=== PATIENT | female | born 1995 | race Caucasian/White ===

== ENCOUNTER 2021-01-21 14:54 | Emergency (ER) | payer OTHER, MEDICAID, SELFPAY ==
[2021-01-21] VITALS (11 sets, daily range): BP systolic 103–126; BP diastolic 55–78; PULSE 60–87; RESP 14; TEMP 36.9; O2SAT 92–99; BMI 19.2
--- NOTE | 2021-01-21 15:04 | ED_ITS ---
HPI - Abdominal Pain <Kameron Mark DO - Last Filed: 01/21/21 15:30> General Chief Complaint: Abdominal Pain Stated Complaint: stomach issues, not able to keep anything down Time Seen by Provider: 01/21/21 15:04 Related Data Allergies Allergy/AdvReac Type Severity Reaction Status Date / Time No Known Drug Allergies Allergy Verified 01/21/21 15:18 Patient History <DO Aaron Patel Last Filed: 01/21/21 15:30> Social History Smoking Status: Unknown if ever smoked Exam <Kameron Mark DO - Last Filed: 01/21/21 15:30> Initial Vital Signs Initial Vital Signs: Vital Signs Temperature 98.4 F 01/21/21 15:05 Pulse Rate 78 01/21/21 15:05 Respiratory Rate 14 01/21/21 15:05 Blood Pressure 126/77 01/21/21 15:05 Pulse Oximetry 99 01/21/21 15:05 <Palmira Escobar MD - Last Filed: 01/21/21 17:32> Initial Vital Signs Initial Vital Signs: Vital Signs Temperature 98.4 F 01/21/21 15:05 Pulse Rate 78 01/21/21 15:05 Respiratory Rate 14 01/21/21 15:05 Blood Pressure 126/77 01/21/21 15:05 Pulse Oximetry 99 01/21/21 15:05 Course <Kameron Mark DO - Last Filed: 01/21/21 15:30> Orders Ordered: ED Orders 01/21/21 15:25 Complete Blood Count AUTO DIFF Stat Comprehensive Metabolic Panel Stat Lipase Stat Magnesium Stat Phosphorous Stat 01/21/21 15:41 CT abdomen pelvis w con Stat Hydromorphone HCl (Hydromorphone 0.5 Mg Inj) 0.5 mg IV Q15MIN PRN PRN Reason: Pain, Discontinued Medications Sodium Chloride (Normal Saline 0.9%) 1,000 mls @ 1,000 mls/hr IV BOLUS ONE Stop: 01/21/21 16:15 Last Admin: 01/21/21 15:31 Dose: 1,000 mls/hr Documented by: RSTONE Metoclopramide HCl (Metoclopramide 10 Mg/2 Ml Inj) 10 mg IV NOW ONE Stop: 01/21/21 15:17 Last Admin: 01/21/21 15:31 Dose: 10 mg Documented by: POLLY Vital Signs Vital signs: Vital Signs - 8 hr 01/21/21 15:05 Temperature 98.4 F Pulse Rate 78 Respiratory Rate 14 Blood Pressure 126/77 Pulse Oximetry 99 <Palmira Escobar MD - Last Filed: 01/21/21 17:32> Orders Ordered: ED Orders 01/21/21 15:25 Complete Blood Count AUTO DIFF Stat Comprehensive Metabolic Panel Stat Lipase Stat Magnesium Stat Phosphorous Stat 01/21/21 15:41 CT abdomen pelvis w con Stat Hydromorphone HCl (Hydromorphone 0.5 Mg Inj) 0.5 mg IV Q15MIN PRN PRN Reason: Pain, Discontinued Medications Sodium Chloride (Normal Saline 0.9%) 1,000 mls @ 1,000 mls/hr IV BOLUS ONE Stop: 01/21/21 16:15 Last Admin: 01/21/21 15:31 Dose: 1,000 mls/hr Documented by: POLLY Metoclopramide HCl (Metoclopramide 10 Mg/2 Ml Inj) 10 mg IV NOW ONE Stop: 01/21/21 15:17 Last Admin: 01/21/21 15:31 Dose: 10 mg Documented by: POLLY Vital Signs Vital signs: Vital Signs - 8 hr 01/21/21 15:05 Temperature 98.4 F Pulse Rate 78 Respiratory Rate 14 Blood Pressure 126/77 Pulse Oximetry 99 MDM - Abdominal Pain <Kameron Mark DO - Last Filed: 01/21/21 15:30> Lab Data Result diagrams: 01/21/21 15:25 01/21/21 15:25 Labs: Lab Results 01/21/21 01/21/21 01/21/21 Range/Units 15:25 15:25 15:25 WBC 5.7 (4.5-11.0) X10^3/uL RBC 4.68 (4.0-5.2) X10^6/uL Hgb 14.3 (12.0-16.0) g/dL Hct 42.1 (36-46) % MCV 89.8 (80-100) fL MCH 30.4 (26-34) PG MCHC 33.9 (30-36) % RDW 13.5 (11.6-14.8) % Plt Count 159 (150-400) X10^3/uL Neut % (Auto) 53.2 (50-75) % Lymph % (Auto) 38.0 (25-40) % [place] % (Auto) 6.1 (3-14) % Eos % (Auto) 2.0 (2-4) % Baso % (Auto) 0.7 (0-2) % Neut # (Auto) 3000 (6287-8288) /uL Lymph # (Auto) 2200 (2525-4190) /uL [place] # (Auto) 300 (0-900) /uL Eos # (Auto) 100 (0-450) /uL Baso # (Auto) 0 (0-100) /uL Sodium 142 (137-145) mmol/L Potassium 3.4 (3.4-5.1) mmol/L Chloride 105 (98-107) mmol/L Carbon Dioxide 27 (22-32) mmol/L BUN 9 (7-17) mg/dL Creatinine 0.74 (0.52-1.04) mg/dL Estimated GFR > 60.0 (>60) mL/min BUN/Creatinine Ratio 12.2 (6-22) Glucose 89 (70-100) mg/dL Calcium 9.5 (8.4-10.2) mg/dL Phosphorus (2.5-4.5) mg/dL Magnesium (1.6-2.3) mg/dL Total Bilirubin 0.6 (0.2-1.3) mg/dL AST 31 (14-36) IU/L ALT 20 (<35) IU/L Alkaline Phosphatase 67 (38-126) U/L Total Protein 7.4 (6.3-8.2) g/dL Albumin 4.5 (3.5-5.0) g/dL Globulin 2.9 (1.7-4.1) g/dL Albumin/Globulin Ratio 1.6 (1.0-2.8) Lipase 62 (23-300) U/L 01/21/21 Range/Units 15:25 WBC (4.5-11.0) X10^3/uL RBC (4.0-5.2) X10^6/uL Hgb (12.0-16.0) g/dL Hct (36-46) % MCV (80-100) fL MCH (26-34) PG MCHC (30-36) % RDW (11.6-14.8) % Plt Count (150-400) X10^3/uL Neut % (Auto) (50-75) % Lymph % (Auto) (25-40) % [place] % (Auto) (3-14) % Eos % (Auto) (2-4) % Baso % (Auto) (0-2) % Neut # (Auto) (8601-3711) /uL Lymph # (Auto) (9341-7676) /uL [place] # (Auto) (0-900) /uL Eos # (Auto) (0-450) /uL Baso # (Auto) (0-100) /uL Sodium (137-145) mmol/L Potassium (3.4-5.1) mmol/L Chloride (98-107) mmol/L Carbon Dioxide (22-32) mmol/L BUN (7-17) mg/dL Creatinine (0.52-1.04) mg/dL Estimated GFR (>60) mL/min BUN/Creatinine Ratio (6-22) Glucose (70-100) mg/dL Calcium (8.4-10.2) mg/dL Phosphorus 3.1 (2.5-4.5) mg/dL Magnesium 2.2 (1.6-2.3) mg/dL Total Bilirubin (0.2-1.3) mg/dL AST (14-36) IU/L ALT (<35) IU/L Alkaline Phosphatase (38-126) U/L Total Protein (6.3-8.2) g/dL Albumin (3.5-5.0) g/dL Globulin (1.7-4.1) g/dL Albumin/Globulin Ratio (1.0-2.8) Lipase (23-300) U/L Point of care testing: Point of Care Testing Test Results Negative Urine Dip Bedside Urine Glucose Negative Bedside Urine Bilirubin - Negative Bedside Urine Ketone - Negative Urine Specific [place] 1.025 Bedside Urine Occult Blood +/- Bedside Urine pH 6.0 Bedside Urine Protein - Negative Bedside Urine Urobilinogen - Negative Bedside Urine Nitrite - Negative Bedside Urine Leukocytes - Negative Esterase <Palmira Escobar MD - Last Filed: 01/21/21 17:32> Lab Data Labs: Lab Results 01/21/21 01/21/21 01/21/21 Range/Units 15:25 15:25 15:25 WBC 5.7 (4.5-11.0) X10^3/uL RBC 4.68 (4.0-5.2) X10^6/uL Hgb 14.3 (12.0-16.0) g/dL Hct 42.1 (36-46) % MCV 89.8 (80-100) fL MCH 30.4 (26-34) PG MCHC 33.9 (30-36) % RDW 13.5 (11.6-14.8) % Plt Count 159 (150-400) X10^3/uL Neut % (Auto) 53.2 (50-75) % Lymph % (Auto) 38.0 (25-40) % [place] % (Auto) 6.1 (3-14) % Eos % (Auto) 2.0 (2-4) % Baso % (Auto) 0.7 (0-2) % Neut # (Auto) 3000 (0275-9296) /uL Lymph # (Auto) 2200 (5506-9707) /uL [place] # (Auto) 300 (0-900) /uL Eos # (Auto) 100 (0-450) /uL Baso # (Auto) 0 (0-100) /uL Sodium 142 (137-145) mmol/L Potassium 3.4 (3.4-5.1) mmol/L Chloride 105 (98-107) mmol/L Carbon Dioxide 27 (22-32) mmol/L BUN 9 (7-17) mg/dL Creatinine 0.74 (0.52-1.04) mg/dL Estimated GFR > 60.0 (>60) mL/min BUN/Creatinine Ratio 12.2 (6-22) Glucose 89 (70-100) mg/dL Calcium 9.5 (8.4-10.2) mg/dL Phosphorus (2.5-4.5) mg/dL Magnesium (1.6-2.3) mg/dL Total Bilirubin 0.6 (0.2-1.3) mg/dL AST 31 (14-36) IU/L ALT 20 (<35) IU/L Alkaline Phosphatase 67 (38-126) U/L Total Protein 7.4 (6.3-8.2) g/dL Albumin 4.5 (3.5-5.0) g/dL Globulin 2.9 (1.7-4.1) g/dL Albumin/Globulin Ratio 1.6 (1.0-2.8) Lipase 62 (23-300) U/L 01/21/21 Range/Units 15:25 WBC (4.5-11.0) X10^3/uL RBC (4.0-5.2) X10^6/uL Hgb (12.0-16.0) g/dL Hct (36-46) % MCV (80-100) fL MCH (26-34) PG MCHC (30-36) % RDW (11.6-14.8) % Plt Count (150-400) X10^3/uL Neut % (Auto) (50-75) % Lymph % (Auto) (25-40) % [place] % (Auto) (3-14) % Eos % (Auto) (2-4) % Baso % (Auto) (0-2) % Neut # (Auto) (1710-9460) /uL Lymph # (Auto) (9285-0628) /uL [place] # (Auto) (0-900) /uL Eos # (Auto) (0-450) /uL Baso # (Auto) (0-100) /uL Sodium (137-145) mmol/L Potassium (3.4-5.1) mmol/L Chloride (98-107) mmol/L Carbon Dioxide (22-32) mmol/L BUN (7-17) mg/dL Creatinine (0.52-1.04) mg/dL Estimated GFR (>60) mL/min BUN/Creatinine Ratio (6-22) Glucose (70-100) mg/dL Calcium (8.4-10.2) mg/dL Phosphorus 3.1 (2.5-4.5) mg/dL Magnesium 2.2 (1.6-2.3) mg/dL Total Bilirubin (0.2-1.3) mg/dL AST (14-36) IU/L ALT (<35) IU/L Alkaline Phosphatase (38-126) U/L Total Protein (6.3-8.2) g/dL Albumin (3.5-5.0) g/dL Globulin (1.7-4.1) g/dL Albumin/Globulin Ratio (1.0-2.8) Lipase (23-300) U/L Point of care testing: Point of Care Testing Test Results Negative Urine Dip Bedside Urine Glucose Negative Bedside Urine Bilirubin - Negative Bedside Urine Ketone - Negative Urine Specific [place] 1.025 Bedside Urine Occult Blood +/- Bedside Urine pH 6.0 Bedside Urine Protein - Negative Bedside Urine Urobilinogen - Negative Bedside Urine Nitrite - Negative Bedside Urine Leukocytes - Negative Esterase
[2021-01-21 15:28] LABS: Add Manual Diff / Slide Review NO; Basophils Absolute Auto 0 /uL (0-100); Basophils Percent Auto 0.7 % (0-2); Eosinophils Absolute Auto 100 /uL (0-450); Hematocrit 42.1 % (36-46); Hemoglobin 14.3 g/dL (12.0-16.0); Lymphocytes Absolute Auto 2200 /uL (1100-4500); Mean Corpuscular HGB Conc 33.9 % (30-36); Mean Corpuscular Hemoglobin 30.4 PG (26-34); Mean Corpuscular Volume 89.8 fL (80-100); Monocytes Absolute Auto 300 /uL (0-900); Monocytes Percent Auto 6.1 % (3-14); Neutrophils Absolute Auto 3000 /uL (1500-7000); Neutrophils Percent Auto 53.2 % (50-75); Platelet Count 159 X10^3/uL (150-400); Red Blood Cell Count 4.68 X10^6/uL (4.0-5.2); Red Cell Distribution Width 13.5 % (11.6-14.8); White Blood Cell Count 5.7 X10^3/uL (4.5-11.0)
[2021-01-21] MEDS: SODIUM CHLORIDE 0.9% 1,000 ML 1000 ML IV (15:31)
[2021-01-21] MEDS: METOCLOPRAMIDE 10 MG/2 ML INJ IV (15:31)
--- NOTE | 2021-01-21 15:36 | ED.GENADULT ---
HPI - General Adult General Chief complaint: Abdominal Pain Stated complaint: stomach issues, not able to keep anything down Time Seen by Provider: 01/21/21 15:04 Source: patient Mode of arrival: Ambulatory Limitations: no limitations History of Present Illness HPI narrative: 25-year-old woman with progressive abdominal complaints. Her problems began in August of 2020 she was seen at [facility] emergency department 4 times in 1 and half weeks and each time was sent home with pain medications. She did have a CT scan sometime in August as part of that workup that was reportedly negative. She has since followed up with GI and has had HIDA studies, pH studies and upper endoscopy. The endoscopy suggests minor reflux changes in the lower esophagus and possibly some minor esophageal dysmotility issues but no other significant findings. Certainly not enough to explain the persistent severe epigastric pain. With previous ER visit she has had GI cocktails which have not been helpful in an in fact have made symptoms worse. She currently is on omeprazole Zofran trazodone and citalopram as well as Depo injections. She had been on Carafate however that was making things worse. Over the last 48 hours her pain is worsened and her nausea has progressed to the point that she is not able to keep any of her medications or even fluids down. She does note that she has lost significant weight. She is unsure of the actual weight loss but notes that none of her pants fit anymore. Her symptoms have progressed to the point that she is having generalized abdominal pain including the lower abdomen. She is amenorrheic from her Depo and test is negative today. She notes that her stools are significantly softer and greenish most of the time which is a significant change for her. She denies any other medications and does not use marijuana in any form. She has a follow-up appointment with Gastroenterology at [facility] in a couple of days to review studies as outlined above. In the meantime she comes to the ER for increasing pain, vomiting and now complete abdominal pain not just epigastric. Related Data Previous Rx's Medication Instructions Recorded metoclopramide HCl 10 mg PO Q6H #30 tab 01/21/21 Allergies Allergy/AdvReac Type Severity Reaction Status Date / Time No Known Drug Allergies Allergy Verified 01/21/21 15:18 Review of Systems Review of Systems Narrative: Remainder of complete review of systems is otherwise unremarkable except for that included in the HPI. Patient History Social History Smoking Status: Unknown if ever smoked Smoking Status: Unknown if ever smoked alcohol intake frequency: holidays/special occasions only Substance Use Type: does not use Exam Narrative Exam Narrative: General: Quite thin, in no acute distress. Able to give a complete and coherent history. Well-nourished well-developed HEENT: Moist mucous membranes, normal sclera with reactive pupils, Neck: supple Respiratory: Lungs are clear to auscultation, no wheezing no rales no rhonchi. Full and symmetrical air movement Cardiac: Regular rate and rhythm no murmurs no bruits Abdomen: Soft, diffuse abdominal tenderness in all quadrants without rebound or guarding, good bowel tones, no flank pain Skin: Warm and dry, no rashes Neurologic: Grossly neurologically intact with no obvious asymmetries or abnormalities Extremities: No trauma, well perfused Psych: Cooperative, appropriate insight and affect Initial Vital Signs Initial Vital Signs: Vital Signs Temperature 98.4 F 01/21/21 15:05 Pulse Rate 78 01/21/21 15:05 Respiratory Rate 14 01/21/21 15:05 Blood Pressure 126/77 01/21/21 15:05 Pulse Oximetry 99 01/21/21 15:05 Course Orders Ordered: ED Orders 01/21/21 15:25 Complete Blood Count AUTO DIFF Stat Comprehensive Metabolic Panel Stat Lipase Stat Magnesium Stat Phosphorous Stat 01/21/21 15:41 CT abdomen pelvis w con Stat 01/21/21 17:36 US abdomen limited Stat Hydromorphone HCl (Hydromorphone 0.5 Mg Inj) 0.5 mg IV Q15MIN PRN PRN Reason: Pain, Last Admin: 01/21/21 18:02 Dose: 0.5 mg Documented by: Discontinued Medications Sodium Chloride (Normal Saline 0.9%) 1,000 mls @ 1,000 mls/hr IV BOLUS ONE Stop: 01/21/21 16:15 Last Admin: 01/21/21 15:31 Dose: 1,000 mls/hr Documented by: RSTONE Metoclopramide HCl (Metoclopramide 10 Mg/2 Ml Inj) 10 mg IV NOW ONE Stop: 01/21/21 15:17 Last Admin: 01/21/21 15:31 Dose: 10 mg Documented by: POLLY Vital Signs Vital signs: Vital Signs - 8 hr 01/21/21 15:05 01/21/21 15:16 01/21/21 15:30 Temperature 98.4 F Pulse Rate 78 82 65 Respiratory Rate 14 Blood Pressure 126/77 109/67 Pulse Oximetry 99 98 98 01/21/21 16:00 01/21/21 17:04 01/21/21 17:05 Temperature Pulse Rate 60 85 64 Respiratory Rate Blood Pressure 103/59 L 103/62 Pulse Oximetry 99 92 99 01/21/21 17:30 Temperature Pulse Rate 73 Respiratory Rate Blood Pressure 109/61 Pulse Oximetry 99 Medical Decision Making Medical Records Medical records reviewed: Yes I reviewed the patient's medical records. Lab Data Lab results reviewed: Yes I reviewed the patient's lab results. Result diagrams: 01/21/21 15:25 01/21/21 15:25 Labs: Lab Results 01/21/21 01/21/21 01/21/21 Range/Units 15:25 15:25 15:25 WBC 5.7 (4.5-11.0) X10^3/uL RBC 4.68 (4.0-5.2) X10^6/uL Hgb 14.3 (12.0-16.0) g/dL Hct 42.1 (36-46) % MCV 89.8 (80-100) fL MCH 30.4 (26-34) PG MCHC 33.9 (30-36) % RDW 13.5 (11.6-14.8) % Plt Count 159 (150-400) X10^3/uL Neut % (Auto) 53.2 (50-75) % Lymph % (Auto) 38.0 (25-40) % [place] % (Auto) 6.1 (3-14) % Eos % (Auto) 2.0 (2-4) % Baso % (Auto) 0.7 (0-2) % Neut # (Auto) 3000 (1341-5244) /uL Lymph # (Auto) 2200 (1502-8303) /uL [place] # (Auto) 300 (0-900) /uL Eos # (Auto) 100 (0-450) /uL Baso # (Auto) 0 (0-100) /uL Sodium 142 (137-145) mmol/L Potassium 3.4 (3.4-5.1) mmol/L Chloride 105 (98-107) mmol/L Carbon Dioxide 27 (22-32) mmol/L BUN 9 (7-17) mg/dL Creatinine 0.74 (0.52-1.04) mg/dL Estimated GFR > 60.0 (>60) mL/min BUN/Creatinine Ratio 12.2 (6-22) Glucose 89 (70-100) mg/dL Calcium 9.5 (8.4-10.2) mg/dL Phosphorus (2.5-4.5) mg/dL Magnesium (1.6-2.3) mg/dL Total Bilirubin 0.6 (0.2-1.3) mg/dL AST 31 (14-36) IU/L ALT 20 (<35) IU/L Alkaline Phosphatase 67 (38-126) U/L Total Protein 7.4 (6.3-8.2) g/dL Albumin 4.5 (3.5-5.0) g/dL Globulin 2.9 (1.7-4.1) g/dL Albumin/Globulin Ratio 1.6 (1.0-2.8) Lipase 62 (23-300) U/L 01/21/21 Range/Units 15:25 WBC (4.5-11.0) X10^3/uL RBC (4.0-5.2) X10^6/uL Hgb (12.0-16.0) g/dL Hct (36-46) % MCV (80-100) fL MCH (26-34) PG MCHC (30-36) % RDW (11.6-14.8) % Plt Count (150-400) X10^3/uL Neut % (Auto) (50-75) % Lymph % (Auto) (25-40) % [place] % (Auto) (3-14) % Eos % (Auto) (2-4) % Baso % (Auto) (0-2) % Neut # (Auto) (5844-0586) /uL Lymph # (Auto) (0677-8340) /uL [place] # (Auto) (0-900) /uL Eos # (Auto) (0-450) /uL Baso # (Auto) (0-100) /uL Sodium (137-145) mmol/L Potassium (3.4-5.1) mmol/L Chloride (98-107) mmol/L Carbon Dioxide (22-32) mmol/L BUN (7-17) mg/dL Creatinine (0.52-1.04) mg/dL Estimated GFR (>60) mL/min BUN/Creatinine Ratio (6-22) Glucose (70-100) mg/dL Calcium (8.4-10.2) mg/dL Phosphorus 3.1 (2.5-4.5) mg/dL Magnesium 2.2 (1.6-2.3) mg/dL Total Bilirubin (0.2-1.3) mg/dL AST (14-36) IU/L ALT (<35) IU/L Alkaline Phosphatase (38-126) U/L Total Protein (6.3-8.2) g/dL Albumin (3.5-5.0) g/dL Globulin (1.7-4.1) g/dL Albumin/Globulin Ratio (1.0-2.8) Lipase (23-300) U/L Point of Care Testing Test Results Negative Urine Dip Bedside Urine Glucose Negative Bedside Urine Bilirubin - Negative Bedside Urine Ketone - Negative Urine Specific [place] 1.025 Bedside Urine Occult Blood +/- Bedside Urine pH 6.0 Bedside Urine Protein - Negative Bedside Urine Urobilinogen - Negative Bedside Urine Nitrite - Negative Bedside Urine Leukocytes - Negative Esterase Point of care testing: Point of Care Testing Test Results Negative Urine Dip Bedside Urine Glucose Negative Bedside Urine Bilirubin - Negative Bedside Urine Ketone - Negative Urine Specific [place] 1.025 Bedside Urine Occult Blood +/- Bedside Urine pH 6.0 Bedside Urine Protein - Negative Bedside Urine Urobilinogen - Negative Bedside Urine Nitrite - Negative Bedside Urine Leukocytes - Negative Esterase Imaging Data CT scan - abdomen/pelvis: Radiologist's Impression: FINDINGS: Image quality: Excellent. ABDOMEN: Lung bases: Lung bases are clear. Heart size is normal. Solid organs: Liver is normal in size and enhancement. Gallbladder is mildly distended with mild prominence of the gallbladder wall. Biliary system is non dilated. Pancreas enhances normally. Spleen is normal in size and enhancement. No adrenal nodules. Kidneys demonstrate normal size and enhancement, without hydronephrosis. Peritoneum and bowel: Bowel loops demonstrate normal wall thickness and caliber. No free fluid or air. Nodes and vessels: No retroperitoneal or mesenteric adenopathy by size criteria. Aorta and inferior vena cava are normal in size. Miscellaneous: No ventral hernias. PELVIS: Genitourinary: Bladder wall thickness is normal. Miscellaneous: No inguinal hernias or adenopathy. Bones: No suspicious bony lesions. No vertebral body compression fractures. IMPRESSION: Mildly distended gallbladder with mildly prominent gallbladder wall. Otherwise negative study. Consider right upper quadrant ultrasound. Dictated by: Brendan Connolly M.D. on 01/21/2021 at 16:43 Ultrasound right upper quadrant: Radiologist's Impression: FINDINGS: Liver: Homogeneous echotexture. No evidence of focal mass lesion. No intra hepatic biliary ductal dilatation Gallbladder: Sonolucent without cholelithiasis. No gallbladder wall thickening. No pericholecystic fluid or Gaines's sign. Common Bile Duct: 5 mm. Pancreas: Unremarkable as visualized IMPRESSION: Unremarkable ultrasound of the right upper quadrant Dictated by: Jer Be M.D. on 01/21/2021 at 17:14 MDM Narrative Medical decision making narrative: 25-year-old woman with 6 months of abdominal pain mostly epigastric and upper quadrants. She has had extensive workups with multiple ER visits. GI workup is relatively unremarkable with some mild reflux possible some mild esophageal dysmotility. HIDA scan was negative and presumably prior CT scans and abdominal ultrasounds are also negative. She states she has had the studies done and was told they were ?fine?. I do not have access to those at this point. She is currently on proton pump inhibitors. Carafate made her symptoms worse and every time she has had a GI cocktail it has not alleviated any of her abdominal pain. She comes in today with dramatically worsening pain over the last 3-4 days and severe nausea and vomiting unable to keep anything down and beginning to have orthostatic symptoms. On exam today she has right upper quadrant and lower abdominal pain. CT scan suggests slightly dilated gallbladder with possibly enlarged gallbladder wall. No mention of gallstones. Labs are completely reassuring. Her symptoms are better with a L of fluid and IV Reglan. Abdominal ultrasound is ordered to look at the gallbladder given the abnormal CT findings today. Because of the continued an increasing severity of her undiagnosed abdominal pain care is briefly reviewed with general surgery, Dr. Ruiz. If remainder of workup continues to be unremarkable he does agree that sometimes diagnostic laparoscopy is the next step. If ultrasound shows signs of cholecystitis will again review with Dr. Ruiz and consider hospitalization this evening. If the ultrasound is unremarkable with patient feeling significantly better will discharge her home with Reglan as it seems to be more effective for her than Zofran, with instructions to schedule an outpatient consultation with Dr. Ruiz for 6 months of undiagnosed abdominal pain. Discharge Plan Departure Patient Disposition: Home Clinical Impression: Abdominal pain Qualifiers: Abdominal location: generalized Qualified Code(s): R10.84 - Generalized abdominal pain Instructions: DI for Abdominal Pain-Adult Activity Restrictions/Additional Instructions: Thank you for coming in today I am so sorry your dealing with this frustration in figuring out what is causing this abdominal pain that is been there for 6 months. Today, your lab work was very reassuring. Your abdominal ultrasound did not suggest acute cholecystitis nor did it show any gallstones. The CT scan of your abdomen was unremarkable but did suggest a bit of gallbladder distension. You improved with IV fluid and IV Reglan, nausea medication. I will give you a prescription for oral Reglan to use at home to help with the nausea Please keep your appointment with the black leather buffer. If you still are not getting to answers, the next step in the workup of abdominal pain that continues to be undiagnosed is often talking with a general surgeon and considering an elective surgery to see if there is anything else that can be found. If you do want to pursue that, please consider following up with Dr. Ruiz at [facility]. I have given you his name and address below. I wish you the best Prescriptions: New metoclopramide HCl 10 mg tablet,disintegrating 10 mg PO Q6H Qty: 30 RF: 1 Referrals: Rina Montejo [Primary Care Provider] - Giorgio Ruiz MD [Physician] -
--- NOTE | 2021-01-21 15:41 | DI.CT.S_ITS ---
PROCEDURE: CT ABDOMEN PELVIS W CON INDICATIONS: progressive abdominal pain, persistent nausea, weight loss TECHNIQUE: After the administration of intravenous contrast, 5 mm thick sections acquired from the diaphragm to the symphysis. 5 mm coronal and sagittal reformats were acquired. For radiation dose reduction, the following was used: automated exposure control, adjustment of mA and/or kV according to patient size. COMPARISON: None. FINDINGS: Image quality: Excellent. ABDOMEN: Lung bases: Lung bases are clear. Heart size is normal. Solid organs: Liver is normal in size and enhancement. Gallbladder is mildly distended with mild prominence of the gallbladder wall. Biliary system is non dilated. Pancreas enhances normally. Spleen is normal in size and enhancement. No adrenal nodules. Kidneys demonstrate normal size and enhancement, without hydronephrosis. Peritoneum and bowel: Bowel loops demonstrate normal wall thickness and caliber. No free fluid or air. Nodes and vessels: No retroperitoneal or mesenteric adenopathy by size criteria. Aorta and inferior vena cava are normal in size. Miscellaneous: No ventral hernias. PELVIS: Genitourinary: Bladder wall thickness is normal. Miscellaneous: No inguinal hernias or adenopathy. Bones: No suspicious bony lesions. No vertebral body compression fractures. IMPRESSION: Mildly distended gallbladder with mildly prominent gallbladder wall. Otherwise negative study. Consider right upper quadrant ultrasound. Dictated by: Brendan Connolly M.D. on 01/21/2021 at 16:43 Approved by: Brendan Connolly M.D. on 01/21/2021 at 16:46
[2021-01-21 15:54] LABS: Alanine Aminotransferase 20 IU/L (<35); Albumin 4.5 g/dL (3.5-5.0); Albumin Globulin Ratio 1.6 (1.0-2.8); Alkaline Phosphatase 67 U/L (38-126); Aspartate Aminotransferase 31 IU/L (14-36); Bilirubin Total 0.6 mg/dL (0.2-1.3); Blood Urea Nitrogen 9 mg/dL (7-17); Calcium 9.5 mg/dL (8.4-10.2); Carbon Dioxide 27 mmol/L (22-32); Chloride 105 mmol/L (98-107); Globulin 2.9 g/dL (1.7-4.1); HEMOLYSIS < 15 (0-50); Lipase 62 U/L (23-300); Potassium 3.4 mmol/L (3.4-5.1); Sodium 142 mmol/L (137-145); Total Protein 7.4 g/dL (6.3-8.2)
[2021-01-21 16:10] LABS: BUN Creatinine Ratio 12.2 (6-22); Estimated Glomerular Filt Rate > 60.0 mL/min (>60); Glucose 89 mg/dL (70-100)
[2021-01-21 16:39] LABS: Magnesium 2.2 mg/dL (1.6-2.3); Phosphorous 3.1 mg/dL (2.5-4.5)
--- NOTE | 2021-01-21 17:36 | DI.US.S_ITS ---
PROCEDURE: US ABDOMEN LIMITED INDICATIONS: RUQ pain TECHNIQUE: Real-time focused scanning was performed of the abdomen, with image documentation. COMPARISON: None. FINDINGS: Liver: Homogeneous echotexture. No evidence of focal mass lesion. No intra hepatic biliary ductal dilatation Gallbladder: Sonolucent without cholelithiasis. No gallbladder wall thickening. No pericholecystic fluid or Gaines's sign. Common Bile Duct: 5 mm. Pancreas: Unremarkable as visualized IMPRESSION: Unremarkable ultrasound of the right upper quadrant Dictated by: Jer Be M.D. on 01/21/2021 at 17:14 Approved by: Jer Be M.D. on 01/21/2021 at 17:21
[2021-01-21] MEDS: HYDROMORPHONE 0.5 MG INJ IV (18:02)
== END 2021-01-21 19:06 | disposition home or self-care (01) ==
PROVIDERS: Emergency Provider Emergency Medicine; PCP Physician Assistant
DX: R10.84 Generalized abdominal pain (principal); R11.2 Nausea with vomiting, unspecified; N91.2 Amenorrhea, unspecified
CPT/HCPCS: 36415; 74177; 76705; 80053; 81003; 81025; 83690; 83735; 84100; 85025; 96361; 96374; 96375; 99284; J1170; J2765; Q9967

== ENCOUNTER → 2021-03-01 10:47 | Outpatient (CLI) | payer OTHER, MEDICAID, SELFPAY ==
[2021-03-01 11:35] LABS: COVID19 -Nasal RAPID Negative (Negative)
== END ==
PROVIDERS: PCP Physician Assistant; Visit Provider Surgery
DX: Z20.822 Contact with and (suspected) exposure to COVID-19 (principal)
CPT/HCPCS: 87635; C9803

== ENCOUNTER 2021-03-02 07:30 | Day surgery (SDC) | payer OTHER, MEDICAID, SELFPAY ==
[2021-02-23 15:12] VITALS: BMI 19.5
[2021-03-02] VITALS (7 sets, daily range): BP systolic 111–117; BP diastolic 59–76; PULSE 70–100; RESP 16–22; TEMP 36.3–36.7; O2SAT 97–99; BMI 19.5
[2021-03-02] MEDS: LACTATED RINGERS 1,000 ML 100 ML IV (08:00)
--- NOTE | 2021-03-02 08:39 | PM.PREOP ---
Pre-operative Note Interval Note History & Physical reviewed/Exam performed by Physician: Yes Changes to H&P: No
[2021-03-02] MEDS: CEFAZOLIN 1 GM VIAL 2 GM IV (09:10)
--- NOTE | 2021-03-02 09:18 | SUR.OPER ---
Supine on padded OR bed, head on pillow, safety belt at thigh, left arm padded and tucked at side. Right arm secured on padded arm board <90 degrees abduction. Legs uncrossed. Padded footboard in place. Tape over blanket to secure lower legs.
[2021-03-02] MEDS: BUPIVACAINE 0.5% (PF) VIAL 30 ML INJ (09:23)
[2021-03-02] MEDS: OXYCODONE/ACETAMINOPHEN 5/325 TABLET 1 TAB PO (10:43)
--- NOTE | 2021-03-02 10:45 | P.OP_ITS ---
Operative Date/Time/Diagnoses Date of procedure: 03/02/21 Time of procedure: 10:45 Pre-op diagnosis: Abdominal pain Post-op diagnosis: other (Adnexal cyst) Procedure & Clinicians Procedure: Diagnostic laparoscopy Same procedure as scheduled: Yes Indications: 25-year-old female with chronic upper abdominal pain has undergone a CT abdomen pelvis, abdominal ultrasound, HIDA scan, upper and lower endoscopy with inconclusive results here for a diagnostic laparoscopy. Surgeon: Giorgio Ruiz Anesthesia Type: General Operative Notes Findings: Left adnexal cyst, dense adhesions involving the left tube and ovary. Unremarkable gallbladder, stomach, small and large intestine, no endometriosis, no upper abodminal adhesions. Estimated Blood Loss (mL): 20 Procedure in detail: Patient was brought to the operating room placed supine on the table. Bilateral lower extremity compression devices were applied. She received 2 g of Ancef prior to skin incision. She was prepped and draped in sterile fashion. Time-out was performed. An infraumbilical incision was made. The umbilical fascia was grasped elevated the fascia divided abdomen entered atraumatically. A 12 mm balloon trocar was then placed into the abdomen. Pneumoperitoneum was established the laparoscope was inserted there was no evidence of injury upon entry. Two 5 mm working ports were placed in the right upper quadrant. A thorough inspection of the abdomen was made. Beginning with the right upper quadrant the liver and gallbladder were unremarkable there were no adhesions no evidence of prior cholecystitis. The left upper quadrant demonstrated a normal stomach the transverse colon was unremarkable. The right lower quadrant demonstrated a normal ascending colon and grossly normal right adnexa. The left lower quadrant was remarkable for a left adnexal cyst of approximately 4 cm. There were dense adhesions involving the left adnexa, no abscess or purulence was observed. The sigmoid colon was grossly normal no evidence of active diverticular disease. Dr. Roper of gynecology came to the operating room to observe the laparoscopy, we discussed her case and agreed that because she had not provided adequate consent for any gynecological procedure nor was I sure that this was the origin of her pain, I did not explore further. Hemostasis was observed. Abdomen was desufflated trocars removed under direct vision the umbilical fascia was closed fever a fashion with Vicryl suture skin closed with 4-0 Monocryl followed by the application of Dermabond. Transf erred to recovery room in stable condition. Complications: none Post-operative Condition: stable Disposition: same day surgery
--- NOTE | 2021-03-02 10:55 | SUR.PHASEI ---
Stable PACU STAY. DR WESTFALL SPOKE WITH PT AND SPOKE WITH FAMILY
== END 2021-03-02 10:51 | disposition home or self-care (01) ==
PROVIDERS: PCP Physician Assistant; Referring Provider Surgery; Visit Provider Surgery
PROC: 0FT44ZZ Resection of Gallbladder, Percutaneous Endoscopic Approach (ICD-10-PCS; CPT 47562; principal; 2021-03-02 08:45)
DX: R10.11 Right upper quadrant pain (principal); N83.8 Other noninflammatory disorders of ovary, fallopian tube and broad ligament; N73.6 Female pelvic peritoneal adhesions (postinfective)
CPT/HCPCS: 49320; 81025; 82962; J0690; J1100; J1885; J2250; J2405; J2704; J3010

== ENCOUNTER 2021-04-28 09:15 | Emergency (ER) | payer OTHER, MEDICAID, SELFPAY ==
[2021-04-28 09:28] VITALS: BP 114/73; PULSE 90; RESP 16; TEMP 36.8; O2SAT 99; BMI 19.5
--- NOTE | 2021-04-28 09:28 | ED.GENADULT ---
HPI - General Adult General Chief complaint: Abdominal Pain Stated complaint: STOMACH/CHEST PAIN Time Seen by Provider: 04/28/21 09:19 Source: patient Mode of arrival: Ambulatory History of Present Illness HPI narrative: Patient is a 25-year-old female here for evaluation of upper abdominal pain that radiates down her right side and then her lower abdomen and also radiates into her chest. She has had abdominal discomfort since August this year. Has had multiple visits to multiple providers and has had CT scans and ultrasounds and even surgery to further evaluate her symptoms. She has been seen by a GI doctor. There has been no definitive diagnosis provided. Her last encounter for this discomfort was couple months ago where she had surgery to further evaluate. States that after the surgery for symptoms did improve for a couple weeks/months but now has returned. She has not followed up with her GI provider. She states that the symptoms that brought her in today are the exact symptoms that she has been having over past several months. Last evening was having hard time sleeping but waited until today to come to the emergency department. Related Data Home Medications Medication Instructions Recorded Confirmed bumvrvb-lcjelrwggf-IKO-caffeine 30 1 cap PO Q6H PRN 02/17/21 03/02/21 mg-50 mg-325 mg-40 mg capsule pantoprazole 40 mg tablet,delayed 40 mg PO DAILY 02/17/21 03/02/21 release trazodone 50 mg tablet 50 mg PO BEDTIME PRN 02/17/21 03/02/21 escitalopram oxalate 10 mg tablet 10 mg PO DAILY 03/02/21 03/02/21 metoclopramide HCl 10 mg 10 mg PO Q6H PRN 03/02/21 03/02/21 disintegrating tablet Previous Rx's Medication Instructions Recorded acetaminophen 325 mg capsule 650 mg PO QID PRN #60 cap 03/02/21 (Tylenol) Allergies Allergy/AdvReac Type Severity Reaction Status Date / Time No Known Drug Allergies Allergy Verified 03/17/21 11:24 Review of Systems Constitutional Constitutional: Reports system reviewed and no additional complaints, except as documented Cardiovascular Cardiovascular: Reports as per HPI Respiratory Respiratory: Reports system reviewed and no additional complaints, except as documented Gastrointestinal Gastrointestinal: Reports as per HPI Genitourinary Genitourinary: Reports system reviewed and no additional complaints, except as documented Musculoskeletal Musculoskeletal: Reports system reviewed and no additional complaints, except as documented Integumentary/Breasts Skin/Breast: Reports system reviewed and no additional complaints, except as documented Neurologic Neurologic: Reports system reviewed and no additional complaints, except as documented Hematologic/Lymphatic On Anticoagulants: No Allergic/Immunologic Allergic/Immunologic: Reports system reviewed and no additional complaints, except as documented Patient History Medical History Acid reflux Anxiety Surgical History (Updated 03/02/21 @ 08:35 by Eleanor Rubin RN) History of esophagogastroduodenoscopy (EGD) [place] teeth extracted Social History household members: significant other Smoking Status: Never smoker alcohol intake: current Smoking Status: Never smoker alcohol intake frequency: holidays/special occasions only Substance Use Type: does not use Exam Initial Vital Signs Initial Vital Signs: Vital Signs Temperature 98.3 F 04/28/21 09:28 Pulse Rate 90 04/28/21 09:28 Respiratory Rate 16 04/28/21 09:28 Blood Pressure 114/73 04/28/21 09:28 Pulse Oximetry 99 04/28/21 09:28 Const General: cooperative and comfortable HENMT Head: normal to inspection and normocephalic Resp Effort & Inspection: normal respiratory effort Auscultation: clear to auscultation bilaterally Cardio Rate: regular rate Rhythm: regular rhythm GI Inspection: normal to inspection Palpation: soft and No guarding Skin General: no rashes or lesions noted Neuro General: patient alert, patient awake and moves all extremities Extrem General: normal to inspection and capillary refill normal Psych Appearance: grossly normal and well kempt Course Orders Ordered: ED Orders 04/28/21 09:21 Complete Blood Count AUTO DIFF Stat Comprehensive Metabolic Panel Stat Lipase Stat 04/28/21 09:30 Urine Culture Stat Urine Microscopic Stat EKG-12 Lead Stat Vital Signs Vital signs: Vital Signs - 8 hr 04/28/21 09:28 Temperature 98.3 F Pulse Rate 90 Respiratory Rate 16 Blood Pressure 114/73 Pulse Oximetry 99 Medical Decision Making Medical Records Medical records reviewed: Yes I reviewed the patient's medical records. Lab Data Lab results reviewed: Yes I reviewed the patient's lab results. Result diagrams: 04/28/21 09:21 04/28/21 09:21 Labs: Lab Results 04/28/21 04/28/21 04/28/21 Range/Units 09:21 09:21 09:30 WBC 7.0 (4.5-11.0) X10^3/uL RBC 5.11 (4.0-5.2) X10^6/uL Hgb 15.2 (12.0-16.0) g/dL Hct 45.9 (36-46) % MCV 89.8 (80-100) fL MCH 29.8 (26-34) PG MCHC 33.2 (30-36) % RDW 13.5 (11.6-14.8) % Plt Count 226 (150-400) X10^3/uL Neut % (Auto) 56.9 (50-75) % Lymph % (Auto) 33.4 (25-40) % [place] % (Auto) 6.2 (3-14) % Eos % (Auto) 2.4 (2-4) % Baso % (Auto) 1.1 (0-2) % Neut # (Auto) 4000 (1708-5110) /uL Lymph # (Auto) 2300 (0767-9508) /uL [place] # (Auto) 400 (0-900) /uL Eos # (Auto) 200 (0-450) /uL Baso # (Auto) 100 (0-100) /uL Sodium 142 (137-145) mmol/L Potassium 3.9 (3.4-5.1) mmol/L Chloride 105 (98-107) mmol/L Carbon Dioxide 31 (22-32) mmol/L BUN 10 (7-17) mg/dL Creatinine 0.64 (0.52-1.04) mg/dL Estimated GFR > 60.0 (>60) mL/min BUN/Creatinine Ratio 15.6 (6-22) Glucose 96 (70-100) mg/dL Calcium 9.6 (8.4-10.2) mg/dL Total Bilirubin 0.5 (0.2-1.3) mg/dL AST 33 (14-36) IU/L ALT 31 (<35) IU/L Alkaline Phosphatase 64 (38-126) U/L Total Protein 7.5 (6.3-8.2) g/dL Albumin 4.7 (3.5-5.0) g/dL Globulin 2.8 (1.7-4.1) g/dL Albumin/Globulin Ratio 1.7 (1.0-2.8) Lipase 45 (23-300) U/L Urine RBC 1-5/hpf (0-5/HPF) Urine WBC 5-10/hpf H (0-5/HPF) Ur Squamous Epith Cells 0-1 /hpf (0-5/HPF) Urine Bacteria None seen (None) Ur Culture Indicated? Specimen cultured Point of Care Testing Test Results Negative Urine Dip Bedside Urine Glucose Negative Bedside Urine Bilirubin - Negative Bedside Urine Ketone - Negative Urine Specific [place] 1.015 Bedside Urine Occult Blood +/- Bedside Urine pH 7.0 Bedside Urine Protein - Negative Bedside Urine Urobilinogen - Negative Bedside Urine Nitrite - Negative Bedside Urine Leukocytes - Negative Esterase Point of care testing: Point of Care Testing Test Results Negative Urine Dip Bedside Urine Glucose Negative Bedside Urine Bilirubin - Negative Bedside Urine Ketone - Negative Urine Specific [place] 1.015 Bedside Urine Occult Blood +/- Bedside Urine pH 7.0 Bedside Urine Protein - Negative Bedside Urine Urobilinogen - Negative Bedside Urine Nitrite - Negative Bedside Urine Leukocytes - Negative Esterase ECG Data Attestation: I personally reviewed and interpreted this ECG as follows: Interpretation: Sinus rhythm Ventricular rate of 76 Normal axis Normal QRS Normal QTC No ST T wave changes MDM Narrative Medical decision making narrative: Patient's labs today are unremarkable. Her exam is unremarkable. She has had an extensive workup over the past year of her abdominal pain she states the pain today is the same that she has had. No further workup needed in the emergency department. Informed the patient she should contact her primary doctor. 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 Potential she will need to see Urology/nurse healthcare manager. Informed her that she needed to have pain medication prescribed her by her primary doctor. Discharge Plan Departure Patient Disposition: Home Clinical Impression: Abdominal pain Instructions: DI for Abdominal Pain-Adult Activity Restrictions/Additional Instructions: Your labs today are very reassuring. I recommend that you contact your primary doctor for any continued pain medication. You are also going to need to follow-up with your university registrar. You may also need to get in to see a urologist or illuminating engineer. Continue the rest of your medications as directed. Prescriptions: No Action tfafacj-jqmdldzewq-VQK-caff [id number] mg capsule 1 cap PO Q6H PRN (Reason: Migraine Headache) RF: 0 trazodone 50 mg tablet 50 mg PO BEDTIME PRN (Reason: Insomnia) RF: 0 pantoprazole 40 mg tablet,delayed release (DR/EC) 40 mg PO DAILY RF: 0 metoclopramide HCl 10 mg tablet,disintegrating 10 mg PO Q6H PRN (Reason: Nausea) RF: 0 escitalopram oxalate 10 mg tablet 10 mg PO DAILY RF: 0 acetaminophen [Tylenol] 325 mg capsule 650 mg PO QID PRN (Reason: pain) Qty: 60 RF: 0 Referrals: Rina Montejo [Primary Care Provider] -
[2021-04-28 09:48] LABS: Alanine Aminotransferase 31 IU/L (<35); Albumin 4.7 g/dL (3.5-5.0); Albumin Globulin Ratio 1.7 (1.0-2.8); Alkaline Phosphatase 64 U/L (38-126); Aspartate Aminotransferase 33 IU/L (14-36); BUN Creatinine Ratio 15.6 (6-22); Bilirubin Total 0.5 mg/dL (0.2-1.3); Blood Urea Nitrogen 10 mg/dL (7-17); Calcium 9.6 mg/dL (8.4-10.2); Carbon Dioxide 31 mmol/L (22-32); Chloride 105 mmol/L (98-107); Estimated Glomerular Filt Rate > 60.0 mL/min (>60); Globulin 2.8 g/dL (1.7-4.1); Glucose 96 mg/dL (70-100); HEMOLYSIS < 15 (0-50); Lipase 45 U/L (23-300); Potassium 3.9 mmol/L (3.4-5.1); Sodium 142 mmol/L (137-145); Total Protein 7.5 g/dL (6.3-8.2)
[2021-04-28 10:03] LABS: Add Manual Diff / Slide Review NO; Basophils Absolute Auto 100 /uL (0-100); Basophils Percent Auto 1.1 % (0-2); Eosinophils Absolute Auto 200 /uL (0-450); Eosinophils Percent Auto 2.4 % (2-4); Hematocrit 45.9 % (36-46); Hemoglobin 15.2 g/dL (12.0-16.0); Lymphocytes Absolute Auto 2300 /uL (1100-4500); Lymphocytes Percent Auto 33.4 % (25-40); Mean Corpuscular HGB Conc 33.2 % (30-36); Mean Corpuscular Hemoglobin 29.8 PG (26-34); Mean Corpuscular Volume 89.8 fL (80-100); Monocytes Absolute Auto 400 /uL (0-900); Monocytes Percent Auto 6.2 % (3-14); Neutrophils Absolute Auto 4000 /uL (1500-7000); Neutrophils Percent Auto 56.9 % (50-75); Platelet Count 226 X10^3/uL (150-400); Red Blood Cell Count 5.11 X10^6/uL (4.0-5.2); Red Cell Distribution Width 13.5 % (11.6-14.8)
[2021-04-28 10:08] LABS: Bacteria Urine None Seen; Culture Indicated Urine Specimen Cultured; RBC Urine 1-5/HPF (0-5/HPF); Squamous Epithelial Cell Urine 0-1 /HPF (0-5/HPF); WBC Urine 5-10/HPF (0-5/HPF)
[2021-04-28] MEDS: HYDROCODONE/ACET 5/325 TABLET 1 TAB PO (10:52)
[2021-04-28 11:09] VITALS: BP 100/61; PULSE 72; RESP 14; O2SAT 96
== END 2021-04-28 11:18 | disposition home or self-care (01) ==
PROVIDERS: Emergency Provider Emergency Medicine; PCP Physician Assistant
DX: R10.9 Unspecified abdominal pain (principal)
CPT/HCPCS: 36415; 80053; 81003; 81015; 81025; 83690; 85025; 87077; 87086; 87186; 93005; 93010; 99283; 99284

== ENCOUNTER 2021-05-19 10:24 | Emergency (ER) | payer OTHER, MEDICAID, SELFPAY ==
[2021-05-19] VITALS (8 sets, daily range): BP systolic 103–116; BP diastolic 59–73; PULSE 71–100; RESP 18–22; TEMP 36.9; O2SAT 97–99; BMI 20.1
--- NOTE | 2021-05-19 11:02 | ED.ABDPAIN ---
HPI - Abdominal Pain General Chief Complaint: Abdominal Pain Stated Complaint: stomach and chest pain Time Seen by Provider: 05/19/21 10:41 Source: patient Mode of arrival: Ambulatory History of Present Illness HPI narrative: Patient is a 25-year-old female who has chronic abdominal pain ongoing since the of the year. She had an exploratory laparoscopy to life which was unrevealing. She typically has lower abdominal pain. Today she has right upper quadrant pain to his and chest discomfort. She says she was not feeling well yesterday she laid flat all day which helped her pain. Sitting up makes her chest discomfort worse. Leaning forward also makes it worse. It is constant in nature nonradiating. She has no shortness of breath or palpitations. She is also having some right upper quadrant pain which she says is abnormal. She has not had any fever or chills. No nausea or vomiting. She is not on control. Related Data Home Medications Medication Instructions Recorded Confirmed sgftxks-dbuasckhnk-JTE-caffeine 30 1 cap PO Q6H PRN 02/17/21 03/02/21 mg-50 mg-325 mg-40 mg capsule pantoprazole 40 mg tablet,delayed 40 mg PO DAILY 02/17/21 03/02/21 release trazodone 50 mg tablet 50 mg PO BEDTIME PRN 02/17/21 03/02/21 escitalopram oxalate 10 mg tablet 10 mg PO DAILY 03/02/21 03/02/21 metoclopramide HCl 10 mg 10 mg PO Q6H PRN 03/02/21 03/02/21 disintegrating tablet Previous Rx's Medication Instructions Recorded acetaminophen 325 mg capsule 650 mg PO QID PRN #60 cap 03/02/21 (Tylenol) prednisone 10 mg tablet 10 mg PO DAILY #30 tab 05/19/21 Allergies Allergy/AdvReac Type Severity Reaction Status Date / Time No Known Drug Allergies Allergy Verified 03/17/21 11:24 Review of Systems Review of Systems Narrative: GENERAL: Denies chills, fatigue, malaise, fever, sweats, travel HEENT: Denies sinus pain, ear pain, sore throat, difficulty swallowing, neck pain RESPIRATORY: Denies dyspnea, cough, wheezing, hemoptysis, sputum. CARDIOVASCULAR: See HPI GASTROINTESTINAL see HPI : Denies dysuria, frequency, incontinence, hematuria, urinary retention, flank pain. MUSCULOSKELETAL: Denies weakness, joint pain, or bony pain SKIN: No rash, no erythema, no pruritus NEUROLOGIC: Denies weakness, dizziness, headache, numbness, change in speech, confusion PSYCHIATRIC: No concerning psychosocial issues. 12 point review of systems is negative except for those stated above and HPI Patient History Medical History Acid reflux Anxiety Surgical History (Updated 03/02/21 @ 08:35 by Eleanor Rubin RN) History of esophagogastroduodenoscopy (EGD) [place] teeth extracted Social History household members: significant other Smoking Status: Never smoker alcohol intake: current Smoking Status: Never smoker alcohol intake frequency: holidays/special occasions only Substance Use Type: does not use Exam Initial Vital Signs Initial Vital Signs: Vital Signs Temperature 98.5 F 05/19/21 10:25 Pulse Rate 90 05/19/21 10:25 Respiratory Rate 18 05/19/21 10:25 Blood Pressure 116/72 05/19/21 10:25 Pulse Oximetry 98 05/19/21 10:25 GENERAL: Alert well-appearing thin [id number] in no acute distress. HEENT: Head atraumatic,EOMI, pupils reactive, face symmetric, moist mucous membranes CARDIOVASCULAR: Regular rate and rhythm without murmurs, rubs or gallops. RESPIRATORY: Breath sounds equal bilaterally, no wheezes rales or rhonchi. ABDOMEN: Soft, tender right upper quadrant positive Gaines sign no guarding or rebound : No CVA tenderness EXTREMITIES: Normal range of motion, no clubbing or edema. Neurovascularly intact NEUROLOGICAL: Alert and oriented x4.Normal gait and speec SKIN: Warm, dry, no laceration, no petechiae, no rashes or lesions. Scores PERC Score Age greater than or equal to 50 years: No Heart rate greater than or equal to 100 bpm: No Room Air O2 Sat less than 95%: No Unilateral leg swelling: No Recent trauma or surgery: No Hemoptysis: No Prior PE or DVT: No Hormone Use: No Total PERC Score: 0 Course Orders Ordered: ED Orders 05/19/21 11:10 US abdomen limited Stat XR chest 1V Stat 05/19/21 11:40 Complete Blood Count AUTO DIFF Stat Comprehensive Metabolic Panel Stat Lipase Stat Troponin & CK Cardiac Panel Stat Discontinued Medications Ketorolac Tromethamine (Ketorolac 30 Mg/Ml Vial) 15 mg IV NOW ONE Stop: 05/19/21 11:11 Last Admin: 05/19/21 11:48 Dose: 15 mg Documented by: JUWAN Vital Signs Vital signs: Vital Signs - 8 hr 05/19/21 11:34 05/19/21 12:00 05/19/21 12:30 Pulse Rate 77 73 72 Respiratory Rate 19 20 22 Blood Pressure 112/73 103/62 103/59 L Pulse Oximetry 99 97 97 05/19/21 13:00 Pulse Rate 71 Respiratory Rate 20 Blood Pressure 103/59 L Pulse Oximetry 99 MDM - Abdominal Pain Lab Data Result diagrams: 05/19/21 11:40 05/19/21 11:40 Labs: Lab Results 05/19/21 05/19/21 Range/Units 11:40 11:40 WBC 6.8 (4.5-11.0) X10^3/uL RBC 4.72 (4.0-5.2) X10^6/uL Hgb 14.2 (12.0-16.0) g/dL Hct 42.3 (36-46) % MCV 89.7 (80-100) fL MCH 30.0 (26-34) PG MCHC 33.5 (30-36) % RDW 13.6 (11.6-14.8) % Plt Count 201 (150-400) X10^3/uL Neut % (Auto) 61.2 (50-75) % Lymph % (Auto) 30.5 (25-40) % [place] % (Auto) 6.4 (3-14) % Eos % (Auto) 1.5 L (2-4) % Baso % (Auto) 0.4 (0-2) % Neut # (Auto) 4200 (2860-4010) /uL Lymph # (Auto) 2100 (3884-1056) /uL [place] # (Auto) 400 (0-900) /uL Eos # (Auto) 100 (0-450) /uL Baso # (Auto) 0 (0-100) /uL Sodium 142 (137-145) mmol/L Potassium 3.7 (3.4-5.1) mmol/L Chloride 104 (98-107) mmol/L Carbon Dioxide 31 (22-32) mmol/L BUN 10 (7-17) mg/dL Creatinine 0.54 (0.52-1.04) mg/dL Estimated GFR > 60.0 (>60) mL/min BUN/Creatinine Ratio 18.5 (6-22) Glucose 84 (70-100) mg/dL Calcium 9.2 (8.4-10.2) mg/dL Total Bilirubin 0.6 (0.2-1.3) mg/dL AST 55 H (14-36) IU/L ALT 89 H (<35) IU/L Alkaline Phosphatase 69 (38-126) U/L Total Creatine Kinase 139 H (30-135) U/L CK-MB (CK-2) 1.02 (<2.37) ng/mL CK-MB (CK-2) Rel Index 0.7 L (1.5-5.0) % Troponin I < 0.012 (0.01-0.034) ng/mL Total Protein 6.8 (6.3-8.2) g/dL Albumin 4.3 (3.5-5.0) g/dL Globulin 2.5 (1.7-4.1) g/dL Albumin/Globulin Ratio 1.7 (1.0-2.8) Lipase 50 (23-300) U/L Point of care testing: Point of Care Testing Test Results Negative Urine Dip Bedside Urine Glucose Negative Bedside Urine Bilirubin - Negative Bedside Urine Ketone - Negative Urine Specific [place] 1.020 Bedside Urine Occult Blood - Negative Bedside Urine pH 6.0 Bedside Urine Protein - Negative Bedside Urine Urobilinogen - Negative Bedside Urine Nitrite - Negative Bedside Urine Leukocytes - Negative Esterase Imaging Data Chest x-ray: Radiologist's Impression: PROCEDURE:? XR CHEST 1V ? INDICATIONS:? chest pain ? TECHNIQUE:? One view of the chest was acquired.? ? COMPARISON:? None. ? FINDINGS:? ? Surgical changes and devices:? None.? ? Lungs and pleura:? Lungs are clear.? No pleural effusions or pneumothorax.? ? Mediastinum:? Mediastinal contours appear normal.? Heart size is normal.? ? Bones and chest wall:? No suspicious bony lesions.? Overlying soft tissues appear unremarkable.? ? IMPRESSION:? No acute disease. ? ? Dictated by: Omar Massey M.D. on 05/19/2021 at 11:50 ? ? Approved by: Omar Massey M.D. on 05/19/2021 at 11:51 ? US - abdomen: Radiologist's Impression: PROCEDURE:? US ABDOMEN LIMITED ? INDICATIONS:? RIGHT UPPER QUADRANT PAIN ? TECHNIQUE:? Real-time scanning was performed of the abdominal and retroperitoneal organs, with image documentation.? ? COMPARISON:? [facility], , US ABDOMEN LIMITED, 01/21/2021, 16:55. ? FINDINGS:? ? Liver:? Liver is normal in size and homogeneous in echotexture.? ? Gallbladder:? No gallbladder wall thickening, pericholecystic fluid, or shadowing gallstones. ? Biliary ducts:? Intrahepatic bile ducts are non-dilated.? Extrahepatic bile duct caliber measures 3.2 mm.? ? Pancreas:? Visualized portions of the pancreas are sonographically normal.? ? Miscellaneous:? No free abdominal fluid.? ? ? IMPRESSION:? No significant abnormality. ? Dictated by: Tres Baker M.D. on 05/19/2021 at 11:59 ? ? ECG Data Interpretation: Normal sinus rhythm rate 76 WV interval 146 QRS [address] elevation no [place] depression no T-wave inversions MDM Narrative Medical decision making narrative: Patient has had ongoing abdominal pain which is chronic in nature today is slightly worse with right upper quadrant pain and chest discomfort. Ultrasound blood work is overall reassuring for abdominal issues. Chest pain is actually concerning for pericarditis. It is definitely worse with position and leaning forward and better when she lies flat. She is unable to take NSAIDs as however her pain is significantly better after Toradol. Will start her on a tapering dose of prednisone and is will need outpatient follow-up. Bedside ultrasound by myself did not show any pericardial effusion. Differential diagnosis chest pain, acute coronary syndrome, pulmonary embolism, pneumothorax, pneumonia, pericardial effusion Discharge Plan Departure Patient Disposition: Home Clinical Impression: Pericarditis Qualifiers: Pericarditis type: idiopathic Chronicity: acute Qualified Code(s): I30.0 - Acute nonspecific idiopathic pericarditis Instructions: DI for Pericarditis Activity Restrictions/Additional Instructions: *You have been diagnosed with pericarditis, chronic abdominal pain *What to do: At this time I believe that you have some inflammation in her heart causing your discomfort. You will need follow-up with a primary care provider possibly a light armored vehicle officer. *Continue to take medications as directed Prednisone taper, 40 mg x 3 days 30 mg x 3 days, 20 mg x 3 days, 10 mg x 3 days--> SENT TO [facility] IN [address] [place] [address] *Follow up with your primary care provider in 2-3 days *Return to ER if you should have increasing chest pain, shortness of breath, worsening abdominal or any new, worsening or concerning symptoms Prescriptions: New prednisone 10 mg tablet 10 mg PO DAILY Qty: 30 RF: 0 No Action bvgvqal-ybxeouuwuw-UZV-caff [id number] mg capsule 1 cap PO Q6H PRN (Reason: Migraine Headache) RF: 0 trazodone 50 mg tablet 50 mg PO BEDTIME PRN (Reason: Insomnia) RF: 0 pantoprazole 40 mg tablet,delayed release (DR/EC) 40 mg PO DAILY RF: 0 metoclopramide HCl 10 mg tablet,disintegrating 10 mg PO Q6H PRN (Reason: Nausea) RF: 0 escitalopram oxalate 10 mg tablet 10 mg PO DAILY RF: 0 acetaminophen [Tylenol] 325 mg capsule 650 mg PO QID PRN (Reason: pain) Qty: 60 RF: 0 Referrals: [facility] [Outside] Rina Montejo [Primary Care Provider] - Stand Alone Forms: Work Release Note
--- NOTE | 2021-05-19 11:10 | DI.US.S_ITS ---
PROCEDURE: US ABDOMEN LIMITED INDICATIONS: RIGHT UPPER QUADRANT PAIN TECHNIQUE: Real-time scanning was performed of the abdominal and retroperitoneal organs, with image documentation. COMPARISON: [facility], , US ABDOMEN LIMITED, 01/21/2021, 16:55. FINDINGS: Liver: Liver is normal in size and homogeneous in echotexture. Gallbladder: No gallbladder wall thickening, pericholecystic fluid, or shadowing gallstones. Biliary ducts: Intrahepatic bile ducts are non-dilated. Extrahepatic bile duct caliber measures 3.2 mm. Pancreas: Visualized portions of the pancreas are sonographically normal. Miscellaneous: No free abdominal fluid. IMPRESSION: No significant abnormality. Dictated by: Tres Baker M.D. on 05/19/2021 at 11:59 Approved by: Tres Baker M.D. on 05/19/2021 at 12:02
--- NOTE | 2021-05-19 11:10 | DI.RAD.S_ITS ---
PROCEDURE: XR CHEST 1V INDICATIONS: chest pain TECHNIQUE: One view of the chest was acquired. COMPARISON: None. FINDINGS: Surgical changes and devices: None. Lungs and pleura: Lungs are clear. No pleural effusions or pneumothorax. Mediastinum: Mediastinal contours appear normal. Heart size is normal. Bones and chest wall: No suspicious bony lesions. Overlying soft tissues appear unremarkable. IMPRESSION: No acute disease. Dictated by: Omar Massey M.D. on 05/19/2021 at 11:50 Approved by: Omar Massey M.D. on 05/19/2021 at 11:51
[2021-05-19] MEDS: KETOROLAC 30 MG/ML VIAL 15 MG IV (11:48)
[2021-05-19 11:55] LABS: Add Manual Diff / Slide Review NO; Basophils Absolute Auto 0 /uL (0-100); Basophils Percent Auto 0.4 % (0-2); Eosinophils Absolute Auto 100 /uL (0-450); Eosinophils Percent Auto 1.5 % (2-4); Hematocrit 42.3 % (36-46); Hemoglobin 14.2 g/dL (12.0-16.0); Lymphocytes Absolute Auto 2100 /uL (1100-4500); Lymphocytes Percent Auto 30.5 % (25-40); Mean Corpuscular HGB Conc 33.5 % (30-36); Mean Corpuscular Volume 89.7 fL (80-100); Monocytes Absolute Auto 400 /uL (0-900); Monocytes Percent Auto 6.4 % (3-14); Neutrophils Absolute Auto 4200 /uL (1500-7000); Neutrophils Percent Auto 61.2 % (50-75); Platelet Count 201 X10^3/uL (150-400); Red Blood Cell Count 4.72 X10^6/uL (4.0-5.2); Red Cell Distribution Width 13.6 % (11.6-14.8); White Blood Cell Count 6.8 X10^3/uL (4.5-11.0)
[2021-05-19 12:11] LABS: Alanine Aminotransferase 89 IU/L (<35); Albumin 4.3 g/dL (3.5-5.0); Albumin Globulin Ratio 1.7 (1.0-2.8); Alkaline Phosphatase 69 U/L (38-126); Aspartate Aminotransferase 55 IU/L (14-36); BUN Creatinine Ratio 18.5 (6-22); Bilirubin Total 0.6 mg/dL (0.2-1.3); Blood Urea Nitrogen 10 mg/dL (7-17); Calcium 9.2 mg/dL (8.4-10.2); Carbon Dioxide 31 mmol/L (22-32); Chloride 104 mmol/L (98-107); Creatine Kinase 139 U/L (30-135); Estimated Glomerular Filt Rate > 60.0 mL/min (>60); Globulin 2.5 g/dL (1.7-4.1); Glucose 84 mg/dL (70-100); HEMOLYSIS < 15 (0-50); Lipase 50 U/L (23-300); Potassium 3.7 mmol/L (3.4-5.1); Sodium 142 mmol/L (137-145); Total Protein 6.8 g/dL (6.3-8.2)
[2021-05-19 12:22] LABS: Troponin I < 0.012 ng/mL (0.01-0.034)
[2021-05-19 12:26] LABS: CKMB % Relative Index 0.7 % (1.5-5.0); Creatine Kinase MB 1.02 ng/mL (<2.37)
--- NOTE | 2021-05-19 13:25 | CM.SWNOTE ---
RAIL CAR LOADER Note RAIL CAR LOADER receives consult and enters room to meet with patient. Patient is 25 y/o female with at least 10 ED visits within 12 months primarily due to abdominal pain. Patient presents to the ED today due to concern for chest and stomach pain. Patient endorses that her previous PCP at [facility] Rina Montejo PA-C but reports she can no longer see him there and they do not accept her [facility] insurance. Patient endorses she is seeking a new PCP for ongoing rx and for f/u due to her chest and abdominal pain. RAIL CAR LOADER calls [facility] and schedules ED f/u PCP establish care appt with Dr. Boo Booth (Ph. # [phone]) for 05/26/21 at 1pm. RAIL CAR LOADER calls patient and informs patient of upcoming appt who indicates agreement and understanding. Plan: Patient to d/c when medically clear, and to f/u with Dr. Booth for PCP appt. BENJI Bowden
== END 2021-05-19 13:09 | disposition home or self-care (01) ==
PROVIDERS: Emergency Provider Emergency Medicine; PCP Physician Assistant
DX: I30.0 Acute nonspecific idiopathic pericarditis (principal); R07.9 Chest pain, unspecified
CPT/HCPCS: 36415; 71045; 76705; 80053; 81003; 81025; 82550; 82553; 83690; 84484; 85025; 93005; 96374; 99284; J1885

== ENCOUNTER 2021-05-21 22:56 | Emergency (ER) | payer OTHER, MEDICAID, SELFPAY ==
[2021-05-21 23:01] VITALS: PULSE 104; RESP 17; O2SAT 97
[2021-05-21 23:04] VITALS: BP 117/74; PULSE 108; RESP 20; TEMP 37.3; O2SAT 98; BMI 20.1
--- NOTE | 2021-05-21 23:13 | DI.RAD.S_ITS ---
PROCEDURE: XR CHEST 1V INDICATIONS: chest pain TECHNIQUE: One view of the chest was acquired. COMPARISON: [facility], CR, XR CHEST 1V, 05/19/2021, 11:14. FINDINGS: Surgical changes and devices: None. Lungs and pleura: Lungs are clear. No pleural effusions or pneumothorax. Mediastinum: Mediastinal contours appear normal. Heart size is normal. Bones and chest wall: No suspicious bony lesions. Overlying soft tissues appear unremarkable. IMPRESSION: No acute cardiopulmonary findings Approved by: Jer Be M.D. on 05/21/2021 at 23:40
[2021-05-21 23:30] VITALS: PULSE 94; RESP 20; O2SAT 95
[2021-05-21 23:44] LABS: Add Manual Diff / Slide Review NO; Basophils Absolute Auto 0 /uL (0-100); Basophils Percent Auto 0.2 % (0-2); Eosinophils Absolute Auto 0 /uL (0-450); Hematocrit 41.3 % (36-46); Hemoglobin 13.5 g/dL (12.0-16.0); Lymphocytes Absolute Auto 1600 /uL (1100-4500); Lymphocytes Percent Auto 13.6 % (25-40); Mean Corpuscular HGB Conc 32.6 % (30-36); Mean Corpuscular Hemoglobin 29.4 PG (26-34); Mean Corpuscular Volume 90.2 fL (80-100); Monocytes Absolute Auto 700 /uL (0-900); Monocytes Percent Auto 5.8 % (3-14); Neutrophils Absolute Auto 9500 /uL (1500-7000); Neutrophils Percent Auto 80.4 % (50-75); Platelet Count 224 X10^3/uL (150-400); Red Blood Cell Count 4.58 X10^6/uL (4.0-5.2); Red Cell Distribution Width 13.7 % (11.6-14.8); White Blood Cell Count 11.8 X10^3/uL (4.5-11.0)
[2021-05-21 23:50] LABS: Alanine Aminotransferase 70 IU/L (<35); Albumin 4.1 g/dL (3.5-5.0); Albumin Globulin Ratio 1.6 (1.0-2.8); Alkaline Phosphatase 71 U/L (38-126); Aspartate Aminotransferase 53 IU/L (14-36); BUN Creatinine Ratio 21.6 (6-22); Bilirubin Total 0.2 mg/dL (0.2-1.3); Blood Urea Nitrogen 11 mg/dL (7-17); Calcium 9.1 mg/dL (8.4-10.2); Carbon Dioxide 28 mmol/L (22-32); Chloride 110 mmol/L (98-107); Creatine Kinase 96 U/L (30-135); Estimated Glomerular Filt Rate > 60.0 mL/min (>60); Globulin 2.5 g/dL (1.7-4.1); Glucose 102 mg/dL (70-100); HEMOLYSIS < 15 (0-50); Lipase 36 U/L (23-300); Potassium 3.9 mmol/L (3.4-5.1); Sodium 143 mmol/L (137-145); Total Protein 6.6 g/dL (6.3-8.2)
[2021-05-22] VITALS: PULSE 99; O2SAT 97
[2021-05-22 00:01] LABS: Troponin I < 0.012 ng/mL (0.01-0.034)
[2021-05-22 00:10] LABS: High Sensitivity CRP - Cardiac < 0.3 mg/L (1.0-3.0)
--- NOTE | 2021-05-22 00:14 | ED_ITS ---
HPI - Chest Pain General Chief Complaint: Chest Pain Stated Complaint: CP Time Seen by Provider: 05/21/21 23:53 Source: patient and EMS Mode of arrival: EMS History of Present Illness HPI narrative: Patient brought here by ambulance. Soon to be a guxrwi-or-hgd is at bedside. Patient seen here 2 days ago and was diagnosed with pericarditis and sent home with steroids. Continues to have substernal sharp pain. At this time she states hurts all the time and does not matter if position all. Please see notes from visit here in January as well as ultrasound done here 2 days ago. EKG here sinus rhythm no ST elevations. Denies any sick contacts. Patient denies any fever. Related Data Home Medications Medication Instructions Recorded Confirmed ggaxwuw-oqqacteivw-LQW-caffeine 30 1 cap PO Q6H PRN 02/17/21 05/26/21 mg-50 mg-325 mg-40 mg capsule pantoprazole 40 mg tablet,delayed 40 mg PO DAILY 02/17/21 05/26/21 release trazodone 50 mg tablet 50 mg PO BEDTIME PRN 02/17/21 05/26/21 escitalopram oxalate 10 mg tablet 10 mg PO DAILY 03/02/21 05/26/21 metoclopramide HCl 10 mg 10 mg PO Q6H PRN 03/02/21 05/26/21 disintegrating tablet Previous Rx's Medication Instructions Recorded acetaminophen 325 mg capsule 650 mg PO QID PRN #60 cap 03/02/21 (Tylenol) prednisone 10 mg tablet 10 mg PO DAILY #30 tab 05/19/21 ondansetron 4 mg disintegrating 4 mg PO Q8H PRN #10 tab 05/22/21 tablet Allergies Allergy/AdvReac Type Severity Reaction Status Date / Time No Known Drug Allergies Allergy Verified 03/17/21 11:24 Review of Systems Review of Systems Narrative: GENERAL: Denies chills, fatigue, malaise, fever, sweats. HEENT: Denies sinus pain, ear pain, sore throat RESPIRATORY: Denies dyspnea, cough CARDIOVASCULAR: Positivechest pain, denies palpitations GASTROINTESTINAL: Denies nausea, vomiting, abdominal pain : Denies dysuria, frequency, hematuria MUSCULOSKELETAL: denies muscle or bony pain SKIN: Denies rash, skin lesions NEUROLOGIC: Denies weakness, numbness ROS Unobtainable: All systems reviewed & are unremarkable except as noted in HPI and below Patient History Medical History Acid reflux Anxiety Surgical History History of esophagogastroduodenoscopy (EGD) [place] teeth extracted Social History household members: significant other Smoking Status: Never smoker alcohol intake: current Smoking Status: Never smoker alcohol intake frequency: holidays/special occasions only Substance Use Type: does not use Exam Narrative Exam Narrative: GENERAL: in no distress, not toxic not dyspneic HEAD: Normocephalic. EYES: Pupils equal round No scleral icterus. No injection no discharge ENT: Mucous membranes moist. NECK: Trachea midline. CARDIOVASCULAR: Regular rate and rhythm without murmurs, reproducible sternal tenderness on palpation. RESPIRATORY: Clear to auscultation. Breath sounds equal bilaterally. No wheezes, rales, or rhonchi. GASTROINTESTINAL: Abdomen soft, non-tender EXTREMITIES: No gross deformities. BACK: No flank tenderness. NEURO: AOx4. SKIN: Warm and dry PSYCH: Not anxious, is cooperative Initial Vital Signs Initial Vital Signs: Vital Signs Pulse Rate 104 H 05/21/21 23:01 Respiratory Rate 17 05/21/21 23:01 Pulse Oximetry 97 05/21/21 23:01 Course Course Course Narrative: No new issues during course of stay Orders Ordered: Discontinued Medications Sodium Chloride (Normal Saline 0.9%) 1,000 mls @ 1,000 mls/hr IV BOLUS ONE Stop: 05/22/21 01:13 Last Infusion: 05/22/21 01:28 Dose: 0 mls/hr Documented by: Admin: 05/22/21 00:23 Dose: 1,000 mls/hr Documented by: AARON Morphine Sulfate (Morphine 4 Mg/Ml Inj) 4 mg IV NOW ONE Stop: 05/22/21 00:15 Last Admin: 05/22/21 00:24 Dose: 4 mg Documented by: AARON Ondansetron HCl (Ondansetron 4 Mg/2 Ml Inj) 4 mg IV NOW ONE Stop: 05/22/21 00:15 Last Admin: 05/22/21 00:24 Dose: 4 mg Documented by: AARON Reevaluation(s) Reevaluation #1: Patient pain-free at this time. Reviewed results with patient and family at bedside. Patient does agree likely her esophagus causing her pain. Has appointment with her GI doctor on the of this month. She does recall endoscopy of her stomach and esophagus showing irritation. She is on Protonix. Does not do well with Carafate she says. Agrees with short course of pain medication until follow-up. Time: 02:31 Vital Signs Vital signs: Vital Signs - 8 hr 05/21/21 23:01 05/21/21 23:04 05/21/21 23:30 Temperature 99.1 F Pulse Rate 104 H 108 H 94 H Respiratory Rate 17 20 20 Blood Pressure 117/74 Pulse Oximetry 97 98 95 05/22/21 00:00 Temperature Pulse Rate 99 H Respiratory Rate 38 H Blood Pressure Pulse Oximetry 97 MDM - Chest Pain Differential Diagnosis Differential diagnosis: Likely pneumothorax, stable angina, unstable angina pectoris, atypical chest pain, st elevation myocardial infarction, costochondritis and other (Pericarditis/esophagitis) Medical Records Data Medical records narrative: Chief complaint: Abdominal Pain Stated complaint: stomach issues, not able to keep anything down Time Seen by Provider: 01/21/21 15:04 Source: patient Mode of arrival: Ambulatory Limitations: no limitations History of Present Illness HPI narrative: 25-year-old woman with progressive abdominal complaints.? Her problems began in August of 2020 she was seen at [facility] emergency department 4 times in 1 and half weeks and each time was sent home with pain medications.? She did have a CT scan sometime in August as part of that workup that was reportedly negative.? She has since followed up with GI and has had HIDA studies, pH studies and upper endoscopy.? The endoscopy suggests minor reflux changes in the lower esophagus and possibly some minor esophageal dy smotility issues but no other significant findings.? Certainly not enough to explain the persistent severe epigastric pain.? With previous ER visit she has had GI cocktails which have not been helpful in an in fact have made symptoms worse.? She currently is on omeprazole Zofran trazodone and citalopram as well as Depo injections.? She had been on Carafate however that was making things worse.? Over the last 48 hours her pain is worsened and her nausea has progressed to the point that she is not able to keep any of her medications or even fluids down.? She does note that she has lost significant weight.? She is unsure of the actual weight loss but notes that none of her pants fit anymore.? Her symptoms have progressed to the point that she is having generalized abdominal pain including the lower abdomen.? She is amenorrheic from her Depo and test is negative today.? She notes that her stools are significantly softer and greenish most of the time which is a significant change for her.? She denies any other medications and does not use marijuana in any form.? She has a follow-up appointment with Gastroenterology at [facility] in a couple of days to review studies as outlined above.? In the meantime she comes to the ER for increasing pain, vomiting and now complete abdominal pain not just epigastric. [address] [address] Ultrasound Report Signed Patient: Sandra Bull MR#: [id number] : 1995 Acct:[id number] Age/Sex: 25 / F Date of Service: 05/19/21 Loc: ED Accession Number: [id number] ?? Procedure: US abdomen limited Ordering Provider: Jessica Avila D.O. PROCEDURE:? US ABDOMEN LIMITED ? INDICATIONS:? RIGHT UPPER QUADRANT PAIN ? TECHNIQUE:? Real-time scanning was performed of the abdominal and retroperitoneal organs, with image documentation.? ? COMPARISON:? [facility], US ABDOMEN LIMITED, 01/21/2021, 16:55. ? FINDINGS:? ? Liver:? Liver is normal in size and homogeneous in echotexture.? ? Gallbladder:? No gallbladder wall thickening, pericholecystic fluid, or shadowing gallstones. ? Biliary ducts:? Intrahepatic bile ducts are non-dilated.? Extrahepatic bile duct caliber measures 3.2 mm.? ? Pancreas:? Visualized portions of the pancreas are sonographically normal.? ? Miscellaneous:? No free abdominal fluid.? ? ? IMPRESSION:? No significant abnormality. ? Dictated by: Tres Baker M.D. on 05/19/2021 at 11:59 ? ? Approved by: Tres Baker M.D. on 05/19/2021 at 12:02 ? Lab Data Result diagrams: 05/21/21 23:11 05/21/21 23:11 Labs: Lab Results 05/21/21 05/21/21 05/21/21 Range/Units 23:11 23:11 23:11 WBC 11.8 H (4.5-11.0) X10^3/uL RBC 4.58 (4.0-5.2) X10^6/uL Hgb 13.5 (12.0-16.0) g/dL Hct 41.3 (36-46) % MCV 90.2 (80-100) fL MCH 29.4 (26-34) PG MCHC 32.6 (30-36) % RDW 13.7 (11.6-14.8) % Plt Count 224 (150-400) X10^3/uL Neut % (Auto) 80.4 H (50-75) % Lymph % (Auto) 13.6 L (25-40) % [place] % (Auto) 5.8 (3-14) % Eos % (Auto) 0.0 L (2-4) % Baso % (Auto) 0.2 (0-2) % Neut # (Auto) 9500 H (7152-8251) /uL Lymph # (Auto) 1600 (5045-7920) /uL [place] # (Auto) 700 (0-900) /uL Eos # (Auto) 0 (0-450) /uL Baso # (Auto) 0 (0-100) /uL ESR 4 (0-20) MM/HR Sodium 143 (137-145) mmol/L Potassium 3.9 (3.4-5.1) mmol/L Chloride 110 H (98-107) mmol/L Carbon Dioxide 28 (22-32) mmol/L BUN 11 (7-17) mg/dL Creatinine 0.51 L (0.52-1.04) mg/dL Estimated GFR > 60.0 (>60) mL/min BUN/Creatinine Ratio 21.6 (6-22) Glucose 102 H (70-100) mg/dL Calcium 9.1 (8.4-10.2) mg/dL Total Bilirubin 0.2 (0.2-1.3) mg/dL AST 53 H (14-36) IU/L ALT 70 H (<35) IU/L Alkaline Phosphatase 71 (38-126) U/L Total Creatine Kinase 96 (30-135) U/L CK-MB (CK-2) TNP CK-MB (CK-2) Rel Index TNP Troponin I < 0.012 (0.01-0.034) ng/mL C-React Prot High Sens (1.0-3.0) mg/L Total Protein 6.6 (6.3-8.2) g/dL Albumin 4.1 (3.5-5.0) g/dL Globulin 2.5 (1.7-4.1) g/dL Albumin/Globulin Ratio 1.6 (1.0-2.8) Lipase 36 (23-300) U/L Serum , Qual (Negative) Chlamy pneumoniae PCR (Not Detect) Adenovirus (PCR) (Not Detect) B. pertussis DNA (PCR) (Not Detecte) B.parapertussis DNA PCR (Not Detecte) Coronavirus OC43 (PCR) (Not Detect) Coronavirus HKU1 (PCR) (Not Detect) Coronavirus 229E (PCR) (Not Detect) SARS-CoV-2 (PCR) (Not Detecte) Coronavirus NL63 (PCR) (Not Detect) Human Metapneumovir PCR (Not Detect) Influenza Type A (PCR) (Not Detect) Influenza Type B (PCR) (Not Detect) M. pneumoniae (PCR) (Not Detect) Parainfluenza 1 (PCR) (Not Detect) Parainfluenza 2 (PCR) (Not Detect) Parainfluenza 3 (PCR) (Not Detect) Parainfluenza 4 (PCR) (Not Detect) RSV (PCR) (Not Detect) Entero/Rhino (PCR) (Not Detect) 05/21/21 05/21/21 05/22/21 Range/Units 23:11 23:11 00:36 WBC (4.5-11.0) X10^3/uL RBC (4.0-5.2) X10^6/uL Hgb (12.0-16.0) g/dL Hct (36-46) % MCV (80-100) fL MCH (26-34) PG MCHC (30-36) % RDW (11.6-14.8) % Plt Count (150-400) X10^3/uL Neut % (Auto) (50-75) % Lymph % (Auto) (25-40) % [place] % (Auto) (3-14) % Eos % (Auto) (2-4) % Baso % (Auto) (0-2) % Neut # (Auto) (1100-6445) /uL Lymph # (Auto) (3484-5571) /uL [place] # (Auto) (0-900) /uL Eos # (Auto) (0-450) /uL Baso # (Auto) (0-100) /uL ESR (0-20) MM/HR Sodium (137-145) mmol/L Potassium (3.4-5.1) mmol/L Chloride (98-107) mmol/L Carbon Dioxide (22-32) mmol/L BUN (7-17) mg/dL Creatinine (0.52-1.04) mg/dL Estimated GFR (>60) mL/min BUN/Creatinine Ratio (6-22) Glucose (70-100) mg/dL Calcium (8.4-10.2) mg/dL Total Bilirubin (0.2-1.3) mg/dL AST (14-36) IU/L ALT (<35) IU/L Alkaline Phosphatase (38-126) U/L Total Creatine Kinase (30-135) U/L CK-MB (CK-2) CK-MB (CK-2) Rel Index Troponin I (0.01-0.034) ng/mL C-React Prot High Sens < 0.3 L (1.0-3.0) mg/L Total Protein (6.3-8.2) g/dL Albumin (3.5-5.0) g/dL Globulin (1.7-4.1) g/dL Albumin/Globulin Ratio (1.0-2.8) Lipase (23-300) U/L Serum , Qual Negative (Negative) Chlamy pneumoniae PCR Not detected (Not Detect) Adenovirus (PCR) Not detected (Not Detect) B. pertussis DNA (PCR) Not detected (Not Detecte) B.parapertussis DNA PCR Not detected (Not Detecte) Coronavirus OC43 (PCR) Not detected (Not Detect) Coronavirus HKU1 (PCR) Not detected (Not Detect) Coronavirus 229E (PCR) Not detected (Not Detect) SARS-CoV-2 (PCR) Not detected (Not Detecte) Coronavirus NL63 (PCR) Not detected (Not Detect) Human Metapneumovir PCR Not detected (Not Detect) Influenza Type A (PCR) Not detected (Not Detect) Influenza Type B (PCR) Not detected (Not Detect) M. pneumoniae (PCR) Not detected (Not Detect) Parainfluenza 1 (PCR) Not detected (Not Detect) Parainfluenza 2 (PCR) Not detected (Not Detect) Parainfluenza 3 (PCR) Not detected (Not Detect) Parainfluenza 4 (PCR) Not detected (Not Detect) RSV (PCR) Not detected (Not Detect) Entero/Rhino (PCR) Not detected (Not Detect) Urine Dip Bedside Urine Glucose Negative Bedside Urine Bilirubin - Negative Bedside Urine Ketone - Negative Urine Specific [place] 1.015 Bedside Urine Occult Blood - Negative Bedside Urine pH 7.5 Bedside Urine Protein - Negative Bedside Urine Urobilinogen - Negative Bedside Urine Nitrite - Negative Bedside Urine Leukocytes - Negative Esterase Imaging Data Chest x-ray: Radiologist's Impression: [address] [address] XRay Report Signed Patient: Sandra Bull MR#: [id number] : 1995 Acct:[id number] Age/Sex: 25 / F Date of Service: 05/21/21 Loc: ED Accession Number: [id number] ?? Procedure: XR chest 1V Ordering Provider: Telly Cordero MD PROCEDURE:? XR CHEST 1V ? INDICATIONS:? chest pain ? TECHNIQUE:? One view of the chest was acquired.? ? COMPARISON:? [facility], , XR CHEST 1V, 05/19/2021, 11:14. ? FINDINGS:? ? Surgical changes and devices:? None.? ? Lungs and pleura:? Lungs are clear.? No pleural effusions or pneumothorax.? ? Mediastinum:? Mediastinal contours appear normal.? Heart size is normal.? ? Bones and chest wall:? No suspicious bony lesions.? Overlying soft tissues appear unremarkable.? ? IMPRESSION:? No acute cardiopulmonary findings ? ? ? Approved by: Jer Be M.D. on 05/21/2021 at 23:40? ECG Data Interpretation: Normal sinus rhythm rate [address] elevation. MDM Narrative Medical decision making narrative: Appropriate for discharge home. No repeat troponin. Ongoing for 3 days. At this time does not appear to be pericarditis. Could be esophagitis. Patient has long history of abdominal discomfort and problems. Patient needs re-evaluation by Gastroenterology for endoscopy of the stomach and esophagus. Discharge Plan Departure Patient Disposition: Home Clinical Impression: Chest pain Qualifiers: Chest pain type: unspecified Qualified Code(s): R07.9 - Chest pain, unspecified Instructions: DI for Chest Pain Activity Restrictions/Additional Instructions: No driving or operating machinery this morning. See your gastroenterology doctor this month as scheduled. Return if worse if any questions or concerns. May continue home medications. May stop taking steroid pack. Prescriptions: New ondansetron 4 mg tablet,disintegrating 4 mg PO Q8H PRN (Reason: nausea and vomiting) Qty: 10 RF: 0 No Action rypmarg-xyqvszfspn-MTF-caff 21-97-746-40 mg capsule 1 cap PO Q6H PRN (Reason: Migraine Headache) RF: 0 trazodone 50 mg tablet 50 mg PO BEDTIME PRN (Reason: Insomnia) RF: 0 pantoprazole 40 mg tablet,delayed release (DR/EC) 40 mg PO DAILY RF: 0 metoclopramide HCl 10 mg tablet,disintegrating 10 mg PO Q6H PRN (Reason: Nausea) RF: 0 escitalopram oxalate 10 mg tablet 10 mg PO DAILY RF: 0 acetaminophen [Tylenol] 325 mg capsule 650 mg PO QID PRN (Reason: pain) Qty: 60 RF: 0 prednisone 10 mg tablet 10 mg PO DAILY Qty: 30 RF: 0 Referrals: Rina Montejo [Primary Care Provider] -
[2021-05-22] MEDS: SODIUM CHLORIDE 0.9% 1,000 ML 1000 ML IV (00:23)
[2021-05-22] MEDS: ONDANSETRON 4 MG/2 ML INJ IV (00:24)
[2021-05-22] MEDS: MORPHINE 4 MG/ML INJ IV (00:24)
[2021-05-22 00:30] VITALS: BP 116/75; PULSE 116; RESP 16; O2SAT 96
[2021-05-22 00:30] LABS: Erythrocyte Sedimentation Rate 4 MM/HR (0-20)
[2021-05-22 00:34] LABS: Pregnancy Test Serum,Qual Negative (Negative)
[2021-05-22 01:00] VITALS: BP 108/69; PULSE 91; O2SAT 97
[2021-05-22 01:37] LABS: Adenovirus Not Detected (Not Detect); B. parapertussis Not Detected (Not Detecte); Bordetella pertussis Not Detected (Not Detecte); Chlamydophila pneumoniae Not Detected (Not Detect); Coronavirus 229E Not Detected (Not Detect); Coronavirus HKU1 Not Detected (Not Detect); Coronavirus NL 63 Not Detected (Not Detect); Coronavirus OC43 Not Detected (Not Detect); Human Metapneumovirus Not Detected (Not Detect); Human Rhinovirus/Enterovirus Not Detected (Not Detect); Influenza A Not Detected (Not Detect); Influenza B Not Detected (Not Detect); Mycoplasma pneumoniae Not Detected (Not Detect); Parainfluenza Virus 1 Not Detected (Not Detect); Parainfluenza Virus 2 Not Detected (Not Detect); Parainfluenza Virus 3 Not Detected (Not Detect); Parainfluenza Virus 4 Not Detected (Not Detect); Respiratory Syncytial Virus Not Detected (Not Detect); SARS- CoV-2 Not Detected (Not Detecte)
[2021-05-22 02:43] VITALS: BP 103/61
== END 2021-05-22 02:44 | disposition home or self-care (01) ==
PROVIDERS: Emergency Provider Emergency Medicine; PCP Physician Assistant
DX: R07.9 Chest pain, unspecified (principal); Z20.822 Contact with and (suspected) exposure to COVID-19
CPT/HCPCS: 36415; 71045; 80053; 81003; 82550; 83690; 84484; 84703; 85025; 85651; 86140; 87633; 93005; 96361; 96374; 96375; 99284; J2270; J2405

== ENCOUNTER 2021-06-07 10:20 | Emergency (ER) | payer OTHER, MEDICAID, SELFPAY ==
[2021-06-07 10:26] VITALS: BP 112/68; PULSE 110; RESP 16; TEMP 37.1; O2SAT 97; BMI 20.1
[2021-06-07 11:47] LABS: COVID19 -Nasal RAPID POSITIVE (Negative)
[2021-06-07 11:59] VITALS: PULSE 95; RESP 16; O2SAT 97
--- NOTE | 2021-06-07 12:13 | ED_ITS ---
HPI - URI/Sore Throat General Chief Complaint: Upper Respiratory Symptoms Stated Complaint: possible covid exposure, covid like symptoms Time Seen by Provider: 06/07/21 11:49 History of Present Illness HPI Narrative: 25-year-old female nonsmoker with noncontributory medical history presents with her son and a chief complaint of a COVID exposure last week followed by some shortness of breath, chest pain and a fever of 101 home. She denies any runny nose but has had some sneezing a scratchy throat. She denies nausea, vomiting or diarrhea. She denies any significant trouble breathing but feels somewhat short of breath when she exerts herself. She has some burning sensation in her lungs with deep breath. She is a nonsmoker, denies any recent travel denies history of blood clot. Related Data Home Medications Medication Instructions Recorded Confirmed oeyajef-witjkzmjwo-WDI-caffeine 30 1 cap PO Q6H PRN 02/17/21 05/26/21 mg-50 mg-325 mg-40 mg capsule pantoprazole 40 mg tablet,delayed 40 mg PO DAILY 02/17/21 05/26/21 release trazodone 50 mg tablet 50 mg PO BEDTIME PRN 02/17/21 05/26/21 escitalopram oxalate 10 mg tablet 10 mg PO DAILY 03/02/21 05/26/21 metoclopramide HCl 10 mg 10 mg PO Q6H PRN 03/02/21 05/26/21 disintegrating tablet Previous Rx's Medication Instructions Recorded acetaminophen 325 mg capsule 650 mg PO QID PRN #60 cap 03/02/21 (Tylenol) prednisone 10 mg tablet 10 mg PO DAILY #30 tab 05/19/21 ondansetron 4 mg disintegrating 4 mg PO Q8H PRN #10 tab 05/22/21 tablet Allergies Allergy/AdvReac Type Severity Reaction Status Date / Time No Known Drug Allergies Allergy Verified 03/17/21 11:24 Review of Systems Review of Systems Narrative: GENERAL: See HP HEENT: Denies sinus pain, ear pain, sore throat, difficulty swallowing, dizziness. RESPIRATORY: See HPI CARDIOVASCULAR: See HPI GASTROINTESTINAL: Denies nausea, vomiting, abdominal pain, diarrhea, constipation, melena. : Denies dysuria, frequency, incontinence, hematuria, urinary retention. MUSCULOSKELETAL: denies weakness, joint pain, or bony pain SKIN: Denies rash, skin lesions, or other NEUROLOGIC: Denies weakness, headache, numbness, change in speech, confusion, seizures, incoordination. PSYCHIATRIC: No concerning psychosocial issues. 12 point review of systems is negative except for those stated above Patient History Medical History Acid reflux Anxiety Surgical History History of esophagogastroduodenoscopy (EGD) [place] teeth extracted Social History household members: significant other Smoking Status: Never smoker alcohol intake: current Smoking Status: Never smoker alcohol intake frequency: holidays/special occasions only Substance Use Type: does not use Exam Narrative Exam Narrative: GENERAL: [25 year old patient appears stated age. Well-developed patient, in mild distress. HEAD: Atraumatic. Normocephalic. EYES: Pupils equal round and reactive. Extraocular motions intact. No scleral icterus. No injection or drainage. ENT: Nose without bleeding, purulent drainage. Throat without erythema, tonsillar hypertrophy or exudate. Airway patent. NECK: Trachea midline. Non tender CARDIOVASCULAR: Regular rate and rhythm without murmurs, gallops, or rubs. RESPIRATORY: Clear to auscultation. Breath sounds equal bilaterally. No wheezes, rales, or rhonchi. GASTROINTESTINAL: Abdomen soft, non-tender, nondistended. EXTREMITIES: No edema or joint tenderness. BACK: Nontender without deformity or crepitance. No flank tenderness. NEURO: AOx3. SKIN: No rash or erythema of visible areas Initial Vital Signs Initial Vital Signs: Vital Signs Temperature 98.7 F 06/07/21 10:26 Pulse Rate 110 H 06/07/21 10:26 Respiratory Rate 16 06/07/21 10:26 Blood Pressure 112/68 06/07/21 10:26 Pulse Oximetry 97 06/07/21 10:26 Course Orders Ordered: ED Orders 06/07/21 10:35 COVID19 -Nasal swab/Pre-Proc Stat Vital Signs Vital signs: Vital Signs - 8 hr 06/07/21 10:26 06/07/21 11:59 Temperature 98.7 F Pulse Rate 110 H 95 H Respiratory Rate 16 16 Blood Pressure 112/68 Pulse Oximetry 97 97 MDM - URI/Sore Throat Lab Data Labs: Lab Results 06/07/21 Range/Units 10:35 SARS-CoV-2 (PCR) Positive H (Negative) MDM Narrative Medical decision making narrative: Well-appearing with a very reassuring history and physical exam. Vitals are stable, no significant work of breathing or need for supplemental oxygen. Return precautions given and questions answered to her apparent satisfaction Discharge Plan Departure Patient Disposition: Home Clinical Impression: COVID-19 Instructions: Coronavirus Disease 2019 Activity Restrictions/Additional Instructions: *You have been diagnosed with [ COVID-19] *What to do: * per recommendations from the CDC and the [facility] Department of Health * stay home except to get medical care. Restrict activities outside your home, except for getting medical care. Do not go to work, school, or public areas. Avoid using public transportation, ride sharing, or taxis. * separate yourself from other people in your home. * call ahead before visiting your doctor * Wear a facemask * Cover your coughs and sneezes * Clean your hands often * Avoid sharing household items * Clean all high-touch services every day * Monitor your symptoms and seek prompt medical attention if your illness is worsening, particularly with difficulty in breathing. You may discontinue your isolation when: 1. You have been fever-free for at least 24 hours without the use of fever reducing medication, AND 2. Your symptoms are getting better 3. At least 10 days have passed since symptoms first appeared Individuals with laboratory confirmed COVID-19 who have not had any symptoms may discontinue home isolation when at least 10 days have passed since the date of their first COVID-19 diagnostic test and have had no subsequent illness Prescriptions: No Action vdyrzvj-saudncisrj-XYI-caff 42-40-875-40 mg capsule 1 cap PO Q6H PRN (Reason: Migraine Headache) RF: 0 trazodone 50 mg tablet 50 mg PO BEDTIME PRN (Reason: Insomnia) RF: 0 pantoprazole 40 mg tablet,delayed release (DR/EC) 40 mg PO DAILY RF: 0 metoclopramide HCl 10 mg tablet,disintegrating 10 mg PO Q6H PRN (Reason: Nausea) RF: 0 escitalopram oxalate 10 mg tablet 10 mg PO DAILY RF: 0 acetaminophen [Tylenol] 325 mg capsule 650 mg PO QID PRN (Reason: pain) Qty: 60 RF: 0 prednisone 10 mg tablet 10 mg PO DAILY Qty: 30 RF: 0 ondansetron 4 mg tablet,disintegrating 4 mg PO Q8H PRN (Reason: nausea and vomiting) Qty: 10 RF: 0 Referrals: Rina Montejo [Primary Care Provider] -
== END 2021-06-07 13:25 | disposition home or self-care (01) ==
PROVIDERS: Emergency Provider Emergency Medicine; PCP Physician Assistant
DX: U07.1 COVID-19 (principal); R07.9 Chest pain, unspecified; R50.9 Fever, unspecified
CPT/HCPCS: 87635; 99282; C9803

== ENCOUNTER 2021-06-10 15:56 | Emergency (ER) | payer OTHER, MEDICAID, SELFPAY ==
[2021-06-10] VITALS (16 sets, daily range): BP systolic 102–114; BP diastolic 57–73; PULSE 80–116; RESP 15–17; TEMP 37.7–38.6; O2SAT 94–99; BMI 20.1
--- NOTE | 2021-06-10 16:45 | PC.NURSE ---
Patient c/o N/V/D and LORENZ, lack of appetite, dizziness. States she is achy all over.
--- NOTE | 2021-06-10 16:46 | DI.RAD.S_ITS ---
PROCEDURE: XR CHEST 1V INDICATIONS: covid infection, n/v/d TECHNIQUE: One view of the chest was acquired. COMPARISON: [facility], CR, XR CHEST 1V, 05/21/2021, 23:31. [facility], CR, XR CHEST 1V, 05/19/2021, 11:14. FINDINGS: Surgical changes and devices: None. Lungs and pleura: Mild patchy bilateral perihilar opacity. No pleural effusions or pneumothorax. Mediastinum: Mediastinal contours appear normal. Heart size is normal. Bones and chest wall: No suspicious bony lesions. Overlying soft tissues appear unremarkable. IMPRESSION: Mild atypical pneumonia. Dictated by: Margarita Morgan M.D. on 06/10/2021 at 17:00 Approved by: Margarita Morgan M.D. on 06/10/2021 at 17:01
[2021-06-10 17:22] LABS: Hematocrit 41.5 % (36-46); Hemoglobin 14.2 g/dL (12.0-16.0); Mean Corpuscular HGB Conc 34.1 % (30-36); Mean Corpuscular Hemoglobin 29.4 PG (26-34); Mean Corpuscular Volume 86.2 fL (80-100); Platelet Count 100 X10^3/uL (150-400); Red Blood Cell Count 4.81 X10^6/uL (4.0-5.2); Red Cell Distribution Width 13.4 % (11.6-14.8); White Blood Cell Count 2.8 X10^3/uL (4.5-11.0)
[2021-06-10 17:27] LABS: Add Manual Diff / Slide Review YES
[2021-06-10 17:28] LABS: Alanine Aminotransferase 37 IU/L (<35); Albumin 3.6 g/dL (3.5-5.0); Albumin Globulin Ratio 1.4 (1.0-2.8); Alkaline Phosphatase 69 U/L (38-126); Aspartate Aminotransferase 42 IU/L (14-36); BUN Creatinine Ratio 17.5 (6-22); Bilirubin Total 0.3 mg/dL (0.2-1.3); Blood Urea Nitrogen 10 mg/dL (7-17); Calcium 8.1 mg/dL (8.4-10.2); Carbon Dioxide 27 mmol/L (22-32); Chloride 102 mmol/L (98-107); Estimated Glomerular Filt Rate > 60.0 mL/min (>60); Globulin 2.6 g/dL (1.7-4.1); Glucose 71 mg/dL (70-100); HEMOLYSIS < 15 (0-50); Lipase 48 U/L (23-300); Potassium 3.2 mmol/L (3.4-5.1); Sodium 137 mmol/L (137-145); Total Protein 6.2 g/dL (6.3-8.2)
[2021-06-10] MEDS: ONDANSETRON 4 MG ODT SL (17:29)
--- NOTE | 2021-06-10 17:53 | PC.NURSE ---
EMS IV line in right forearm infiltrated, IV removed and arm placed in warm blanket.
[2021-06-10 17:58] LABS: Neutrophils Absolute Manual 1764 /uL (3000-5900); Total Cells Counted 100
[2021-06-10] MEDS: ACETAMINOPHEN 325 MG TABLET 650 MG PO (18:00)
[2021-06-10 18:01] LABS: RBC Morphology Normal Morphology
--- NOTE | 2021-06-10 18:01 | ED_ITS ---
HPI - URI/Sore Throat <Anselmo Zambrano PA-C - Last Filed: 06/10/21 19:22> General Chief Complaint: Upper Respiratory Symptoms Stated Complaint: COVID+,n/v/d Time Seen by Provider: 06/10/21 16:46 Source: patient Mode of arrival: EMS Limitations: no limitations History of Present Illness HPI Narrative: Patient is a 25-year-old female presenting to the emergency department today for worsening COVID symptoms. Patient states that she began experiencing symptoms of fatigue, generalized myalgias, shortness of breath, and chest pain on 06/05/2021. She states that her symptoms worsened on 06/06/2021 and have continued to worsen up to today, with worsening chest pain and myalgias. Of note, the patient states that she has had a decreased appetite and her last reported meal was a small amount of Jell-O earlier this afternoon. She also notes that she has been unable to tolerate fluids by mouth due to nausea and vomiting. Patient also reports experiencing a headache and intermittent epi sodes of diarrhea. No sore throat, nasal congestion, back pain, dysuria reported. No other concerns voiced at this time. Related Data Home Medications Medication Instructions Recorded Confirmed pwjsxxj-pxbtyhglvl-RCA-caffeine 30 1 cap PO Q6H PRN 02/17/21 05/26/21 mg-50 mg-325 mg-40 mg capsule pantoprazole 40 mg tablet,delayed 40 mg PO DAILY 02/17/21 05/26/21 release trazodone 50 mg tablet 50 mg PO BEDTIME PRN 02/17/21 05/26/21 escitalopram oxalate 10 mg tablet 10 mg PO DAILY 03/02/21 05/26/21 metoclopramide HCl 10 mg 10 mg PO Q6H PRN 03/02/21 05/26/21 disintegrating tablet Previous Rx's Medication Instructions Recorded acetaminophen 325 mg capsule 650 mg PO QID PRN #60 cap 03/02/21 (Tylenol) prednisone 10 mg tablet 10 mg PO DAILY #30 tab 05/19/21 ondansetron 4 mg disintegrating 4 mg PO Q8H PRN #10 tab 05/22/21 tablet ondansetron HCl 4 mg tablet 4 mg PO Q8H PRN #30 tab 06/10/21 (Zofran) Allergies Allergy/AdvReac Type Severity Reaction Status Date / Time No Known Drug Allergies Allergy Verified 06/10/21 16:06 Review of Systems <Anselmo Zambrano PA-C - Last Filed: 06/10/21 19:22> Constitutional Constitutional: Denies chills, Reports fatigue, Reports fever(s), Denies lethargy and Denies weakness ENT Ears, Nose, Mouth, and Throat: Denies change in voice, Denies neck pain, Denies sore throat and Denies throat swelling Cardiovascular Cardiovascular: Reports chest pain, Denies irregular heart rhythm, Denies lightheadedness, Denies palpitations, Reports dyspnea and Reports dyspnea on exertion Respiratory Respiratory: Reports cough, Reports dyspnea, Reports dyspnea on exertion and Denies wheezing Gastrointestinal Gastrointestinal: Denies abdominal pain, Denies change in bowel habits, Reports diarrhea, Reports nausea and Reports vomiting Musculoskeletal Musculoskeletal: Denies neck pain Neurologic Neurologic: Denies weakness Endocrine Endocrine: Reports fatigue and Denies palpitations Allergic/Immunologic Allergic/Immunologic: Denies urticaria, Denies throat swelling and Denies wheezing Patient History <Anselmo Zambrano PA-C - Last Filed: 06/10/21 19:22> Medical History Acid reflux Anxiety Surgical History History of esophagogastroduodenoscopy (EGD) [place] teeth extracted Social History household members: significant other Smoking Status: Never smoker alcohol intake: current Smoking Status: Never smoker alcohol intake frequency: holidays/special occasions only Substance Use Type: does not use Exam <Anselmo Zambrano PA-C - Last Filed: 06/10/21 19:22> Narrative Exam Narrative: GENERAL: 25 year old patient appears stated age. Well-developed patient, in mild distress. Appears fatigued HEAD: Atraumatic. Normocephalic. EYES: Pupils equal round and reactive. Extraocular motions intact. No scleral icterus. No injection or drainage. ENT: Nose without bleeding, purulent drainage. Throat without erythema, tonsillar hypertrophy or exudate. Airway patent. NECK: Trachea midline. Non tender CARDIOVASCULAR: Regular rate and rhythm without murmurs, gallops, or rubs. Tachycardic. RESPIRATORY: Scattered crackles throughout appreciated on auscultation Breath sounds equal bilaterally. GASTROINTESTINAL: Abdomen soft, non-tender, nondistended. EXTREMITIES: No edema or joint tenderness. BACK: Nontender without deformity or crepitance. No flank tenderness. NEURO: AOx3. SKIN: No rash or erythema of visible areas Initial Vital Signs Initial Vital Signs: Vital Signs Temperature 99.8 F H 06/10/21 16:02 Pulse Rate 102 H 06/10/21 16:02 Respiratory Rate 15 06/10/21 16:02 Blood Pressure 114/68 06/10/21 16:02 Pulse Oximetry 96 06/10/21 16:02 <Nakita Mathews DO - Last Filed: 06/13/21 17:52> Initial Vital Signs Initial Vital Signs: Vital Signs Temperature 99.8 F H 06/10/21 16:02 Pulse Rate 102 H 06/10/21 16:02 Respiratory Rate 15 06/10/21 16:02 Blood Pressure 114/68 06/10/21 16:02 Pulse Oximetry 96 06/10/21 16:02 Course <Anselmo Zambrano PA-C - Last Filed: 06/10/21 19:22> Course Course Narrative: Patient is a 25-year-old female presenting to the emergency department today for worsening COVID symptoms. P.o. potassium chloride 40 mEq administered. Tylenol as been provided to the patient. We will p.o. challenge with glass of water. Orders Ordered: Discontinued Medications Acetaminophen (Acetaminophen 325 Mg Tablet) 650 mg PO NOW ONE Stop: 06/10/21 17:20 Last Admin: 06/10/21 18:00 Dose: 650 mg Documented by: MILIND Ibuprofen (Ibuprofen 400 Mg Tablet) 400 mg PO NOW ONE Stop: 06/10/21 19:05 Last Admin: 06/10/21 19:09 Dose: 400 mg Documented by: CATHERINE Ondansetron HCl (Ondansetron 4 Mg/2 Ml Inj) 4 mg IV NOW ONE Stop: 06/10/21 16:47 Last Admin: 06/10/21 17:20 Dose: Not Given Documented by: MILIND Ondansetron HCl (Ondansetron 4 Mg Odt) 4 mg SL NOW ONE Stop: 06/10/21 17:20 Last Admin: 06/10/21 17:29 Dose: 4 mg Documented by: MILIND Potassium Chloride (Potassium Chloride 20 Meq Tab) 40 meq PO NOW ONE Stop: 06/10/21 18:13 Last Admin: 06/10/21 19:22 Dose: Not Given Documented by: CATHERINE Potassium Chloride (Potassium Chloride 20 Meq/15 Ml Udc) 40 meq PO NOW ONE Stop: 06/10/21 19:14 Last Admin: 06/10/21 19:46 Dose: 40 meq Documented by: NATHANIEL Vital Signs Vital signs: Vital Signs - 8 hr 06/10/21 16:02 06/10/21 16:30 06/10/21 16:50 Temperature 99.8 F H 101.1 F H Pulse Rate 105 H 96 H 98 H Respiratory Rate 15 17 Blood Pressure 114/68 111/64 111/64 Pulse Oximetry 96 98 99 06/10/21 17:00 06/10/21 17:14 06/10/21 17:15 Temperature Pulse Rate 90 89 90 Respiratory Rate Blood Pressure 108/60 104/60 102/57 L Pulse Oximetry 98 98 97 06/10/21 17:30 06/10/21 17:51 06/10/21 18:00 Temperature 101.5 F H Pulse Rate 98 H 116 H 101 H Respiratory Rate Blood Pressure 108/64 109/73 112/70 Pulse Oximetry 97 96 98 06/10/21 18:20 06/10/21 18:30 06/10/21 19:03 Temperature 101 F H Pulse Rate 111 H 96 H Respiratory Rate Blood Pressure 109/62 Pulse Oximetry 95 96 <Nakita Mathews DO - Last Filed: 06/13/21 17:52> Orders Ordered: Discontinued Medications Acetaminophen (Acetaminophen 325 Mg Tablet) 650 mg PO NOW ONE Stop: 06/10/21 17:20 Last Admin: 06/10/21 18:00 Dose: 650 mg Documented by: MILIND Ibuprofen (Ibuprofen 400 Mg Tablet) 400 mg PO NOW ONE Stop: 06/10/21 19:05 Last Admin: 06/10/21 19:09 Dose: 400 mg Documented by: CATHERINE Ondansetron HCl (Ondansetron 4 Mg/2 Ml Inj) 4 mg IV NOW ONE Stop: 06/10/21 16:47 Last Admin: 06/10/21 17:20 Dose: Not Given Documented by: KBROTEM Ondansetron HCl (Ondansetron 4 Mg Odt) 4 mg SL NOW ONE Stop: 06/10/21 17:20 Last Admin: 06/10/21 17:29 Dose: 4 mg Documented by: KBROTEM Potassium Chloride (Potassium Chloride 20 Meq Tab) 40 meq PO NOW ONE Stop: 06/10/21 18:13 Last Admin: 06/10/21 19:22 Dose: Not Given Documented by: KBROWNE Potassium Chloride (Potassium Chloride 20 Meq/15 Ml Udc) 40 meq PO NOW ONE Stop: 06/10/21 19:14 Last Admin: 06/10/21 19:46 Dose: 40 meq Documented by: NATHANIEL Vital Signs Vital signs: Vital Signs - 8 hr 06/10/21 16:02 06/10/21 16:30 06/10/21 16:50 Temperature 99.8 F H 101.1 F H Pulse Rate 105 H 96 H 98 H Respiratory Rate 15 17 Blood Pressure 114/68 111/64 111/64 Pulse Oximetry 96 98 99 06/10/21 17:00 06/10/21 17:14 06/10/21 17:15 Temperature Pulse Rate 90 89 90 Respiratory Rate Blood Pressure 108/60 104/60 102/57 L Pulse Oximetry 98 98 97 06/10/21 17:30 06/10/21 17:51 06/10/21 18:00 Temperature 101.5 F H Pulse Rate 98 H 116 H 101 H Respiratory Rate Blood Pressure 108/64 109/73 112/70 Pulse Oximetry 97 96 98 06/10/21 18:20 06/10/21 18:30 06/10/21 19:03 Temperature 101 F H Pulse Rate 111 H 96 H Respiratory Rate Blood Pressure 109/62 Pulse Oximetry 95 96 MDM - URI/Sore Throat <Anselmo Zambrano PA-C - Last Filed: 06/10/21 19:22> Lab Data Result diagrams: 06/10/21 17:04 06/10/21 17:04 Labs: Lab Results 06/10/21 06/10/21 Range/Units 17:04 17:04 WBC 2.8 L (4.5-11.0) X10^3/uL RBC 4.81 (4.0-5.2) X10^6/uL Hgb 14.2 (12.0-16.0) g/dL Hct 41.5 (36-46) % MCV 86.2 (80-100) fL MCH 29.4 (26-34) PG MCHC 34.1 (30-36) % RDW 13.4 (11.6-14.8) % Plt Count 100 L (150-400) X10^3/uL Neut % (Auto) Not Reportable Lymph % (Auto) Not Reportable [place] % (Auto) Not Reportable Eos % (Auto) Not Reportable Baso % (Auto) Not Reportable Lymph # (Auto) Not Reportable [place] # (Auto) Not Reportable Baso # (Auto) Not Reportable Total Counted 100 Seg Neutrophils % 49.0 (38-70) % Band Neutrophils % 14.0 H (3-7) % Lymphocytes % (Manual) 29.0 (25-45) % Atypical Lymphs % 2.0 H ( - 0) % Monocytes % (Manual) 5.0 (2-11) % Basophils % (Manual) 1.0 (0-1) % Neutrophils # (Manual) 1764 L (8304-7162) /uL RBC Morphology Normal morphology Sodium 137 (137-145) mmol/L Potassium 3.2 L (3.4-5.1) mmol/L Chloride 102 (98-107) mmol/L Carbon Dioxide 27 (22-32) mmol/L BUN 10 (7-17) mg/dL Creatinine 0.57 (0.52-1.04) mg/dL Estimated GFR > 60.0 (>60) mL/min BUN/Creatinine Ratio 17.5 (6-22) Glucose 71 (70-100) mg/dL Calcium 8.1 L (8.4-10.2) mg/dL Total Bilirubin 0.3 (0.2-1.3) mg/dL AST 42 H (14-36) IU/L ALT 37 H (<35) IU/L Alkaline Phosphatase 69 (38-126) U/L Total Protein 6.2 L (6.3-8.2) g/dL Albumin 3.6 (3.5-5.0) g/dL Globulin 2.6 (1.7-4.1) g/dL Albumin/Globulin Ratio 1.4 (1.0-2.8) Lipase 48 (23-300) U/L Imaging Data Chest x-ray: Radiologist's Impression: PROCEDURE:? XR CHEST 1V ? INDICATIONS:? covid infection, n/v/d ? TECHNIQUE:? One view of the chest was acquired.? ? COMPARISON:? [facility], CR, XR CHEST 1V, 05/21/2021, 23:31.? [facility], CR, XR CHEST 1V, 05/19/2021, 11:14. ? FINDINGS:? ? Surgical changes and devices:? None.? ? Lungs and pleura:? Mild patchy bilateral perihilar opacity.? No pleural effusions or pneumothorax.? ? Mediastinum:? Mediastinal contours appear normal.? Heart size is normal.? ? Bones and chest wall:? No suspicious bony lesions.? Overlying soft tissues appear unremarkable.? ? IMPRESSION:? Mild atypical pneumonia.? ? ? Dictated by: Margarita Morgan M.D. on 06/10/2021 at 17:00 ? ? Approved by: Margarita Morgan M.D. on 06/10/2021 at 17:01 ? [facility] Narrative Medical decision making narrative: Patient is a 25-year-old female presenting to the emergency department today for worsening COVID symptoms. To consider COVID- 19 versus COVID pneumonia versus community-acquired pneumonia. Patient ambulated to the restroom and after returning to her room oxygen saturation via pulse oximeter was 96. Patient is tolerated p.o. challenge and has been able to take p.o. Tylenol and ibuprofen. She was administered 40 mEq potassium tablet, but she threw up shortly after administration. A replacement of 40 mEq potassium liquid was provided. Chest x-ray shows an atypical pneumonia, and considering her recent COVID positive diagnosis the likelihood of COVID pneumonia increased. Strict return precautions discussed with the patient prior to discharge. Patient will be discharged home with prescription for Zofran. <Nakita Mathews, DO - Last Filed: 06/13/21 17:52> Lab Data Labs: Lab Results 06/10/21 06/10/21 Range/Units 17:04 17:04 WBC 2.8 L (4.5-11.0) X10^3/uL RBC 4.81 (4.0-5.2) X10^6/uL Hgb 14.2 (12.0-16.0) g/dL Hct 41.5 (36-46) % MCV 86.2 (80-100) fL MCH 29.4 (26-34) PG MCHC 34.1 (30-36) % RDW 13.4 (11.6-14.8) % Plt Count 100 L (150-400) X10^3/uL Neut % (Auto) Not Reportable Lymph % (Auto) Not Reportable [place] % (Auto) Not Reportable Eos % (Auto) Not Reportable Baso % (Auto) Not Reportable Lymph # (Auto) Not Reportable [place] # (Auto) Not Reportable Baso # (Auto) Not Reportable Total Counted 100 Seg Neutrophils % 49.0 (38-70) % Band Neutrophils % 14.0 H (3-7) % Lymphocytes % (Manual) 29.0 (25-45) % Atypical Lymphs % 2.0 H ( - 0) % Monocytes % (Manual) 5.0 (2-11) % Basophils % (Manual) 1.0 (0-1) % Neutrophils # (Manual) 1764 L (6089-8608) /uL RBC Morphology Normal morphology Sodium 137 (137-145) mmol/L Potassium 3.2 L (3.4-5.1) mmol/L Chloride 102 (98-107) mmol/L Carbon Dioxide 27 (22-32) mmol/L BUN 10 (7-17) mg/dL Creatinine 0.57 (0.52-1.04) mg/dL Estimated GFR > 60.0 (>60) mL/min BUN/Creatinine Ratio 17.5 (6-22) Glucose 71 (70-100) mg/dL Calcium 8.1 L (8.4-10.2) mg/dL Total Bilirubin 0.3 (0.2-1.3) mg/dL AST 42 H (14-36) IU/L ALT 37 H (<35) IU/L Alkaline Phosphatase 69 (38-126) U/L Total Protein 6.2 L (6.3-8.2) g/dL Albumin 3.6 (3.5-5.0) g/dL Globulin 2.6 (1.7-4.1) g/dL Albumin/Globulin Ratio 1.4 (1.0-2.8) Lipase 48 (23-300) U/L Discharge Plan Departure Patient Disposition: Home Clinical Impression: COVID-19 Instructions: Can COVID-19 be prevented? Activity Restrictions/Additional Instructions: *You have been diagnosed with COVID-19 *What to do: *Please continue to take your regular medications as directed. [X] New medication prescriptions sent to your pharmacy: [facility] [address] - Zofran [ ] New medication written as a paper prescription [ ] No new medications given *Please follow up with your primary care provider in 2-3 days, call for an appointment. Let them know you were seen in the Emergency Department and that we ask that you be seen in follow up. We will electronically transmit a record of today's note if your PCP is in our system. *If you do not have a primary care provider please contact the [facility] Resource line at [phone]. They will ask some questions about your medical history and help get you set up with a doctor in the community. *Return to Emergency Department if you should have any new, worsening or concerning symptoms, such as fever greater than 101 F, shaking chills, worsening cough, worsening shortness of breath, persistent vomiting or other bothersome symptoms. Prescriptions: New ondansetron HCl [Zofran] 4 mg tablet 4 mg PO Q8H PRN (Reason: nausea and vomiting) Qty: 30 RF: 0 No Action [id number]-zpweybqigc-MRK-caff 32-28-099-40 mg capsule 1 cap PO Q6H PRN (Reason: Migraine Headache) RF: 0 trazodone 50 mg tablet 50 mg PO BEDTIME PRN (Reason: Insomnia) RF: 0 pantoprazole 40 mg tablet,delayed release (DR/EC) 40 mg PO DAILY RF: 0 metoclopramide HCl 10 mg tablet,disintegrating 10 mg PO Q6H PRN (Reason: Nausea) RF: 0 escitalopram oxalate 10 mg tablet 10 mg PO DAILY RF: 0 acetaminophen [Tylenol] 325 mg capsule 650 mg PO QID PRN (Reason: pain) Qty: 60 RF: 0 prednisone 10 mg tablet 10 mg PO DAILY Qty: 30 RF: 0 ondansetron 4 mg tablet,disintegrating 4 mg PO Q8H PRN (Reason: nausea and vomiting) Qty: 10 RF: 0 Referrals: Rina Montejo [Primary Care Provider] - <Nakita Mathews DO - Last Filed: 10/31/21 17:52> Cosign ED Attending Cosignature Attestation: I was immediately available in the department for consultation. Documentation has been reviewed. Patient case was discussion with her with current plan. Patient did have emesis after oral potassium tablet but was able to tolerate liquid without issue.
[2021-06-10] MEDS: IBUPROFEN 400 MG TABLET PO (19:09)
[2021-06-10] MEDS: POTASSIUM CHLORIDE 20 MEQ/15 ML UDC 40 MEQ PO (19:46)
== END 2021-06-10 20:26 | disposition home or self-care (01) ==
PROVIDERS: Emergency Medicine; Emergency Provider Physician Assistant; PCP Physician Assistant
DX: U07.1 COVID-19 (principal); R05.9 Cough, unspecified; R50.9 Fever, unspecified; R11.2 Nausea with vomiting, unspecified
CPT/HCPCS: 36415; 71045; 80053; 83690; 85007; 85025; 99283; 99284

== ENCOUNTER 2021-06-12 20:47 | Emergency (ER) | payer OTHER, MEDICAID, SELFPAY ==
[2021-06-12 20:56] VITALS: BP 114/67
[2021-06-12 20:57] VITALS: BP 114/67; PULSE 91; RESP 20; TEMP 37.1; O2SAT 93; O2SAT 96; BMI 20.1
[2021-06-12 21:00] VITALS: BP 110/67; O2SAT 93
[2021-06-12 21:30] VITALS: BP 105/61; PULSE 89; O2SAT 95
[2021-06-12 22:00] VITALS: BP 104/59; PULSE 83; O2SAT 95
--- NOTE | 2021-06-12 22:02 | ED_ITS ---
HPI - URI/Sore Throat General Chief Complaint: Upper Respiratory Symptoms Stated Complaint: dehydrated, cov + last mon, revisit Time Seen by Provider: 06/12/21 22:02 History of Present Illness HPI Narrative: Patient is a 21-year-old female presents with known COVID and body aches. She states that she is dehydrated although she has urinated while in the emergency department and drinking fluids. She has generalized body aches and just does not feel well. She was diagnosed on June 07 after a positive exposure. She is not vaccinated. She denies any worsening cough or shortness of breath. She has been monitoring her oxygen at home is anywhere from 93-95% which remains true here in the emergency department. She has no abdominal pain no nausea vomiting no chest pain or palpitations. Related Data Home Medications Medication Instructions Recorded Confirmed preyekg-swelkifseg-ZPZ-caffeine 30 1 cap PO Q6H PRN 02/17/21 05/26/21 mg-50 mg-325 mg-40 mg capsule pantoprazole 40 mg tablet,delayed 40 mg PO DAILY 02/17/21 05/26/21 release trazodone 50 mg tablet 50 mg PO BEDTIME PRN 02/17/21 05/26/21 escitalopram oxalate 10 mg tablet 10 mg PO DAILY 03/02/21 05/26/21 metoclopramide HCl 10 mg 10 mg PO Q6H PRN 03/02/21 05/26/21 disintegrating tablet Previous Rx's Medication Instructions Recorded acetaminophen 325 mg capsule 650 mg PO QID PRN #60 cap 03/02/21 (Tylenol) prednisone 10 mg tablet 10 mg PO DAILY #30 tab 05/19/21 ondansetron 4 mg disintegrating 4 mg PO Q8H PRN #10 tab 05/22/21 tablet ondansetron HCl 4 mg tablet 4 mg PO Q8H PRN #30 tab 06/10/21 (Zofran) Allergies Allergy/AdvReac Type Severity Reaction Status Date / Time No Known Drug Allergies Allergy Verified 06/10/21 16:06 Review of Systems Review of Systems Narrative: GENERAL:+ body aches Denies chills, fatigue, malaise, fever, sweats, travel HEENT: Denies sinus pain, ear pain, sore throat, difficulty swallowing, neck pain RESPIRATORY: Denies dyspnea, cough, wheezing, hemoptysis, sputum. CARDIOVASCULAR: Denies chest pain, palpitations, orthopnea, edema GASTROINTESTINAL: Denies nausea, vomiting, abdominal pain, diarrhea, constipation, melena. : Denies dysuria, frequency, incontinence, hematuria, urinary retention, flank pain. MUSCULOSKELETAL: Denies weakness, joint pain, or bony pain SKIN: No rash, no erythema, no pruritus NEUROLOGIC: Denies weakness, dizziness, headache, numbness, change in speech, confusion PSYCHIATRIC: No concerning psychosocial issues. 12 point review of systems is negative except for those stated above and HPI Patient History Medical History Acid reflux Anxiety Surgical History History of esophagogastroduodenoscopy (EGD) [place] teeth extracted Social History household members: significant other Smoking Status: Never smoker alcohol intake: current Smoking Status: Never smoker alcohol intake frequency: holidays/special occasions only Substance Use Type: does not use Exam Initial Vital Signs Initial Vital Signs: Vital Signs Blood Pressure 114/67 06/12/21 20:56 GENERAL: Alert well-appearing 25-year-old female in no acute distress. HEENT: Head atraumatic,EOMI, pupils reactive, face symmetric, moist mucous membranes CARDIOVASCULAR: Regular rate and rhythm without murmurs, rubs or gallops. RESPIRATORY: Breath sounds equal bilaterally, no wheezes rales or rhonchi. ABDOMEN: Soft, nontender. Normoactive bowel sounds all 4 quadrants. No guarding or rebound. RECTUM: Small superficial tear. Bleeding is now controlled. There is no fluctuation it does not involve the sphincter. No erythema. EXTREMITIES: Normal range of motion, no clubbing or edema. Neurovascularly intact NEUROLOGICAL: Alert and oriented x4.Normal gait and speech. SKIN: Warm, dry, no laceration, no petechiae, no rashes or lesions. Course Orders Ordered: Discontinued Medications Acetaminophen (Acetaminophen 325 Mg Tablet) 975 mg PO NOW ONE Stop: 06/12/21 22:09 Last Admin: 06/12/21 22:11 Dose: 975 mg Documented by: JUWAN Vital Signs Vital signs: Vital Signs - 8 hr 06/12/21 20:56 06/12/21 20:57 06/12/21 21:00 Temperature 98.7 F Pulse Rate 91 H Respiratory Rate 20 Blood Pressure 114/67 114/67 110/67 Pulse Oximetry 93 93 06/12/21 21:30 06/12/21 22:00 Temperature Pulse Rate 89 83 Respiratory Rate Blood Pressure 105/61 104/59 L Pulse Oximetry 95 95 MDM - URI/Sore Throat MDM Narrative Medical decision making narrative: At this time patient is drinking fluids and she has urinated in the emergency department. She is not clinically dehydrated. She is oxygenating without any supplemental oxygen. At this time there is no indication for any treatment or admission for her COVID. She actually states that after returning from the restroom she has some rectal bleeding and around her rectum hurts. I did examine her rectum she has a very small almost skin tear. Small amount of bleeding but bleeding has almost stopped this point. There is no fluctuation wrist sign of infection. Discharge Plan Departure Patient Disposition: Home Clinical Impression: COVID-19 Instructions: DI for COVID-19 (Suspected or Confirmed ) Activity Restrictions/Additional Instructions: * if you have not yet been vaccinated is still recommended and encouraged that you do so once your infection has passed you also have small wound on her bottom. Keep it and dry with soap and water. At home: -Monitor oxygen with pulse oximeter. -Wash hands frequently. -Stay isolated at home please follow the isolation instructions below. -Increase fluid intake. -you may take Tylenol as directed if needed for pain or fever Emergency warning signs for COVID-19: - Difficulty breathing or shortness of breath, oxygen less than 90% - Persistent pain or pressure in the chest - New confusion or inability to arouse - Bluish lips or face CDC Guidelines for home isolation: - Stay away from others - Limit contact with pets and animals: If you must care for a pet, wash your hands before and after interacting with them - Wear a mask while in public all places - Cover your mouth and nose with a tissue when you cough or sneeze. Dispose of tissues in a lined trash can and wash your hands immediately with soap and water for at least 20 seconds. If soap and water are not available, clean hands with alcohol-based hand landscape engineer that contains at least 60% alcohol. - Clean your hands often with soap and water for at least 20 seconds - Avoid touching your eyes, nose and mouth with unwashed hands - Do not share dishes, drinking glasses, cups, eating utensils, towels, or bedding with other people in your home. After using these items, wash them thoroughly with soap and water or put in the drum tester. - Clean high-touch surfaces in your isolation area (?sick room? and bathroom) every day; let a caregiver clean and disinfect high-touch surfaces in other areas of the home. Clean the area or item with soap and water or another detergent if it is dirty. Then, use a household disinfectant. Prescriptions: No Action vgsuzlq-jqtyxbvplx-DSD-caff 29-16-743-40 mg capsule 1 cap PO Q6H PRN (Reason: Migraine Headache) RF: 0 trazodone 50 mg tablet 50 mg PO BEDTIME PRN (Reason: Insomnia) RF: 0 pantoprazole 40 mg tablet,delayed release (DR/EC) 40 mg PO DAILY RF: 0 metoclopramide HCl 10 mg tablet,disintegrating 10 mg PO Q6H PRN (Reason: Nausea) RF: 0 escitalopram oxalate 10 mg tablet 10 mg PO DAILY RF: 0 acetaminophen [Tylenol] 325 mg capsule 650 mg PO QID PRN (Reason: pain) Qty: 60 RF: 0 prednisone 10 mg tablet 10 mg PO DAILY Qty: 30 RF: 0 ondansetron 4 mg tablet,disintegrating 4 mg PO Q8H PRN (Reason: nausea and vomiting) Qty: 10 RF: 0 ondansetron HCl [Zofran] 4 mg tablet 4 mg PO Q8H PRN (Reason: nausea and vomiting) Qty: 30 RF: 0 Referrals: Rina Montejo [Primary Care Provider] -
[2021-06-12] MEDS: ACETAMINOPHEN 325 MG TABLET 975 MG PO (22:11)
== END 2021-06-12 22:36 | disposition home or self-care (01) ==
PROVIDERS: Emergency Provider Emergency Medicine; PCP Physician Assistant
DX: U07.1 COVID-19 (principal)
CPT/HCPCS: 99282; 99283

== ENCOUNTER 2021-11-03 23:37 | Emergency (ER) | payer OTHER, MEDICAID, SELFPAY ==
[2021-11-03 23:42] VITALS: BP 142/72; PULSE 71; RESP 18; TEMP 36.4; O2SAT 98
--- NOTE | 2021-11-03 23:43 | DI.RAD.S_ITS ---
PROCEDURE: XR CHEST 2V INDICATIONS: chest pain TECHNIQUE: 2 views of the chest were acquired. COMPARISON: [facility], CR, XR CHEST 1V, 06/10/2021, 16:51. FINDINGS: Surgical changes and devices: None. Lungs and pleura: Lungs are clear. No pleural effusions or pneumothorax. Mediastinum: Mediastinal contours are normal. Heart size is normal. Bones and chest wall: No suspicious bony abnormalities. Soft tissues appear unremarkable. IMPRESSION: 1. No acute cardiopulmonary disease. Dictated by: Eitan Narvaez M.D. on 11/04/2021 at 0:17 Approved by: Eitan Narvaez M.D. on 11/04/2021 at 0:18
--- NOTE | 2021-11-03 23:48 | PC.NURSE ---
Pt reports increased pain with palpation and deep breathing. denies any injury. states pain just started hurting.
[2021-11-03] MEDS: predniSONE 20 MG TABLET 40 MG PO (23:58)
[2021-11-03] MEDS: KETOROLAC 30 MG/ML VIAL IM (23:58)
[2021-11-03] MEDS: GABAPENTIN 300 MG CAPSULE PO (23:58)
--- NOTE | 2021-11-04 00:11 | ED.CHESTPAIN ---
HPI - Chest Pain General Chief Complaint: Chest Pain Stated Complaint: CHEST PAIN AND RT ARM NUMB Time Seen by Provider: 11/03/21 23:43 Source: patient Mode of arrival: Ambulatory History of Present Illness HPI narrative: 26-year-old female nonsmoker with history of anxiety, ovarian anomaly presents with family in the chief complaint of right-sided neck pain and numbness in her right arm over the course the. She denies any injury nor extremity weakness but states she has been having some spasming in the right side of her neck and perhaps a pinched nerve for a few days. Additionally, she complains of retrosternal chest pain that is sharp and stabbing in nature. It is centrally located and without radiation. It is worse with deep breath and palpitations. She denies any runny nose or sore throat. She denies any cough or shortness of breath. She has no nausea, vomiting or diarrhea. Travel, injury or history of clot. She takes no control. Related Data Home Medications Medication Instructions Recorded Confirmed gfolnbu-gtdhyipaij-OCQ-caffeine 30 1 cap PO Q6H PRN 02/17/21 06/29/21 mg-50 mg-325 mg-40 mg capsule pantoprazole 40 mg tablet,delayed 40 mg PO DAILY 02/17/21 06/29/21 release trazodone 50 mg tablet 50 mg PO BEDTIME PRN 02/17/21 06/29/21 escitalopram oxalate 10 mg tablet 10 mg PO DAILY 03/02/21 06/29/21 metoclopramide HCl 10 mg 10 mg PO Q6H PRN 03/02/21 06/29/21 disintegrating tablet Previous Rx's Medication Instructions Recorded acetaminophen 325 mg capsule 650 mg PO QID PRN #60 cap 03/02/21 (Tylenol) ondansetron 4 mg disintegrating 4 mg PO Q8H PRN #10 tab 05/22/21 tablet ondansetron HCl 4 mg tablet 4 mg PO Q8H PRN #30 tab 06/10/21 (Zofran) escitalopram oxalate 20 mg tablet See Rx Instructions .ROUTE 09/24/21 .COMPLEX #90 tab gabapentin 300 mg capsule 300 mg PO BEDTIME #14 cap 11/04/21 ketorolac 10 mg tablet 10 mg PO Q6H PRN #14 tab 11/04/21 Allergies Allergy/AdvReac Type Severity Reaction Status Date / Time No Known Drug Allergies Allergy Verified 06/10/21 16:06 Review of Systems Review of Systems Narrative: GENERAL: Denies chills, fatigue, malaise, fever, sweats. HEENT: Denies sinus pain, ear pain, sore throat, difficulty swallowing, dizziness. RESPIRATORY: Denies dyspnea, cough, wheezing, hemoptysis, sputum. CARDIOVASCULAR: See HPI GASTROINTESTINAL: Denies nausea, vomiting, abdominal pain, diarrhea, constipation, melena. : Denies dysuria, frequency, incontinence, hematuria, urinary retention. MUSCULOSKELETAL: See HPI SKIN: Denies rash, skin lesions, or other NEUROLOGIC: See HPI PSYCHIATRIC: No concerning psychosocial issues. 12 point review of systems is negative except for those stated above Patient History Medical History Acid reflux Anxiety Surgical History History of esophagogastroduodenoscopy (EGD) [place] teeth extracted Social History household members: significant other Smoking Status: Never smoker alcohol intake: current Smoking Status: Never smoker alcohol intake frequency: holidays/special occasions only Substance Use Type: does not use Exam Narrative Exam Narrative: GENERAL: [26 year old patient appears stated age. Well-developed patient, in mild distress. HEAD: Atraumatic. Normocephalic. EYES: Pupils equal round and reactive. Extraocular motions intact. No scleral icterus. No injection or drainage. ENT: Nose without bleeding, purulent drainage. Throat without erythema, tonsillar hypertrophy or exudate. Airway patent. NECK: Trachea midline. Tenderness and palpation of the paraspinal musculature on the right side of neck, axial loading worsens the numbness in her arm. She has no pain and no measurable weakness. CARDIOVASCULAR: Regular rate and rhythm without murmurs, gallops, or rubs. Reproducible sharp and stabbing pain with palpation overlying her sternum RESPIRATORY: Clear to auscultation. Breath sounds equal bilaterally. No wheezes, rales, or rhonchi. GASTROINTESTINAL: Abdomen soft, non-tender, nondistended. EXTREMITIES: No edema or joint tenderness. BACK: Nontender without deformity or crepitance. No flank tenderness. NEURO: AOx3. SKIN: No rash or erythema of visible areas Initial Vital Signs Initial Vital Signs: Vital Signs Temperature 97.5 F L 11/03/21 23:42 Pulse Rate 71 11/03/21 23:42 Respiratory Rate 18 11/03/21 23:42 Blood Pressure 142/72 H 11/03/21 23:42 Pulse Oximetry 98 11/03/21 23:42 Course Orders Ordered: ED Orders 11/03/21 23:43 Chest [XR chest 2V] Stat EKG-12 Lead Stat Discontinued Medications Gabapentin (Gabapentin 300 Mg Capsule) 300 mg PO NOW ONE Stop: 11/03/21 23:44 Last Admin: 11/03/21 23:58 Dose: 300 mg Documented by: YAS Ketorolac Tromethamine (Ketorolac 30 Mg/Ml Vial) 30 mg IM NOW ONE Stop: 11/03/21 23:44 Last Admin: 11/03/21 23:58 Dose: 30 mg Documented by: YAS Ondansetron HCl (Ondansetron 4 Mg Odt Prepack) 1 bottle MISC SEEINSTR ONE Stop: 11/04/21 00:12 Last Admin: 11/04/21 00:16 Dose: 1 bottle Documented by: Prednisone (Prednisone 20 Mg Tablet) 40 mg PO NOW ONE Stop: 11/03/21 23:44 Last Admin: 11/03/21 23:58 Dose: 40 mg Documented by: YAS Vital Signs Vital signs: Vital Signs - 8 hr 11/03/21 23:42 Temperature 97.5 F L Pulse Rate 71 Respiratory Rate 18 Blood Pressure 142/72 H Pulse Oximetry 98 MDM - Chest Pain Imaging Data Chest x-ray: Radiologist's Impression: [address] [address] XRay Report Signed Patient: Sandra Bull MR#: [id number] : 1995 Acct:[id number] Age/Sex: 26 / F Date of Service: 11/03/21 Loc: ED Accession Number: [id number] ?? Procedure: XR chest 2V Ordering Provider: Kameron Mark D.O. PROCEDURE:? XR CHEST 2V ? INDICATIONS:? chest pain ? TECHNIQUE:? 2 views of the chest were acquired.? ? COMPARISON:? [facility], CR, XR CHEST 1V, 06/10/2021, 16:51. ? FINDINGS:? ? Surgical changes and devices:? None.? ? Lungs and pleura:? Lungs are clear.? No pleural effusions or pneumothorax.? ? Mediastinum:? Mediastinal contours are normal.? Heart size is normal.? ? Bones and chest wall:? No suspicious bony abnormalities.? Soft tissues appear unremarkable.? ? IMPRESSION:? ? 1.? No acute cardiopulmonary disease. ? ? ? Dictated by: Eitan Narvaez M.D. on 11/04/2021 at 0:17 ? ? Approved by: Eitan Narvaez M.D. on 11/04/2021 at 0:18 ? Discharge Plan Departure Patient Disposition: Home Clinical Impression: Atypical chest pain, Cervical radiculopathy Instructions: DI for Atypical Chest Pain Activity Restrictions/Additional Instructions: *You have been diagnosed with [atypical chest pain and cervical radiculopathy. *What to do: *Please continue to take your regular medications as directed. [ x] New medication prescriptions sent to your pharmacy: [ [facility]] [ ] New medication written as a paper prescription [ ] No new medications given *Please follow up with your primary care provider in 2-3 days, call for an appointment. Let them know you were seen in the Emergency Department and that we ask that you be seen in follow up. We will electronically transmit a record of today's note if your PCP is in our system *If you do not have a primary care provider please contact the [facility] Resource line at [phone]. They will ask some questions about your medical history and help get you set up with a doctor in the community. *Return to Emergency Department if you should have any new, worsening or concerning symptoms, such as [fever greater than 101 F, shaking chills, worsening pain, persistent vomiting or other bothersome symptoms] Prescriptions: New ketorolac 10 mg tablet 10 mg PO Q6H PRN (Reason: pain) Qty: 14 0RF gabapentin 300 mg capsule 300 mg PO BEDTIME Qty: 14 0RF No Action escitalopram oxalate 20 mg tablet See Rx Instructions .ROUTE .COMPLEX Qty: 90 3RF Dose Instruction: TAKE ONE TABLET BY MOUTH ONE TIME DAILY take with 10mg tablet for total of 30mg daily Rx Instructions: TAKE ONE TABLET BY MOUTH ONE TIME DAILY take with 10mg tablet for total of 30mg daily yczscqy-ylhfsqnmdd-KKM-caff [id number] mg capsule 1 cap PO Q6H PRN (Reason: Migraine Headache) 0RF trazodone 50 mg tablet 50 mg PO BEDTIME PRN (Reason: Insomnia) 0RF pantoprazole 40 mg tablet,delayed release (DR/EC) 40 mg PO DAILY 0RF metoclopramide HCl 10 mg tablet,disintegrating 10 mg PO Q6H PRN (Reason: Nausea) 0RF escitalopram oxalate 10 mg tablet 10 mg PO DAILY 0RF acetaminophen [Tylenol] 325 mg capsule 650 mg PO QID PRN (Reason: pain) Qty: 60 0RF ondansetron 4 mg tablet,disintegrating 4 mg PO Q8H PRN (Reason: nausea and vomiting) Qty: 10 0RF ondansetron HCl [Zofran] 4 mg tablet 4 mg PO Q8H PRN (Reason: nausea and vomiting) Qty: 30 0RF Referrals: Boo Booth MD [Primary Care Provider] -
[2021-11-04] MEDS: ONDANSETRON 4 MG ODT PREPACK 1 BOTTLE MISC (00:16)
--- NOTE | 2021-11-04 00:23 | PC.NURSE ---
Pt reported having a small amount of emesis after taking medications. Medicated with zofran at this time
[2021-11-04 01:39] VITALS: BP 104/64; PULSE 78; RESP 16; O2SAT 97
== END 2021-11-04 01:40 | disposition home or self-care (01) ==
PROVIDERS: Emergency Provider Emergency Medicine; PCP Family Medicine
DX: R07.89 Other chest pain (principal); M54.12 Radiculopathy, cervical region
CPT/HCPCS: 71046; 93005; 96372; 99283; 99284; J1885

== ENCOUNTER → 2021-12-22 09:07 | Outpatient (CLI) | payer OTHER, MEDICAID, SELFPAY ==
--- NOTE | 2021-12-22 09:09 | DI.ECHO.S_ITS ---
[facility]---------+ [facility] +---------+ : : [address] : : : : [id number] : : : : Phone: [phone] Echocardiogram Report + + :Name: JOSH EUCEDA Study Date: 12/22/2021 Height: 106 in: :[facility] ReadingLocation: Weight: 62 lb : : Gender: Female BSA: 1.7 m2 : :: 1995 Age: 26 yrs BP: 93/62 mmHg: :Reason For Study: Chest discomfort post Covid 19 : : Performed By: Riddhi Rincon : :Referring: FREDDIE LOVETT : + + Interpretation Summary 1) Normal left ventricular thickness, size, wall motion, and systolic function (EF 55-60%). 2) Normal right ventricular size and function. 3) No significant valvular abnormalities. 4) No prior Echo available for comparison. Procedure: A two-dimensional transthoracic echocardiogram with color flow and Doppler was performed. The study quality was technically adequate. There is no prior echocardiogram noted for this patient. The patient was in normal sinus rhythm during the exam. Left Ventricle: The left ventricle appears normal in size, wall thickness, and systolic function without any focal wall motion abnormalities. There is no ventricular septal defect visualized. The ejection fraction is estimated to be 55-60%. Diastolic parameters suggest probable normal left ventricular diastolic function and normal filling pressures. Right Ventricle: The right ventricle is normal in size and function. Atria: Both atria are normal in size. There is no Doppler evidence for an interatrial shunt. Mitral Valve: The mitral valve is normal in structure and function. There is trace mitral regurgitation. Aortic Valve: The aortic valve is normal in structure and function. There is no aortic valve stenosis. No aortic regurgitation is present. Tricuspid Valve: The tricuspid valve leaflets are thin and pliable. There is mild tricuspid regurgitation. The right ventricular systolic pressure is estimated to be at least 21 mmHg based on an estimated right atrial pressure of 3 mm Hg. Pulmonic Valve: The pulmonic valve is not well seen, but is grossly normal. There is trace pulmonic regurgitation. Great Vessels: The aortic root is normal size. The ascending aorta is normal in size. The aortic arch is normal in size. The IVC is of normal diameter and collapses greater than 50% with a sniff. This suggests a low right atrial pressure of 3 mm Hg. Pericardium/ Pleura There is no pericardial effusion. MMode/2D Measurements & Calculations LVIDd: 4.3 cm LVOT diam: 1.8 cm LVIDs: 3.0 cm Ao root diam: 2.4 cm FS: 31.5 % asc Aorta Diam: 2.2 cm EPSS: 0.37 cm Ao Arch Diam (Prox Trans): 1.6 cm IVSd: 0.45 cm LVPWd: 0.60 cm LV huston. diameter/BSA (cm/m^2): 2.5 LV sys. diameter/BSA (cm/m^2): 1.7 LA A2 area: 15.0 cm2 RA long axis: 4.1 cm LA A4 area: 13.3 cm2 RA area: 12.2 cm2 LA length (vol): 4.5 cm RA vol: 31.0 ml LA vol: 37.6 ml RA : 18.1 ml/m2 LA vol index: 21.9 ml/m2 IVC diam: 1.4 cm RVD1 (basal): 3.4 cm TAPSE: 2.1 cm Doppler Measurements & Calculations Ao V2 max: 107.7 cm/sec LVOT Max Ronni: 81.8 cm/sec Ao V2 mean: 68.8 cm/sec LV V1 max P.7 mmHg Ao max P.6 mmHg LV V1 VTI: 16.2 cm Ao mean P.4 mmHg NEREYDA(I,D): 1.7 cm2 Ao V2 VTI: 23.2 cm NEREYDA(V,D): 1.8 cm2 sev ratio: 0.70 NEREYDA indexed to BSA (cm^2/m^2): 0.99 MV E max ronni: 90.6 cm/sec TR max ronni: 210.3 cm/sec MV A max ronni: 44.4 cm/sec TR max P.7 mmHg MV E/A: 2.0 PA V2 max: 100.6 cm/sec Med Peak E' Ronni: 12.7 cm/sec PA V2 mean: 70.2 cm/sec E/E' med: 7.2 PA mean P.2 mmHg Lat Peak E' Ronni: 20.0 cm/sec PA pr(Accel): 14.8 mmHg E/E' lat: 4.5 E/e' average: 5.8 MV dec time: 0.23 sec SV(LVOT): 39.4 ml Reading Physician:04:02 PM
== END ==
PROVIDERS: PCP Family Medicine; Referring Provider Family Medicine; Visit Provider Family Medicine
DX: I07.1 Rheumatic tricuspid insufficiency (principal); R07.89 Other chest pain; U09.9 Post COVID-19 condition, unspecified
CPT/HCPCS: 93306

== ENCOUNTER → 2021-12-24 14:42 | Outpatient (CLI) | payer OTHER, MEDICAID, SELFPAY ==
--- NOTE | 2021-12-24 14:43 | DI.US.S_ITS ---
PROCEDURE: US OB <= 14 WEEKS FETUS INDICATIONS: VIABILITY AND DATES OUTSIDE/PRIOR DATING DATA: Last menstrual period (LMP): 10/22/2021 LMP-based estimated date of delivery (EMRE): 07/29/2022. First dating scan (date and location): 12/24/2021 Estimated date of delivery (EMRE) from first dating scan: 07/26/2022. TECHNIQUE: Real-time scanning was performed of the fetus and maternal pelvic organs, with image documentation. COMPARISON: None. FINDINGS: Embryo: Single intrauterine gestation is seen with fetus and yolk sac seen. heart rate is 165 beats per minute. [place]-rump length measures 2.7 cm. Estimated gestational age is 9 weeks, 3 days. Maternal organs: Bilateral ovaries are visualized and are within normal limits. IMPRESSION: 1. Single live intrauterine gestation with fetus and yolk sac seen. heart rate is 165 beats per minute. Estimated gestational age based on current study is 9 weeks, 3 days. We strive to produce accurate, complete, and clear reports of imaging services. To assist us in improving patient care, this report was composed using standard report templates and voice recognition software. Therefore, it may contain abnormal punctuation, insertions and/or omissions. Occasional wrong-word or sound-alike substitutions may occur. Though we review the report and make efforts to correct it, we do recommend that the report be read carefully in proper context to recognize any text inaccuracies. Dictated by: Nagi Aguirre M.D. on 12/24/2021 at 16:42 Approved by: Nagi Aguirre M.D. on 12/24/2021 at 16:43
== END ==
PROVIDERS: PCP Family Medicine; Referring Provider Obstetrics & Gynecology; Visit Provider Obstetrics & Gynecology
DX: Z36.87 Encounter for antenatal screening for uncertain dates (principal); Z3A.09 9 weeks gestation of pregnancy
CPT/HCPCS: 76801

== ENCOUNTER → 2021-12-25 12:31 | Outpatient (CLI) | payer OTHER, MEDICAID, SELFPAY ==
[2021-12-25 13:03] LABS: Appearance Urine UA CLEAR; Bilirubin Urine UA NEGATIVE (NEGATIVE); Color Urine UA YELLOW; Glucose Urine UA TRACE g/dL (Negative); Ketones Urine UA NEGATIVE (NEGATIVE); Leukocyte Esterase Urine UA NEGATIVE (NEGATIVE); Nitrite Urine UA NEGATIVE (Negative); Occult Blood Urine UA NEGATIVE (Negative); Protein Urine UA NEGATIVE (Negative); Urobilinogen Urine UA 0.2 E.U./dL (0.2)
[2021-12-25 13:11] LABS: Add Manual Diff / Slide Review NO; Basophils Absolute Auto 0 /uL (0-100); Basophils Percent Auto 0.3 % (0-2); Eosinophils Absolute Auto 100 /uL (0-450); Eosinophils Percent Auto 1.1 % (2-4); Hematocrit 39.9 % (36-46); Hemoglobin 13.7 g/dL (12.0-16.0); Lymphocytes Absolute Auto 1700 /uL (1100-4500); Lymphocytes Percent Auto 21.3 % (25-40); Mean Corpuscular HGB Conc 34.4 % (30-36); Mean Corpuscular Hemoglobin 30.6 PG (26-34); Mean Corpuscular Volume 88.7 fL (80-100); Monocytes Absolute Auto 400 /uL (0-900); Monocytes Percent Auto 4.4 % (3-14); Neutrophils Absolute Auto 5900 /uL (1500-7000); Neutrophils Percent Auto 72.9 % (50-75); Platelet Count 192 X10^3/uL (150-400); Red Blood Cell Count 4.49 X10^6/uL (4.0-5.2); White Blood Cell Count 8.1 X10^3/uL (4.5-11.0)
[2021-12-25 13:23] LABS: Alanine Aminotransferase 19 IU/L (<35); Albumin Globulin Ratio 1.4 (1.0-2.8); Alkaline Phosphatase 53 U/L (38-126); Aspartate Aminotransferase 25 IU/L (14-36); Bilirubin Total 0.5 mg/dL (0.2-1.3); Blood Urea Nitrogen 7 mg/dL (7-17); Calcium 9.3 mg/dL (8.4-10.2); Carbon Dioxide 27 mmol/L (22-32); Chloride 103 mmol/L (98-107); Estimated Glomerular Filt Rate > 60 mL/min (>60); Globulin 2.8 g/dL (1.7-4.1); Glucose 100 mg/dL (70-100); HEMOLYSIS < 15 (0-50); Potassium 3.7 mmol/L (3.4-5.1); Sodium 138 mmol/L (137-145); Total Protein 6.8 g/dL (6.3-8.2)
[2021-12-26 08:11] LABS: RPR Screen Non Reactive (Non Reactive)
[2021-12-27 05:36] LABS: Varicella IgG Antibody <135 index (Immune >165)
[2021-12-27 15:49] LABS: Hepatitis B Surface Antigen NEGATIVE s/c (NEGATIVE); Rubella Antibody IgG 6.2 IU/mL (>15)
[2021-12-27 16:05] LABS: HIV 1 & 2 Ab/Ag 4th Gen Combo NEGATIVE (NEGATIVE); Hep C Virus Ab w/Reflex Quant NEGATIVE s/c (NEGATIVE)
== END ==
PROVIDERS: PCP Family Medicine; Referring Provider Obstetrics & Gynecology; Visit Provider Obstetrics & Gynecology
DX: Z34.02 Encounter for supervision of normal first pregnancy, second trimester (principal); R07.89 Other chest pain; U09.9 Post COVID-19 condition, unspecified
CPT/HCPCS: 36415; 80053; 80055; 81003; 86787; 86803; 86850; 86900; 86901; 87086; 87389

== ENCOUNTER → 2022-03-11 11:51 | Outpatient (CLI) | payer OTHER, MEDICAID, SELFPAY ==
--- NOTE | 2022-03-11 11:52 | DI.US.S_ITS ---
PROCEDURE: US OB >= 14 WEEKS FETUS INDICATIONS: ANATOMY OUTSIDE/PRIOR DATING DATA: Last menstrual period (LMP): 10/22/2021 LMP-based estimated date of delivery (EMRE): 07/29/2022. First dating scan (date and location): 12/24/2021. Estimated date of delivery (EMRE) from first dating scan: 07/26/2022. TECHNIQUE: Real-time scanning was performed of the fetus, with image documentation and biometric measurements. COMPARISON: [facility], OB <= 14 WEEKS FETUS, 12/24/2021, 15:53. FINDINGS: General: A single living intrauterine gestation is present. Presentation: Vertex. Placenta: Placental position is anterior , without previa. Amniotic fluid index: 12.2 cm, normal range is 5-24 cm. Single deepest vertical pocket is 4.3 cm. heart rate: 144 beats per minute. Maternal cervical canal: 3.4 cm long. Normal lower limit is 2.5 cm. biometrics: Biparietal diameter: 21 weeks Head circumference: 20 weeks 5 days Abdominal circumference: 20 weeks 6 days Femur length: 20 weeks 2 days Clinically estimated gestational age: 20 weeks 3 days Composite gestational age from present scan: 20 weeks 5 days Estimated weight and percentile: 367 g; 57th percentile Anatomic survey: Neuro: Ventricles are non-dilated at less than 10 mm. Cisterna magna is normal at 3-11 mm. Cerebellum is normal in size and morphology. Nuchal skin fold: Normal at less than 6 mm between 14-21 weeks gestational age. Face: Nose and lips, facial profile are normal. Spine: No evidence for spina bifida. Heart: 4-chambered heart is present, with normal ventricular outflow tracts. Diaphragm: Diaphragm is intact. Stomach: Not well seen. A bowel appears mildly echogenic. Kidneys: No hydronephrosis. Normal is less than 5 mm in 2nd trimester, less than 7 mm in 3rd trimester. Cord: 3-vessel cord has orthotopic insertion. Bladder: Normal in size. Extremities: All 4 extremities identified. IMPRESSION: 1. Normal interval growth. 2. The stomach is not well visualized and there is mild echogenic appearance of the bowel; otherwise normal anatomic survey. Short-term follow-up recommended. We strive to produce accurate, complete, and clear reports of imaging services. To assist us in improving patient care, this report was composed using standard report templates and voice recognition software. Therefore, it may contain abnormal punctuation, insertions and/or omissions. Occasional wrong-word or sound-alike substitutions may occur. Though we review the report and make efforts to correct it, we do recommend that the report be read carefully in proper context to recognize any text inaccuracies. Dictated by: Lei VARNER Interpreted: Merle Welch MD on 03/11/2022 at 14:01 Transcribed by: GURPREET on 03/11/2022 at 14:04 Approved by: Merle Welch M.D. on 03/11/2022 at 15:14
== END ==
PROVIDERS: PCP Family Medicine; Referring Provider Obstetrics & Gynecology; Visit Provider Obstetrics & Gynecology
DX: Z34.02 Encounter for supervision of normal first pregnancy, second trimester (principal); Z3A.20 20 weeks gestation of pregnancy
CPT/HCPCS: 76811

== ENCOUNTER → 2022-04-19 15:15 | Outpatient (CLI) | payer OTHER, MEDICAID, SELFPAY ==
[2022-04-19 19:22] LABS: Urine N gonorrhoeae NOT DETECTED
[2022-04-19 19:39] LABS: Urine Chlamydia NOT DETECTED
== END ==
PROVIDERS: PCP Family Medicine; Visit Provider Obstetrics & Gynecology
DX: Z34.02 Encounter for supervision of normal first pregnancy, second trimester (principal); Z3A.25 25 weeks gestation of pregnancy
CPT/HCPCS: 87491; 87591

== ENCOUNTER → 2022-04-25 10:32 | Outpatient (CLI) | payer OTHER, MEDICAID, SELFPAY ==
[2022-04-25 13:08] LABS: Hematocrit 32.3 % (36-46); Hemoglobin 10.8 g/dL (12.0-16.0)
[2022-04-25 14:24] LABS: GTT (PREG) 1 Hour PP 50gm Dose 161 mg/dL (76-139)
== END ==
PROVIDERS: PCP Family Medicine; Referring Provider Obstetrics & Gynecology; Visit Provider Obstetrics & Gynecology
DX: Z34.02 Encounter for supervision of normal first pregnancy, second trimester (principal); Z3A.26 26 weeks gestation of pregnancy
CPT/HCPCS: 36415; 82950; 85014; 85018

== ENCOUNTER → 2022-04-27 12:55 | Outpatient (CLI) | payer OTHER, MEDICAID, SELFPAY ==
--- NOTE | 2022-04-27 12:55 | DI.US.S_ITS ---
PROCEDURE: US OB FOLLOW UP INDICATIONS: Incomplete anatomic survey on 20 wk. anatomy scan OUTSIDE/PRIOR DATING DATA: Last menstrual period (LMP): 10/22/2021 LMP-based estimated date of delivery (EMRE): 07/29/2022. First dating scan (date and location): 12/24/2021. Estimated date of delivery (EMRE) from first dating scan: 07/26/2022. The calculations are made using the ultrasound EMRE of 07/26/2022. TECHNIQUE: Real-time scanning was performed of the fetus, with image documentation. COMPARISON: [facility], US, US OB >= 14 WEEKS FETUS, 03/11/2022, 12:30. FINDINGS: A single living intrauterine gestation is present. Presentation: Vertex Placenta: Placental position is anterior, without previa. Amniotic fluid index: 11 cm, normal range is 5-24 cm. Single deepest vertical pocket is 4.8 cm. heart rate: 132 beats per minute. Maternal cervical canal: 4.2 cm cm long. Normal lower limit is 2.5 cm. Clinically estimated gestational age: 26 weeks 5 days Normal appearance of the stomach and bowel echogenicity is normal. IMPRESSION: 1. Single living IUP redemonstrated and the stomach as well as the bowel echogenicity appears normal on today's exam. Dictated by: Lei Bryant [facility] Interpreted: Nagi Aguirre MD on 04/27/2022 at 13:38 Transcribed by: APOORVA on 04/27/2022 at 13:41 Approved by: Nagi Aguirre M.D. on 04/27/2022 at 14:51
== END ==
PROVIDERS: PCP Family Medicine; Referring Provider Obstetrics & Gynecology; Visit Provider Obstetrics & Gynecology
DX: Z34.02 Encounter for supervision of normal first pregnancy, second trimester (principal); Z3A.25 25 weeks gestation of pregnancy
CPT/HCPCS: 76816

== ENCOUNTER 2022-05-31 11:29 | Observation (INO) | payer OTHER, MEDICAID, SELFPAY ==
--- NOTE | 2022-05-31 11:56 | P.TNLD_ITS ---
Visit Information Visit Information Date of evaluation: 05/31/22 Primary OB Provider: Mohsen Roper On-call OB Provider: Elisa Dumont Comments/Additional reasons for admission: 26yo at 31w4d who presented with acute lower abdominal pain. The pt reports that 3 days ago she rolled over in bed and developed severe lower abdominal pain, over her pubic bone. The pain persisted since then. It is worse with movement, particularly rising from seated and rolling over in bed. Last night she was unable to sleep due to the pain, which is what prompted her to come in for evaluation today. She denies any vaginal bleeding or LOF. She is feeling her baby move consistently. She was not feeling contractions prior to coming to L&D, however once in L&D did begin feeling some crampy contractions as well. [facility] Medical History (Updated 05/31/22 @ 14:48 by Elisa Dumont MD) Acid reflux Anxiety and depression (~2020) Headache (~2018) Migraine (~2019) Surgical History (Updated 01/05/22 @ 08:08 by Mohsen Roper MD) History of esophagogastroduodenoscopy (EGD) Hx of laparoscopy [place] teeth extracted Social History marital status: unmarried,living together (engaged) number of children: 0 household members: significant other lives independently: Yes housing: apartment pets and animals: No (aware of Toxoplasmosisi) education level: high school occupational status: employed current occupational exposures/hazards: No special leatha needs: No seatbelt use: always water heater temp set < 120 deg: Yes (will check and turn down if needed) working smoke detector in home: Yes fire extinguisher in home: Yes carbon monox detector in home: Yes firearms in home: Yes (unloaded and hidden) firearms unloaded and locked: No do you feel safe at home: Yes Smoking Status: Never smoker second hand exposure: Yes (getting less, sig other has moved to smoking outside) alcohol intake: former substance use type: does not use during the past year weight has: increased > 10 lbs (with Covid infection) well-balanced diet: about half the time daily servings fruits/ve-1 caffeine: Yes (200mg caffeine) Type(s) of exercise: irregular exercise (will get back to the gym) Exam Narrative Exam Narrative: Gen: NAD, sitting comfortably in bed, moving in bed without severe discomfort Abd: soft, exquisitely tender to palpation over pubic symphysis otherwise nontender, nondistended Ext: no edema Evaluation Evaluation Baseline heart rate: 150 Variability: Moderate (11-25) monitor accelerations: Present Monitor Decelerations: Absent Comments: Contractions up to every 5 minutes, none at the time of discharge Diagnosis, Plan/Disposition Final Diagnosis (1) contractions: Status: Acute (2) 31 weeks gestation of : Status: Acute (3) Pain in symphysis pubis during : Status: Acute Plan/Disposition Plan: 26yo at 31w4d who presented with acute lower abdominal pain, most consistent with pubic symphysis pain/separation. Discussed ice/heat, Tylenol PRN, abdominal binder to help. Once pain improves somewhat, discussed core exercises to help vs referral to PT if needed. Pt also with contractions up to every 5 minutes. They responded to PO Nifedipine, cervical length 3cm. Discussed hydration at home. No evidence UTI on U/A. Stable for d/c home. OB Disposition: home
[2022-05-31 12:10] LABS: Appearance Urine UA CLEAR; Bilirubin Urine UA NEGATIVE (NEGATIVE); Color Urine UA YELLOW; Glucose Urine UA TRACE g/dL (Negative); Ketones Urine UA NEGATIVE (NEGATIVE); Leukocyte Esterase Urine UA NEGATIVE (NEGATIVE); Nitrite Urine UA NEGATIVE (Negative); Occult Blood Urine UA TRACE-INTACT (Negative); Protein Urine UA NEGATIVE (Negative); Specific Gravity Urine UA <=1.005 (1.000-1.035); Urobilinogen Urine UA 0.2 E.U./dL (0.2); pH Urine UA 6.5 (4.5-8.0)
[2022-05-31 12:22] LABS: Bacteria Urine None Seen; Culture Indicated Urine Cult Not Indicated; RBC Urine 0-1/HPF (0-5/HPF); Squamous Epithelial Cell Urine 5-10 /HPF (0-5/HPF); WBC Urine None Seen (0-5/HPF)
--- NOTE | 2022-05-31 12:39 | DI.US.S_ITS ---
PROCEDURE: US OB LIMITED INDICATIONS: LABOR - CERVICAL LENGTH OUTSIDE/PRIOR DATING DATA: Last menstrual period (LMP): October 22, 2021 LMP-based estimated date of delivery (EMRE): July 19, 2022 First dating scan (date and location): December 24, 2021 Estimated date of delivery (EMRE) from first dating scan: July 26, 2022 The calculations are made using the ultrasound EMRE of July 26, 2022 TECHNIQUE: Real-time scanning was performed of the fetus, with image documentation. Endovaginal scanning: Performed COMPARISON: None. FINDINGS: A single living intrauterine gestation is present. Presentation: Vertex Placenta: Placental position is anterior without previa. Amniotic fluid index: 15.7 cm, normal range is 5-24 cm. Single deepest vertical pocket is 4.6 cm. heart rate: 137 beats per minute. Maternal cervical canal: Closed and 3.0 cm long. Normal lower limit is 2.5 cm. Estimated gestational age from initial scan: 32 weeks 0 days. IMPRESSION: Single living intrauterine . Normal amniotic fluid index of 15.7. Maternal cervix closed and 3.0 centimeters in length. Dictated by: Dory German MD, PhD on 05/31/2022 at 14:04 Approved by: Dory German MD, PhD on 05/31/2022 at 14:06
[2022-05-31] MEDS: NIFEdipine 10 MG CAPSULE PO ×4 (12:44→14:23)
== END 2022-05-31 14:36 | disposition home or self-care (01) ==
PROVIDERS: Family Medicine; Admitting Provider Obstetrics & Gynecology; PCP Family Medicine; Referring Provider Obstetrics & Gynecology; Visit Provider Obstetrics & Gynecology
DX: O47.03 False labor before 37 completed weeks of gestation, third trimester (principal); O26.893 Other specified pregnancy related conditions, third trimester; R10.2 Pelvic and perineal pain; Z3A.31 31 weeks gestation of pregnancy
CPT/HCPCS: 59025; 59050; 76815; 76817; 81001; G0378; G0379

== ENCOUNTER 2022-06-07 09:34 | Outpatient (CLI) | payer OTHER, MEDICAID, SELFPAY ==
--- NOTE | 2022-06-07 10:28 | DI.US.S_ITS ---
PROCEDURE: US OB LIMITED INDICATIONS: CERVICAL LENGTH OUTSIDE/PRIOR DATING DATA: Last menstrual period (LMP): October 22, 2021. LMP-based estimated date of delivery (EMRE): July 29, 2022. First dating scan (date and location): December 24, 2021, [facility]. Estimated date of delivery (EMRE) from first dating scan: July 26, 2022. TECHNIQUE: Real-time scanning was performed of the fetus, with image documentation. COMPARISON: [facility], , OB LIMITED, 05/31/2022, 13:37. FINDINGS: A single living intrauterine gestation is present. Presentation: Vertex Placenta: Placental position is anterior, without previa. Amniotic fluid index: 14.3 cm, normal range is 5-24 cm. Single deepest vertical pocket is 4.7 cm. heart rate: 163 beats per minute. Maternal cervical canal: 3.1 cm long. Normal lower limit is 2.5 cm. Estimated gestational age from initial scan: 33 weeks, 0 days. IMPRESSION: 1. Single live intrauterine gestation. Normal cervical length and amniotic fluid index. Dictated by: Betsy Silver M.D. on 06/07/2022 at 11:18 Approved by: Betsy Silver M.D. on 06/07/2022 at 11:22
[2022-06-07 10:44] LABS: Appearance Urine UA CLEAR; Bilirubin Urine UA NEGATIVE (NEGATIVE); Color Urine UA YELLOW; Glucose Urine UA 1+ g/dL (Negative); Ketones Urine UA NEGATIVE (NEGATIVE); Leukocyte Esterase Urine UA NEGATIVE (NEGATIVE); Nitrite Urine UA NEGATIVE (Negative); Occult Blood Urine UA TRACE-INTACT (Negative); Protein Urine UA NEGATIVE (Negative); Specific Gravity Urine UA <=1.005 (1.000-1.035); Urobilinogen Urine UA 0.2 E.U./dL (0.2); pH Urine UA 6.5 (4.5-8.0)
[2022-06-07 10:46] LABS: Culture Indicated Urine Cult Not Indicated; RBC Urine None Seen (0-5/HPF); Urine Comments Microscopic Normal; WBC Urine None Seen (0-5/HPF)
[2022-06-07 10:50] LABS: Bacteria Urine None Seen
--- NOTE | 2022-06-07 18:07 | P.TNLD_ITS ---
Visit Information Visit Information Date of evaluation: 06/07/22 Primary OB Provider: Mohsen Roper On-call OB Provider: Bre Gibson Reason for Evaluation: Yes other Comments/Additional reasons for admission: 26YO @ [id number] presents for evaluation of mild cramping with significant pelvic pressure. Was seen in triage for the same last week w/ cervical length of 3.0cm. No VB or LOF. Vital Signs Vital Signs: BP 124/73, HR 112, RR 16, T 98.4 [facility] Medical History Acid reflux Anxiety and depression (~2020) Headache (~2018) Migraine (~2019) Surgical History History of esophagogastroduodenoscopy (EGD) Hx of laparoscopy [place] teeth extracted Social History marital status: unmarried,living together (engaged) number of children: 0 household members: significant other lives independently: Yes housing: apartment pets and animals: No (aware of Toxoplasmosisi) education level: high school occupational status: employed current occupational exposures/hazards: No special leatha needs: No seatbelt use: always water heater temp set < 120 deg: Yes (will check and turn down if needed) working smoke detector in home: Yes fire extinguisher in home: Yes carbon monox detector in home: Yes firearms in home: Yes (unloaded and hidden) firearms unloaded and locked: No do you feel safe at home: Yes Smoking Status: Never smoker second hand exposure: Yes (getting less, sig other has moved to smoking outside) alcohol intake: former substance use type: does not use during the past year weight has: increased > 10 lbs (with Covid infection) well-balanced diet: about half the time daily servings fruits/ve-1 caffeine: Yes (200mg caffeine) Type(s) of exercise: irregular exercise (will get back to the gym) Exam Vital Signs (past 8 hours): see above Other: CE deferred Objective Imaging OB US >14wks Limited: Radiologist's impression: PROCEDURE:? US OB LIMITED ? INDICATIONS:? CERVICAL LENGTH ? OUTSIDE/PRIOR DATING DATA:? Last menstrual period (LMP):? October 22, 2021.? LMP-based estimated date of delivery (EMRE):? July 29, 2022.? First dating scan (date and location):[facility] Estimated date of delivery (EMRE) from first dating scan:? July 26, 2022. ? ? TECHNIQUE: Real-time scanning was performed of the fetus, with image documentation.? ? ? COMPARISON:? Located within [facility], OB LIMITED, 05/31/2022, 13:37. ? FINDINGS:? A single living intrauterine gestation is present.? Presentation:? Vertex Placenta:? Placental position is anterior, without previa. ? Amniotic fluid index:? 14.3 cm, normal range is 5-24 cm. Single deepest vertical pocket is 4.7 cm.? ? heart rate:? 163 beats per minute.? Maternal cervical canal:? 3.1 cm long.? Normal lower limit is 2.5 cm.? Estimated gestational age from initial scan:? 33 weeks, 0 days.? ? ? IMPRESSION:? ? 1. Single live intrauterine gestation.? Normal cervical length and amniotic fluid index. ? ? Dictated by: Betsy Silver M.D. on 06/07/2022 at 11:18 ? ? Approved by: Betsy Silver M.D. on 06/07/2022 at 11:22 ? Labs Labs: Laboratory Results - last 24 hr 06/07/22 09:50 Urine Color Yellow Urine Appearance Clear Urine pH 6.5 Ur Specific [place] <=1.005 Urine Protein Negative Urine Glucose (UA) 1+ H Urine Ketones Negative Urine Occult Blood Trace-intact Urine Nitrate Negative Urine Bilirubin Negative Urine Urobilinogen 0.2 Ur Leukocyte Esterase Negative Urine RBC None seen Urine WBC None seen Urine Bacteria None seen Ur Culture Indicated? Cult not indicated Micro UA Comment Microscopic normal Evaluation Evaluation Baseline heart rate: 135 Variability: Moderate (11-25) monitor accelerations: Present Monitor Decelerations: Absent Contraction Frequency (minutes): 6 Uterine Contraction Intensity: Mild Diagnosis, Plan/Disposition Final Diagnosis (1) Pain in symphysis pubis during : Status: Acute (2) False labor before 37 completed weeks of gestation during in third trimester, antepartum: Status: Acute Plan/Disposition Plan: Recommend abdominal support belt and decreased activity. Reassurance given of no change in cervix at this time. Encouraged her to follow-up with her primary OB routinely and if sx worsen, though this level of discomfort is safe and not likely to lead to labor. OB Disposition: home
== END 2022-06-07 11:21 | disposition home or self-care (01) ==
LOC: LABOR 10:40 → OB 06-10 08:02
PROVIDERS: PCP Family Medicine; Referring Provider Nurse Practitioner Obstetrics & Gynecology; Visit Provider Nurse Practitioner Obstetrics & Gynecology
DX: O47.03 False labor before 37 completed weeks of gestation, third trimester (principal); O26.893 Other specified pregnancy related conditions, third trimester; R10.2 Pelvic and perineal pain; Z3A.32 32 weeks gestation of pregnancy
CPT/HCPCS: 59025; 76815; 76817; 81001; G0378; G0379

== ENCOUNTER 2022-06-12 17:49 | Observation (INO) | payer OTHER, MEDICAID, SELFPAY ==
--- NOTE | 2022-06-12 17:54 | DI.US.S_ITS ---
PROCEDURE: US OB LIMITED INDICATIONS: growth scan OUTSIDE/PRIOR DATING DATA: Last menstrual period (LMP): 10/22/2021. LMP-based estimated date of delivery (EMRE): 07/19/2022. First dating scan (date and location): 12/14/2021. Estimated date of delivery (EMRE) from first dating scan: 07/26/2022. TECHNIQUE: Real-time scanning was performed of the fetus, with image documentation and biometric measurements. Endovaginal scanning: Performed COMPARISON: [facility], OB LIMITED, 06/07/2022, 10:58. FINDINGS: General: A single living intrauterine gestation is present. Presentation: Vertex. Placenta: Placental position is anterior , without previa. Amniotic fluid index: 14.0 cm, normal range is 5-24 cm. Single deepest vertical pocket is 5.2 cm. heart rate: 143 beats per minute. Maternal cervical canal: 3.5 cm long. Normal lower limit is 2.5 cm. biometrics: Biparietal diameter: 9.3 centimeters, 37 weeks 6 days Head circumference: 31.7 centimeters, 35 weeks 5 days Abdominal circumference: 31.9 centimeters, 35 weeks 6 days Femur length: 6.4 centimeters, 33 weeks 2 days estimated gestational age: 33 weeks 2 days Composite gestational age from present scan: 35 weeks 5 days Estimated weight and percentile: 2656 grams, 94th percentile Other: Not applicable. IMPRESSION: 1. Single living intrauterine . 2. size is greater than expected for gestational age. The fetus is at risk for macrosomia. We strive to produce accurate, complete, and clear reports of imaging services. To assist us in improving patient care, this report was composed using standard report templates and voice recognition software. Therefore, it may contain abnormal punctuation, insertions and/or omissions. Occasional wrong-word or sound-alike substitutions may occur. Though we review the report and make efforts to correct it, we do recommend that the report be read carefully in proper context to recognize any text inaccuracies. Dictated by: Luis Miguel Mauricio M.D. on 06/12/2022 at 20:25 Approved by: Luis Miguel Mauricio M.D. on 06/12/2022 at 20:30
[2022-06-12 18:21] LABS: Appearance Urine UA CLEAR; Bilirubin Urine UA NEGATIVE (NEGATIVE); Color Urine UA YELLOW; Glucose Urine UA 1+ g/dL (Negative); Ketones Urine UA NEGATIVE (NEGATIVE); Leukocyte Esterase Urine UA NEGATIVE (NEGATIVE); Nitrite Urine UA NEGATIVE (Negative); Occult Blood Urine UA TRACE-INTACT (Negative); Protein Urine UA NEGATIVE (Negative); Urobilinogen Urine UA 0.2 E.U./dL (0.2)
[2022-06-12 18:33] LABS: Bacteria Urine None Seen; Culture Indicated Urine Cult Not Indicated; RBC Urine 0-1/HPF (0-5/HPF); Squamous Epithelial Cell Urine 0-1 /HPF (0-5/HPF); WBC Urine 0-1/HPF (0-5/HPF)
[2022-06-12] MEDS: NIFEdipine 10 MG CAPSULE PO ×4 (19:54→21:42)
--- NOTE | 2022-06-12 20:41 | PM.OBTRLD ---
Visit Information Visit Information Date of evaluation: 06/12/22 Primary OB Provider: Mohsen Roper On-call OB Provider: Mohsen Roper Comments/Additional reasons for admission: Sejal presents with uterine contractions occurring every 10 minutes for the last 24 hours. She denies ROM or VB. 1 hr. GDM screen elevated but patient unable to tolerate 3 hr. GTT therefore she's been checking her blood sugars at home which according to the patient show the FBS to be in the 90's and most 2 hr. PPBS below 125 mg%. Vital Signs Vital Signs: 112/62 P 107-122 36.7C PFSH Medical History Acid reflux Anxiety and depression (~2020) Headache (~2018) Migraine (~2019) Surgical History History of esophagogastroduodenoscopy (EGD) Hx of laparoscopy [place] teeth extracted Social History marital status: unmarried,living together (engaged) number of children: 0 household members: significant other lives independently: Yes housing: apartment pets and animals: No (aware of Toxoplasmosisi) education level: high school occupational status: employed current occupational exposures/hazards: No special leatha needs: No seatbelt use: always water heater temp set < 120 deg: Yes (will check and turn down if needed) working smoke detector in home: Yes fire extinguisher in home: Yes carbon monox detector in home: Yes firearms in home: Yes (unloaded and hidden) firearms unloaded and locked: No do you feel safe at home: Yes Smoking Status: Never smoker second hand exposure: Yes (getting less, sig other has moved to smoking outside) alcohol intake: former substance use type: does not use during the past year weight has: increased > 10 lbs (with Covid infection) well-balanced diet: about half the time daily servings fruits/ve-1 caffeine: Yes (200mg caffeine) Type(s) of exercise: irregular exercise (will get back to the gym) Exam HENMT Head: normal to inspection, normocephalic and atraumatic Eyes General: appearance normal, both eyes and all related structures Resp Effort & Inspection: normal respiratory effort and able to speak in complete sentences GI Inspection: normal to inspection Palpation: soft and no hepatosplenomegaly Uterus Location (Fundal Height): 34 Presentation: vertex Estimated Weight (lbs): 5 Extrem Right lower extremity: normal to inspection Objective Imaging Growth US, Cervical length: Radiologist's impression: PROCEDURE:? US OB LIMITED ? INDICATIONS:? growth scan ? OUTSIDE/PRIOR DATING DATA:? Last menstrual period (LMP):? 10/22/2021.? LMP-based estimated date of delivery (EMRE):? 07/19/2022.? First dating scan (date and location):? 12/14/2021.? Estimated date of delivery (EMRE) from first dating scan:? 07/26/2022. ? TECHNIQUE: Real-time scanning was performed of the fetus, with image documentation and biometric measurements.? Endovaginal scanning:? Performed ? COMPARISON:[facility], , OB LIMITED, 06/07/2022, 10:58. ? FINDINGS:? ? General:? A single living intrauterine gestation is present.? Presentation:? Vertex.? Placenta:? Placental position is anterior , without previa.? ? Amniotic fluid index:? 14.0 cm, normal range is 5-24 cm.? Single deepest vertical pocket is 5.2 cm. heart rate:? 143 beats per minute.? Maternal cervical canal:? 3.5 cm long.? Normal lower limit is 2.5 cm.? ? biometrics:? Biparietal diameter:? 9.3 centimeters, 37 weeks 6 days Head circumference:? 31.7 centimeters, 35 weeks 5 days Abdominal circumference:? 31.9 centimeters, 35 weeks 6 days Femur length:? 6.4 centimeters, 33 weeks 2 days estimated gestational age:? 33 weeks 2 days Composite gestational age from present scan:? 35 weeks 5 days Estimated weight and percentile:? 2656 grams, 94th percentile ? Other:? Not applicable.? ? ? IMPRESSION:? 1. Single living intrauterine . 2. size is greater than expected for gestational age.? The fetus is at risk for macrosomia.? Labs Labs: Laboratory Results - last 24 hr 06/12/22 17:54 Urine Color Yellow Urine Appearance Clear Urine pH 7.0 Ur Specific [place] 1.010 Urine Protein Negative Urine Glucose (UA) 1+ H Urine Ketones Negative Urine Occult Blood Trace-intact Urine Nitrate Negative Urine Bilirubin Negative Urine Urobilinogen 0.2 Ur Leukocyte Esterase Negative Urine RBC 0-1/hpf Urine WBC 0-1/hpf Ur Squamous Epith Cells 0-1 /hpf Urine Bacteria None seen Ur Culture Indicated? Cult not indicated Evaluation Evaluation Baseline heart rate: 145 Variability: Moderate (11-25) monitor accelerations: Present Monitor Decelerations: Absent Contraction Frequency (minutes): 5 Uterine Contraction Intensity: Mild Category of Tracing: Reactive Status: Category l Diagnosis, Plan/Disposition Final Diagnosis (1) contractions: Status: Acute (2) Abnormal O'Yusuf glucose challenge test, antepartum: Status: Acute (3) Macrosomia affecting management of mother in third trimester, single gestation: Status: Acute Plan/Disposition Plan: UA: Normal US: NL JULIO CÉSAR, EFW 94th%'tile, CL = 3.5 cm PO hydration and Nifedipine 10 mg PO q 20 minutes x 4 doses: Marked reduction in contraction intensity, mild, irregular ramping now PO Nifedipine 30 mg ER prior to discharge Home to w/ Nifedipine 30 mg ER daily and Nifedipine 10 mg PO q 20 minutes x 4 doses PRN RUC; patient to call or return to if contractions don't respond to PO Nifedipine 10 mg x 4 doses Initiate Metformin 500 mg PO BID Diabetic education referral F/U appointment as scheduled 06/16/2022 and will review BS log at that time. PTL precautions reviewed. OB Disposition: home
[2022-06-12] MEDS: NIFEdipine 30 MG TAB ER PO (20:57)
== END 2022-06-12 22:10 | disposition home or self-care (01) ==
PROVIDERS: Admitting Provider Obstetrics & Gynecology; PCP Family Medicine; Referring Provider Obstetrics & Gynecology; Visit Provider Obstetrics & Gynecology
DX: O47.03 False labor before 37 completed weeks of gestation, third trimester (principal); O99.810 Abnormal glucose complicating pregnancy; O36.63X0 Maternal care for excessive fetal growth, third trimester, not applicable or unspecified; Z3A.33 33 weeks gestation of pregnancy
CPT/HCPCS: 59025; 59050; 76815; 76830; 81001; 84112; G0378; G0379

== ENCOUNTER → 2022-06-15 15:10 | Outpatient (CLI) | payer OTHER, MEDICAID, SELFPAY ==
--- NOTE | 2022-06-15 17:07 | DIAB.GDA ---
Addendum entered by Sudha Bey 06/24/22 16:52: Phone check-in: Avoiding juice and switched to diet soda. Switched to 2 % milk. Reports FBG in the mid 90s to 130s. After meals numbers mostly under 140 per report. OB increased Metformin. Considerations for insulin seems reasonable and noted in OB recent note. Will f/u with Sejal next week. Original Note: Initial Gestational Diabetes Assessment Name: Sandra Bull Date: 06/15/22 Time: 315-440p Dx: Gestational Diabetes Provider: Judson EMRE: 07/29/22 Weeks: 34 Sejal presents today for initial visit with Mckinley. Endorses FH of DM with paternal grandmother. States she was unable to tolerate the OGTT twice. Currently takin Metformin 500mg BID, experiencing some nausea d/t starting Metformin today. Baby is measuring large for gestational age. As a result she is having some pain and discomfort. Reports pelvic and abdominal pain. states she cannot stand for more than 20 minutes. Diet recall indicates high carb intake with beverage choices. States she cannot stand long enough to make lunch, so often opts for high sodium canned pasta. Mckinley works variable schedules, days and nights, for 10-14 days at a time and tries to prepare dinners. Current bread choice is 20g CHO per slice. This with milk and soup often results in >60g CHO. Diet Recall: breakfast: nothing or eggs 16oz milk or regular soda 1p: canned raviolis or spaghetti snack: pretzels or fruit 5-8p: grilled cheese on potato bread with 0.5c tomato soup or 4-6oz protein with 0.5c potato and 1/3c corn and green beans with 16oz milk HS: nothing or cucumbers with ranch or 16oz whole milk Anthropometrics: Wt: 139.8# today Prepregnancy wt: 100-105# reported Wt changes: +35-40# Recommendations: Sustain weight for duration of Physical Activity: None. Pain and size of baby reported barrier. Self-Monitoring Blood Glucose: Currently checking FBG and 2 hour pc. States she stopped checking between 05/29 and 06/13 since OB was out of town. All recent FBG above goal. 2/7 elevated pc breakfast and 3/6 elevated pc lunch and 1/5 elevated pc dinner. Elevations after meals likely r/t high carb intake with milk/soda choices. Date Pre Post Pre Post Pre Post HS 05/16 93 102 87 86 05/17 97 98 104 102 05/18 98 113 105 119 05/19 110 119 130 06/13 138 122 207 182 06/14 101 129 133 104 06/15 98 107 Diabetes Medications: 500mg Metformin BID Pertinent Labs: screen 161 H Nutrition Rx: Carbohydrates: Daily: 180g Meal: 45-g lunch and dinner; 30g breakfast Snack: 15-30g Nutrition Diagnosis: Altered nutrition related lab value r/t GDM dx aeb recent screen Excessive CHO intake r/t nutrition knowledge deficit aeb diet recall and pt report Predicted excessive sodium intake r/t convenience foods due to not able to prepare meals aeb pt report Intervention: This participant was very receptive. Provided appropriate educational handouts. Discussed the following topics: GDM pathophysiology and impact of hyperglycemia on mom and baby Risk for T2DM for mom and baby in the future Ways to reduce risk T2DM Plate Method, meal timing, carb counting, pairing macronutrients and spreading out CHO for better BG management Blood glucose goals (FBG: <95 and 2 hour <120 mg/dL); Impact of macronutrients on blood glucose Recommended servings for carbohydrates at meals and snacks MNT for mitigating further weight gain Brainstormed appropriate meal plan based on her food preferences Benefits, resources, and nutrition for recommendations for nutrition and physical activity recommendations for T2DM risk reduction - OGTT at 6-12 weeks - Checking blood sugars twice per week (goal: fasting <100 mg/dL; 2 hour pc <140 mg/dL) until 6 week check up - HgA1c q 1-3 years. Goals: Switch to whole wheat 15g CHO bread- new Avoid soda and juice- new Switch to 2% milk to mitigate kcals- new Measure carb portions as discussed- new Follow-up: MAGGIE KAMARA follow-up in one week via phone call or virtually. Since Sejal is unclear when she may deliver, we have decided to follow-up over the phone or via VSEE in one week. She will send BG next week. Sudha Bey RDN, ASAD Certified Diabetes Care and Milling Machinist T: [phone] F: [phone] [email or web address] Thank you for this referral
== END ==
PROVIDERS: PCP Family Medicine; Referring Provider Obstetrics & Gynecology; Visit Provider Obstetrics & Gynecology
DX: O24.415 Gestational diabetes mellitus in pregnancy, controlled by oral hypoglycemic drugs (principal); Z3A.34 34 weeks gestation of pregnancy; Z71.3 Dietary counseling and surveillance
CPT/HCPCS: G0108

== ENCOUNTER 2022-06-24 14:14 | Outpatient (CLI) | payer OTHER, MEDICAID, SELFPAY ==
--- NOTE | 2022-06-25 09:19 | PM.OBTRLD ---
Visit Information Visit Information Date of evaluation: 06/24/22 Primary OB Provider: Mohsen oRper Reason for Evaluation: Yes non-stress test Comments/Additional reasons for admission: GDM Type A2, 35+0 weeks EGA PFSH Medical History Acid reflux Anxiety and depression (~2020) Headache (~2018) Migraine (~2019) Surgical History History of esophagogastroduodenoscopy (EGD) Hx of laparoscopy [place] teeth extracted Social History marital status: unmarried,living together (engaged) number of children: 0 household members: significant other lives independently: Yes housing: apartment pets and animals: No (aware of Toxoplasmosisi) education level: high school occupational status: employed current occupational exposures/hazards: No special leatha needs: No seatbelt use: always water heater temp set < 120 deg: Yes (will check and turn down if needed) working smoke detector in home: Yes fire extinguisher in home: Yes carbon monox detector in home: Yes firearms in home: Yes (unloaded and hidden) firearms unloaded and locked: No do you feel safe at home: Yes Smoking Status: Never smoker second hand exposure: Yes (getting less, sig other has moved to smoking outside) alcohol intake: former substance use type: does not use during the past year weight has: increased > 10 lbs (with Covid infection) well-balanced diet: about half the time daily servings fruits/ve-1 caffeine: Yes (200mg caffeine) Type(s) of exercise: irregular exercise (will get back to the gym) Evaluation Evaluation Baseline heart rate: 125 Variability: Moderate (11-25) monitor accelerations: Present Monitor Decelerations: Absent Category of Tracing: Reactive Diagnosis, Plan/Disposition Plan/Disposition Plan: Continue care plan with weekly visits and NST's, induction between 37-38 weeks. OB Disposition: home
== END 2022-06-24 14:50 | disposition home or self-care (01) ==
LOC: LABOR 14:24 → OB 07-04 07:52
PROVIDERS: PCP Family Medicine; Referring Provider Obstetrics & Gynecology; Visit Provider Obstetrics & Gynecology
DX: O24.414 Gestational diabetes mellitus in pregnancy, insulin controlled (principal); Z3A.35 35 weeks gestation of pregnancy
CPT/HCPCS: 59025; G0378; G0379

== ENCOUNTER → 2022-06-30 10:10 | Outpatient (CLI) | payer OTHER, MEDICAID, SELFPAY ==
--- NOTE | 2022-07-01 16:02 | DIAB.GDFU ---
Follow-up Gestational Diabetes Assessment Name: Sandra Bull Date: 07/01/22 Time: [id number] Dx: Gestational Diabetes Provider: Judson EMRE: 07/29/22 Weeks: 36 Sejal presents today for initial visit with [facility]. Reports taking higher dose of Metformin. Plans to peanut picker insulin today. Has cut out juice, choosing lower fat milk, changed bread to lower carb choice, and reduced soda from 4-5 per day to 1 x 12oz. sometimes choosing diet soda. Reports increased home cooked meals. Portions indicate about 30-60g per meal. HS snack higher in carb and low in pro. Anthropometrics: Wt: 139.8# today (same as last OB visit) Prepregnancy wt: 100-105# reported Wt changes: +35-40# Recommendations: Sustain weight for duration of Physical Activity: None. Pain and size of baby reported barrier. Self-Monitoring Blood Glucose: Currently checking FBG and 2 hour pc. Stopped checking BG about 10 days ago due to running out of strips and unable to afford purchasing OTC strips until rx refilled. FBG were consistently above 100mg/dL and over half of pc readings >120mg/dl. Certainly would benefit from Hs insulin. Rx is in and she plans to peanut picker today/tomorrow. Provided her with a meter and strips today. Diabetes Medications: 1000mg Metformin BID Glargine 30u HS Pertinent Labs: screen 161 H Intervention: This participant was very receptive. Provided appropriate educational handouts. Discussed the following topics: Recent blood sugar results and impact of food and hormones Barriers to SMBG, provided her a meter with strips to get by until rx refills Discussed technique on how to inject insulin Review of macronutrient recommendations during Benefits, resources, and nutrition for recommendations for nutrition and physical activity recommendations for T2DM risk reduction OGTT at 6-12 weeks Checking blood sugars twice per week (goal: fasting <100 mg/dL and 2 hour pc <140 mg/dL) until 6 week check-up HgA1c q 1-3 years. Goals: Switch to whole wheat 15g CHO bread- met Avoid soda and juice- improved Switch to 2% milk to mitigate kcals- met Measure carb portions as discussed- improved peanut picker insulin- new Start checking BG and review with OB- new SMBG 6-12 weeks before check-up for review with provider- new Add turkey to fruit in evening- new [facility] Encouraged Sejal to call or message with any questions or additional follow-up needs. Sudha Bey RDN, [facility] Certified Diabetes Care and Ball Sorter T: [phone] F: [phone] [email or web address] Thank you for this referral
== END ==
PROVIDERS: PCP Family Medicine; Referring Provider Obstetrics & Gynecology; Visit Provider Obstetrics & Gynecology
DX: O24.414 Gestational diabetes mellitus in pregnancy, insulin controlled (principal); Z3A.36 36 weeks gestation of pregnancy; Z71.3 Dietary counseling and surveillance
CPT/HCPCS: G0108

== ENCOUNTER → 2022-06-30 11:57 | Outpatient (CLI) | payer OTHER, MEDICAID, SELFPAY ==
[2022-06-30 19:19] LABS: Creatinine Urine Random 41.5 mg/dL; Protein (Total) Urine Random 60 mg/dL (0-12); Protein Creatinine Ratio Urine 1.44 GRAM/24H
[2022-07-01 07:40] LABS: Strep Grp B PCR NEG for Grp B Strep
== END ==
PROVIDERS: PCP Family Medicine; Visit Provider Obstetrics & Gynecology
DX: O16.3 Unspecified maternal hypertension, third trimester (principal); R80.9 Proteinuria, unspecified; Z3A.35 35 weeks gestation of pregnancy
CPT/HCPCS: 82570; 84156; 87653

== ENCOUNTER 2022-06-30 12:05 | Observation (INO) | payer OTHER, MEDICAID, SELFPAY ==
--- NOTE | 2022-06-30 12:40 | P.TNLD_ITS ---
Visit Information Visit Information Date of evaluation: 06/30/22 Primary OB Provider: Mohsen Roper Reason for Evaluation: Yes non-stress test Comments/Additional reasons for admission: GDM, 35+6 weeks EGA [facility] Medical History Acid reflux Anxiety and depression (~2020) Headache (~2018) Migraine (~2019) Surgical History History of esophagogastroduodenoscopy (EGD) Hx of laparoscopy [place] teeth extracted Social History marital status: unmarried,living together (engaged) number of children: 0 household members: significant other lives independently: Yes housing: apartment pets and animals: No (aware of Toxoplasmosisi) education level: high school occupational status: employed current occupational exposures/hazards: No special leatha needs: No seatbelt use: always water heater temp set < 120 deg: Yes (will check and turn down if needed) working smoke detector in home: Yes fire extinguisher in home: Yes carbon monox detector in home: Yes firearms in home: Yes (unloaded and hidden) firearms unloaded and locked: No do you feel safe at home: Yes Smoking Status: Never smoker second hand exposure: Yes (getting less, sig other has moved to smoking outside) alcohol intake: former substance use type: does not use during the past year weight has: increased > 10 lbs (with Covid infection) well-balanced diet: about half the time daily servings fruits/ve-1 caffeine: Yes (200mg caffeine) Type(s) of exercise: irregular exercise (will get back to the gym) Evaluation Evaluation Baseline heart rate: 135 Variability: Moderate (11-25) monitor accelerations: Present Monitor Decelerations: Absent Contraction Frequency (minutes): 6 Uterine Contraction Intensity: Mild Status: Category l Diagnosis, Plan/Disposition Final Diagnosis (1) Gestational diabetes: Status: Acute (2) Macrosomia affecting management of mother in third trimester, single gestat ion: Status: Acute (3) Pain in symphysis pubis during : Status: Acute (4) : Status: Acute Plan/Disposition Plan: Continue weekly nonstress test with close observation of growth and QID blood sugar levels. OB Disposition: home
== END 2022-06-30 12:45 | disposition home or self-care (01) ==
PROVIDERS: Admitting Provider Obstetrics & Gynecology; PCP Family Medicine; Referring Provider Obstetrics & Gynecology; Visit Provider Obstetrics & Gynecology
DX: O24.414 Gestational diabetes mellitus in pregnancy, insulin controlled (principal); O36.63X0 Maternal care for excessive fetal growth, third trimester, not applicable or unspecified; O26.893 Other specified pregnancy related conditions, third trimester; R10.2 Pelvic and perineal pain; Z3A.35 35 weeks gestation of pregnancy; O16.3 Unspecified maternal hypertension, third trimester; R80.3 Bence Jones proteinuria; Z3A.36 36 weeks gestation of pregnancy; Z71.3 Dietary counseling and surveillance
CPT/HCPCS: 59025; 82570; 84156; 87653; G0378; G0108; G0379

== ENCOUNTER → 2022-07-01 10:18 | Outpatient (CLI) | payer OTHER, MEDICAID, SELFPAY ==
[2022-07-01 12:42] LABS: Hematocrit 30.7 % (36-46); Hemoglobin 9.5 g/dL (12.0-16.0); Mean Corpuscular HGB Conc 31.1 % (30-36); Mean Corpuscular Hemoglobin 22.9 PG (26-34); Mean Corpuscular Volume 73.6 fL (80-100); Platelet Count 391 X10^3/uL (150-400); Red Blood Cell Count 4.17 X10^6/uL (4.0-5.2); Red Cell Distribution Width 21.8 % (11.6-14.8); White Blood Cell Count 11.7 X10^3/uL (4.5-11.0)
[2022-07-01 12:43] LABS: Add Manual Diff / Slide Review YES
[2022-07-01 12:57] LABS: Alanine Aminotransferase 39 IU/L (<35); Albumin 3.6 g/dL (3.5-5.0); Alkaline Phosphatase 235 U/L (38-126); Aspartate Aminotransferase 45 IU/L (14-36); Bilirubin Total 0.3 mg/dL (0.2-1.3); Bilirubin Unconjugated 0.4 mg/dL (0.0-1.1); Globulin 3.6 g/dL (1.7-4.1); HEMOLYSIS < 15 (0-50); Total Protein 7.2 g/dL (6.3-8.2)
[2022-07-01 12:58] LABS: Uric Acid 2.6 mg/dL (2.5-6.2)
[2022-07-01 13:16] LABS: Neutrophils Absolute Manual 7839 /uL (3000-5900); Nucleated Red Blood Cells 3 #/Diff; Total Cells Counted 100
[2022-07-01 13:19] LABS: Anisocytosis 2+; Hypochromasia 1+; Microcytosis 1+; Polychromasia 1+
== END ==
PROVIDERS: PCP Family Medicine; Referring Provider Obstetrics & Gynecology; Visit Provider Obstetrics & Gynecology
DX: O12.13 Gestational proteinuria, third trimester (principal)
CPT/HCPCS: 36415; 80076; 84550; 85007; 85025

== ENCOUNTER 2022-07-01 10:20 | Outpatient (CLI) | payer OTHER, MEDICAID, SELFPAY ==
[2022-07-01 13:35] LABS: Appearance Urine UA CLEAR; Bilirubin Urine UA NEGATIVE (NEGATIVE); Color Urine UA YELLOW; Glucose Urine UA TRACE g/dL (Negative); Ketones Urine UA NEGATIVE (NEGATIVE); Leukocyte Esterase Urine UA NEGATIVE (NEGATIVE); Nitrite Urine UA NEGATIVE (Negative); Occult Blood Urine UA 1+ (Negative); Protein Urine UA 1+ (Negative); Specific Gravity Urine UA 1.015 (1.000-1.035); Urobilinogen Urine UA 0.2 E.U./dL (0.2)
[2022-07-01 13:37] LABS: pH Urine UA 6.5 (4.5-8.0)
[2022-07-01 13:49] LABS: Bacteria Urine Few (2-10); Culture Indicated Urine Cult Not Indicated; RBC Urine 0-1/HPF (0-5/HPF); Squamous Epithelial Cell Urine 5-10 /HPF (0-5/HPF); WBC Urine 1-5/HPF (0-5/HPF)
== END 2022-07-01 12:50 | disposition home or self-care (01) ==
LOC: LABOR 10:29 → OB 07-04 08:00
PROVIDERS: PCP Family Medicine; Referring Provider Obstetrics & Gynecology; Visit Provider Obstetrics & Gynecology
DX: O16.3 Unspecified maternal hypertension, third trimester (principal); O24.414 Gestational diabetes mellitus in pregnancy, insulin controlled; O47.03 False labor before 37 completed weeks of gestation, third trimester; Z3A.36 36 weeks gestation of pregnancy; O12.13 Gestational proteinuria, third trimester
CPT/HCPCS: 36415; 59025; 80076; 81001; 84550; 85007; 85025; G0378; G0379

== ENCOUNTER 2022-07-05 11:26 | Outpatient (CLI) | payer OTHER, MEDICAID, SELFPAY ==
--- NOTE | 2022-07-05 13:30 | P.TNLD_ITS ---
Visit Information Visit Information Date of evaluation: 07/05/22 Primary OB Provider: Mohsen Roper Reason for Evaluation: Yes non-stress test Comments/Additional reasons for admission: Gestational diabetes, mildly elevated LFT's, elevated prot:creat ratio Vital Signs Vital Signs: 112/70 P=107 FOR[facility] Medical History Acid reflux Anxiety and depression (~2020) Headache (~2018) Migraine (~2019) Surgical History History of esophagogastroduodenoscopy (EGD) Hx of laparoscopy [place] teeth extracted Social History marital status: unmarried,living together (engaged) number of children: 0 household members: significant other lives independently: Yes housing: apartment pets and animals: No (aware of Toxoplasmosisi) education level: high school occupational status: employed current occupational exposures/hazards: No special leatha needs: No seatbelt use: always water heater temp set < 120 deg: Yes (will check and turn down if needed) working smoke detector in home: Yes fire extinguisher in home: Yes carbon monox detector in home: Yes firearms in home: Yes (unloaded and hidden) firearms unloaded and locked: No do you feel safe at home: Yes Smoking Status: Never smoker second hand exposure: Yes (getting less, sig other has moved to smoking outside) alcohol intake: former substance use type: does not use during the past year weight has: increased > 10 lbs (with Covid infection) well-balanced diet: about half the time daily servings fruits/ve-1 caffeine: Yes (200mg caffeine) Type(s) of exercise: irregular exercise (will get back to the gym) Review of Systems Review of Systems Narrative: Problem-specific ROS positives included in HPI. Exam HENCT Head: normal to inspection, normocephalic and atraumatic Eyes General: appearance normal, both eyes and all related structures Resp Effort & Inspection: normal respiratory effort and able to speak in complete sentences Auscultation: clear to auscultation bilaterally Cardio Rate: regular rate Rhythm: regular rhythm Heart Sounds: S1 normal, S2 normal and no murmurs GI Inspection: normal to inspection Palpation: soft and no hepatosplenomegaly Extrem Right lower extremity: normal to inspection
== END 2022-07-05 13:16 | disposition home or self-care (01) ==
LOC: LABOR 13:03 → OB 07-10 11:19
PROVIDERS: PCP Family Medicine; Referring Provider Obstetrics & Gynecology; Visit Provider Obstetrics & Gynecology
DX: O24.415 Gestational diabetes mellitus in pregnancy, controlled by oral hypoglycemic drugs (principal); O26.893 Other specified pregnancy related conditions, third trimester; R79.89 Other specified abnormal findings of blood chemistry; Z3A.36 36 weeks gestation of pregnancy
CPT/HCPCS: 36415; 59025; 82565; 84450; 84460; 84520; 84550; 85025; G0378; G0379

== ENCOUNTER → 2022-07-06 12:00 | Outpatient (CLI) | payer OTHER, MEDICAID, SELFPAY ==
--- NOTE | 2022-07-06 12:00 | DI.US.S_ITS ---
PROCEDURE: US OB LIMITED INDICATIONS: EFW; GDM OUTSIDE/PRIOR DATING DATA: Last menstrual period (LMP): 10/22/2021. LMP-based estimated date of delivery (EMRE): 07/29/2022. First dating scan (date and location): 04/26/2022. Estimated date of delivery (EMRE) from first dating scan: 07/26/2022. TECHNIQUE: Real-time scanning was performed of the fetus, with image documentation. COMPARISON: Merged with [facility], OB LIMITED, 06/12/2022, 18:44. FINDINGS: A single living intrauterine gestation is present. Presentation: Vertex. Placenta: Placental position is anterior, without previa. Amniotic fluid index: 7.4 cm, normal range is 5-24 cm. Single deepest vertical pocket is 2.9 cm. heart rate: 155 beats per minute. Maternal cervical canal: Not visualized BPD: 9.5 cm, 38 week 5 day HC: 33.8 cm, 38 week 6 day AC: 35.3 cm, 38 week 1 day FL: 7.1 cm, 36 week 2 day EGA: 37 week 1 day Clinically estimated gestational age: 37 week 1 day gestation EGA by current ultrasound: 38 week 0 day EFW: 3331 g, 76th percentile IMPRESSION: Single live intrauterine consistent with 38 week 0 day gestation by current ultrasound Approved by: Jer Be M.D. on 07/06/2022 at 12:11
== END ==
PROVIDERS: PCP Family Medicine; Referring Provider Obstetrics & Gynecology; Visit Provider Obstetrics & Gynecology
DX: O12.13 Gestational proteinuria, third trimester (principal); O24.414 Gestational diabetes mellitus in pregnancy, insulin controlled; Z3A.38 38 weeks gestation of pregnancy
CPT/HCPCS: 76815

== ENCOUNTER 2022-07-08 14:33 | Outpatient (CLI) | payer OTHER, MEDICAID, SELFPAY ==
[2022-07-08 15:48] LABS: Basophils Absolute Auto 100 /uL (0-100); Basophils Percent Auto 0.7 % (0-2); Eosinophils Absolute Auto 200 /uL (0-450); Eosinophils Percent Auto 1.5 % (2-4); Hematocrit 28.9 % (36-46); Lymphocytes Absolute Auto 2900 /uL (1100-4500); Lymphocytes Percent Auto 24.7 % (25-40); Mean Corpuscular Hemoglobin 22.1 PG (26-34); Mean Corpuscular Volume 71.4 fL (80-100); Monocytes Absolute Auto 700 /uL (0-900); Monocytes Percent Auto 6.1 % (3-14); Neutrophils Absolute Auto 7800 /uL (1500-7000); Platelet Count 314 X10^3/uL (150-400); Red Blood Cell Count 4.05 X10^6/uL (4.0-5.2); Red Cell Distribution Width 22.2 % (11.6-14.8); White Blood Cell Count 11.7 X10^3/uL (4.5-11.0)
[2022-07-08 15:50] LABS: Alanine Aminotransferase 38 IU/L (<35); Albumin 3.5 g/dL (3.5-5.0); Alkaline Phosphatase 237 U/L (38-126); Aspartate Aminotransferase 56 IU/L (14-36); BUN Creatinine Ratio 32.4 (6-22); Bilirubin Total 0.3 mg/dL (0.2-1.3); Blood Urea Nitrogen 12 mg/dL (7-17); Calcium 9.7 mg/dL (8.4-10.2); Carbon Dioxide 24 mmol/L (22-32); Chloride 103 mmol/L (98-107); Estimated Glomerular Filt Rate > 60 mL/min (>60); Globulin 3.5 g/dL (1.7-4.1); Glucose 100 mg/dL (70-100); HEMOLYSIS < 15 (0-50); Potassium 4.1 mmol/L (3.4-5.1); Sodium 133 mmol/L (137-145); Uric Acid 2.7 mg/dL (2.5-6.2)
--- NOTE | 2022-07-08 16:01 | P.TNLD_ITS ---
Visit Information Visit Information Date of evaluation: 07/08/22 Primary OB Provider: Mohsen Roper Reason for Evaluation: Yes non-stress test Comments/Additional reasons for admission: GDM A2 for NST and labs due to mildly elevated LFT's and elevated P:C ratio PFSH Medical History Acid reflux Anxiety and depression (~2020) Headache (~2018) Migraine (~2019) Surgical History History of esophagogastroduodenoscopy (EGD) Hx of laparoscopy [place] teeth extracted Social History marital status: unmarried,living together (engaged) number of children: 0 household members: significant other lives independently: Yes housing: apartment pets and animals: No (aware of Toxoplasmosisi) education level: high school occupational status: employed current occupational exposures/hazards: No special leatha needs: No seatbelt use: always water heater temp set < 120 deg: Yes (will check and turn down if needed) working smoke detector in home: Yes fire extinguisher in home: Yes carbon monox detector in home: Yes firearms in home: Yes (unloaded and hidden) firearms unloaded and locked: No do you feel safe at home: Yes Smoking Status: Never smoker second hand exposure: Yes (getting less, sig other has moved to smoking outside) alcohol intake: former substance use type: does not use during the past year weight has: increased > 10 lbs (with Covid infection) well-balanced diet: about half the time daily servings fruits/ve-1 caffeine: Yes (200mg caffeine) Type(s) of exercise: irregular exercise (will get back to the gym) Objective Labs Result Diagrams: 07/08/22 14:43 07/08/22 15:00 Labs: Laboratory Results - last 24 hr 07/08/22 15:00 Sodium 133 L Potassium 4.1 Chloride 103 Carbon Dioxide 24 BUN 12 Creatinine 0.37 L Estimated GFR > 60 BUN/Creatinine Ratio 32.4 H Glucose 100 Uric Acid 2.7 Calcium 9.7 Total Bilirubin 0.3 AST 56 H ALT 38 H Alkaline Phosphatase 237 H Total Protein 7.0 Albumin 3.5 Globulin 3.5 Albumin/Globulin Ratio 1.0 Evaluation Evaluation Baseline heart rate: 145 Variability: Moderate (11-25) monitor accelerations: Present Monitor Decelerations: Absent Status: Category l Diagnosis, Plan/Disposition Final Diagnosis (1) Proteinuria affecting in third trimester: Status: Acute (2) Gestational diabetes: Status: Acute (3) : Status: Acute
[2022-07-08 16:10] LABS: Add Manual Diff / Slide Review SLIDE REVIEW
[2022-07-08 16:12] LABS: Nucleated Red Blood Cells 3 #/Diff
[2022-07-08 16:13] LABS: Anisocytosis 3+; Hypochromasia 2+; Microcytosis 1+
[2022-07-08 19:01] LABS: Protein (Total) Urine Random 85 mg/dL (0-12); Protein Creatinine Ratio Urine 2.57 GRAM/24H
== END 2022-07-08 15:50 | disposition home or self-care (01) ==
LOC: LABOR 15:04 → OB 07-10 11:23
PROVIDERS: PCP Family Medicine; Referring Provider Obstetrics & Gynecology; Visit Provider Obstetrics & Gynecology
DX: O12.13 Gestational proteinuria, third trimester (principal); O24.415 Gestational diabetes mellitus in pregnancy, controlled by oral hypoglycemic drugs; Z3A.38 38 weeks gestation of pregnancy
CPT/HCPCS: 59025; 80053; 82570; 84156; 84550; 85025; G0378; G0379

== ENCOUNTER 2022-07-12 07:32 | Inpatient (IN) | payer OTHER, MEDICAID, SELFPAY ==
--- NOTE | 2022-07-12 07:58 | P.HPOB_ITS ---
OB HPI Date/Time Date of admission: 07/12/22 Date Patient Seen: 07/12/22 Time Patient Seen: 07:59 History of Present Condition Chief complaint: IUP, 37+4, GDMA2, proteinuria, elevated LFT's : 1 Para: 0 Estimated Date of Delivery: 07/29/22 Estimated Gestational Age (weeks): 37+4 Narrative: Sandra Bull is a 26 year old , admitted now at 37+4 weeks EGA w/ poorly controlled GDMA2 on metformin and HS Lantus which she hasn't been willing to take and her compliance with BS monitoring has also been spotty. Her 1 hr. GDM screen was elevated (161 mg%) but she was unable to tolerate the 3 hr. GTT. BS's at home, including FBS have been elevated despite diet and metformin but her compliance has been questionable. In addition she has been found to have elevated protein:creatinine ratios and mildly elevated but stable AST/ALT but no BP elevation. Antepartum testing has been reassuring with her most recent growth US on 07/06/2022 showing a beasley in vertex presentation, an JULIO CÉSAR of 7.4 cm, anterior placenta, and an EFW of 3331 gms. GBS is negative. Indications Indication for induction OB: gestational diabetes and other (Proteinuria, elevated liver function studies) History of Present care: good care Dating criteria: LMP confirmed by 1st trimester US Ultrasounds: normal 1st trimester US and normal mid trimester US Obstetrical complications: gestational diabetes and other (Proteinuria, elevated liver function studies) Preadmission Labs Blood type: O (+) positive -: Antibody screen: negative, GBS status: negative, HBsAG: negative, HIV: negative and RPR/VDLR: negative -: Chlamydia screen: not detected and Gonorrhea screen: not detected -: Rubella: not immune and Varicella: not immune HCT: 28.9 HCAB: negative PAP: Normal Quad screen: Normal 1 hr GTT: 161 (Unable to tolerate 3 hr. GTT) Prior (ies) History: N/A Evaluation Evaluation Baseline heart rate: 125 Variability: Moderate (11-25) monitor accelerations: Present Monitor Decelerations: Absent Category of Tracing: Reactive Status: Category l Dilation (cm): 0 Effacement (%): 25 Dilation: Closed Effacement: 0-30% station: -3 Position of cervix: posterior Consistency: firm Cote score: 0 PFSH Medical History Acid reflux Anxiety and depression (~2020) Headache (~2018) Migraine (~2019) Surgical History History of esophagogastroduodenoscopy (EGD) Hx of laparoscopy [place] teeth extracted Social History marital status: unmarried,living together (engaged) number of children: 0 household members: significant other lives independently: Yes housing: apartment pets and animals: No (aware of Toxoplasmosisi) education level: high school occupational status: employed current occupational exposures/hazards: No special leatha needs: No seatbelt use: always water heater temp set < 120 deg: Yes (will check and turn down if needed) working smoke detector in home: Yes fire extinguisher in home: Yes carbon monox detector in home: Yes firearms in home: Yes (unloaded and hidden) firearms unloaded and locked: No do you feel safe at home: Yes Smoking Status: Never smoker second hand exposure: Yes (getting less, sig other has moved to smoking outside) alcohol intake: former substance use type: does not use during the past year weight has: increased > 10 lbs (with Covid infection) well-balanced diet: about half the time daily servings fruits/ve-1 caffeine: Yes (200mg caffeine) Type(s) of exercise: irregular exercise (will get back to the gym) Meds Home Medications and Allergies Home Medications Medication Instructions Recorded Confirmed Type pantoprazole 40 mg tablet,delayed 60 mg PO DAILY 02/17/21 07/06/22 History release escitalopram oxalate 10 mg tablet 10 mg PO DAILY 03/02/21 07/06/22 History escitalopram oxalate 20 mg tablet See Rx Instructions .Route 09/24/21 07/06/22 Rx .COMPLEX #90 tabs ubrogepant 100 mg tablet (Ubrelvy) 100 mg PO ONCE PRN Migraine 11/11/21 07/06/22 History Headache prenat.vits,radha,fyd-[id number] 1 tab PO DAILY 12/27/21 07/06/22 History blood-glucose meter #1 ea 05/12/22 07/06/22 Rx lancets 30 gauge and blood glucose #100 ea 05/12/22 07/06/22 Rx strips combo pack nifedipine 10 mg capsule 10 mg PO .COMPLEX #30 caps 06/13/22 07/06/22 Rx nifedipine 30 mg tablet,extended 30 mg PO DAILY #30 tabs 06/13/22 07/06/22 Rx release metformin 1,000 mg tablet 1,000 mg PO BIDWMEAL #60 tabs 06/24/22 07/06/22 Rx insulin glargine 100 unit/mL (3 30 unit (0.3 mL) SUBCUT QPM #15 mL 06/25/22 07/06/22 Rx mL) subcutaneous pen (Lantus Solostar U-100 Insulin) pen needle, diabetic 31 gauge x #100 ea 06/29/22 07/06/22 Rx /16 (1st Tier Unifine Pentips) Allergies Allergy/AdvReac Type Severity Reaction Status Date / Time No Known Drug Allergies Allergy Verified 07/06/22 14:56 Review of Systems Review of Systems Narrative: Problem-specific ROS positives included in HPI OB Exam [facility] Head: normal to inspection, normocephalic and atraumatic Eyes General: appearance normal, both eyes and all related structures Resp Effort & Inspection: normal respiratory effort and able to speak in complete sentences Auscultation: clear to auscultation bilaterally Cardio Rate: regular rate Rhythm: regular rhythm Heart Sounds: S1 normal, S2 normal and no murmurs Extremities Lower extremity: Yes normal to inspection GI Inspection: normal to inspection Palpation: Yes soft and Yes no hepatosplenomegaly Uterus Location (Fundal Height): 38 Presentation: vertex Estimated Weight (lbs): 8 Objective Labs Result Diagrams: 07/12/22 08:40 Assessment and Plan Assessment and Plan Assessment and Plan narrative: ASSESSMENT 1. Intrauterine , beasley, vertex, 37+4 weeks EGA 2. Gestational diabetes, Type A2 w/ poor control/compliance 3. Elevated liver function studies 4. Proteinuria 5. Anemia, chronic 6. GBS negative status PLAN 1. Admit for ripening/induction 2. See admission orders Time Spent with Patient Total time spent with greater than 50% in coordination of care (as documented) at patient's floor/unit and/or counseling patient:: 15-24 minutes
[2022-07-12 08:00] VITALS: BP 128/77
[2022-07-12 09:13] LABS: Hematocrit 28.7 % (36-46); Hemoglobin 8.8 g/dL (12.0-16.0); Mean Corpuscular HGB Conc 30.8 % (30-36); Mean Corpuscular Hemoglobin 21.6 PG (26-34); Mean Corpuscular Volume 70.2 fL (80-100); Platelet Count 300 X10^3/uL (150-400); Red Blood Cell Count 4.08 X10^6/uL (4.0-5.2); White Blood Cell Count 11.2 X10^3/uL (4.5-11.0)
[2022-07-12 09:14] LABS: Add Manual Diff / Slide Review YES
[2022-07-12 09:26] LABS: COVID19 -Nasal RAPID Negative (Negative)
[2022-07-12 09:33] LABS: Alanine Aminotransferase 45 IU/L (<35); Albumin 3.6 g/dL (3.5-5.0); Albumin Globulin Ratio 1.2 (1.0-2.8); Alkaline Phosphatase 249 U/L (38-126); Aspartate Aminotransferase 64 IU/L (14-36); Bilirubin Total 0.3 mg/dL (0.2-1.3); Bilirubin Unconjugated 0.3 mg/dL (0.0-1.1); Globulin 3.1 g/dL (1.7-4.1); HEMOLYSIS < 15 (0-50); Total Protein 6.7 g/dL (6.3-8.2)
[2022-07-12 09:41] LABS: Neutrophils Absolute Manual 7616 /uL (3000-5900); Nucleated Red Blood Cells 1 #/Diff; Total Cells Counted 100
[2022-07-12 09:42] LABS: Hypochromasia 1+; Microcytosis 1+
[2022-07-12] MEDS: miSOPROStoL 100 MCG TABLET 50 MCG PO ×2 (10:02→17:42)
[2022-07-12 10:09] LABS: Creatinine Urine Random 43.5 mg/dL; Protein (Total) Urine Random 129 mg/dL (0-12); Protein Creatinine Ratio Urine 2.96 GRAM/24H
--- NOTE | 2022-07-12 17:54 | PM.OBPNLAB ---
Date/Time Date Patient Seen: 07/12/22 Time Patient Seen: 17:54 Pain Control Pain control: tolerating well Pelvic Exam Dilation (cm): 0 Effacement (%): 25 station: -3 Amniotic membrane status: Intact Contractions Contractions on admission: irregular Monitor mode: External Contraction pattern: Irregular Contraction phase: Resting Contraction intensity: Moderate Status status: Category l Heart Rate Baseline: 125 Monitor Accelerations: Present Monitor Decelerations: Absent Monitor Variability: Moderate Assessment and Plan Assessment: other (Ripening ongoing) Plan: continuous present management Comments: Elevated prot:creat ratio and LFT's essentially unchanged; BP's are all normal range today Plan will be to continue cervical ripening overnight and re-assess for possible pitocin induction/augmentation in the AM if the cervix is more favorable.
[2022-07-13] MEDS: miSOPROStoL 100 MCG TABLET 50 MCG PO (02:06)
--- NOTE | 2022-07-13 07:53 | PM.OBPNLAB ---
Date/Time Date Patient Seen: 07/13/22 Time Patient Seen: 07:53 Pain Control Pain control: tolerating well Pelvic Exam Dilation (cm): 1 Effacement (%): 80 station: -1 Amniotic membrane status: Ruptured Comments: SROM earlier this AM, clear fluid Contractions Monitor mode: External Contraction frequency (min): 4 Contraction duration (min): 1 Contraction pattern: Irregular Contraction phase: Resting Contraction intensity: Moderate Status status: Category l Heart Rate Baseline: 145 Monitor Accelerations: Present Monitor Decelerations: Absent Monitor Variability: Moderate Assessment and Plan Assessment: induction ongoing Plan: begin patient augmentation Comments: Anticipate .
[2022-07-13] MEDS: LACTATED RINGERS 1,000 ML 100 ML IV ×3 (09:28→22:38)
[2022-07-13] MEDS: FENT 2MCG/ML BUPIV 0.125% EPI 200 MCG/100 ML PLAST..BAG 8 MCG EPIDURAL (10:40)
[2022-07-13] MEDS: OXYTOCIN PREMIX 30 UNIT/500 ML PLAST..BAG IV (11:11)
[2022-07-13] MEDS: ONDANSETRON 4 MG/2 ML INJ 8 MG IV (12:40)
[2022-07-13] MEDS: LACTATED RINGERS 1,000 ML 1000 ML IV (16:19)
[2022-07-13] MEDS: FENT 2MCG/ML BUPIV 0.125% EPI 200 MCG/100 ML PLAST..BAG 10 MCG EPIDURAL ×2 (17:12→22:31)
--- NOTE | 2022-07-13 20:08 | PM.OBPNLAB ---
Date/Time Date Patient Seen: 07/13/22 Time Patient Seen: 20:08 Pain Control Pain control: tolerating well and epidural Pelvic Exam Dilation (cm): 8 Effacement (%): 100 station: +1 Amniotic membrane status: Ruptured Comments: ROP position, no caput/moulding Contractions Monitor mode: External Pitocin rate (mU/min): 10 Contraction frequency (min): 5 Contraction pattern: Irregular Contraction phase: Resting Contraction intensity: Moderate Status status: Category l Heart Rate Baseline: 145 Monitor Accelerations: Present Monitor Decelerations: Absent Monitor Variability: Moderate Assessment and Plan Assessment: induction ongoing Comments: Increase pitocin augmentation, position changes, peanut ball to encourage spontaneous rotation from ROP. Consider IUPC insertion if contractions can't be adequately assessed with external monitoring.
--- NOTE | 2022-07-13 23:41 | PM.OBPNLAB ---
Date/Time Date Patient Seen: 07/13/22 Time Patient Seen: 23:30 Pain Control Pain control: epidural Comments: Doing better again, comfortable after an epidural bolus. Pelvic Exam Dilation (cm): 8 Effacement (%): 100 station: +1 Amniotic membrane status: Ruptured Comments: BP 120s/70 Contractions Monitor mode: External Pitocin rate (mU/min): 16 Contraction frequency (min): 4 Contraction pattern: Irregular Contraction phase: Resting Contraction intensity: Moderate Status status: Category l Heart Rate Baseline: 150 Monitor Accelerations: Present Monitor Decelerations: Variable (occasional) Monitor Variability: Moderate Assessment and Plan Assessment: induction ongoing Plan: continuous present management Comments: Pt reviewed with me by Dr Roper earlier this pm. Assuming her care. Cervix unchanged. Contraction pattern better and contractions palpate moderate to firm. Will re-check cervix in a few hours for change.
--- NOTE | 2022-07-14 02:21 | PM.OBPNLAB ---
Date/Time Date Patient Seen: 07/14/22 Time Patient Seen: 02:21 Pain Control Pain control: epidural Comments: Feelign much vaginal pressure and some discomfort with contractions again Pelvic Exam Dilation (cm): 9 Effacement (%): 100 station: +1 Amniotic membrane status: Ruptured Contractions Monitor mode: External Pitocin rate (mU/min): 20 Contraction frequency (min): 3 Contraction pattern: Irregular Contraction phase: Resting Contraction intensity: Moderate Status status: Category l Heart Rate Baseline: 145 Monitor Accelerations: Present Monitor Decelerations: Absent Monitor Variability: Moderate Assessment and Plan Assessment: induction ongoing Plan: continuous present management Comments: Patient will receive an epidural bolus. Will recheck her cervix in approx 1 hour
[2022-07-14] MEDS: FENT 2MCG/ML BUPIV 0.125% EPI 200 MCG/100 ML PLAST..BAG 10 MCG EPIDURAL (02:51)
--- NOTE | 2022-07-14 04:57 | PM.OBPNLAB ---
Date/Time Date Patient Seen: 07/14/22 Time Patient Seen: 04:50 Pain Control Pain control: epidural Pelvic Exam Dilation (cm): 9 Effacement (%): 100 station: +1 Amniotic membrane status: Ruptured Contractions Monitor mode: External Contraction frequency (min): 3 Contraction pattern: Irregular Contraction phase: Resting Contraction intensity: Moderate Status status: Category l Heart Rate Baseline: 120 Monitor Accelerations: Present Monitor Decelerations: Variable (rare mild) Monitor Variability: Moderate Assessment and Plan Assessment: other Plan: Comments: No progress past 9 cm. initially only anterior lip felt with patient having pressure and pushing involuntarily. Attempt made to reduce the anterior lip over a few contractions without success. With repeat exam feel additional cervix wrapping around left side, persistent at 9 cm. Vertex 1+ station, not descending well into pelvis. Possible OP position. Discussed arrest of dilatation, apparent cephalopelvic disproportion. Recommended proceeding with section for delivery. She agrees. - Anesthesia and OR team called. section procedure reviewed. I discussed surgical risks including risk of bleeding, infection, injury to adjacent organs including bowel, bladder and ureters. I discussed small risk of injury to the baby with delivery.. Verbal and written consent obtained. -
[2022-07-14] MEDS: CITRIC ACID/SODIUM CITRATE 15 ML SOLUTION 30 ML PO (05:43)
--- NOTE | 2022-07-14 06:02 | PM.PREOP ---
Pre-operative Note COVID-19 COVID-19 status: Negative Result date/Date tested (Pos, Neg/Pending): 07/12/22 Criteria for continued procedure: Non-surgical alternatives not available or appropriate per current SOC Interval Note History & Physical reviewed/Exam performed by Physician: Yes Changes to H&P: No
--- NOTE | 2022-07-14 06:03 | PM.OBCS.1 ---
Operative Date/Time/Diagnoses Date of procedure: 07/14/22 Time of procedure: 06:10 Pre-op diagnosis: Intrauterine gestation, beasley, 37+5 weeks EGA Gestational diabetes, Type A2 Elevated liver function studies Elevated protein:creatinine ratio Secondary arrest of labor in the first stage Post-op diagnosis: same Procedure & Clinicians Procedure: Primary section, low transverse cervical Same procedure as scheduled: Yes Indications: Sandra Bull is a 26 yo admitted at 37+4 weeks EGA for induction due to GDM Type A2, elevated LFT's and elevated protein:creatitine ratio. She progressed well with cytotec ripening followed by pitocin augmentation but experienced a secondary arrest of descent and dilatation at 9 cm with the vertex at +1 station in GIFTY position. After counseling re: all options, she is undergoing primary at this time. Surgeon: Mohsen Roper Fishing Rod Trimmer: Natacha Lo Reason for Fishing Rod Trimmer: Fishing Rod Trimmer required for the safe, effective, and timely completion of this surgery. Anesthesia Type: Spinal Operative Notes Findings: Viable [] infant BW [], Apgars []/[], delivered from the [] presentation. Normal gravid anatomy. Closure Type: primary Specimen(s): cord blood Intraoperative meds administered: Hemabate, Ketorolac and Pitocin Applied: Catheter Estimated Blood Loss (mL): 800 Blood products transfused: none Procedure in detail: With her informed written consent, the patient was taken to the operating room and placed in the supine position for a primary section procedure, for the indication(s) above. The abdomen was prepped and draped in the usual manner for section and a pre-surgical timeout was taken per [facility] OR protocol. Once effective anesthesia was confirmed, a 15 cm transverse Pfannenstiel incision was made in the skin and taken down through the subcutaneous tissues to the deep fascia. The deep fascia was incised transversely, the rectus abdominal eyes bluntly and sharply, and the peritoneal cavity entered without difficulty. The lower uterine segment was visualized and the position/presentation palpated. A transverse incision at or above the vesicouterine reflection was made with Metzenbaum scissors and transverse hysterotomy performed near the midline. Amniotomy revealed clear fluid. The incision was extended bilaterally with digital traction and the was delivered easily from the vertex presentation. The infant was vigorous and cord clamping delayed for 60 seconds. The placenta was delivered intact using gentle cord traction and fundal massage.The uterine cavity was then cleared of any clot/debris first with a sloppy wet lap tape followed by a dry lap tape. Ring forceps were then applied to the angles and the midline of the incised ISMAEL. A primary closure of the uterus was then accomplished with #1 CCGS in a running interlocking stitch followed by a 2nd layer of #1 CCGS in a running interlocking imbricating stitch. No additional sutures was/were required to achieve complete hemostasis. IV pitocin administered with delivery of the placenta and IM hemabate 250 mcg administered IM due to uterine hypotonia, Once pelvic hemostasis was assured, the bladder flap and anterior peritoneum were closed with a running 2-0 Vicryl suture and the fascia closed with #1 Vicryl in a running stitch initiated at both angles and tying separately near the midline. The subcutaneous tissues were reapproximated with 2-0 plain catgut suture using inverted interrupted stitches. The skin edges were then brought together with 4-0 Monocryl in a subcuticular closure and the incision was reinforced with 1 Steri-Strips. An appropriate compression dressing was applied and the patient transferred to PACU for recovery and subsequent transfer to the Center for recuperation. Complications: none Baby 1: Gender: Male Presentation: vertex Position: Left Occiput Anterior Placental Delivery Description: Spontaneous and Expressed Cord Vessel Description: 3 Vessels score (1 min): 9 score (5 min): 9 weight: 8 lb 8.334 oz Post-operative Condition: stable Disposition: PACU Aftercare: routine postop
[2022-07-14] MEDS: CEFAZOLIN 2 GM/100 ML PREMIX 100 ML IV (06:21)
--- NOTE | 2022-07-14 06:32 | SUR.OPER ---
Supine on Padded OR bed, head on pillow, safety belt at thigh, arms secured on padded arm boards at <90 degrees abduction. Bump under right buttock. Legs uncrossed, gel pad to heels, tape over blanket to lower legs. Safety belt across thighs, Gel pad placed between patients posterior thigh and urinary catheter tubing.
--- NOTE | 2022-07-14 06:50 | SUR.OPER ---
Viable baby boy delivered at 0633.Placenta delivered. Cord blood tubes X2 and placenta given to L&D RN.
[2022-07-14 07:41] VITALS: PULSE 108; RESP 100; TEMP 36.2; O2SAT 94
[2022-07-14 07:46] VITALS: BP 107/66; PULSE 105; RESP 14; O2SAT 18
[2022-07-14 07:51] VITALS: BP 115/73; PULSE 104; RESP 18; O2SAT 94
[2022-07-14 07:56] VITALS: BP 109/73; PULSE 104; RESP 18; O2SAT 94
[2022-07-14] MEDS: OXYCODONE IR 5 MG TABLET PO (07:59)
[2022-07-14 08:01] VITALS: BP 108/73; PULSE 105; TEMP 36.2; O2SAT 18
[2022-07-14] MEDS: ONDANSETRON 8 MG in SODIUM CHLORIDE 0.9% 100 ML 208 MG IV ×2 (13:00→18:53)
[2022-07-14] MEDS: KETOROLAC 30 MG/ML VIAL IV (18:52)
[2022-07-15] VITALS (25 sets, daily range): BP systolic 93–107; BP diastolic 44–69; PULSE 96–120; RESP 14–22; TEMP 36.7–39; O2SAT 93–96
--- NOTE | 2022-07-15 | DI.RAD.S_ITS ---
PROCEDURE: XR ABDOMEN 1V INDICATIONS: bilateral ureteral stent cystoscopy TECHNIQUE: 3 intra-operative images acquired by the Urology service. COMPARISON: None. FINDINGS: Intraoperative fluoroscopic images shows right-sided ureteral stent in place. IMPRESSION: Fluoro guidance was provided for bilateral ureteral stent cystoscopy. Dictated by: Nagi Aguirre M.D. on 07/15/2022 at 14:39 Approved by: Nagi Aguirre M.D. on 07/15/2022 at 14:44
[2022-07-15] MEDS: KETOROLAC 30 MG/ML VIAL IV (00:48)
[2022-07-15] MEDS: LACTATED RINGERS 1,000 ML 100 ML IV (00:49)
[2022-07-15 06:17] LABS: Alanine Aminotransferase 30 IU/L (<35); Albumin 2.2 g/dL (3.5-5.0); Alkaline Phosphatase 137 U/L (38-126); Aspartate Aminotransferase 43 IU/L (14-36); Bilirubin Total 0.1 mg/dL (0.2-1.3); Bilirubin Unconjugated 0.3 mg/dL (0.0-1.1); Globulin 2.3 g/dL (1.7-4.1); HEMOLYSIS < 15 (0-50); Total Protein 4.5 g/dL (6.3-8.2)
[2022-07-15 06:35] LABS: Basophils Absolute Auto 100 /uL (0-100); Basophils Percent Auto 0.5 % (0-2); Eosinophils Absolute Auto 200 /uL (0-450); Eosinophils Percent Auto 1.2 % (2-4); Lymphocytes Absolute Auto 3200 /uL (1100-4500); Lymphocytes Percent Auto 18.8 % (25-40); Mean Corpuscular HGB Conc 31.3 % (30-36); Mean Corpuscular Hemoglobin 21.4 PG (26-34); Mean Corpuscular Volume 68.4 fL (80-100); Monocytes Absolute Auto 900 /uL (0-900); Monocytes Percent Auto 5.1 % (3-14); Neutrophils Absolute Auto 12700 /uL (1500-7000); Neutrophils Percent Auto 74.4 % (50-75); Platelet Count 255 X10^3/uL (150-400); Red Blood Cell Count 2.39 X10^6/uL (4.0-5.2); Red Cell Distribution Width 22.5 % (11.6-14.8)
[2022-07-15 06:43] LABS: Hemoglobin 5.1 g/dL (12.0-16.0)
--- NOTE | 2022-07-15 06:43 | DI.CT.S_ITS ---
PROCEDURE: CT ABDOMEN PELVIS WO CON INDICATIONS: Post-op anemia; r/o pelvic hematoma TECHNIQUE: Axial sections were acquired from the lung bases to the pubic symphysis. Coronal and sagittal reformats were performed. For radiation dose reduction, the following was used: automated exposure control, adjustment of mA and/or kV according to patient size. COMPARISON: None. FINDINGS: Image quality: Excellent. Lung bases: Dependent changes/trace effusions are noted within the bases bilaterally. Heart: No significant findings. URINARY: Right Kidney: Significant hydronephrosis. No stones. Right Ureter: Significant hydroureter. It is noted that the ureteral course is compressed between a right hemidiaphragmatic lateral fluid collection as well as a markedly enlarged uterus. Left Kidney: Moderate hydronephrosis. Punctate nonobstructing inferior pole calculus. Left Ureter: Mild hydroureter. Bladder: Normal wall thickness. No stones. ABDOMEN: Liver: Unremarkable. Gallbladder: Depending calcifications are present without wall thickening. Biliary ducts: Unremarkable. Pancreas: Unremarkable. Spleen: Unremarkable. Adrenal Glands: Unremarkable. Stomach and Bowel: Stomach, small bowel loops, and colon are unremarkable. There are several punctate scattered areas of non dependent air within the abdomen and pelvis. Peritoneum: At there are low-attenuation collections within the pericolic gutters bilaterally measuring 10.3 x 5.1 cm on the left and 9.6 x 6.1 cm on the right. Hounsfield units are less than 20 within both collections. It is noted that there is a focus of relative increased density anteriorly within the right collection on series 2 image 47 measuring 1.3 cm Hounsfield units 47. There is additional mild dependent pelvic fluid. Ventral Wall: Fat and air containing ventral hernia is present. Abdominal Nodes: No enlarged retroperitoneal or mesenteric lymph nodes. Vessels: Aorta and inferior vena cava are normal in size. PELVIS: Pelvic Organs: The uterus is markedly enlarged with mild surrounding fluid. The endometrial canal is enlarged with numerous foci of air as well as fluid. In addition, there are multiple small foci of air are identified within the inferior portion of the uterus extending to the cervix. Several of these foci appear to be within the wall and not within the canal. However, exam is limited secondary to lack of IV contrast. The bladder is collapsed with a Lima catheter. Pelvic Nodes: Unremarkable. Miscellaneous: No inguinal hernias are seen. Air is noted within the subcutaneous fat of the lower pelvis suggestive of recent section. Bones: Unremarkable. IMPRESSION: Markedly enlarged uterus with significant air in fluid in the endometrial canal as well as punctate areas of air within the lower uterine segment/cervix appearing to be outside of the canal possibly within the uterine/cervical wall. Mild periuterine fluid is also present. Overall appearance is highly suspicious for infection. Prominent abdominal fluid collections as well as dependent pelvic fluid as above. While the collections appear to be predominantly simple fluid, a focus of increased density is noted within the right collection, with Hounsfield units in line with blood products. This could represent a focal area of forming hematoma. Significant bilateral renal and ureteral obstruction, right greater than left felt to be primarily mechanical secondary to compression of the ureter between the uterus and fluid collection as described above. Small scattered areas of free air noted within the abdomen consistent with recent surgery. The above findings were discussed with Dr. Mohsen Roper on 07/15/2022 at 9:49 a.m.. Dictated by: Merle Welch M.D. on 07/15/2022 at 9:36 Approved by: Merle Welch M.D. on 07/15/2022 at 9:52
[2022-07-15 06:44] LABS: Hematocrit 16.3 % (36-46)
[2022-07-15 06:45] LABS: Add Manual Diff / Slide Review SLIDE REVIEW
--- NOTE | 2022-07-15 07:15 | P.PNOB_ITS ---
Subjective - OB Subjective Date Patient Seen: 07/15/22 Time Patient Seen: 06:20 Interval history: Overnight minimal lochia, fundus firm, minimal ambulation, cardona remains in place with good output. No flatus as yet. Review of VS show patient has been hypotensive/tachchycardic since late last night. She received a fluid bolus which temporarily elevated her BP but her BP is again in the 80/40 range and she is tachycardic. Stat CBC shows H&H 5.1/16.3 w/ 255k PLT. Exam Vital Signs (past 8 hours): Oxygen Delivery Method Room Air Const General: cooperative and lethargic Nutritional Appearance: thin Orientation: alert and oriented x3 HENMT Head: normal to inspection, atraumatic and abrasion Ears: hearing grossly normal bilaterally Face and sinus: face symmetric Eyes General: appearance normal, both eyes and all related structures Conjunctivae: conjunctivae normal Sclera: sclerae normal EOM: EOM intact bilaterally Neck Neck: normal visual inspection Resp Effort & Inspection: normal respiratory effort and able to speak in complete sentences Auscultation: clear to auscultation bilaterally Cardio Rate: regular rate and tachycardic Rhythm: regular rhythm Heart Sounds: S1 normal, S2 normal and no murmurs GI Inspection: normal to inspection and incision (Surgical dressings clean and dry) Palpation: soft, no hepatosplenomegaly, mass (Firm fundus, U-2) and tender (Moderate, diffuse postsurgical tenderness) Auscultation: hypoactive bowel sounds External Female Exam: other (No significant bleeding noted) Extrem General: no calf tenderness Psych Appearance: grossly normal Mental Status: mental status grossly normal Speech and Movement: speech and movement normal Mood: congruent mood Affect: normal affect Attitude: cooperative Thought Process: normal Thought Content: normal Judgment: judgment good Objective Labs Result Diagrams: 07/15/22 05:58 Labs: Laboratory Results - last 24 hr 07/12/22 07/15/22 07/15/22 08:40 05:58 05:58 WBC 17.0 H RBC 2.39 L Hgb 5.1 L* Hct 16.3 L* MCV 68.4 L MCH 21.4 L MCHC 31.3 RDW 22.5 H Plt Count 255 Neut % (Auto) 74.4 Lymph % (Auto) 18.8 L Stokes % (Auto) 5.1 Eos % (Auto) 1.2 L Baso % (Auto) 0.5 Neut # (Auto) 92659 H Lymph # (Auto) 3200 Stokes # (Auto) 900 Eos # (Auto) 200 Baso # (Auto) 100 Total Bilirubin 0.1 L Conjugated Bilirubin 0.0 Unconjugated Bilirubin 0.3 AST 43 H ALT 30 Alkaline Phosphatase 137 H Total Protein 4.5 L Albumin 2.2 L Globulin 2.3 Albumin/Globulin Ratio 1.0 Blood Type O Positive Antibody Screen Negative Crossmatch See Detail Assessment & Plan Assessment and Plan (1) Anemia due to blood loss, acute: Status: Acute (2) delivery delivered: Status: Acute Plan day: 1 Comments: Initiate massive transfusion protocol; 4U PRBC/FFP/PLT 1:1:1 riya 2nd IV placed IV TXA 1000 mg Stat ABD/Pelvic CT Probable surgical re-exploration Time Spent With Patient Time: Total time spent is greater than 50% in coordination of care (as documented) at patient's floor/unit and/or counseling patient: Time with patient: Greater than 35 minutes
[2022-07-15 07:43] LABS: Hypochromasia 2+; Nucleated Red Blood Cells 2 #/Diff
[2022-07-15 07:44] LABS: Anisocytosis 3+
[2022-07-15 07:49] LABS: Platelet Count 246 X10^3/uL (150-400)
[2022-07-15 07:51] LABS: Hematocrit 16.1 % (36-46); Hemoglobin 4.9 g/dL (12.0-16.0)
[2022-07-15 07:56] LABS: Prothrombin Time 11.3 SECONDS (10.1-12.7)
[2022-07-15 07:58] LABS: PTT Partial Thromboplastin Tim 24 SECONDS (26-36)
[2022-07-15 08:02] LABS: D Dimer 1343 ng/ml (<500); Fibrinogen 565 mg/dL (211-428)
[2022-07-15] MEDS: TRANEXAMIC ACID 1,000 MG in SODIUM CHLORIDE 0.9% 100 ML 200 MG IV (08:23)
--- NOTE | 2022-07-15 09:10 | DI.RAD.S_ITS ---
PROCEDURE: XR CHEST 1V INDICATIONS: r/o sepsis TECHNIQUE: One view of the chest was acquired. COMPARISON: [facility], CT, CT ABDOMEN PELVIS WO CON, 07/15/2022, 9:06. [facility], CR, XR CHEST 2V, 11/03/2021, 23:34. FINDINGS: Surgical changes and devices: None. Lungs and pleura: Lungs are clear. No pleural effusions or pneumothorax. Mediastinum: Mediastinal contours appear normal. Heart size is enlarged. Bones and chest wall: No suspicious bony lesions. Overlying soft tissues appear unremarkable. IMPRESSION: No acute pulmonary process. Dictated by: Merle Welch M.D. on 07/15/2022 at 9:52 Approved by: Merle Welch M.D. on 07/15/2022 at 9:57
--- NOTE | 2022-07-15 09:16 | P.PNOB_ITS ---
Subjective - OB Subjective Date Patient Seen: 07/15/22 Time Patient Seen: 09:17 Interval history: 1st and 2nd U PRBC infusing. CT results pending. T 102.2 x 1 prior to starting transfusion, 99.5 now but will w/u for possible sepsis w/ lactic acid, procalcitonin, CXR and blood cultures. Exam Vital Signs (past 8 hours): - 07/15/22 07:33 07/15/22 07:48 07/15/22 07:59 Temperature 102.2 F H 101.8 F H 100.7 F H Pulse Rate 120 H 117 H 113 H Respiratory Rate 16 18 18 Blood Pressure 101/44 L 106/51 L 97/48 L 07/15/22 08:27 07/15/22 08:32 07/15/22 07:48 Temperature 100.6 F H 100.6 F H 100.7 F H Pulse Rate 112 H 108 H 117 H Respiratory Rate 18 18 20 Blood Pressure 102/52 L 95/47 L 100/53 L 07/15/22 08:44 Temperature 100.3 F H Pulse Rate 116 H Respiratory Rate 22 Blood Pressure 100/47 L Oxygen Delivery Method Room Air Narrative Exam Narrative: Unchanged from prior exam Objective Imaging CT scan - abdomen: Radiologist's impression: PROCEDURE:? CT ABDOMEN PELVIS WO CON ? INDICATIONS:? Post-op anemia; r/o pelvic hematoma ? TECHNIQUE:? Axial sections were acquired from the lung bases to the pubic symphysis.? Coronal and sagittal reformats were performed.? For radiation dose reduction, the following was used: ?automated exposure control, adjustment of mA and/or kV according to patient size.? ? COMPARISON:? None. ? FINDINGS:? Image quality:? Excellent.? ? Lung bases:? Dependent changes/trace effusions are noted within the bases bilaterally. Heart:? No significant findings. ? URINARY: Right Kidney:? Significant hydronephrosis.? No stones.? Right Ureter:? Significant hydroureter.? It is noted that the ureteral course is compressed between a right hemidiaphragmatic lateral fluid collection as well as a markedly enlarged uterus.? ? Left Kidney:? Moderate hydronephrosis.? Punctate nonobstructing inferior pole calculus.? Left Ureter:? Mild hydroureter.? ? Bladder:? Normal wall thickness. No stones. ? ? ? ABDOMEN: Liver:? Unremarkable.? ? Gallbladder:? Depending calcifications are present without wall thickening.? ? Biliary ducts:? Unremarkable.? ? Pancreas:? Unremarkable.? ? Spleen:? Unremarkable.? ? Adrenal Glands:? Unremarkable.? ? ? Stomach and Bowel:? Stomach, small bowel loops, and colon are unremarkable.? There are several punctate scattered areas of non dependent air within the abdomen and pelvis. Peritoneum:? At there are low-attenuation collections within the pericolic gutters bilaterally measuring 10.3 x 5.1 cm on the left and 9.6 x 6.1 cm on the right.? Hounsfield units are less than 20 within both collections.? It is noted that there is a focus of relative increased density anteriorly within the right collection on series 2 image 47 measuring 1.3 cm Hounsfield units 47. There is additional mild dependent pelvic fluid. ? Ventral Wall: ? Fat and air containing ventral hernia is present. Abdominal Nodes:? No enlarged retroperitoneal or mesenteric lymph nodes.? Vessels:? Aorta and inferior vena cava are normal in size.? ? PELVIS: Pelvic Organs:? The uterus is markedly enlarged with mild surrounding fluid.? The endometrial canal is enlarged with numerous foci of air as well as fluid.? In addition, there are multiple small foci of air are identified within the inferior portion of the uterus extending to the cervix.? Several of these foci appear to be within the wall and not within the canal.? However, exam is limited secondary to lack of IV contrast.? The bladder is collapsed with a Lima catheter. Pelvic Nodes: Unremarkable. Miscellaneous: No inguinal hernias are seen. ? ? Air is noted within the subcutaneous fat of the lower pelvis suggestive of recent section. Bones:? Unremarkable. ? IMPRESSION:? ? Markedly enlarged uterus with significant air in fluid in the endometrial canal as well as punctate areas of air within the lower uterine segment/cervix appearing to be outside of the canal possibly within the uterine/cervical wall.? Mild periuterine fluid is also present.? Overall appearance is highly suspicious for infection. ? Prominent abdominal fluid collections as well as dependent pelvic fluid as above.? While the collections appear to be predominantly simple fluid, a focus of increased density is noted within the right collection, with Hounsfield units in line with blood products.? This could represent a focal area of forming hematoma. ? Significant bilateral renal and ureteral obstruction, right greater than left felt to be primarily mechanical secondary to compression of the ureter between the uterus and fluid collection as described above. ? Small scattered areas of free air noted within the abdomen consistent with recent surgery. ? Chest x-ray: Radiologist's impression: PROCEDURE:? XR CHEST 1V ? INDICATIONS:? r/o sepsis ? TECHNIQUE:? One view of the chest was acquired.? ? COMPARISON:? [facility], CT, CT ABDOMEN PELVIS WO CON, 07/15/2022, 9:06.? [facility], CR, XR CHEST 2V, 11/03/2021, 23:34. ? FINDINGS:? ? Surgical changes and devices:? None.? ? Lungs and pleura:? Lungs are clear.? No pleural effusions or pneumothorax.? ? Mediastinum:? Mediastinal contours appear normal.? Heart size is enlarged. ? Bones and chest wall:? No suspicious bony lesions.? Overlying soft tissues appear unremarkable.? ? IMPRESSION:? No acute pulmonary process. Labs Result Diagrams: 07/15/22 07:35 07/15/22 10:12 Labs: Laboratory Results - last 24 hr 07/12/22 07/15/22 07/15/22 08:40 05:58 05:58 WBC 17.0 H RBC 2.39 L Hgb 5.1 L* Hct 16.3 L* MCV 68.4 L MCH 21.4 L MCHC 31.3 RDW 22.5 H Plt Count 255 Neut % (Auto) 74.4 Lymph % (Auto) 18.8 L Giles % (Auto) 5.1 Eos % (Auto) 1.2 L Baso % (Auto) 0.5 Neut # (Auto) 15308 H Lymph # (Auto) 3200 Giles # (Auto) 900 Eos # (Auto) 200 Baso # (Auto) 100 Nucleated RBCs 2 H RBC Morphology Not Reportable Hypochromasia 2+ H Anisocytosis 3+ H PT INR APTT Fibrinogen D-Dimer Total Bilirubin 0.1 L Conjugated Bilirubin 0.0 Unconjugated Bilirubin 0.3 AST 43 H ALT 30 Alkaline Phosphatase 137 H Total Protein 4.5 L Albumin 2.2 L Globulin 2.3 Albumin/Globulin Ratio 1.0 Blood Type O Positive Antibody Screen Negative Crossmatch See Detail 07/15/22 07/15/22 07/15/22 07:35 07:35 07:35 WBC RBC Hgb 4.9 L* Hct 16.1 L* MCV MCH MCHC RDW Plt Count 246 Neut % (Auto) Lymph % (Auto) Giles % (Auto) Eos % (Auto) Baso % (Auto) Neut # (Auto) Lymph # (Auto) Giles # (Auto) Eos # (Auto) Baso # (Auto) Nucleated RBCs RBC Morphology Hypochromasia Anisocytosis PT 11.3 INR 1.0 APTT 24 L Fibrinogen 565 H D-Dimer 1343 H Total Bilirubin Conjugated Bilirubin Unconjugated Bilirubin AST ALT Alkaline Phosphatase Total Protein Albumin Globulin Albumin/Globulin Ratio Blood Type Antibody Screen Crossmatch Procalcitonin: 4.14 Total CK: 697 CK-MB: 15.9 PTT: 24.0 Fibrinogen: 565 D-dimer: 1343 Troponin: 0.147 Assessment & Plan Assessment and Plan (1) Anemia due to blood loss, acute: Status: Acute (2) delivery delivered: Status: Acute (3) Sepsis after obstetrical procedure: Status: Acute (4) Hydronephrosis: Status: Acute Plan day: 1 Comments: Sepsis w/u w/ blood cultures x 2; Cultures pending, IV Zosyn 4.5 mg/kg followed by 3.5 mg/kg q 8 hrs. Transfuse 4 U PRBC, 4U FFP and reassess w/ target Hgb > 8 Surgical re-exploration: Patient and counseled regarding need for emergent laparotomy and cystoscopy/ureteral stent placement for ureteral be compression. Also discussed was the possible need for hysterectomy sure bleeding be unable to be controlled by more conservative measures or findings at the time of exploratory surgery dictate removal of the uterus. With full understanding of the above, a written consent was executed, signed, and witnessed this date. 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
[2022-07-15 09:31] LABS: Lactate Dehydrogenase 305 U/L (120-246)
[2022-07-15 09:49] LABS: Procalcitonin 4.14 ng/mL (<0.5)
[2022-07-15] MEDS: HYDROMORPHONE 0.5 MG INJ IV (10:08)
[2022-07-15] MEDS: PIPERACILLIN/TAZO 4.5 GM in SODIUM CHLORIDE 0.9% 100 ML IV (10:21)
[2022-07-15 10:34] LABS: Creatine Kinase 697 U/L (30-135)
[2022-07-15 10:38] LABS: Alanine Aminotransferase 28 IU/L (<35); Albumin 2.2 g/dL (3.5-5.0); Albumin Globulin Ratio 0.9 (1.0-2.8); Alkaline Phosphatase 141 U/L (38-126); Aspartate Aminotransferase 44 IU/L (14-36); BUN Creatinine Ratio 12.1 (6-22); Bilirubin Total 0.2 mg/dL (0.2-1.3); Blood Urea Nitrogen 7 mg/dL (7-17); Calcium 7.4 mg/dL (8.4-10.2); Carbon Dioxide 27 mmol/L (22-32); Chloride 107 mmol/L (98-107); Estimated Glomerular Filt Rate > 60 mL/min (>60); Globulin 2.4 g/dL (1.7-4.1); Glucose 76 mg/dL (70-100); HEMOLYSIS < 15 (0-50); Potassium 3.8 mmol/L (3.4-5.1); Sodium 136 mmol/L (137-145); Total Protein 4.6 g/dL (6.3-8.2)
[2022-07-15 10:49] LABS: CKMB % Relative Index 2.3 % (1.5-5.0); Troponin I 0.147 ng/mL (0.01-0.034)
[2022-07-15 10:55] LABS: COVID19 -Nasal RAPID Negative (Negative)
[2022-07-15 11:11] LABS: Appearance Urine UA CLEAR; Bilirubin Urine UA NEGATIVE (NEGATIVE); Color Urine UA YELLOW; Glucose Urine UA NEGATIVE (Negative); Ketones Urine UA NEGATIVE (NEGATIVE); Leukocyte Esterase Urine UA TRACE (NEGATIVE); Nitrite Urine UA NEGATIVE (Negative); Occult Blood Urine UA TRACE-INTACT (Negative); Protein Urine UA NEGATIVE (Negative); Urobilinogen Urine UA 0.2 E.U./dL (0.2)
[2022-07-15 11:15] LABS: RBC Urine 5-10/HPF (0-5/HPF); Squamous Epithelial Cell Urine None Seen (0-5/HPF); WBC Urine 1-5/HPF (0-5/HPF)
[2022-07-15 11:16] LABS: Bacteria Urine None Seen; Culture Indicated Urine Specimen Cultured
--- NOTE | 2022-07-15 11:58 | P.CONS_ITS ---
History of Present Illness Consult details Date Patient Seen: 07/15/22 Time Patient Seen: 11:58 Chief complaint: MATERNITY Reason for consult: sepsis Requesting provider: Pop Roper Narrative: This is a 26 year old female, now , PMH of depression, GERD, migraines, gestational DM who was admitted on 07/12 for induction of labor at 37w4d due to DM, proteinuria, and elevated LFTs. She was being induced, had secondary arrest at underwent on 07/14 in the floral specialist. Overnight 07/14, patient was hypotensive and tachycardic, repeat labs showed a significant decline in her Hg from 8.8 to 5.1 post operatively. She also had a fever to 102. She was hypoxic to the mid 80s on room air but improved with 1L via NC. She was started on antibiotics, she received zosyn and is currently being transfused. She also received transexamic acid. CT scan showed possible endometritis and a possible hematoma, plan is for her to return to the OR for abdominal exploration. Obstetric providers asked for assistance in management prior to returning to the OR. Plan is to transfer to the ICU afterwards. Most recent labs show WBC 17, Hg 4.9 with MCV of 68. Fibrinogen was 565, D-dimer 1343. Chemistry panel was unremarkable except for mild transaminitis and a troponin of 0.147. EKG shows normal sinus rhythm without acute ischemia and CXR is unremarkable. Patient denies any chest pain, shortness of breath. She continues to have bilateral lower quadrant abdominal pain, she denies back pain at this time. She does endo rse a headache but denies palpitations, vomiting, rash. She generally feels fatigued at the moment. In review, she had an echo in December which was normal and done for chest discomfort after COVID 19 per order. Patient was seen prior to her operation. No source of bleeding was reportedly found intraoperatively and fluid collection also was not visualized. She was noted to have a ureteral obstruction and urology performed stent placement. Her vital signs stabilized and is able to return to L&D after surgery. Meds Home Medications and Allergies Home Medications Medication Instructions Recorded Confirmed Type pantoprazole 40 mg tablet,delayed 60 mg PO DAILY 02/17/21 07/12/22 History release escitalopram oxalate 10 mg tablet 10 mg PO DAILY 03/02/21 07/12/22 History escitalopram oxalate 20 mg tablet See Rx Instructions .Route 09/24/21 07/12/22 Rx .COMPLEX #90 tabs ubrogepant 100 mg tablet (Ubrelvy) 100 mg PO ONCE PRN Migraine 11/11/21 07/12/22 History Headache prenat.vits,radha,[id number]-mwodl 1 tab PO DAILY 12/27/21 07/12/22 History blood-glucose meter #1 ea 05/12/22 07/12/22 Rx lancets 30 gauge and blood glucose #100 ea 05/12/22 07/12/22 Rx strips combo pack metformin 1,000 mg tablet 1,000 mg PO BIDWMEAL #60 tabs 06/24/22 07/12/22 Rx insulin glargine 100 unit/mL (3 30 unit (0.3 mL) SUBCUT QPM #15 mL 06/25/22 07/12/22 Rx mL) subcutaneous pen (Lantus Solostar U-100 Insulin) pen needle, diabetic 31 gauge x #100 ea 06/29/22 07/12/22 Rx 5/16 (1st Tier Unifine Pentips) Allergies Allergy/AdvReac Type Severity Reaction Status Date / Time No Known Drug Allergies Allergy Verified 07/06/22 14:56 Review of Systems Review of Systems Narrative: All other systems reviewed with the patient and are negative unless otherwise stated. Exam Vital Signs (past 8 hours): - 07/15/22 07:33 07/15/22 07:48 07/15/22 07:59 Temperature 102.2 F H 101.8 F H 100.7 F H Pulse Rate 120 H 117 H 113 H Respiratory Rate 16 18 18 Blood Pressure 101/44 L 106/51 L 97/48 L 07/15/22 08:27 07/15/22 08:32 07/15/22 07:48 Temperature 100.6 F H 100.6 F H 100.7 F H Pulse Rate 112 H 108 H 117 H Respiratory Rate 18 18 20 Blood Pressure 102/52 L 95/47 L 100/53 L 07/15/22 08:44 07/15/22 10:51 07/15/22 08:45 Temperature 100.3 F H 98.4 F 99.3 F Pulse Rate 116 H 110 H 110 H Respiratory Rate Blood Pressure 100/47 L 93/52 L 100/53 L 07/15/22 10:45 07/15/22 11:08 07/15/22 11:14 Temperature 98.3 F 98.3 F 98.7 F Pulse Rate 109 H 105 H 104 H Respiratory Rate 20 18 22 Blood Pressure 96/57 L 96/57 L 101/55 L 07/15/22 11:22 Temperature 98.4 F Pulse Rate 105 H Respiratory Rate 20 Blood Pressure 102/59 L Oxygen Delivery Method Room Air Narrative Exam Narrative: General:? Patient is well developed and well nourished, in no distress at this time though appears acutely ill. HEENT:? Normocephalic, atraumatic, extraocular muscles intact, oral pharynx is clear and mucous membranes are moist. Neck: supple and symmetric, trachea is midline, no cervical adenopathy. Negative for JVD Chest:? Normal AP diameter and contour without kyphoscoliosis, no tachypnea, equal chest rise bilaterally. Lungs:? CTA b/l no wheezing rhonchi or rales. Cardio:?tachycardic but regular. no m/r/g. Abdomen: soft, b/l lower quadrant tenderness, no distension. Musculoskeletal:? Muscle strength and tone are equal within normal limits, no deformity. Extremities: No edema or joint effusions. No cyanosis or clubbing. Skin:? Pale,? Warm to touch,dry and intact without rashes, ulcerations or petechiae.? Neuro:? Alert and orientated x3,? sensation to touch intact in all extremities, no gross deficits noted of cranial nerves. Psych:? Patient has a well-kept appearance, appropriate affect, mental status attitude thought context and judgment are appropriate for age. Objective ECG Impression: Normal sinus rhythm as interpreted by me. Labs Result Diagrams: 07/15/22 14:42 07/15/22 10:12 Labs: Laboratory Results - last 24 hr 07/12/22 07/15/22 07/15/22 08:40 05:58 05:58 WBC 17.0 H RBC 2.39 L Hgb 5.1 L* Hct 16.3 L* MCV 68.4 L MCH 21.4 L MCHC 31.3 RDW 22.5 H Plt Count 255 Neut % (Auto) 74.4 Lymph % (Auto) 18.8 L [place] % (Auto) 5.1 Eos % (Auto) 1.2 L Baso % (Auto) 0.5 Neut # (Auto) 09151 H Lymph # (Auto) 3200 [place] # (Auto) 900 Eos # (Auto) 200 Baso # (Auto) 100 Nucleated RBCs 2 H RBC Morphology Not Reportable Hypochromasia 2+ H Anisocytosis 3+ H PT INR APTT Fibrinogen D-Dimer Sodium Potassium Chloride Carbon Dioxide BUN Creatinine Estimated GFR BUN/Creatinine Ratio Glucose Lactate Calcium Total Bilirubin 0.1 L Conjugated Bilirubin 0.0 Unconjugated Bilirubin 0.3 AST 43 H ALT 30 Alkaline Phosphatase 137 H Lactate Dehydrogenase Total Creatine Kinase CK-MB (CK-2) CK-MB (CK-2) Rel Index Troponin I Total Protein 4.5 L Albumin 2.2 L Globulin 2.3 Albumin/Globulin Ratio 1.0 Procalcitonin Urine Color Urine Appearance Urine pH Ur Specific [place] Urine Protein Urine Glucose (UA) Urine Ketones Urine Occult Blood Urine Nitrate Urine Bilirubin Urine Urobilinogen Ur Leukocyte Esterase Urine RBC Urine WBC Ur Squamous Epith Cells Urine Bacteria Ur Culture Indicated? SARS-CoV-2 (PCR) Blood Type O Positive Antibody Screen Negative Crossmatch See Detail 07/15/22 07/15/22 07/15/22 05:58 05:58 07:35 WBC RBC Hgb Hct MCV MCH MCHC RDW Plt Count Neut % (Auto) Lymph % (Auto) [place] % (Auto) Eos % (Auto) Baso % (Auto) Neut # (Auto) Lymph # (Auto) [place] # (Auto) Eos # (Auto) Baso # (Auto) Nucleated RBCs RBC Morphology Hypochromasia Anisocytosis PT 11.3 INR 1.0 APTT 24 L Fibrinogen 565 H D-Dimer Sodium Potassium Chloride Carbon Dioxide BUN Creatinine Estimated GFR BUN/Creatinine Ratio Glucose Lactate Calcium Total Bilirubin Conjugated Bilirubin Unconjugated Bilirubin AST ALT Alkaline Phosphatase Lactate Dehydrogenase 305 H Total Creatine Kinase CK-MB (CK-2) CK-MB (CK-2) Rel Index Troponin I Total Protein Albumin Globulin Albumin/Globulin Ratio Procalcitonin 4.14 H Urine Color Urine Appearance Urine pH Ur Specific [place] Urine Protein Urine Glucose (UA) Urine Ketones Urine Occult Blood Urine Nitrate Urine Bilirubin Urine Urobilinogen Ur Leukocyte Esterase Urine RBC Urine WBC Ur Squamous Epith Cells Urine Bacteria Ur Culture Indicated? SARS-CoV-2 (PCR) Blood Type Antibody Screen Crossmatch 07/15/22 07/15/22 07/15/22 07:35 07:35 10:03 WBC RBC Hgb 4.9 L* Hct 16.1 L* MCV MCH MCHC RDW Plt Count 246 Neut % (Auto) Lymph % (Auto) [place] % (Auto) Eos % (Auto) Baso % (Auto) Neut # (Auto) Lymph # (Auto) [place] # (Auto) Eos # (Auto) Baso # (Auto) Nucleated RBCs RBC Morphology Hypochromasia Anisocytosis PT INR APTT Fibrinogen D-Dimer 1343 H Sodium Potassium Chloride Carbon Dioxide BUN Creatinine Estimated GFR BUN/Creatinine Ratio Glucose Lactate Calcium Total Bilirubin Conjugated Bilirubin Unconjugated Bilirubin AST ALT Alkaline Phosphatase Lactate Dehydrogenase Total Creatine Kinase CK-MB (CK-2) CK-MB (CK-2) Rel Index Troponin I Total Protein Albumin Globulin Albumin/Globulin Ratio Procalcitonin Urine Color Urine Appearance Urine pH Ur Specific [place] Urine Protein Urine Glucose (UA) Urine Ketones Urine Occult Blood Urine Nitrate Urine Bilirubin Urine Urobilinogen Ur Leukocyte Esterase Urine RBC Urine WBC Ur Squamous Epith Cells Urine Bacteria Ur Culture Indicated? SARS-CoV-2 (PCR) Negative Blood Type Antibody Screen Crossmatch 07/15/22 07/15/22 07/15/22 10:12 10:12 10:12 WBC RBC Hgb Hct MCV MCH MCHC RDW Plt Count Neut % (Auto) Lymph % (Auto) [place] % (Auto) Eos % (Auto) Baso % (Auto) Neut # (Auto) Lymph # (Auto) [place] # (Auto) Eos # (Auto) Baso # (Auto) Nucleated RBCs RBC Morphology Hypochromasia Anisocytosis PT INR APTT Fibrinogen D-Dimer Sodium 136 L Potassium 3.8 Chloride 107 Carbon Dioxide 27 BUN 7 Creatinine 0.58 Estimated GFR > 60 BUN/Creatinine Ratio 12.1 Glucose 76 Lactate 1.0 Calcium 7.4 L Total Bilirubin 0.2 Conjugated Bilirubin Unconjugated Bilirubin AST 44 H ALT 28 Alkaline Phosphatase 141 H Lactate Dehydrogenase Total Creatine Kinase 697 H CK-MB (CK-2) 15.90 H CK-MB (CK-2) Rel Index 2.3 Troponin I 0.147 H* Total Protein 4.6 L Albumin 2.2 L Globulin 2.4 Albumin/Globulin Ratio 0.9 L Procalcitonin Urine Color Urine Appearance Urine pH Ur Specific [place] Urine Protein Urine Glucose (UA) Urine Ketones Urine Occult Blood Urine Nitrate Urine Bilirubin Urine Urobilinogen Ur Leukocyte Esterase Urine RBC Urine WBC Ur Squamous Epith Cells Urine Bacteria Ur Culture Indicated? SARS-CoV-2 (PCR) Blood Type Antibody Screen Crossmatch 07/15/22 10:16 WBC RBC Hgb Hct MCV MCH MCHC RDW Plt Count Neut % (Auto) Lymph % (Auto) [place] % (Auto) Eos % (Auto) Baso % (Auto) Neut # (Auto) Lymph # (Auto) [place] # (Auto) Eos # (Auto) Baso # (Auto) Nucleated RBCs RBC Morphology Hypochromasia Anisocytosis PT INR APTT Fibrinogen D-Dimer Sodium Potassium Chloride Carbon Dioxide BUN Creatinine Estimated GFR BUN/Creatinine Ratio Glucose Lactate Calcium Total Bilirubin Conjugated Bilirubin Unconjugated Bilirubin AST ALT Alkaline Phosphatase Lactate Dehydrogenase Total Creatine Kinase CK-MB (CK-2) CK-MB (CK-2) Rel Index Troponin I Total Protein Albumin Globulin Albumin/Globulin Ratio Procalcitonin Urine Color Yellow Urine Appearance Clear Urine pH 7.0 Ur Specific [place] 1.010 Urine Protein Negative Urine Glucose (UA) Negative Urine Ketones Negative Urine Occult Blood Trace-intact Urine Nitrate Negative Urine Bilirubin Negative Urine Urobilinogen 0.2 Ur Leukocyte Esterase Trace H Urine RBC 5-10/hpf H Urine WBC 1-5/hpf Ur Squamous Epith Cells None seen Urine Bacteria None seen Ur Culture Indicated? Specimen cultured SARS-CoV-2 (PCR) Blood Type Antibody Screen Crossmatch [facility] Medical History Acid reflux Anxiety and depression (~2020) Headache (~2019) Migraine (~2019) Surgical History History of esophagogastroduodenoscopy (EGD) Hx of laparoscopy [place] teeth extracted Family History (Updated 07/15/22 @ 11:58 by Sean Berkowitz DO) Mother No pertinent past medical history Father No pertinent past medical history Social History marital status: unmarried,living together (engaged) number of children: 0 household members: significant other lives independently: Yes housing: apartment pets and animals: No (aware of Toxoplasmosisi) education level: high school occupational status: employed current occupational exposures/hazards: No special leatha needs: No Safety seatbelt use: always water heater temp set < 120 deg: Yes (will check and turn down if needed) working smoke detector in home: Yes fire extinguisher in home: Yes carbon monox detector in home: Yes firearms in home: Yes (unloaded and hidden) firearms unloaded and locked: No do you feel safe at home: Yes Tobacco & Substance Use Smoking Status: Never smoker second hand exposure: Yes (getting less, sig other has moved to smoking outside) alcohol intake: former substance use type: does not use Diet and Exercise during the past year weight has: increased > 10 lbs (with Covid infection) well-balanced diet: about half the time daily servings fruits/ve-1 caffeine: Yes (200mg caffeine) Type(s) of exercise: irregular exercise (will get back to the gym) Assessment & Plan Assessment & Plan narrative: 1. Sepsis secondary to Endometritis with acute respiratory failure with hypoxia and hypotension - continue zosyn, fluid, blood products as needed. Agree with current management thus far by primary team. - no current shock and BP is okay - patient ultimately stabilized and can return to L&D given stable vital signs and operative findings, no need for ICU level of care. - rule out PE with CTA given hypoxia, though brief, and elevated troponin. - follow up cultures. 2. acute blood loss anemia secondary to post operative hemorrhage - continue current support with transfusions, goal Hg should be >8 for now gi desi troponin elevation. 3. Myocardial injury - will need echo given troponin elevation, continue to trend troponins until downtrending. - r/o PE as noted above - no chest pain currently and EKG is normal without ischemia. 4. Ureteral obstruction - stent placement with urology prior to obstetrical interventions today. - defer management to urology at this time. Code: Full, surrogate is patient's spouse DVT: per primary team I have utilized all available immediate resources to obtain, update, or review the patient's current medications. Medicine service will continue to follow at this time. Please do not hesitate to reach out with additional questions. COVID-19 COVID-19 status: Negative Time Spent With Patient Critical Care time: I spent a total of [] minutes of critical care time on this patient's care today; this time is exclusive of procedural time.
[2022-07-15] MEDS: CLINDAMYCIN 900 MG/50 ML PIGGYBACK 50 MG IV ×2 (12:30→21:51)
--- NOTE | 2022-07-15 12:39 | DI.CT.S_ITS ---
PROCEDURE: CT ANGIO CHEST PE PROTOCOL INDICATIONS: Short of breath TECHNIQUE: After the administration of intravenous contrast, 2 mm thick sections acquired from the pulmonary apices to the posterior costophrenic angles. 3-dimensional maximum intensity projection (MIP) coronal and sagittal reformats were then acquired through the thorax. For radiation dose reduction, the following was used: automated exposure control, adjustment of mA and/or kV according to patient size. COMPARISON: [facility], CT, CT ABDOMEN PELVIS WO CON, 07/15/2022, 9:06. [facility], CR, XR CHEST 1V, 07/15/2022, 9:17. FINDINGS: Image quality: Excellent. Pulmonary arteries: Pulmonary arteries are normal in size, and demonstrate no intraluminal filling defects to suggest central pulmonary embolism. Lungs and pleura: Patchy areas of mild ground-glass opacity can be seen within the perihilar regions. Moderate dependent enhancing atelectasis can be seen. No pleural effusions or pneumothorax. Central and peripheral airways are patent. Mediastinum: Heart size is mildly to moderately enlarged, without pericardial effusion. No mediastinal or hilar adenopathy. Thoracic aorta is normal in caliber and enhancement. Esophagus is normal in caliber, without hiatal hernia. Bones and chest wall: No suspicious bony lesions. Ribs and thoracic spine appear intact throughout. Mild dextroconvex scoliotic curvature is seen. Thyroid gland demonstrates no significant abnormality. No axillary or supraclavicular adenopathy. Abdomen: A small amount of free intraperitoneal gas is again seen. The liver is enlarged. The visualized portions of the upper abdominal structures are otherwise unremarkable for imaging technique. IMPRESSION: Negative for pulmonary embolism. Qagg-er-suvrplcc cardiomegaly can be seen. There are mild patchy areas of ground-glass opacity seen. Please consider pulmonary edema versus atypical infiltrate. There is a small amount of free intraperitoneal gas again seen. Incidental note is made of: Dextroconvex thoracic scoliotic curvature Dependent atelectasis Hepatomegaly Dictated by: Rylan Camarena M.D. on 07/15/2022 at 17:21 Approved by: Rylan Camarena M.D. on 07/15/2022 at 17:25
--- NOTE | 2022-07-15 12:48 | PM.PREOP ---
Pre-operative Note COVID-19 Criteria for continued procedure: Expected advancement of disease process, Possibility delay results in more complex future surgery or treatment, Increased loss of function, Continuing or worsening of significant or severe pain, Deterioration of the patient's condition or overall health, Delay expected to result in less-positive ultimate med/surg outcome and Non-surgical alternatives not available or appropriate per current SOC Interval Note History & Physical reviewed/Exam performed by Physician: Yes Changes to H&P: Yes H&P completed within 30 days and has changed as indicated here:: An urgent request was made by Dr. Mohsen Roper for immediate assistance regarding findings of right greater than left hydroureteronephrosis in this 26-year-old woman status post and currently very ill. Plan will be per discussion with Dr. Roper, to perform cystoscopy and bilateral ureteral stent placement prior to exploratory laparotomy and other operative plans per Dr. Roper.
--- NOTE | 2022-07-15 13:24 | PM.OP.1 ---
Operative Date/Time/Diagnoses Date of procedure: 07/15/22 Time of procedure: 13:05 Pre-op diagnosis: 1. Bilateral hydronephrosis. Post-op diagnosis: same Procedure & Clinicians Procedure: 1. Cystoscopy/placement bilateral ureteral stents (8 [place] by 22-32 cm multi-length). Same procedure as scheduled: Yes Indications: 1. Bilateral hydronephrosis (right greater than left). Surgeon: Juanito Powell Click Yes if Unassisted: Yes Anesthesia Type: General Operative Notes Findings: 1. Urethra-normal caliber and position without lesion, blood, or discharge. 2. Bladder-normal bilateral ureteral orifices. Posterior trigone and posterior wall effaced by known enlarged uterus. 3. Following placement of the right ureteral stent there was a small amount of postobstructive efflux seen emanating from the right ureteral orifice. Closure Type: not applicable Specimen(s): none sent Applied: other (Bilateral 8 [place] by 22-2 cm multi-length ureteral stents) Estimated Blood Loss (mL): 0 Procedure in detail: The patient was positioned in supine was administered anesthesia. She was then repositioned in semi lithotomy and lower abdomen, genitalia, and groin were then prepped and draped in sterile fashion. The 22 [place] panendoscope was then placed lower urinary tract with the findings as described above. A 0.35 hybrid guidewire was then passed through the panendoscope and advanced to the right ureteral orifice and proximally under direct and fluoroscopic guidance. Over this an 8 [place] by 22-32 cm multi-length stent was passed again under direct and fluoroscopic guidance. The same steps and maneuvers were performed on the left side resulting in positioning of bilateral J ureteral stents. Panendoscope was then removed. A [place] catheter was inserted in the bladder and the balloon inflated 10 cc. The catheter was then placed to gravity drainage. The patient was then repositioned and re-prepped and draped to undergo planned operative interventions by Dr. Roper. Complications: none Post-operative Condition: stable Disposition: PACU Plan for aftercare: Admit to OBGYN and hospitalist service
[2022-07-15] MEDS: ACETAMINOPHEN IV 1,000 MG/100 ML VIAL 400 MG IV (13:38)
--- NOTE | 2022-07-15 13:46 | SUR.OPER ---
Lithotomy on padded OR bed, head on pillow, arms secured on padded arm boards at <90 degrees abduction. Legs secured in padded yellow fins stirrups for first procedure. After drapes removed, pt placed in supine position, with legs straight and secured by strap over thighs. Tape securing lower legs.
--- NOTE | 2022-07-15 14:46 | P.OP_ITS ---
Operative Date/Time/Diagnoses Date of procedure: 07/15/22 Time of procedure: 13:00 Pre-op diagnosis: Intra-abdominal bleeding post section Puerperal sepsis Bilateral hydronephrosis Post-op diagnosis: same Procedure & Clinicians Procedure: Procedures Operation Date: 07/14/22 06:00 Actual Procedure Side Surgeon p Section Not Applicable Mohsen Roper MD Operation Date: 07/15/22 11:30 Actual Procedure Side Surgeon p Exploratory Laparotomy ENGINE[employer]ING [employer] MECH[employer]IC Mohsen Roper MD s Cystoscopy w/ Placement of Bilateral Ureteral Stents Juanito Powell MD Indications: Sejal is a 26 yo s/p primary section on the morning of 07/14/2022 who post-operatively has experienced a significant drop in her H&H disproportionate to observed operative losses associated with hypotentsion and tachycardia since @ 2345 on the evening of 07/14/2022. Immediately prior to initiating massive transfusion protocol, patient spike a temperature to 102.2F and sepsis workup initiated. Lab evaluation showed elevated procalcitonin, d-dimer, CK/CK-MB, and troponin. CXR was normal but ABD/Pelvic CT showed: PROCEDURE:? CT ABDOMEN PELVIS WO CON ? INDICATIONS:? Post-op anemia; r/o pelvic hematoma ? TECHNIQUE:? Axial sections were acquired from the lung bases to the pubic symphysis.? Coronal and sagittal reformats were performed.? For radiation dose reduction, the following was used: ?automated exposure control, adjustment of mA and/or kV according to patient size.? ? COMPARISON:? None. ? FINDINGS:? Image quality:? Excellent.? ? Lung bases:? Dependent changes/trace effusions are noted within the bases bilaterally. Heart:? No significant findings. ? URINARY: Right Kidney:? Significant hydronephrosis.? No stones.? Right Ureter:? Significant hydroureter.? It is noted that the ureteral course is compressed between a right hemidiaphragmatic lateral fluid collection as well as a markedly enlarged uterus.? ? Left Kidney:? Moderate hydronephrosis.? Punctate nonobstructing inferior pole calculus.? Left Ureter:? Mild hydroureter.? ? Bladder:? Normal wall thickness. No stones. ? ? ? ABDOMEN: Liver:? Unremarkable.? ? Gallbladder:? Depending calcifications are present without wall thickening.? ? Biliary ducts:? Unremarkable.? ? Pancreas:? Unremarkable.? ? Spleen:? Unremarkable.? ? Adrenal Glands:? Unremarkable.? ? ? Stomach and Bowel:? Stomach, small bowel loops, and colon are unremarkable.? There are several punctate scattered areas of non dependent air within the abdomen and pelvis. Peritoneum:? At there are low-attenuation collections within the pericolic gutters bilaterally measuring 10.3 x 5.1 cm on the left and 9.6 x 6.1 cm on the right.? Hounsfield units are less than 20 within both collections.? It is noted that there is a focus of relative increased density anteriorly within the right collection on series 2 image 47 measuring 1.3 cm Hounsfield units 47. There is additional mild dependent pelvic fluid. ? Ventral Wall: ? Fat and air containing ventral hernia is present. Abdominal Nodes:? No enlarged retroperitoneal or mesenteric lymph nodes.? Vessels:? Aorta and inferior vena cava are normal in size.? ? PELVIS: Pelvic Organs:? The uterus is markedly enlarged with mild surrounding fluid.? The endometrial canal is enlarged with numerous foci of air as well as fluid.? In addition, there are multiple small foci of air are identified within the inferior portion of the uterus extending to the cervix.? Several of these foci appear to be within the wall and not within the canal.? However, exam is limited secondary to lack of IV contrast.? The bladder is collapsed with a Lima catheter. Pelvic Nodes: Unremarkable. Miscellaneous: No inguinal hernias are seen. ? ? Air is noted within the subcutaneous fat of the lower pelvis suggestive of recent section. Bones:? Unremarkable. ? IMPRESSION:? ? Markedly enlarged uterus with significant air in fluid in the endometrial canal as well as punctate areas of air within the lower uterine segment/cervix appearing to be outside of the canal possibly within the uterine/cervical wall.? Mild periuterine fluid is also present.? Overall appearance is highly suspicious for infection. ? Prominent abdominal fluid collections as well as dependent pelvic fluid as above.? While the collections appear to be predominantly simple fluid, a focus of increased density is noted within the right collection, with Hounsfield units in line with blood products.? This could represent a focal area of forming hematoma. ? Significant bilateral renal and ureteral obstruction, right greater than left felt to be primarily mechanical secondary to compression of the ureter between the uterus and fluid collection as described above. ? Small scattered areas of free air noted within the abdomen consistent with recent surgery. Due to symptomatic post-op anemia with CT findings suggesting intra-abdominal hematoma and hydronephrosis, surgical exploration to identify potential intra- abdominal bleeding source and stent placement to relieve hydronephrosis indicated, therefore we are proceeding to surgery at this time. Operative Notes Findings: Upon opening the Pfannenstiel incision, a small amount of bloody fluid was encountered and it was cultured for aerobic and anaerobic organisms. Upon entry into the abdominal cavity additional fluid was noted that was lightly blood- tinged and it too was cultured for aerobic and anaerobic organisms. The bladder flap was intact with minimal ecchymosis and no hematoma. The hysterotomy was also intact and there was no bleeding from the hysterotomy site. The uterus was enlarged as would be expected following delivery but no obvious abnormalities were seen. There was marked parametrial edema and both ovaries were markedly enlarged but no evidence of infarction or torsion noted. The abdominal gutters were inspected and were free of clot as was the posterior cul-de-sac. No localized point of bleeding was identified and no hematoma was identified. Closure Type: primary Specimen(s): none and other (Aerobic and anaerobic cultures) Applied: catheter and other (Stents, ureteral, bilateral) Estimated blood loss (mL): 50 Blood products transfused: fresh frozen plasma and packed red blood cells Procedure in detail: With the patient in modified dorsal lithotomy position the vagina, perineum, and lower abdomen were prepped and draped in the usual manner for cystoscopy/ureteral stent placement. A pre-surgical safety time-out was then taken in accordance with [facility] OR protocols. At that point Dr. Juanito Powell performed cystoscopy and ureteral stent placement. Details of his portion procedure well summarized on his operative note of this date. Once the stents were placed, the patient was re-prepped and redraped for laparotomy. The Pfannenstiel incision was taken down with Metzenbaum scissors to remove the subcuticular closure and the subcutaneous stitch was also removed. Fluid was present in the wound and cultures taken. The fascia was then opened by removing the Vicryl sutures used for previous closure and the anterior peritoneum was opened with removal of the Vicryl suture holding it together. A small amount of sanguinous intra-abdominal fluid was encountered and cultured for aerobic and anaerobic organisms. The uterus was exteriorized. The pelvis and abdomen were thoroughly inspected with the findings as noted above. Absent any evidence of abnormalities or bleeding intra-abdominally, the abdomen and pelvis were thoroughly irrigated and abdominal closure was carried out with 2-0 Vicryl in a running stitch on the anterior peritoneum followed by #1 Vicryl in a running stitch initiated at both angles and tying separately near the midline. The subcutaneous tissues brought together with 2-0 Vicryl in a running stitch in the skin edges were brought together with skin timi. A compression dressing was applied and the patient was awakened from anesthesia. She was then transferred to the PACU for a period of observation and recovery with plans to transfer her to the ICU following release from the PACU. Complications: none Post-operative Condition: stable Disposition: ICU Plan for aftercare: Continue observation in the ICU until released to return to the [facility].
[2022-07-15 14:51] LABS: Hematocrit 28.3 % (36-46); Hemoglobin 9.4 g/dL (12.0-16.0); Mean Corpuscular HGB Conc 33.2 % (30-36); Mean Corpuscular Hemoglobin 25.5 PG (26-34); Mean Corpuscular Volume 76.6 fL (80-100); Platelet Count 197 X10^3/uL (150-400); Red Cell Distribution Width 21.9 % (11.6-14.8); White Blood Cell Count 17.3 X10^3/uL (4.5-11.0)
[2022-07-15 14:52] LABS: Add Manual Diff / Slide Review YES
--- NOTE | 2022-07-15 14:53 | DI.US.S_ITS ---
PROCEDURE: US PELVIC LIMITED INDICATIONS: R/O ovarian vein thrombosis, patient is post-op TECHNIQUE: Real-time transabdominal scanning was performed of the pelvic organs, with image documentation. COMPARISON: None. FINDINGS: Ovaries: The right ovary measures 11.0 x 8.7 x 5.9 cm, with a calculated ovarian volume of 293 cc. Numerous right ovarian cysts are present. The right ovarian vein could be located and is patent. The left ovary measures 9.7 x 4.6 x 10.0 cm, with a calculated ovarian volume of 233 cc. Numerous left ovarian cysts are present as was seen on the right, the left ovarian vein could not be located due to overlying bowel gas. Other: No pathologic free abdominal or pelvic fluid. IMPRESSION: Polycystic ovaries bilaterally. Enlargement of the ovaries as a result. Patent normal right ovarian vein identified. Left ovarian vein could not be located due to bowel gas. We strive to produce accurate, complete, and clear reports of imaging services. To assist us in improving patient care, this report was composed using standard report templates and voice recognition software. Therefore, it may contain abnormal punctuation, insertions and/or omissions. Occasional wrong-word or sound-alike substitutions may occur. Though we review the report and make efforts to correct it, we do recommend that the report be read carefully in proper context to recognize any text inaccuracies. Dictated by: Jeet Holcomb M.D. on 07/15/2022 at 16:47 Approved by: Jeet Holcomb M.D. on 07/15/2022 at 16:50
[2022-07-15 15:03] LABS: Anisocytosis 2+; Hypochromasia 2+; Neutrophils Absolute Manual 13840 /uL (3000-5900); Polychromasia 1+; Total Cells Counted 100
--- NOTE | 2022-07-15 16:37 | DI.ECHO.S_ITS ---
[facility]---------+ [facility] +---------+ : : [address] [place] : : : : [id number] : : : : Phone: [phone]+ Echocardiogram Report + + :Name: JOSH EUCEDA Study Date: 07/17/2022 Height: 62 in : :[facility] ReadingLocation: Weight: 144 lb : : Gender: Female BSA: 1.7 m2 : :: 1995 Age: 26 yrs BP: 110/63 mmHg: :Reason For Study: ELEVATED TROPONIN, RESP. FAILURE : : Performed By: Eyad Santos : :Referring: RENETTA ROWLAND : + + Interpretation Summary 1) Normal left ventricular thickness and size with mildly reduced systolic function (EF 45-50%). 2) The right ventricle is mild to moderately dilated. The right ventricular systolic function is normal. 3) There is moderate tricuspid regurgitation. 4) The right ventricular systolic pressure is estimated to be at least 20 mmHg based on an estimated right atrial pressure of 3 mm Hg. 5) Compared to the Echo done 12/22/2021, LVEF has decreased from 55-60% to 45- 50% on this study. Procedure: A two-dimensional transthoracic echocardiogram with color flow and Doppler was performed. The study quality was technically good. Comparison is made with the echocardiogram of 12/22/21. The patient was in normal sinus rhythm during the exam. Left Ventricle: The left ventricle is normal in size. There is normal left ventricular wall thickness. The ejection fraction is estimated to be 45-50%. There is mild global hypokinesis of the left ventricle. Diastolic parameters suggest probable normal left ventricular diastolic function and normal filling pressures. Right Ventricle: The right ventricle is mild to moderately dilated. The right ventricular systolic function is normal. Atria: The left atrial size is normal. The right atrium is mildly dilated. There is no Doppler evidence for an atrial septal defect. Mitral Valve: The mitral valve is normal in structure and function. There is mild mitral regurgitation. Aortic Valve: The aortic valve is trileaflet. The aortic valve opens well. There is trace aortic regurgitation. Tricuspid Valve: The tricuspid valve does not coapt. There is moderate tricuspid regurgitation. The right ventricular systolic pressure is estimated to be at least 20 mmHg based on an estimated right atrial pressure of 3 mm Hg. Pulmonic Valve: The pulmonic valve is normal in structure and function. There is trace pulmonic regurgitation. Great Vessels: The aortic root is normal size. The dimensions of the ascending aorta are normal. The pulmonary artery is normal size. The IVC is of normal diameter and collapses greater than 50% with a sniff. This suggests a low right atrial pressure of 3 mm Hg. Pericardium/ Pleura There is no pericardial effusion. There is no pleural effusion. MMode/2D Measurements & Calculations LVIDd: 4.7 cm LVOT diam: 2.0 cm LVIDs: 3.6 cm Ao root diam: 2.3 cm FS: 22.2 % asc Aorta Diam: 2.5 cm EPSS: 0.51 cm Ao Arch Diam (Prox Trans): 2.0 cm IVSd: 0.87 cm LVPWd: 0.79 cm LV huston. diameter/BSA (cm/m^2): 2.8 LV sys. diameter/BSA (cm/m^2): 2.2 LA A2 area: 14.9 cm2 RA long axis: 5.4 cm LA A4 area: 17.4 cm2 RA area: 20.2 cm2 LA length (vol): 5.6 cm RA vol: 64.1 ml LA vol: 39.1 ml RA : 38.6 ml/m2 LA vol index: 23.5 ml/m2 IVC diam: 1.6 cm RVD1 (basal): 4.5 cm RVD2 (mid): 3.6 cm TAPSE: 2.1 cm Doppler Measurements & Calculations Ao V2 max: 114.3 cm/sec LVOT Max Ronni: 82.0 cm/sec Ao V2 mean: 82.4 cm/sec LV V1 max P.7 mmHg Ao max P.2 mmHg LV V1 VTI: 16.2 cm Ao mean P.0 mmHg NEREYDA(I,D): 2.3 cm2 Ao V2 VTI: 22.1 cm NEREYDA(V,D): 2.3 cm2 sev ratio: 0.73 NEREYDA indexed to BSA (cm^2/m^2): 1.4 MV E max ronni: 86.4 cm/sec TR max ronni: 208.2 cm/sec MV A max ronni: 26.9 cm/sec TR max P.3 mmHg MV E/A: 3.2 PA V2 max: 80.3 cm/sec Med Peak E' Ronni: 9.2 cm/sec PA V2 mean: 61.9 cm/sec E/E' med: 9.4 PA mean P.6 mmHg Lat Peak E' Ronni: 17.3 cm/sec PA pr(Accel): 40.5 mmHg E/E' lat: 5.0 E/e' average: 7.2 MV dec time: 0.13 sec SV(OT): 51.0 ml Reading Physician:02:01 PM
[2022-07-15] MEDS: MORPHINE 4 MG/ML INJ IV (16:56)
[2022-07-15] MEDS: PIPERACILLIN/TAZO 3.375 GM in SODIUM CHLORIDE 0.9% 100 ML IV (17:40)
[2022-07-15 20:40] LABS: Basophils Absolute Auto 100 /uL (0-100); Basophils Percent Auto 0.5 % (0-2); Eosinophils Absolute Auto 0 /uL (0-450); Eosinophils Percent Auto 0.2 % (2-4); Hematocrit 32.8 % (36-46); Hemoglobin 10.7 g/dL (12.0-16.0); Lymphocytes Absolute Auto 1200 /uL (1100-4500); Lymphocytes Percent Auto 6.4 % (25-40); Mean Corpuscular HGB Conc 32.5 % (30-36); Mean Corpuscular Hemoglobin 25.2 PG (26-34); Mean Corpuscular Volume 77.6 fL (80-100); Monocytes Absolute Auto 300 /uL (0-900); Monocytes Percent Auto 1.6 % (3-14); Neutrophils Absolute Auto 16400 /uL (1500-7000); Neutrophils Percent Auto 91.3 % (50-75); Platelet Count 269 X10^3/uL (150-400); Red Blood Cell Count 4.22 X10^6/uL (4.0-5.2); Red Cell Distribution Width 21.8 % (11.6-14.8)
[2022-07-15 20:43] LABS: Add Manual Diff / Slide Review SLIDE REVIEW
[2022-07-15 20:54] LABS: Anisocytosis 2+; Hypochromasia 1+
[2022-07-15 20:56] LABS: Nucleated Red Blood Cells 3 #/Diff; Target Cells 1+
[2022-07-15 21:07] LABS: Procalcitonin 2.87 ng/mL (<0.5)
[2022-07-15 21:09] LABS: Troponin I 0.263 ng/mL (0.01-0.034)
[2022-07-15] MEDS: OXYCODONE IR 5 MG TABLET PO (21:50)
[2022-07-15] MEDS: ACETAMINOPHEN 325 MG TABLET 650 MG PO (21:50)
[2022-07-16] MEDS: PIPERACILLIN/TAZO 3.375 GM in SODIUM CHLORIDE 0.9% 100 ML IV ×3 (02:03→18:54)
[2022-07-16] MEDS: LACTATED RINGERS 1,000 ML 100 ML IV (02:04)
[2022-07-16] MEDS: OXYCODONE IR 5 MG TABLET PO ×5 (02:29→18:10)
[2022-07-16] MEDS: CLINDAMYCIN 900 MG/50 ML PIGGYBACK 50 MG IV ×2 (04:33→22:20)
[2022-07-16 06:07] LABS: Basophils Absolute Auto 100 /uL (0-100); Basophils Percent Auto 0.7 % (0-2); Eosinophils Absolute Auto 0 /uL (0-450); Hematocrit 28.6 % (36-46); Hemoglobin 9.4 g/dL (12.0-16.0); Lymphocytes Absolute Auto 2000 /uL (1100-4500); Lymphocytes Percent Auto 10.9 % (25-40); Mean Corpuscular Hemoglobin 25.2 PG (26-34); Mean Corpuscular Volume 76.4 fL (80-100); Monocytes Absolute Auto 1000 /uL (0-900); Monocytes Percent Auto 5.7 % (3-14); Neutrophils Absolute Auto 14800 /uL (1500-7000); Neutrophils Percent Auto 82.7 % (50-75); Platelet Count 264 X10^3/uL (150-400); Red Blood Cell Count 3.75 X10^6/uL (4.0-5.2); White Blood Cell Count 17.9 X10^3/uL (4.5-11.0)
[2022-07-16 06:09] LABS: Add Manual Diff / Slide Review SLIDE REVIEW
[2022-07-16 06:14] LABS: Prothrombin Time 11.1 SECONDS (10.1-12.7)
[2022-07-16 06:16] LABS: D Dimer 4534 ng/ml (<500)
[2022-07-16 06:17] LABS: PTT Partial Thromboplastin Tim 24 SECONDS (26-36)
[2022-07-16 06:18] LABS: Lactate (Lactic Acid) 0.8 mmol/L (0.7-2.1)
[2022-07-16 06:20] LABS: Alanine Aminotransferase 33 IU/L (<35); Albumin 2.5 g/dL (3.5-5.0); Alkaline Phosphatase 173 U/L (38-126); Aspartate Aminotransferase 45 IU/L (14-36); BUN Creatinine Ratio 16.1 (6-22); Bilirubin Total 0.3 mg/dL (0.2-1.3); Blood Urea Nitrogen 10 mg/dL (7-17); Calcium 7.3 mg/dL (8.4-10.2); Carbon Dioxide 28 mmol/L (22-32); Chloride 108 mmol/L (98-107); Creatine Kinase 728 U/L (30-135); Estimated Glomerular Filt Rate > 60 mL/min (>60); Globulin 2.5 g/dL (1.7-4.1); Glucose 101 mg/dL (70-100); HEMOLYSIS < 15 (0-50); Potassium 3.9 mmol/L (3.4-5.1); Sodium 140 mmol/L (137-145)
[2022-07-16 06:36] LABS: CKMB % Relative Index 2.1 % (1.5-5.0); Procalcitonin 2.72 ng/mL (<0.5)
[2022-07-16 06:37] LABS: Troponin I 0.207 ng/mL (0.01-0.034)
[2022-07-16 06:48] LABS: Anisocytosis 1+; Hypochromasia 1+; Microcytosis 1+
[2022-07-16] MEDS: IRON SUCROSE 200 MG in SODIUM CHLORIDE 0.9% 100 ML 220 MG IV (07:57)
--- NOTE | 2022-07-16 10:17 | PM.OBPN.1 ---
Subjective - OB Subjective Patient comments: incisional pain and tolerating diet baby status: doing well Date Patient Seen: 07/16/22 Time Patient Seen: 10:17 Interval history: Patient feels significantly better but abdominal soreness remains significant. +/- flatus, no N&V. She hasn't yet left her bed following laparotomy. Incentive spirometry initiated as she is requiring 1L O2 by [employer] to maintain O2 sat greater than 97%. Overnight I/O = 1326cc/3900cc. L[place] remains in place, urine clear, yellow. Exam Vital Signs (past 8 hours): Oxygen Delivery Method Nasal Cannula Oxygen Flow Rate 3 Const General: cooperative and comfortable Nutritional Appearance: average body habitus Orientation: alert and oriented x3 HENMT Head: normal to inspection, atraumatic and abrasion Ears: hearing grossly normal bilaterally Face and sinus: face symmetric Eyes General: appearance normal, both eyes and all related structures Conjunctivae: conjunctivae normal Sclera: sclerae normal EOM: EOM intact bilaterally Neck Neck: normal visual inspection Resp Effort & Inspection: normal respiratory effort and able to speak in complete sentences Auscultation: clear to auscultation bilaterally Cardio Rate: regular rate Rhythm: regular rhythm Heart Sounds: S1 normal, S2 normal and no murmurs GI Inspection: normal to inspection and incision (Surgical dressing clean and dry) Palpation: soft, no hepatosplenomegaly, mass (Firm, U-3 cm, moderately tender fundus) and tender (Mild, diffuse postsurgical tenderness) Auscultation: hypoactive bowel sounds External Female Exam: other (No significant bleeding noted) Extrem General: no calf tenderness Psych Appearance: grossly normal Mental Status: mental status grossly normal Speech and Movement: speech and movement normal Mood: congruent mood Affect: normal affect Attitude: cooperative Thought Process: normal Thought Content: normal Judgment: judgment good Objective Labs Result Diagrams: 07/16/22 05:53 07/16/22 05:53 Labs: Laboratory Results - last 24 hr 07/12/22 07/15/22 07/15/22 08:40 10:03 10:12 WBC RBC Hgb Hct MCV MCH MCHC RDW Plt Count Neut % (Auto) Lymph % (Auto) Bryan % (Auto) Eos % (Auto) Baso % (Auto) Neut # (Auto) Lymph # (Auto) Bryan # (Auto) Eos # (Auto) Baso # (Auto) Total Counted Seg Neutrophils % Band Neutrophils % Lymphocytes % (Manual) Atypical Lymphs % Monocytes % (Manual) Eosinophils % (Manual) Neutrophils # (Manual) Nucleated RBCs RBC Morphology Polychromasia Hypochromasia Anisocytosis Microcytosis Target Cells PT INR APTT D-Dimer Sodium Potassium Chloride Carbon Dioxide BUN Creatinine Estimated GFR BUN/Creatinine Ratio Glucose Lactate 1.0 Calcium Total Bilirubin AST ALT Alkaline Phosphatase Total Creatine Kinase CK-MB (CK-2) CK-MB (CK-2) Rel Index Troponin I Total Protein Albumin Globulin Albumin/Globulin Ratio Procalcitonin Urine Color Urine Appearance Urine pH Ur Specific [place] Urine Protein Urine Glucose (UA) Urine Ketones Urine Occult Blood Urine Nitrate Urine Bilirubin Urine Urobilinogen Ur Leukocyte Esterase Urine RBC Urine WBC Ur Squamous Epith Cells Urine Bacteria Ur Culture Indicated? SARS-CoV-2 (PCR) Negative Blood Type O Positive Antibody Screen Negative Crossmatch See Detail 07/15/22 07/15/22 07/15/22 10:12 10:12 10:16 WBC RBC Hgb Hct MCV MCH MCHC RDW Plt Count Neut % (Auto) Lymph % (Auto) Bryan % (Auto) Eos % (Auto) Baso % (Auto) Neut # (Auto) Lymph # (Auto) Bryan # (Auto) Eos # (Auto) Baso # (Auto) Total Counted Seg Neutrophils % Band Neutrophils % Lymphocytes % (Manual) Atypical Lymphs % Monocytes % (Manual) Eosinophils % (Manual) Neutrophils # (Manual) Nucleated RBCs RBC Morphology Polychromasia Hypochromasia Anisocytosis Microcytosis Target Cells PT INR APTT D-Dimer Sodium 136 L Potassium 3.8 Chloride 107 Carbon Dioxide 27 BUN 7 Creatinine 0.58 Estimated GFR > 60 BUN/Creatinine Ratio 12.1 Glucose 76 Lactate Calcium 7.4 L Total Bilirubin 0.2 AST 44 H ALT 28 Alkaline Phosphatase 141 H Total Creatine Kinase 697 H CK-MB (CK-2) 15.90 H CK-MB (CK-2) Rel Index 2.3 Troponin I 0.147 H* Total Protein 4.6 L Albumin 2.2 L Globulin 2.4 Albumin/Globulin Ratio 0.9 L Procalcitonin Urine Color Yellow Urine Appearance Clear Urine pH 7.0 Ur Specific [place] 1.010 Urine Protein Negative Urine Glucose (UA) Negative Urine Ketones Negative Urine Occult Blood Trace-intact Urine Nitrate Negative Urine Bilirubin Negative Urine Urobilinogen 0.2 Ur Leukocyte Esterase Trace H Urine RBC 5-10/hpf H Urine WBC 1-5/hpf Ur Squamous Epith Cells None seen Urine Bacteria None seen Ur Culture Indicated? Specimen cultured SARS-CoV-2 (PCR) Blood Type Antibody Screen Crossmatch 07/15/22 07/15/22 07/15/22 14:42 20:15 20:15 WBC 17.3 H 18.0 H RBC 3.70 L 4.22 Hgb 9.4 L 10.7 L Hct 28.3 L 32.8 L MCV 76.6 L D 77.6 L MCH 25.5 L 25.2 L MCHC 33.2 32.5 RDW 21.9 H 21.8 H Plt Count 197 269 Neut % (Auto) Not Reportable 91.3 H Lymph % (Auto) Not Reportable 6.4 L Bryan % (Auto) Not Reportable 1.6 L Eos % (Auto) Not Reportable 0.2 L Baso % (Auto) Not Reportable 0.5 Neut # (Auto) 02122 H Lymph # (Auto) Not Reportable 1200 Bryan # (Auto) Not Reportable 300 Eos # (Auto) 0 Baso # (Auto) Not Reportable 100 Total Counted 100 Seg Neutrophils % 79.0 H Band Neutrophils % 1.0 L Lymphocytes % (Manual) 15.0 L Atypical Lymphs % 1.0 H Monocytes % (Manual) 3.0 Eosinophils % (Manual) 1.0 L Neutrophils # (Manual) 09872 H Nucleated RBCs 3 H RBC Morphology Not Reportable See below Polychromasia 1+ H Hypochromasia 2+ H 1+ H Anisocytosis 2+ H 2+ H Microcytosis Target Cells 1+ H PT INR APTT D-Dimer Sodium Potassium Chloride Carbon Dioxide BUN Creatinine Estimated GFR BUN/Creatinine Ratio Glucose Lactate Calcium Total Bilirubin AST ALT Alkaline Phosphatase Total Creatine Kinase CK-MB (CK-2) CK-MB (CK-2) Rel Index Troponin I 0.263 H* Total Protein Albumin Globulin Albumin/Globulin Ratio Procalcitonin Urine Color Urine Appearance Urine pH Ur Specific [place] Urine Protein Urine Glucose (UA) Urine Ketones Urine Occult Blood Urine Nitrate Urine Bilirubin Urine Urobilinogen Ur Leukocyte Esterase Urine RBC Urine WBC Ur Squamous Epith Cells Urine Bacteria Ur Culture Indicated? SARS-CoV-2 (PCR) Blood Type Antibody Screen Crossmatch 07/15/22 07/16/22 07/16/22 20:15 05:53 05:53 WBC 17.9 H RBC 3.75 L Hgb 9.4 L Hct 28.6 L MCV 76.4 L MCH 25.2 L MCHC 33.0 RDW 22.0 H Plt Count 264 Neut % (Auto) 82.7 H Lymph % (Auto) 10.9 L Bryan % (Auto) 5.7 Eos % (Auto) 0.0 L Baso % (Auto) 0.7 Neut # (Auto) 44864 H Lymph # (Auto) 2000 Bryan # (Auto) 1000 H Eos # (Auto) 0 Baso # (Auto) 100 Total Counted Seg Neutrophils % Band Neutrophils % Lymphocytes % (Manual) Atypical Lymphs % Monocytes % (Manual) Eosinophils % (Manual) Neutrophils # (Manual) Nucleated RBCs RBC Morphology See below Polychromasia Hypochromasia 1+ H Anisocytosis 1+ H Microcytosis 1+ H Target Cells PT 11.1 INR 1.0 APTT 24 L D-Dimer 4534 H Sodium Potassium Chloride Carbon Dioxide BUN Creatinine Estimated GFR BUN/Creatinine Ratio Glucose Lactate Calcium Total Bilirubin AST ALT Alkaline Phosphatase Total Creatine Kinase CK-MB (CK-2) CK-MB (CK-2) Rel Index Troponin I Total Protein Albumin Globulin Albumin/Globulin Ratio Procalcitonin 2.87 H Urine Color Urine Appearance Urine pH Ur Specific [place] Urine Protein Urine Glucose (UA) Urine Ketones Urine Occult Blood Urine Nitrate Urine Bilirubin Urine Urobilinogen Ur Leukocyte Esterase Urine RBC Urine WBC Ur Squamous Epith Cells Urine Bacteria Ur Culture Indicated? SARS-CoV-2 (PCR) Blood Type Antibody Screen Crossmatch 07/16/22 07/16/22 05:53 05:53 WBC RBC Hgb Hct MCV MCH MCHC RDW Plt Count Neut % (Auto) Lymph % (Auto) Bryan % (Auto) Eos % (Auto) Baso % (Auto) Neut # (Auto) Lymph # (Auto) Bryan # (Auto) Eos # (Auto) Baso # (Auto) Total Counted Seg Neutrophils % Band Neutrophils % Lymphocytes % (Manual) Atypical Lymphs % Monocytes % (Manual) Eosinophils % (Manual) Neutrophils # (Manual) Nucleated RBCs RBC Morphology Polychromasia Hypochromasia Anisocytosis Microcytosis Target Cells PT INR APTT D-Dimer Sodium 140 Potassium 3.9 Chloride 108 H Carbon Dioxide 28 BUN 10 Creatinine 0.62 Estimated GFR > 60 BUN/Creatinine Ratio 16.1 Glucose 101 H Lactate 0.8 Calcium 7.3 L Total Bilirubin 0.3 AST 45 H ALT 33 Alkaline Phosphatase 173 H Total Creatine Kinase 728 H CK-MB (CK-2) 15.40 H CK-MB (CK-2) Rel Index 2.1 Troponin I 0.207 H* Total Protein 5.0 L Albumin 2.5 L Globulin 2.5 Albumin/Globulin Ratio 1.0 Procalcitonin 2.72 H Urine Color Urine Appearance Urine pH Ur Specific [place] Urine Protein Urine Glucose (UA) Urine Ketones Urine Occult Blood Urine Nitrate Urine Bilirubin Urine Urobilinogen Ur Leukocyte Esterase Urine RBC Urine WBC Ur Squamous Epith Cells Urine Bacteria Ur Culture Indicated? SARS-CoV-2 (PCR) Blood Type Antibody Screen Crossmatch Assessment & Plan Assessment and Plan (1) Anemia due to blood loss, acute: Problem details: H&H levels have stabilized w/ transfusion of 4U PRBC and 2U FFP. PTINR/PTT are also normal. I&O well balanced, good output. Status: Acute (2) delivery delivered: Problem details: Post-op day 2, POD 1 exploratory laparotomy Status: Acute (3) Sepsis after obstetrical procedure: Problem details: Lactic acid today is .8 Most likely sources would appear to be urosepsis or endomyometritis. The latter is particularly concerning based on CT findings which suggest gas producing organism may be responsible for endomyometritis, e.g. clostridia. Current AB coverage w/ Zosyn and Clindamycin should provide solid coverage. All preliminary cultures are no growth. Gram stains from ex lap are negative for bacteria. Status: Acute (4) Hydronephrosis: Problem details: Resolved via stent placement; will consult with urology re: timeline/arrangements for removal Status: Acute (5) Elevated troponin level not due myocardial infarction: Problem details: CK (total) slightly higherbut CK-MB slightly lower. Troponin 1 level slightly lower today. Status: Acute (6) Enlarged ovary: Problem details: Bilateral, w/ polycystic changes. Right ovarian vein is patent, left obscured by bowel gas Status: Acute Plan day: 2 plan OB: other Comments: Continue IV AB therapy; await pending cultures IV Tylenol (having trouble w/ PO Tylenol tabs Increasing ambulation today and encourage PO intake. PO MiraLax and/or enemas for constipation Repeat labs in AM or PRN Initiate Lovenox 40 mg SQ BID starting 24 hrs. 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 Time Spent With Patient Time: Total time spent is greater than 50% in coordination of care (as documented) at patient's floor/unit and/or counseling patient: Time with patient: Greater than 35 minutes
--- NOTE | 2022-07-16 14:29 | P.PN_ITS ---
Subjective Subjective Date Patient Seen: 07/16/22 Interval history: Patient is doing much better today, denies chest pain or shortness of breath. CTA negative for PE, but did show cardiomegaly and probable pulmonary edema. Exam Vital Signs (past 8 hours): Oxygen Delivery Method Nasal Cannula Oxygen Flow Rate 3 Narrative Exam Narrative: General:? Patient is well developed and well nourished, in no distress at this time though appears acutely ill. HEENT:? Normocephalic, atraumatic, extraocular muscles intact, oral pharynx is clear and mucous membranes are moist. Neck: supple and symmetric, trachea is midline, no cervical adenopathy. Negative for JVD Chest:? Normal AP diameter and contour without kyphoscoliosis, no tachypnea, equal chest rise bilaterally. Lungs:? CTA b/l no wheezing rhonchi or rales. Cardio:?tachycardic but regular. no m/r/g. Abdomen: soft, b/l lower quadrant tenderness much improved, no distension. Musculoskeletal:? Muscle strength and tone are equal within normal limits, no deformity. Extremities: No edema or joint effusions. No cyanosis or clubbing. Skin:? Pale,? Warm to touch,dry and intact without rashes, ulcerations or petechiae.? Neuro:? Alert and orientated x3,? sensation to touch intact in all extremities, no gross deficits noted of cranial nerves. Psych:? Patient has a well-kept appearance, appropriate affect, mental status attitude thought context and judgment are appropriate for age. Objective Labs Result Diagrams: 07/16/22 05:53 07/16/22 05:53 Labs: Laboratory Results - last 24 hr 07/12/22 07/15/22 07/15/22 08:40 14:42 20:15 WBC 17.3 H 18.0 H RBC 3.70 L 4.22 Hgb 9.4 L 10.7 L Hct 28.3 L 32.8 L MCV 76.6 L D 77.6 L MCH 25.5 L 25.2 L MCHC 33.2 32.5 RDW 21.9 H 21.8 H Plt Count 197 269 Neut % (Auto) Not Reportable 91.3 H Lymph % (Auto) Not Reportable 6.4 L [place] % (Auto) Not Reportable 1.6 L Eos % (Auto) Not Reportable 0.2 L Baso % (Auto) Not Reportable 0.5 Neut # (Auto) 63909 H Lymph # (Auto) Not Reportable 1200 [place] # (Auto) Not Reportable 300 Eos # (Auto) 0 Baso # (Auto) Not Reportable 100 Total Counted 100 Seg Neutrophils % 79.0 H Band Neutrophils % 1.0 L Lymphocytes % (Manual) 15.0 L Atypical Lymphs % 1.0 H Monocytes % (Manual) 3.0 Eosinophils % (Manual) 1.0 L Neutrophils # (Manual) 40501 H Nucleated RBCs 3 H RBC Morphology Not Reportable See below Polychromasia 1+ H Hypochromasia 2+ H 1+ H Anisocytosis 2+ H 2+ H Microcytosis Target Cells 1+ H PT INR APTT D-Dimer Sodium Potassium Chloride Carbon Dioxide BUN Creatinine Estimated GFR BUN/Creatinine Ratio Glucose Lactate Calcium Total Bilirubin AST ALT Alkaline Phosphatase Total Creatine Kinase CK-MB (CK-2) CK-MB (CK-2) Rel Index Troponin I Total Protein Albumin Globulin Albumin/Globulin Ratio Procalcitonin Blood Type O Positive Antibody Screen Negative Crossmatch See Detail 07/15/22 07/15/22 07/16/22 20:15 20:15 05:53 WBC 17.9 H RBC 3.75 L Hgb 9.4 L Hct 28.6 L MCV 76.4 L MCH 25.2 L MCHC 33.0 RDW 22.0 H Plt Count 264 Neut % (Auto) 82.7 H Lymph % (Auto) 10.9 L [place] % (Auto) 5.7 Eos % (Auto) 0.0 L Baso % (Auto) 0.7 Neut # (Auto) 12897 H Lymph # (Auto) 2000 [place] # (Auto) 1000 H Eos # (Auto) 0 Baso # (Auto) 100 Total Counted Seg Neutrophils % Band Neutrophils % Lymphocytes % (Manual) Atypical Lymphs % Monocytes % (Manual) Eosinophils % (Manual) Neutrophils # (Manual) Nucleated RBCs RBC Morphology See below Polychromasia Hypochromasia 1+ H Anisocytosis 1+ H Microcytosis 1+ H Target Cells PT INR APTT D-Dimer Sodium Potassium Chloride Carbon Dioxide BUN Creatinine Estimated GFR BUN/Creatinine Ratio Glucose Lactate Calcium Total Bilirubin AST ALT Alkaline Phosphatase Total Creatine Kinase CK-MB (CK-2) CK-MB (CK-2) Rel Index Troponin I 0.263 H* Total Protein Albumin Globulin Albumin/Globulin Ratio Procalcitonin 2.87 H Blood Type Antibody Screen Crossmatch 07/16/22 07/16/22 07/16/22 05:53 05:53 05:53 WBC RBC Hgb Hct MCV MCH MCHC RDW Plt Count Neut % (Auto) Lymph % (Auto) [place] % (Auto) Eos % (Auto) Baso % (Auto) Neut # (Auto) Lymph # (Auto) [place] # (Auto) Eos # (Auto) Baso # (Auto) Total Counted Seg Neutrophils % Band Neutrophils % Lymphocytes % (Manual) Atypical Lymphs % Monocytes % (Manual) Eosinophils % (Manual) Neutrophils # (Manual) Nucleated RBCs RBC Morphology Polychromasia Hypochromasia Anisocytosis Microcytosis Target Cells PT 11.1 INR 1.0 APTT 24 L D-Dimer 4534 H Sodium 140 Potassium 3.9 Chloride 108 H Carbon Dioxide 28 BUN 10 Creatinine 0.62 Estimated GFR > 60 BUN/Creatinine Ratio 16.1 Glucose 101 H Lactate 0.8 Calcium 7.3 L Total Bilirubin 0.3 AST 45 H ALT 33 Alkaline Phosphatase 173 H Total Creatine Kinase 728 H CK-MB (CK-2) 15.40 H CK-MB (CK-2) Rel Index 2.1 Troponin I 0.207 H* Total Protein 5.0 L Albumin 2.5 L Globulin 2.5 Albumin/Globulin Ratio 1.0 Procalcitonin 2.72 H Blood Type Antibody Screen Crossmatch [facility] Medical History Acid reflux Anxiety and depression (~2020) Headache (~2018) Migraine (~2019) Surgical History History of esophagogastroduodenoscopy (EGD) Hx of laparoscopy [place] teeth extracted Family History (Updated 07/15/22 @ 11:58 by Sean Berkowitz DO) Mother No pertinent past medical history Father No pertinent past medical history Social History marital status: unmarried,living together (engaged) number of children: 0 household members: significant other lives independently: Yes housing: apartment pets and animals: No (aware of Toxoplasmosisi) education level: high school occupational status: employed current occupational exposures/hazards: No special leatha needs: No seatbelt use: always water heater temp set < 120 deg: Yes (will check and turn down if needed) working smoke detector in home: Yes fire extinguisher in home: Yes carbon monox detector in home: Yes firearms in home: Yes (unloaded and hidden) firearms unloaded and locked: No do you feel safe at home: Yes Smoking Status: Never smoker second hand exposure: Yes (getting less, sig other has moved to smoking outside) alcohol intake: former substance use type: does not use during the past year weight has: increased > 10 lbs (with Covid infection) well-balanced diet: about half the time daily servings fruits/ve-1 caffeine: Yes (200mg caffeine) Type(s) of exercise: irregular exercise (will get back to the gym) Assessment & Plan Assessment & Plan narrative: 1. Sepsis secondary to Endometritis with acute respiratory failure with hypoxia and hypotension - continue zosyn, fluid, blood products as needed. Agree with current management thus far by primary team. - no current shock and BP is okay - patient ultimately stabilized andreturned to L&D given stable vital signs and operative findings, no need for ICU level of care. - PE ruled out with CTA, but did show cardiomegaly with mild pulmonary edema as discussed below. - follow up cultures. 2. acute blood loss anemia secondary to post operative hemorrhage - continue current support with transfusions, goal Hg should be >8 for now given troponin elevation. Appears stable today. 3. 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 - will need echo given degree of troponin elevation, continued to trend troponins until downtrending. Peaked at 0.263. - ruled out PE as noted above, but CTA did show cardiomegaly with evidence of pulmonary edema as well. - no chest pain currently and EKG is normal without ischemia. - previous TTE ordered for chest discomfort after COVID in 12/2021 was unremarkable. - ordered proBNP for the AM, recommend cessation of IV fluids if blood pressure is okay and patient tolerating a diet. - management will depend on echocardiogram findings. 4. Ureteral obstruction - stent placement with urology prior to obstetrical interventions today. - defer management to urology at this time. Code: Full, surrogate is patient's spouse DVT: per primary team I have utilized all available immediate resources to obtain, update, or review the patient's current medications. Medicine service will continue to follow at this time. Please do not hesitate to reach out with additional questions. COVID-19 COVID-19 status: Negative Time Spent With Patient Critical Care time: I spent a total of [] minutes of critical care time on this patient's care today; this time is exclusive of procedural time.
[2022-07-16] MEDS: ACETAMINOPHEN IV 1,000 MG/100 ML VIAL 400 MG IV (18:13)
[2022-07-16] MEDS: MORPHINE 4 MG/ML INJ IV (18:38)
[2022-07-16] MEDS: ENOXAPARIN 30 MG/0.3 ML SYRINGE SUBCUT (22:21)
[2022-07-17] MEDS: OXYCODONE IR 5 MG TABLET PO ×5 (00:42→21:07)
[2022-07-17] MEDS: PIPERACILLIN/TAZO 3.375 GM in SODIUM CHLORIDE 0.9% 100 ML IV ×3 (03:19→21:09)
[2022-07-17] MEDS: ACETAMINOPHEN IV 1,000 MG/100 ML VIAL 400 MG IV ×2 (03:21→11:28)
[2022-07-17 06:18] LABS: Alanine Aminotransferase 35 IU/L (<35); Albumin 2.7 g/dL (3.5-5.0); Alkaline Phosphatase 212 U/L (38-126); Aspartate Aminotransferase 39 IU/L (14-36); BUN Creatinine Ratio 12.5 (6-22); Bilirubin Total 0.3 mg/dL (0.2-1.3); Blood Urea Nitrogen 8 mg/dL (7-17); Carbon Dioxide 29 mmol/L (22-32); Chloride 107 mmol/L (98-107); Estimated Glomerular Filt Rate > 60 mL/min (>60); Globulin 2.7 g/dL (1.7-4.1); Glucose 64 mg/dL (70-100); HEMOLYSIS < 15 (0-50); Potassium 3.9 mmol/L (3.4-5.1); Sodium 139 mmol/L (137-145); Total Protein 5.4 g/dL (6.3-8.2)
[2022-07-17 06:27] LABS: NT-proBNP (BNP-Adult 18+) 459 pg/mL (<125)
[2022-07-17 06:43] LABS: Hematocrit 29.5 % (36-46); Hemoglobin 9.8 g/dL (12.0-16.0); Mean Corpuscular HGB Conc 33.2 % (30-36); Mean Corpuscular Hemoglobin 25.4 PG (26-34); Mean Corpuscular Volume 76.6 fL (80-100); Platelet Count 338 X10^3/uL (150-400); Red Blood Cell Count 3.84 X10^6/uL (4.0-5.2); Red Cell Distribution Width 22.8 % (11.6-14.8); White Blood Cell Count 12.6 X10^3/uL (4.5-11.0)
[2022-07-17 06:46] LABS: Add Manual Diff / Slide Review YES
[2022-07-17 07:10] LABS: Neutrophils Absolute Manual 8694 /uL (3000-5900); Nucleated Red Blood Cells 2 #/Diff; Total Cells Counted 100
[2022-07-17 07:12] LABS: Anisocytosis 2+; Hypochromasia 1+; Microcytosis 1+
[2022-07-17] MEDS: CLINDAMYCIN 900 MG/50 ML PIGGYBACK 50 MG IV ×2 (07:53→17:01)
[2022-07-17] MEDS: ENOXAPARIN 30 MG/0.3 ML SYRINGE SUBCUT ×2 (09:07→21:00)
--- NOTE | 2022-07-17 09:22 | P.PNOB_ITS ---
Subjective - OB Subjective Patient comments: incisional pain, tolerating diet and flatus present [place] baby status: doing well [place] feeding status: breast and bottle feeding Date Patient Seen: 07/17/22 Time Patient Seen: 09:22 Interval history: Dr. Berkowitz's note of 07/16/2022 reviewed and appreciated. Sejal is subjectively improved. Mild nausea, limited PO intake, minimal ambulation, remains lethargic but much less so than yesterday and pre-op. + flatus, no BM as yet. I&O: 700 cc/7650 cc; PO intake not recorded. No chest pain, SOB. SQ Lovenox 40mg x 2 doses, lochia minimal. O2 sats 94-96% on 1L [employer]. Exam Vital Signs (past 8 hours): Oxygen Delivery Method Nasal Cannula Oxygen Flow Rate 3 106/72, 73 BPM, 98.8F, 18 R Const General: cooperative and comfortable Nutritional Appearance: thin Orientation: alert and oriented x3 HENMT Head: normal to inspection, atraumatic and abrasion Ears: hearing grossly normal bilaterally Face and sinus: face symmetric Eyes General: appearance normal, both eyes and all related structures Conjunctivae: conjunctivae normal Sclera: sclerae normal EOM: EOM intact bilaterally Neck Neck: normal visual inspection Resp Effort & Inspection: normal respiratory effort, able to speak in complete sentences, no audible wheezes, no respiratory distress and not tachypneic Auscultation: clear to auscultation bilaterally and other (Slightly diminished BS, bilat posterior bases) Cardio Rate: regular rate Rhythm: regular rhythm Heart Sounds: S1 normal, S2 normal and no murmurs GI Inspection: normal to inspection and incision (Clean and dry, compression dres sing removed, AquaCel applied) Palpation: soft, no hepatosplenomegaly, mass (Firm, moderately tender fundus U- 4) and tender (Mild, diffuse postsurgical tenderness) External Female Exam: other (No significant bleeding noted) Extrem General: no calf tenderness Psych Appearance: grossly normal Mental Status: mental status grossly normal Speech and Movement: speech and movement normal Mood: congruent mood Affect: normal affect Attitude: cooperative Thought Process: normal Thought Content: normal Judgment: judgment good Objective Labs Result Diagrams: 07/17/22 05:30 07/17/22 05:30 Labs: Laboratory Results - last 24 hr 07/12/22 07/17/22 07/17/22 08:40 05:30 05:30 WBC 12.6 H RBC 3.84 L Hgb 9.8 L Hct 29.5 L MCV 76.6 L MCH 25.4 L MCHC 33.2 RDW 22.8 H Plt Count 338 Neut % (Auto) Not Reportable Lymph % (Auto) Not Reportable [place] % (Auto) Not Reportable Eos % (Auto) Not Reportable Baso % (Auto) Not Reportable Lymph # (Auto) Not Reportable [place] # (Auto) Not Reportable Baso # (Auto) Not Reportable Total Counted 100 Seg Neutrophils % 69.0 Lymphocytes % (Manual) 21.0 L Monocytes % (Manual) 5.0 Eosinophils % (Manual) 5.0 H Neutrophils # (Manual) 8694 H Nucleated RBCs 2 H RBC Morphology See below Hypochromasia 1+ H Anisocytosis 2+ H Microcytosis 1+ H Sodium 139 Potassium 3.9 Chloride 107 Carbon Dioxide 29 BUN 8 Creatinine 0.64 Estimated GFR > 60 BUN/Creatinine Ratio 12.5 Glucose 64 L Calcium 8.0 L Total Bilirubin 0.3 AST 39 H ALT 35 H Alkaline Phosphatase 212 H NT-Pro-B Natriuret Pep Total Protein 5.4 L Albumin 2.7 L Globulin 2.7 Albumin/Globulin Ratio 1.0 Blood Type O Positive Antibody Screen Negative Crossmatch See Detail 07/17/22 05:30 WBC RBC Hgb Hct MCV MCH MCHC RDW Plt Count Neut % (Auto) Lymph % (Auto) [place] % (Auto) Eos % (Auto) Baso % (Auto) Lymph # (Auto) [place] # (Auto) Baso # (Auto) Total Counted Seg Neutrophils % Lymphocytes % (Manual) Monocytes % (Manual) Eosinophils % (Manual) Neutrophils # (Manual) Nucleated RBCs RBC Morphology Hypochromasia Anisocytosis Microcytosis Sodium Potassium Chloride Carbon Dioxide BUN Creatinine Estimated GFR BUN/Creatinine Ratio Glucose Calcium Total Bilirubin AST ALT Alkaline Phosphatase NT-Pro-B Natriuret Pep 459 H Total Protein Albumin Globulin Albumin/Globulin Ratio Blood Type Antibody Screen Crossmatch Assessment & Plan Assessment and Plan (1) Anemia due to blood loss, acute: Problem details: 07/17/2022: H&H levels remain stable and are slightly higher today. 2nd dose of iron sucrose today. Status: Acute (2) delivery delivered: Problem details: Post-op day 3, POD 2 exploratory laparotomy Status: Acute (3) Sepsis after obstetrical procedure: Problem details: 07/17/2022: WBC continues to fall. Patient remains afebrile. Procalcitonin not repeated today; ordered for tomorrow. Pelvic MR ordered for tomorrow to evaluate uterus involution, resolution of intrauterine/intramural air seen on CT and assess for potential myonecrosis if clostridia is the involved oragism. Most likely sources would appear to be urosepsis or endomyometritis. The latter is particularly concerning based on CT findings which suggest gas producing organism may be responsible for endomyometritis, e.g. clostridia. Current AB coverage w/ Zosyn and Clindamycin should provide solid coverage. All preliminary cultures are no growth. Gram stains from ex lap are negative for bacteria. Status: Acute (4) Hydronephrosis: Problem details: Stable; Resolved via stent placement; will consult with urology re: timeline/arrangements for removal Status: Acute (5) Elevated troponin level not due myocardial infarction: Problem details: 07/16/2022: CK (total) slightly higher but CK-MB slightly lower. Troponin 1 level slightly lower today. 07/17/2022: CK/CK-MB not repeated today. BNP 459. Will repeat enzymes tomorrow. Echo ordered, pending. Status: Acute (6) Enlarged ovary: Problem details: Bilateral, w/ polycystic changes. Right ovarian vein is patent, left obscured by bowel gas Status: Acute (7) Anticoagulant prescribed: Problem details: Lovenox 40 mg SQ BID for DVT prophylaxis and adjunct in treatment of possible anaerobic endomyometritis. No evidence of bleeding/adverse reaction. Status: Acute Plan day: 3 Comments: AM labs 07/18: CBC, CMP, troponin/CK/CK-MB, BNP, procalcitonin Encourage ambulation and increased PO fluids and nutritional intake Continue O2 by [employer] PRN and incentive spirometry Awaiting echo Continue standard post care w/ ongoing IM Hospitalist consultation/support Time Spent With Patient Time: Total time spent is greater than 50% in coordination of care (as documented) at patient's floor/unit and/or counseling patient: Time with patient: Greater than 35 minutes
[2022-07-17] MEDS: ONDANSETRON 4 MG/2 ML INJ IV (10:12)
--- NOTE | 2022-07-17 10:46 | PM.PN.1 ---
Subjective Subjective Date Patient Seen: 07/17/22 Interval history: Patient sleeping on arrival. Mother at bedside and echo results relayed to her. Patient now off O2 and tachycardia has improved. Exam Vital Signs (past 8 hours): Oxygen Delivery Method Nasal Cannula Oxygen Flow Rate 3 Narrative Exam Narrative: General:? Patient is well developed and well nourished, in no distress at this time, diaphoretic HEENT:? Normocephalic, atraumatic, extraocular muscles intact, oral pharynx is clear and mucous membranes are moist. Neck: supple and symmetric, trachea is midline, no cervical adenopathy. Negative for JVD Chest:? Normal AP diameter and contour without kyphoscoliosis, no tachypnea, equal chest rise bilaterally. Lungs:? CTA b/l no wheezing rhonchi or rales. Cardio:?regular rate, regular rhythm. no m/r/g. Abdomen: soft, b/l lower quadrant tenderness much improved, no distension. Musculoskeletal:? Muscle strength and tone are equal within normal limits, no deformity. Extremities: No edema or joint effusions. No cyanosis or clubbing. Skin:? Pale,? Warm to touch,dry and intact without rashes, ulcerations or petechiae.? Neuro:? Alert and orientated x3,? sensation to touch intact in all extremities, no gross deficits noted of cranial nerves. Psych:? Patient has a well-kept appearance, appropriate affect, mental status attitude thought context and judgment are appropriate for age. Objective Labs Result Diagrams: 07/17/22 05:30 07/17/22 05:30 Labs: Laboratory Results - last 24 hr 07/12/22 07/17/22 07/17/22 08:40 05:30 05:30 WBC 12.6 H RBC 3.84 L Hgb 9.8 L Hct 29.5 L MCV 76.6 L MCH 25.4 L MCHC 33.2 RDW 22.8 H Plt Count 338 Neut % (Auto) Not Reportable Lymph % (Auto) Not Reportable [place] % (Auto) Not Reportable Eos % (Auto) Not Reportable Baso % (Auto) Not Reportable Lymph # (Auto) Not Reportable [place] # (Auto) Not Reportable Baso # (Auto) Not Reportable Total Counted 100 Seg Neutrophils % 69.0 Lymphocytes % (Manual) 21.0 L Monocytes % (Manual) 5.0 Eosinophils % (Manual) 5.0 H Neutrophils # (Manual) 8694 H Nucleated RBCs 2 H RBC Morphology See below Hypochromasia 1+ H Anisocytosis 2+ H Microcytosis 1+ H Sodium 139 Potassium 3.9 Chloride 107 Carbon Dioxide 29 BUN 8 Creatinine 0.64 Estimated GFR > 60 BUN/Creatinine Ratio 12.5 Glucose 64 L Calcium 8.0 L Total Bilirubin 0.3 AST 39 H ALT 35 H Alkaline Phosphatase 212 H NT-Pro-B Natriuret Pep Total Protein 5.4 L Albumin 2.7 L Globulin 2.7 Albumin/Globulin Ratio 1.0 Blood Type O Positive Antibody Screen Negative Crossmatch See Detail 07/17/22 05:30 WBC RBC Hgb Hct MCV MCH MCHC RDW Plt Count Neut % (Auto) Lymph % (Auto) [place] % (Auto) Eos % (Auto) Baso % (Auto) Lymph # (Auto) [place] # (Auto) Baso # (Auto) Total Counted Seg Neutrophils % Lymphocytes % (Manual) Monocytes % (Manual) Eosinophils % (Manual) Neutrophils # (Manual) Nucleated RBCs RBC Morphology Hypochromasia Anisocytosis Microcytosis Sodium Potassium Chloride Carbon Dioxide BUN Creatinine Estimated GFR BUN/Creatinine Ratio Glucose Calcium Total Bilirubin AST ALT Alkaline Phosphatase NT-Pro-B Natriuret Pep 459 H Total Protein Albumin Globulin Albumin/Globulin Ratio Blood Type Antibody Screen Crossmatch [facility] Medical History Acid reflux Anxiety and depression (~2020) Headache (~2019) Migraine (~2020) Surgical History History of esophagogastroduodenoscopy (EGD) Hx of laparoscopy [place] teeth extracted Family History (Updated 07/15/22 @ 11:58 by Sean Berkowitz DO) Mother No pertinent past medical history Father No pertinent past medical history Social History marital status: unmarried,living together (engaged) number of children: 0 household members: significant other lives independently: Yes housing: apartment pets and animals: No (aware of Toxoplasmosisi) education level: high school occupational status: employed current occupational exposures/hazards: No special leatha needs: No seatbelt use: always water heater temp set < 120 deg: Yes (will check and turn down if needed) working smoke detector in home: Yes fire extinguisher in home: Yes carbon monox detector in home: Yes firearms in home: Yes (unloaded and hidden) firearms unloaded and locked: No do you feel safe at home: Yes Smoking Status: Never smoker second hand exposure: Yes (getting less, sig other has moved to smoking outside) alcohol intake: former substance use type: does not use during the past year weight has: increased > 10 lbs (with Covid infection) well-balanced diet: about half the time daily servings fruits/ve-1 caffeine: Yes (200mg caffeine) Type(s) of exercise: irregular exercise (will get back to the gym) Assessment & Plan Assessment & Plan narrative: 1. Sepsis secondary to Endometritis with acute respiratory failure with hypoxia and hypotension - continue zosyn, fluid, blood products as needed. Agree with current management thus far by primary team. - no current shock and BP is okay - patient ultimately stabilized and returned to L&D given stable vital signs and operative findings, no need for ICU level of care. - PE ruled out with CTA, but did show cardiomegaly with mild pulmonary edema as discussed below. - follow up cultures. - ongoing management per OBGYN, will obtain pelvic MR on 07/18 2. acute blood loss anemia secondary to post operative hemorrhage - continue current support with transfusions, goal Hg should be >8 for now given troponin elevation. Appears stable in 9's. 3. cardiomyopathy - cardiomegaly and pulmonary congestion noted on CTA chest - troponins elevated, peaked at 0.263 and lowered to 0.207 - no chest pain and EKG is normal without ischemia. - previous TTE ordered for chest discomfort after COVID in December 2021 was unremarkable with EF 55-60% - BNP 459 - Echo 07/17 with EF 45-50%, right ventricle mild to moderately dilated, right ventricular systolic function normal, moderate tricuspid regurgitation, RVSP 20 - spoke with cardiology Huan who recommended rule out amniotic embolism, previous CTA on 07/15 negative, and patient now off O2 and tachycardia improving so will defer repeat CTA. Spoke with Dr. Judson KIDD who agrees. - start losartan 12.5mg daily and metop tart 12.5 BID - will need outpatient referral to cardiology and repeat echo in 3mo 4. Ureteral obstruction - stent placement with urology prior to obstetrical interventions today. - defer management to urology at this time. Code: Full, surrogate is patient's spouse DVT: per primary team I have utilized all available immediate resources to obtain, update, or review the patient's current medications. Medicine service will continue to follow. Please do not hesitate to reach out with additional questions. COVID-19 COVID-19 status: Negative Time Spent With Patient Critical Care time: I spent a total of [] minutes of critical care time on this patient's care today; this time is exclusive of procedural time.
[2022-07-17] MEDS: IRON SUCROSE 200 MG in SODIUM CHLORIDE 0.9% 100 ML 220 MG IV (10:51)
[2022-07-17] MEDS: METOPROLOL IR 25 MG TABLET 12.5 MG PO (21:08)
[2022-07-17] MEDS: DOCUSATE 100 MG CAPSULE 200 MG PO (21:08)
[2022-07-17] MEDS: polyethylene glycoL 3350 17 GM POWD.PACK PO (21:09)
[2022-07-18] MEDS: OXYCODONE IR 5 MG TABLET PO ×6 (01:04→21:59)
[2022-07-18] MEDS: CLINDAMYCIN 900 MG/50 ML PIGGYBACK 50 MG IV ×2 (01:04→09:19)
[2022-07-18] MEDS: PIPERACILLIN/TAZO 3.375 GM in SODIUM CHLORIDE 0.9% 100 ML IV (05:27)
--- NOTE | 2022-07-18 08:00 | DI.MRI.S_ITS ---
PROCEDURE: MR PELVIS WO/W CON INDICATIONS: Post C/S endomyometritis, ? clostridia, r/o myonecrosis TECHNIQUE: Coronal HASTE, sagittal breath-hold T2 FSE; axial T1 FSE with and without fat saturation through the pelvis. Optional long- and short-axis uterine nonbreath-hold T2 FSE through the uterus. Sagittal or axial dynamic VIBE during administration of contrast. Post-contrast axial or coronal VIBE/2-D FLASH with fat saturation from the iliac crests to the symphysis. Optional diffusion weighted imaging and ADC may be performed. COMPARISON: [facility], US, US PELVIC LIMITED, 07/15/2022, 16:06. [facility], CT, CT ABDOMEN PELVIS WO CON, 07/15/2022, 9:06. [facility], CT, CT ANGIO CHEST PE PROTOCOL, 07/15/2022, 17:27. FINDINGS: Image quality: Adequate. Uterus: Uterus is enlarged in keeping with recent state. Heterogeneous nonenhancing material present within the uterine cavity, likely blood products. Punctate foci of signal void also present within the uterine cavity, possibly foci of gas as seen previously, however gas is better visualized by CT. On postcontrast images, there is enhancement of the uterine fundus and posterior uterine body. There is relative hypoenhancement of the anterior uterine wall, nonspecific. A defect is present at the anterior lower uterine segment consistent with history of recent . Material/blood products appears to extend from the uterine cavity through the defect, which appears full thickness (for example series 20, image 97). Small amount of fluid present between the bladder dome and anterior uterus (for example series 3, image 16) without intrinsic T1 hyperintensity or substantial peripheral enhancement. Adnexa: Both ovaries are enlarged containing numerous cysts/follicles as seen on prior CT and ultrasound. The ovaries are incompletely imaged on multiple sequences due to large size and high position. Urinary system: Bladder wall is normal in thickness. Bilateral ureteral stents are present. No distal hydroureter visualized. Small amount of gas present in the urinary bladder. Nodes and vessels: No pelvic or inguinal adenopathy by size criteria. Iliac vessels are normal in size. Bowel and peritoneum: Inferior colon and small bowel loops are normal in caliber. Bones: Marrow demonstrates unremarkable overall signal. IMPRESSION: 1. appearance of the uterus. Findings are suspicious for scar dehiscence/uterine rupture. Small amount of fluid also present between the anterior uterus and bladder dome, nonspecific, but could represent an evolving bladder flap hematoma or seroma. 2. Both ovaries are enlarged containing numerous cysts/follicles as before. 3. There is relative hypoenhancement of the anterior uterine wall, nonspecific. Myonecrosis is difficult to confirm or exclude as clinically queried, as uterine enhancement is often heterogeneous and it is unclear if the relative uterine hypoenhancement present is related to myonecrosis, usual uterine enhancement heterogeneity, and/or recent state. Call report system activated at 1020 hours on 07/18/2022. The report was signed to expedite publishing of results to the electronic medical record. Dictated by: Luis Miguel Mauricio M.D. on 07/18/2022 at 9:42 Approved by: Luis Miguel Mauricio M.D. on 07/18/2022 at 10:43
[2022-07-18] MEDS: ENOXAPARIN 30 MG/0.3 ML SYRINGE SUBCUT ×2 (08:56→22:00)
[2022-07-18] MEDS: DOCUSATE 100 MG CAPSULE 200 MG PO (08:59)
[2022-07-18 09:04] LABS: Add Manual Diff / Slide Review NO; Basophils Absolute Auto 100 /uL (0-100); Basophils Percent Auto 1.1 % (0-2); Eosinophils Absolute Auto 500 /uL (0-450); Hematocrit 33.1 % (36-46); Lymphocytes Absolute Auto 1600 /uL (1100-4500); Lymphocytes Percent Auto 16.8 % (25-40); Mean Corpuscular HGB Conc 33.4 % (30-36); Mean Corpuscular Hemoglobin 25.6 PG (26-34); Mean Corpuscular Volume 76.8 fL (80-100); Monocytes Absolute Auto 400 /uL (0-900); Monocytes Percent Auto 4.1 % (3-14); Neutrophils Absolute Auto 7000 /uL (1500-7000); Platelet Count 446 X10^3/uL (150-400); Red Blood Cell Count 4.31 X10^6/uL (4.0-5.2); Red Cell Distribution Width 23.4 % (11.6-14.8); White Blood Cell Count 9.5 X10^3/uL (4.5-11.0)
[2022-07-18 09:07] LABS: PTT Partial Thromboplastin Tim 28 SECONDS (26-36)
[2022-07-18] MEDS: METOPROLOL IR 25 MG TABLET 12.5 MG PO ×2 (09:18→22:12)
[2022-07-18 09:20] VITALS: BP 90/60; PULSE 74
[2022-07-18 09:22] LABS: Alanine Aminotransferase 39 IU/L (<35); Albumin 3.1 g/dL (3.5-5.0); Alkaline Phosphatase 252 U/L (38-126); Anisocytosis 2+; Aspartate Aminotransferase 37 IU/L (14-36); BUN Creatinine Ratio 16.9 (6-22); Bilirubin Total 0.2 mg/dL (0.2-1.3); Blood Urea Nitrogen 12 mg/dL (7-17); Calcium 8.4 mg/dL (8.4-10.2); Carbon Dioxide 27 mmol/L (22-32); Chloride 104 mmol/L (98-107); Creatine Kinase 69 U/L (30-135); Estimated Glomerular Filt Rate > 60 mL/min (>60); Glucose 74 mg/dL (70-100); HEMOLYSIS < 15 (0-50); Potassium 4.1 mmol/L (3.4-5.1); Sodium 136 mmol/L (137-145); Target Cells 2+; Total Protein 6.1 g/dL (6.3-8.2)
[2022-07-18 09:33] LABS: NT-proBNP (BNP-Adult 18+) 340 pg/mL (<125); Troponin I 0.084 ng/mL (0.01-0.034)
[2022-07-18 09:37] LABS: Procalcitonin 0.68 ng/mL (<0.5)
--- NOTE | 2022-07-18 10:36 | PM.OBPN.1 ---
Subjective - OB Subjective Patient comments: no complaints, incisional pain and flatus present baby status: doing well [place] feeding status: breast and bottle feeding Date Patient Seen: 07/18/22 Time Patient Seen: 10:37 Interval history: Sejal is feeling much, much better. She is able to ambulate independently, she is tolerating, has had 2 solid stools and her pain is well controlled with oral medications. Lochia is light, abdominal pain is less. Exam Vital Signs (past 8 hours): - 07/18/22 09:20 Pulse Rate 74 Blood Pressure 90/60 Oxygen Delivery Method Nasal Cannula Oxygen Flow Rate 3 Const General: cooperative, comfortable and No ill appearing Nutritional Appearance: thin Orientation: alert and oriented x3 HENMT Head: normal to inspection, atraumatic and abrasion Ears: hearing grossly normal bilaterally Face and sinus: face symmetric Eyes General: appearance normal, both eyes and all related structures Conjunctivae: conjunctivae normal Sclera: sclerae normal EOM: EOM intact bilaterally Neck Neck: normal visual inspection Resp Effort & Inspection: normal respiratory effort and able to speak in complete sentences Auscultation: clear to auscultation bilaterally Cardio Rate: regular rate Rhythm: regular rhythm Heart Sounds: S1 normal, S2 normal and no murmurs GI Inspection: normal to inspection and incision (Surgical dressing clean and dry) Palpation: soft, no hepatosplenomegaly and tender (Mild, diffuse postsurgical tenderness) Auscultation: normal bowel sounds External Female Exam: other (No significant bleeding noted) Extrem General: no calf tenderness Psych Appearance: grossly normal Mental Status: mental status grossly normal Speech and Movement: speech and movement normal Mood: congruent mood Affect: normal affect Attitude: cooperative Thought Process: normal Thought Content: normal Judgment: judgment good Objective Imaging Pelvic MRI: Radiologist's impression: PROCEDURE:? MR PELVIS WO/W CON ? INDICATIONS:? Post C/S endomyometritis, ? clostridia, r/o myonecrosis ? TECHNIQUE:? Coronal HASTE, sagittal breath-hold T2 FSE; axial T1 FSE with and without fat saturation through the pelvis.? Optional long- and short-axis uterine nonbreath-hold T2 FSE through the uterus.? Sagittal or axial dynamic VIBE during administration of contrast.? Post-contrast axial or coronal VIBE/2-D FLASH with fat saturation from the iliac crests to the symphysis.? Optional diffusion weighted imaging and ADC may be performed.? ? COMPARISON:? [facility], US, US PELVIC LIMITED, 07/15/2022, 16:06.? [facility], CT, CT ABDOMEN PELVIS WO CON, 07/15/2022, 9:06.? [facility], CT, CT ANGIO CHEST PE PROTOCOL, 07/15/2022, 17:27. ? FINDINGS:? Image quality:? Adequate. ? Uterus:? Uterus is enlarged in keeping with recent state.? Heterogeneous nonenhancing material present within the uterine cavity, likely blood products.? Punctate foci of signal void also present within the uterine cavity, possibly foci of gas as seen previously, however gas is better visualized by CT. ? On postcontrast images, there is enhancement of the uterine fundus and posterior uterine body.? There is relative hypoenhancement of the anterior uterine wall, nonspecific. ? A defect is present at the anterior lower uterine segment consistent with history of recent .? Material/blood products appears to extend from the uterine cavity through the defect, which appears full thickness (for example series 20, image 97). ? Small amount of fluid present between the bladder dome and anterior uterus (for example series 3, image 16) without intrinsic T1 hyperintensity or substantial peripheral enhancement. ? Adnexa:? Both ovaries are enlarged containing numerous cysts/follicles as seen on prior CT and ultrasound.? The ovaries are incompletely imaged on multiple sequences due to large size and high position. ? Urinary system:? Bladder wall is normal in thickness.? Bilateral ureteral stents are present.? No distal hydroureter visualized.? Small amount of gas present in the urinary bladder. ? Nodes and vessels:? No pelvic or inguinal adenopathy by size criteria.? Iliac vessels are normal in size.? ? Bowel and peritoneum:? Inferior colon and small bowel loops are normal in caliber.? ? Bones:? Marrow demonstrates unremarkable overall signal.? ? IMPRESSION:? 1. appearance of the uterus.? Findings are suspicious for scar dehiscence/uterine rupture.? Small amount of fluid also present between the anterior uterus and bladder dome, nonspecific, but could represent an evolving bladder flap hematoma or seroma. 2. Both ovaries are enlarged containing numerous cysts/follicles as before. 3. There is relative hypoenhancement of the anterior uterine wall, nonspecific.? Myonecrosis is difficult to confirm or exclude as clinically queried, as uterine enhancement is often heterogeneous and it is unclear if the relative uterine hypoenhancement present is related to myonecrosis, usual uterine enhancement heterogeneity, and/or recent state. ? Echo: Radiologist's impression: Interpretation Summary 1) Normal left ventricular thickness and size with mildly reduced systolic function (EF 45-50%). 2) The right ventricle is mild to moderately dilated. The right ventricular systolic function is normal. 3) There is moderate tricuspid regurgitation. 4) The right ventricular systolic pressure is estimated to be at least 20 mmHg based on an estimated right atrial pressure of 3 mm Hg. 5) Compared to the Echo done 12/22/2021, LVEF has decreased from 55-60% to 45- 50% on this study. ? Procedure: ? A two-dimensional transthoracic echocardiogram with color flow and Doppler was performed. The study quality was technically good. Comparison is made with the echocardiogram of 12/22/21. The patient was in normal sinus rhythm during the exam. Left Ventricle: ? The left ventricle is normal in size. There is normal left ventricular wall thickness. The ejection fraction is estimated to be 45-50%. There is mild global hypokinesis of the left ventricle. Diastolic parameters suggest probable normal left ventricular diastolic function and normal filling pressures. Right Ventricle: ? The right ventricle is mild to moderately dilated. The right ventricular systolic function is normal. Atria: ? The left atrial size is normal. The right atrium is mildly dilated. There is no Doppler evidence for an atrial septal defect. Mitral Valve: ? The mitral valve is normal in structure and function. There is mild mitral regurgitation. Aortic Valve: ? The aortic valve is trileaflet. The aortic valve opens well. There is trace aortic regurgitation. Tricuspid Valve: ? The tricuspid valve does not coapt. There is moderate tricuspid regurgitation. The right ventricular systolic pressure is estimated to be at least 20 mmHg based on an estimated right atrial pressure of 3 mm Hg. ? Pulmonic Valve: ? The pulmonic valve is normal in structure and function. There is trace pulmonic regurgitation. Great Vessels: ? The aortic root is normal size. The dimensions of the ascending aorta are normal. The pulmonary artery is normal size. The IVC is of normal diameter and collapses greater than 50% with a sniff. This suggests a low right atrial pressure of 3 mm Hg. Pericardium/ Pleura ? There is no pericardial effusion. There is no pleural effusion. ? MMode/2D Measurements & Calculations LVIDd: 4.7 cm? LVOT diam: 2.0 cm LVIDs: 3.6 cm? Ao root diam: 2.3 cm FS: 22.2 % ? asc Aorta Diam: 2.5 cm EPSS: 0.51 cm? Ao Arch Diam (Prox Trans): 2.0 cm IVSd: 0.87 cm LVPWd: 0.79 cm LV huston. diameter/BSA (cm/m^2): 2.8 LV sys. diameter/BSA (cm/m^2): 2.2 ? LA A2 area: 14.9 cm2 ? RA long axis: 5.4 cm LA A4 area: 17.4 cm2 ? RA area: 20.2 cm2 LA length (vol): 5.6 cm? RA vol: 64.1 ml LA vol: 39.1 ml? RA : 38.6 ml/m2 LA vol index: 23.5 ml/m2 ? IVC diam: 1.6 cm ? RVD1 (basal): 4.5 cm RVD2 (mid): 3.6 cm TAPSE: 2.1 cm ? Doppler Measurements & Calculations Ao V2 max: 114.3 cm/sec? LVOT Max Ronni: 82.0 cm/sec Ao V2 mean: 82.4 cm/sec? LV V1 max P.7 mmHg Ao max P.2 mmHg? LV V1 VTI: 16.2 cm Ao mean P.0 mmHg ? NEREYDA(I,D): 2.3 cm2 Ao V2 VTI: 22.1 cm ? NEREYDA(V,D): 2.3 cm2 ? sev ratio: 0.73 ? NEREYDA indexed to BSA (cm^2/m^2): 1.4 ? MV E max ronni: 86.4 cm/sec? TR max ronni: 208.2 cm/sec MV A max ronni: 26.9 cm/sec? TR max P.3 mmHg MV E/A: 3.2? PA V2 max: 80.3 cm/sec Med Peak E' Ronni: 9.2 cm/sec? PA V2 mean: 61.9 cm/sec E/E' med: 9.4? PA mean P.6 mmHg Lat Peak E' Ronni: 17.3 cm/sec ? ? ? PA pr(Accel): 40.5 mmHg E/E' lat: 5.0 E/e' average: 7.2 MV dec time: 0.13 sec ? SV(LVOT): 51.0 ml Labs Result Diagrams: 07/18/22 08:40 07/18/22 08:40 Labs: Laboratory Results - last 24 hr 07/18/22 07/18/22 07/18/22 08:40 08:40 08:40 WBC 9.5 RBC 4.31 Hgb 11.0 L Hct 33.1 L MCV 76.8 L MCH 25.6 L MCHC 33.4 RDW 23.4 H Plt Count 446 H Neut % (Auto) 73.0 Lymph % (Auto) 16.8 L [place] % (Auto) 4.1 Eos % (Auto) 5.0 H Baso % (Auto) 1.1 Neut # (Auto) 7000 Lymph # (Auto) 1600 [place] # (Auto) 400 Eos # (Auto) 500 H Baso # (Auto) 100 RBC Morphology Not Reportable Anisocytosis 2+ H Target Cells 2+ H PT 12.0 INR 1.0 APTT Sodium Potassium Chloride Carbon Dioxide BUN Creatinine Estimated GFR BUN/Creatinine Ratio Glucose Calcium Total Bilirubin AST ALT Alkaline Phosphatase Total Creatine Kinase 69 D CK-MB (CK-2) TNP CK-MB (CK-2) Rel Index TNP Troponin I 0.084 H NT-Pro-B Natriuret Pep 340 H Total Protein Albumin Globulin Albumin/Globulin Ratio Procalcitonin 0.68 H 07/18/22 07/18/22 08:40 08:40 WBC RBC Hgb Hct MCV MCH MCHC RDW Plt Count Neut % (Auto) Lymph % (Auto) [place] % (Auto) Eos % (Auto) Baso % (Auto) Neut # (Auto) Lymph # (Auto) [place] # (Auto) Eos # (Auto) Baso # (Auto) RBC Morphology Anisocytosis Target Cells PT INR APTT 28 Sodium 136 L Potassium 4.1 Chloride 104 Carbon Dioxide 27 BUN 12 Creatinine 0.71 Estimated GFR > 60 BUN/Creatinine Ratio 16.9 Glucose 74 Calcium 8.4 Total Bilirubin 0.2 AST 37 H ALT 39 H Alkaline Phosphatase 252 H Total Creatine Kinase CK-MB (CK-2) CK-MB (CK-2) Rel Index Troponin I NT-Pro-B Natriuret Pep Total Protein 6.1 L Albumin 3.1 L Globulin 3.0 Albumin/Globulin Ratio 1.0 Procalcitonin Assessment & Plan Assessment and Plan (1) Anemia due to blood loss, acute: Problem details: 07/18/2022: H&H continue to climb 07/17/2022: H&H levels remain stable and are slightly higher today. 2nd dose of iron sucrose today. Status: Acute (2) delivery delivered: Problem details: Post-op day 4, POD 3 exploratory laparotomy Status: Acute (3) Sepsis after obstetrical procedure: Problem details: 07/18/2022: WBC normal today, she remains afebrile, Procalcitonin rapidly returning to normal range. Cultures all remain negative. Will transition to Augmentin/Clindamycin. 07/17/2022: WBC continues to fall. Patient remains afebrile. Procalcitonin not repeated today; ordered for tomorrow. Pelvic MR ordered for tomorrow to evaluate uterus involution, resolution of intrauterine/intramural air seen on CT and assess for potential myonecrosis if clostridia is the involved organism. Most likely sources would appear to be urosepsis or endomyometritis. The latter is particularly concerning based on CT findings which suggest gas producing organism may be responsible for endomyometritis, e.g. clostridia. Current AB coverage w/ Zosyn and Clindamycin should provide solid coverage. All preliminary cultures are no growth. Gram stains from ex lap are negative for bacteria. Status: Acute (4) Hydronephrosis: Problem details: Stable; Resolved via stent placement; will consult with urology re: timeline/arrangements for removal. Status: Acute (5) Elevated troponin level not due myocardial infarction: Problem details: 07/18/2022: CK has returned to normal range. BNP down to 340, Troponin1 down to .084. Echo shows slight decrease in EF (45-50%). 07/17/2022: CK/CK-MB not repeated today. BNP 459. Will repeat enzymes tomorrow. Echo ordered, pending. 07/16/2022: CK (total) slightly higher but CK-MB slightly lower. Troponin 1 level slightly lower today. Status: Acute (6) Enlarged ovary: Problem details: Bilateral, w/ polycystic changes. Right ovarian vein is patent, left obscured by bowel gas Status: Acute (7) Anticoagulant prescribed: Problem details: 07/18/2022: Lovenox continues BID. No bleeding issues. Lovenox 40 mg SQ BID for DVT prophylaxis and adjunct in treatment of possible anaerobic endomyometritis. No evidence of bleeding/adverse reaction. Status: Acute Plan day: 4 Comments: MR reviewed and reported findings re: uterine incision noted but inconsistent with hysterotomy repair as visualized at the time of laparotomy but will plan to assess endometrial cavity integrity 12+ weeks post-. IV AB's D/C'd and will initiate PO Augmentin/Clindamycin. Contacted Urology re: stent removal. Anticipate possible discharge in the AM. Time Spent With Patient Time: Total time spent is greater than 50% in coordination of care (as documented) at patient's floor/unit and/or counseling patient: Time with patient: Greater than 35 minutes
--- NOTE | 2022-07-18 11:09 | PM.PN.1 ---
Subjective Subjective Date Patient Seen: 07/18/22 Time Patient Seen: 10:50 Interval history: Patient feeling much improved. Continues to have some mild dyspnea on exertion, which she did notice prior to her delivery as well. Exam Vital Signs (past 8 hours): - 07/18/22 09:20 Pulse Rate 74 Blood Pressure 90/60 Oxygen Delivery Method Nasal Cannula Oxygen Flow Rate 3 Narrative Exam Narrative: General:? Patient is well developed and well nourished, in no distress at this time though appears acutely ill. HEENT:? Normocephalic, atraumatic, extraocular muscles intact, oral pharynx is clear and mucous membranes are moist. Neck: supple and symmetric, trachea is midline, no cervical adenopathy. Negative for JVD Chest:? Normal AP diameter and contour without kyphoscoliosis, no tachypnea, equal chest rise bilaterally. Lungs:? CTA b/l no wheezing rhonchi or rales. Cardio:?RRR. no m/r/g. Abdomen: soft, b/l lower quadrant tenderness much improved, no distension. Musculoskeletal:? Muscle strength and tone are equal within normal limits, no deformity. Extremities: No edema or joint effusions. No cyanosis or clubbing. Skin:? Pale,? Warm to touch,dry and intact without rashes, ulcerations or petechiae.? Neuro:? Alert and orientated x3,? sensation to touch intact in all extremities, no gross deficits noted of cranial nerves. Psych:? Patient has a well-kept appearance, appropriate affect, mental status attitude thought context and judgment are appropriate for age. Objective Labs Result Diagrams: 07/18/22 08:40 07/18/22 08:40 Labs: Laboratory Results - last 24 hr 07/18/22 07/18/22 07/18/22 08:40 08:40 08:40 WBC 9.5 RBC 4.31 Hgb 11.0 L Hct 33.1 L MCV 76.8 L MCH 25.6 L MCHC 33.4 RDW 23.4 H Plt Count 446 H Neut % (Auto) 73.0 Lymph % (Auto) 16.8 L [place] % (Auto) 4.1 Eos % (Auto) 5.0 H Baso % (Auto) 1.1 Neut # (Auto) 7000 Lymph # (Auto) 1600 [place] # (Auto) 400 Eos # (Auto) 500 H Baso # (Auto) 100 RBC Morphology Not Reportable Anisocytosis 2+ H Target Cells 2+ H PT 12.0 INR 1.0 APTT Sodium Potassium Chloride Carbon Dioxide BUN Creatinine Estimated GFR BUN/Creatinine Ratio Glucose Calcium Total Bilirubin AST ALT Alkaline Phosphatase Total Creatine Kinase 69 D CK-MB (CK-2) TNP CK-MB (CK-2) Rel Index TNP Troponin I 0.084 H NT-Pro-B Natriuret Pep 340 H Total Protein Albumin Globulin Albumin/Globulin Ratio Procalcitonin 0.68 H 07/18/22 07/18/22 08:40 08:40 WBC RBC Hgb Hct MCV MCH MCHC RDW Plt Count Neut % (Auto) Lymph % (Auto) [place] % (Auto) Eos % (Auto) Baso % (Auto) Neut # (Auto) Lymph # (Auto) [place] # (Auto) Eos # (Auto) Baso # (Auto) RBC Morphology Anisocytosis Target Cells PT INR APTT 28 Sodium 136 L Potassium 4.1 Chloride 104 Carbon Dioxide 27 BUN 12 Creatinine 0.71 Estimated GFR > 60 BUN/Creatinine Ratio 16.9 Glucose 74 Calcium 8.4 Total Bilirubin 0.2 AST 37 H ALT 39 H Alkaline Phosphatase 252 H Total Creatine Kinase CK-MB (CK-2) CK-MB (CK-2) Rel Index Troponin I NT-Pro-B Natriuret Pep Total Protein 6.1 L Albumin 3.1 L Globulin 3.0 Albumin/Globulin Ratio 1.0 Procalcitonin PFSH Medical History Acid reflux Anxiety and depression (~2020) Headache (~2018) Migraine (~2019) Surgical History History of esophagogastroduodenoscopy (EGD) Hx of laparoscopy [place] teeth extracted Family History (Updated 07/15/22 @ 11:58 by Sean Berkowitz DO) Mother No pertinent past medical history Father No pertinent past medical history Social History marital status: unmarried,living together (engaged) number of children: 0 household members: significant other lives independently: Yes housing: apartment pets and animals: No (aware of Toxoplasmosisi) education level: high school occupational status: employed current occupational exposures/hazards: No special leatha needs: No seatbelt use: always water heater temp set < 120 deg: Yes (will check and turn down if needed) working smoke detector in home: Yes fire extinguisher in home: Yes carbon monox detector in home: Yes firearms in home: Yes (unloaded and hidden) firearms unloaded and locked: No do you feel safe at home: Yes Smoking Status: Never smoker second hand exposure: Yes (getting less, sig other has moved to smoking outside) alcohol intake: former substance use type: does not use during the past year weight has: increased > 10 lbs (with Covid infection) well-balanced diet: about half the time daily servings fruits/ve-1 caffeine: Yes (200mg caffeine) Type(s) of exercise: irregular exercise (will get back to the gym) Assessment & Plan Assessment & Plan narrative: 1. Sepsis secondary to Endometritis with acute respiratory failure with hypoxia and hypotension - continue zosyn, fluid, blood products as needed. Agree with current management thus far by primary team. Defer outpatient therapy to primary team. - no current shock and BP is okay - patient ultimately stabilized and returned to L&D given stable vital signs and operative findings, no need for ICU level of care. - PE ruled out with CTA, but did show cardiomegaly with mild pulmonary edema as discussed below. - ongoing management per OBGYN, pelvic MR on 07/18 pending. 2. acute blood loss anemia secondary to post operative hemorrhage - continue current support with transfusions, goal Hg should be >8 for now given troponin elevation. Appears stable in 's. 3. Peripartum cardiomyopathy - cardiomegaly and pulmonary congestion noted on CTA chest - troponins elevated, peaked at 0.263 and lowered to 0.207 and improved again today. No need to continue trending. - no chest pain and EKG is normal without ischemia. - previous TTE ordered for chest discomfort after COVID in December 2021 was unremarkable with EF 55-60% - BNP 459, improved today again, no need to continue trending. - Echo 07/17 with EF 45-50%, right ventricle mild to moderately dilated, right ventricular systolic function normal, moderate tricuspid regurgitation, RVSP 20 - Amniotic embolism was considered, but low risk given initial labs including fibrinogen, lack of evidence of DIC, and clinical course. Spoke with cardiology Sharkey whom recommended initiation of beta mason and metoprolol, low dose given low normal BP. These are primarily for mildly reduced EF and cardiac protection. - started losartan 12.5mg daily and metop tart 12.5 BID - will need outpatient referral to cardiology and repeat echo in approx. 3 months. - no current need for diuretics. 4. Ureteral obstruction - stent placement with urology prior to obstetrical interventions. - defer management to urology at this time. 5. Gestational DM - AM sugar controlled on no current medications. No further recommendations at this time. Code: Full, surrogate is patient's spouse DVT: per primary team I have utilized all available immediate resources to obtain, update, or review the patient's current medications. Medicine / hospitalist service will sign off at this time. Please do not hesitate to reach out with any additional questions if they arise. COVID-19 COVID-19 status: Negative Time Spent With Patient Critical Care time: I spent a total of [] minutes of critical care time on this patient's care today; this time is exclusive of procedural time.
[2022-07-18] MEDS: ACETAMINOPHEN 325 MG TABLET 650 MG PO (12:56)
[2022-07-18] MEDS: CLINDAMYCIN 150 MG CAPSULE 300 MG PO ×2 (13:50→22:00)
[2022-07-18] MEDS: AMOX/CLAV 400 MG/5ML SUSP 875 MG PO ×2 (14:48→22:11)
[2022-07-19] MEDS: OXYCODONE IR 5 MG TABLET PO ×3 (02:37→10:23)
[2022-07-19] MEDS: CLINDAMYCIN 150 MG CAPSULE 300 MG PO (06:32)
[2022-07-19 08:27] LABS: Hematocrit 36.8 % (36-46); Mean Corpuscular HGB Conc 32.7 % (30-36); Mean Corpuscular Hemoglobin 25.4 PG (26-34); Mean Corpuscular Volume 77.8 fL (80-100); Platelet Count 516 X10^3/uL (150-400); Red Blood Cell Count 4.73 X10^6/uL (4.0-5.2); White Blood Cell Count 9.8 X10^3/uL (4.5-11.0)
[2022-07-19 08:29] LABS: Add Manual Diff / Slide Review YES
[2022-07-19 08:41] LABS: Neutrophils Absolute Manual 7840 /uL (3000-5900); Total Cells Counted 100
[2022-07-19 08:42] LABS: Anisocytosis 2+; Hypochromasia 2+
[2022-07-19 08:54] VITALS: BP 109/69; PULSE 101
[2022-07-19] MEDS: METOPROLOL IR 25 MG TABLET 12.5 MG PO (08:54)
[2022-07-19] MEDS: LOSARTAN 25 MG TABLET 12.5 MG PO (08:54)
[2022-07-19] MEDS: ENOXAPARIN 30 MG/0.3 ML SYRINGE SUBCUT (08:55)
[2022-07-19] MEDS: AMOX/CLAV 400 MG/5ML SUSP 875 MG PO (08:57)
[2022-07-19 09:01] LABS: Troponin I 0.056 ng/mL (0.01-0.034)
[2022-07-19 09:06] LABS: Procalcitonin 0.35 ng/mL (<0.5)
[2022-07-19 09:17] LABS: Alanine Aminotransferase 64 IU/L (<35); Albumin 3.2 g/dL (3.5-5.0); Albumin Globulin Ratio 1.2 (1.0-2.8); Alkaline Phosphatase 330 U/L (38-126); Aspartate Aminotransferase 58 IU/L (14-36); BUN Creatinine Ratio 20.3 (6-22); Bilirubin Total 0.2 mg/dL (0.2-1.3); Blood Urea Nitrogen 12 mg/dL (7-17); Calcium 8.6 mg/dL (8.4-10.2); Carbon Dioxide 24 mmol/L (22-32); Chloride 102 mmol/L (98-107); Estimated Glomerular Filt Rate > 60 mL/min (>60); Globulin 2.7 g/dL (1.7-4.1); Glucose 99 mg/dL (70-100); HEMOLYSIS < 15 (0-50); Potassium 4.3 mmol/L (3.4-5.1); Sodium 135 mmol/L (137-145); Total Protein 5.9 g/dL (6.3-8.2)
--- NOTE | 2022-07-19 12:30 | P.DS_ITS ---
Discharge Providers Provider Date of admission: 07/12/22 07:32 Discharge Date: 07/19/22 Primary care physician: Boo Booth MD Consults: 07/15/22 16:08 Consult to Produce Department Supervisor Routine Comment: Consult to Tele-electrical cad designer Routine Comment: Consulting Provider: Evonne Tele-intensivists Reason for consultation: [employer] Operator services Has provider been notified: No 07/19/22 09:21 Consult to Discharge Planning Routine Comment: Discharge provider: Mohsen Roper MD Summary Hospital Course Date Patient Seen: 07/19/22 Time Patient Seen: 07:40 Diagnoses: Intrauterine gestation, beasley, 37+6 weeks gestational age, delivered by section Gestational diabetes Elevated liver function studies, AST and ALT Secondary arrest of labor Anemia, chronic and acute due to acute post- blood loss 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 Her 1 hr. GDM screen was elevated (161 mg%) but she was unable to tolerate the 3 hr. GTT.? BS's at home, including FBS have been elevated despite diet and metformin but her compliance has been questionable.? In addition she has been found to have elevated protein:creatinine ratios and mildly elevated but stable AST/ALT but no BP elevation.? Antepartum testing has been reassuring with her most re cent growth US on 07/06/2022 showing a beasley in vertex presentation, an JULIO CÉSAR of 7.4 cm, anterior placenta, and an EFW of 3331 gms.? GBS was negative.? She underwent cervical ripening followed by initiation of Pitocin augmentation the progressed only to complete effacement/9 cm dilation with the vertex remaining at +1 station despite adequate trial of labor and early on the morning of 07/14/2022 underwent a primary section with details of that procedure well summarized on my operative note of that date.? Estimated blood loss at the time of surgery was 800 cc and no complications were experienced. ?Lochia following her was not described as excessive but late on the evening of 07/14/2022, patient's vital signs showed mild tachycardia associated with decreasing mean arterial pressures.? A fluid bolus was administered with transient improvement the by the morning of 07/15/2022 the patient's blood pressure was notably lower and she was persistently tachycardia.? Stat CBC at that time showed Hgb/Hct of 4.9/16.1 and massive transfusion protocol initiated.? Immediately prior to initiation of transfusion, the patient spiked a temperature to 102.2 and sepsis workup also initiated.? As part of the evaluation, the patient was noted to have an elevated procalcitonin level along with an elevated CK level, CK-MB level, and troponin 1.? BNP was also found to be elevated subsequently.? IV Zosyn was initiated immediately and subsequently IV clindamycin added with the finding of air in the uterus and the wall of the uterus over concern for possible gas producing organism as the cause of her endomyometritis. ???Hospitalist consult was initiated and consideration given to transfer the patient to the intensive care unit.? An abdominal CT showed bilateral fluid collections in the colic gutters as well as air in the uterus and the uterine wall.? With concern regarding possibility of continued intra- abdominal bleeding, hematoma formation, abscess formation, or other abnormality, the decision was made to proceed to exploratory laparotomy to rule out any of those the eventualities.? The CT also showed significant hydronephrosis bilaterally and therefore ureteral stent placement was also planned.? Late on the morning of 07/14/2022, the patient underwent exploratory laparotomy and bilateral ureteral stent placement.? No hematomas or abscess formation were found but both ovaries were found to be markedly enlarged to 11 cm and appeared polycystic.? The uterine incision was visualized at the time of ex lap and found to be intact with minimal ecchymosis underneath the bladder flap.? With no acute findings, the exploratory laparotomy was completed and patient returned to the center.? Her hemoglobin and hematocrit stabilized nicely after transfusion of 4 units of packed red blood cells and administration of 2 units of FFP.? Coagulation studies and platelets remained normal throughout her course.? Following her surgery the patient has steadily recovered with prompt return of bowel and bladder function.? Her white blood cell count gradually normalized and at the time of discharge her hemoglobin and hematocrit are 12.0 and 36.8 res pectively.? In addition her procalcitonin as returned to the normal range as have her CK levels.? Her troponin 1 levels and BNP levels remain minimally elevated at the time of discharge but she remains asymptomatic.? Postop echocardiogram shows mild depression of the ejection fraction at 45-50% and based on the recommendations of [facility], she was initiated on metoprolol and losartan with follow-up scheduled for 1 month after discharge and a repeat echo in 3 months.? Pelvic MRI obtained 2 days post op suggested possible disruption of the uterine incision which is inconsistent with findings at the time of the exploratory laparotomy but assessment of the uterine cavity will be performed 12+ weeks following delivery to ensure integrity of the lower uterine segment.? With her procalcitonin returning to the normal range and remaining afebrile, the patient was transition to oral Augmentin and clindamycin which will be continued for 10 days post discharge. ?The patient at the time of discharge is ambulating independently, tolerating regular diet, her pain is well managed with oral pain medications, and she?s experienced return of bowel and bladder function.? Medications at discharge will include resumption of all her pre delivery medications except metformin and Lantus which had been implemented for her gestational diabetes.? Other medications at discharge will include oxycodone 5 mg p.o. Q 4-6 hours as needed pain #30, Augmentin suspension b.i.d. times 10 days, clindamycin 300 mg p.o. t.i.d. times 10 days, Lovenox 30 mg subQ b.i.d. times 10 days, metoprolol 12.5 mg b.i.d., losartan 12.5 mg p.o. b.i.d. and she will be returning for staple removal later this week.? Ureteral stents will be removed by Dr. Powell in his office on or about 07/28/2022.? Prior to discharge the patient was counseled regarding precautionary symptoms, limitations of activity, medications, and plans for follow-up. Peripartum Data Delivery Method: Section Episiotomy description: None complications: pelvic infection, transfusion and other (Hydronephrosis, elevated troponin 1 level w/o GA) Discharge Diagnosis (1) Anemia due to blood loss, acute: Status: Acute Problem Details: 07/18/2022: H&H continue to climb 07/17/2022: H&H levels remain stable and are slightly higher today. 2nd dose of iron sucrose today. (2) delivery delivered: Status: Acute Problem Details: Post-op day 4, POD 3 exploratory laparotomy (3) Sepsis after obstetrical procedure: Status: Acute Problem Details: 07/18/2022: WBC normal today, she remains afebrile, Procalcitonin rapidly returning to normal range. Cultures all remain negative. Will transition to Augmentin/Clindamycin. 07/17/2022: WBC continues to fall. Patient remains afebrile. Procalcitonin not repeated today; ordered for tomorrow. Pelvic MR ordered for tomorrow to evaluate uterus involution, resolution of intrauterine/intramural air seen on CT and assess for potential myonecrosis if clostridia is the involved organism. Most likely sources would appear to be urosepsis or endomyometritis. The latter is particularly concerning based on CT findings which suggest gas producing organism may be responsible for endomyometritis, e.g. clostridia. Current AB coverage w/ Zosyn and Clindamycin should provide solid coverage. All preliminary cultures are no growth. Gram stains from ex lap are negative for bacteria. (4) Hydronephrosis: Status: Acute Problem Details: Stable; Resolved via stent placement; will consult with urology re: timeline/arrangements for removal. (5) Elevated troponin level not due myocardial infarction: Status: Acute Problem Details: 07/18/2022: CK has returned to normal range. BNP down to 340, Troponin1 down to .084. Echo shows slight decrease in EF (45-50%). 07/17/2022: CK/CK-MB not repeated today. BNP 459. Will repeat enzymes tomorrow. Echo ordered, pending. 07/16/2022: CK (total) slightly higher but CK-MB slightly lower. Troponin 1 level slightly lower today. (6) Enlarged ovary: Status: Acute Problem Details: Bilateral, w/ polycystic changes. Right ovarian vein is patent, left obscured by bowel gas (7) Anticoagulant prescribed: Status: Acute Problem Details: 07/18/2022: Lovenox continues BID. No bleeding issues. Lovenox 40 mg SQ BID for DVT prophylaxis and adjunct in treatment of possible anaerobic endomyometritis. No evidence of bleeding/adverse reaction. (8) Elevated liver transaminase level: Status: Acute Status at Discharge Cognitive/behavioral status at discharge: oriented Functional status at discharge: independent ambulation Overall status at discharge: patient is progressing back to baseline Time Spent with Patient Time attestation: Total time spent providing and/or coordinating discharge services: Time spent: Greater than 30 minutes Objective Labs Result Diagrams: 07/19/22 08:18 07/19/22 08:18 Labs: Laboratory Results - last 24 hr 07/12/22 07/19/22 07/19/22 08:40 08:18 08:18 WBC 9.8 RBC 4.73 Hgb 12.0 Hct 36.8 MCV 77.8 L MCH 25.4 L MCHC 32.7 RDW 24.0 H Plt Count 516 H Neut % (Auto) Not Reportable Lymph % (Auto) Not Reportable [place] % (Auto) Not Reportable Eos % (Auto) Not Reportable Baso % (Auto) Not Reportable Lymph # (Auto) Not Reportable [place] # (Auto) Not Reportable Baso # (Auto) Not Reportable Total Counted 100 Seg Neutrophils % 79.0 H Band Neutrophils % 1.0 L Lymphocytes % (Manual) 16.0 L Monocytes % (Manual) 3.0 Eosinophils % (Manual) 1.0 L Neutrophils # (Manual) 7840 H RBC Morphology Not Reportable Hypochromasia 2+ H Anisocytosis 2+ H Sodium 135 L Potassium 4.3 Chloride 102 Carbon Dioxide 24 BUN 12 Creatinine 0.59 Estimated GFR > 60 BUN/Creatinine Ratio 20.3 Glucose 99 Calcium 8.6 Total Bilirubin 0.2 AST 58 H ALT 64 H Alkaline Phosphatase 330 H Troponin I Total Protein 5.9 L Albumin 3.2 L Globulin 2.7 Albumin/Globulin Ratio 1.2 Procalcitonin Blood Type O Positive Antibody Screen Negative Crossmatch See Detail 07/19/22 08:18 WBC RBC Hgb Hct MCV MCH MCHC RDW Plt Count Neut % (Auto) Lymph % (Auto) [place] % (Auto) Eos % (Auto) Baso % (Auto) Lymph # (Auto) [place] # (Auto) Baso # (Auto) Total Counted Seg Neutrophils % Band Neutrophils % Lymphocytes % (Manual) Monocytes % (Manual) Eosinophils % (Manual) Neutrophils # (Manual) RBC Morphology Hypochromasia Anisocytosis Sodium Potassium Chloride Carbon Dioxide BUN Creatinine Estimated GFR BUN/Creatinine Ratio Glucose Calcium Total Bilirubin AST ALT Alkaline Phosphatase Troponin I 0.056 H Total Protein Albumin Globulin Albumin/Globulin Ratio Procalcitonin 0.35 Blood Type Antibody Screen Crossmatch Exam Vital Signs (past 8 hours): - 07/19/22 08:54 Pulse Rate 101 H Blood Pressure 109/69 Oxygen Delivery Method Nasal Cannula Oxygen Flow Rate 3 Const General: cooperative and comfortable Nutritional Appearance: average body habitus Orientation: alert and oriented x3 HENMT Head: normal to inspection, atraumatic and abrasion Ears: hearing grossly normal bilaterally Face and sinus: face symmetric Eyes General: appearance normal, both eyes and all related structures Conjunctivae: conjunctivae normal Sclera: sclerae normal EOM: EOM intact bilaterally Neck Neck: normal visual inspection Resp Effort & Inspection: normal respiratory effort and able to speak in complete sentences Auscultation: clear to auscultation bilaterally Cardio Rate: regular rate Rhythm: regular rhythm Heart Sounds: S1 normal, S2 normal and no murmurs GI Inspection: normal to inspection and incision (Surgical dressing clean and dry) Palpation: soft, no hepatosplenomegaly, mass (Firm, mildly tender fundus U-6) and tender (Mild, diffuse postsurgical tenderness) External Female Exam: other (No significant bleeding noted) Extrem General: no calf tenderness Psych Appearance: grossly normal Mental Status: mental status grossly normal Speech and Movement: speech and movement normal Mood: congruent mood Affect: normal affect Attitude: cooperative Thought Process: normal Thought Content: normal Judgment: judgment good Discharge Plan Discharge Plan Patient Disposition: Home Provider Discharge Comment: Please review the written instructions you received when you were discharged from the hospital. Your follow-up for an incision check and removal of your timi will be scheduled for later this week and I look forward to seeing you then. If in the meanwhile however you have any concerns, problems, or questions, please contact me either through the office phone at [phone] were via the patient portal. Discharge orders & Medications Prescriptions: New clindamycin HCl 150 mg Capsule 300 mg PO Q8HR 10 Days Qty: 30 0RF amoxicillin-pot clavulanate 400-57 mg/5 mL Suspension For Reconstitution 10 ml PO BID 10 Days Qty: 200 0RF losartan 25 mg Tablet 12.5 mg PO DAILY Qty: 30 3RF oxycodone 5 mg Tablet 5 mg PO Q4H PRN (Reason: Pain, Moderate (4-6)) Qty: 30 0RF enoxaparin [Lovenox] 30 mg/0.3 mL Syringe 30 mg SUBCUT BID 10 Days Qty: 6 0RF metoprolol tartrate 25 mg Tablet 12.5 mg PO BID Qty: 30 3RF Continued escitalopram oxalate 20 mg tablet See Rx Instructions .ROUTE .COMPLEX Qty: 90 3RF Dose Instruction: TAKE ONE TABLET BY MOUTH ONE TIME DAILY take with 10mg tablet for total of 30mg daily Rx Instructions: TAKE ONE TABLET BY MOUTH ONE TIME DAILY take with 10mg tablet for total of 30mg daily (DME) blood-glucose meter [facility] See Rx Instructions .MEDSUPPLY Qty: 1 0RF Rx Instructions: Use to check blood sugar 4 times daily as directed and record on log sheet (DME) lancets-blood glucose strips 30 gauge combo pack See Rx Instructions .MEDSUPPLY Qty: 100 2RF Rx Instructions: Use to check blood sugar 4 times daily as directed and record on log sheet (DME) pen needle, diabetic [1st Tier Unifine Pentips] 31 gauge x 5/16 needle See Rx Instructions .Route Qty: 100 4RF Rx Instructions: Use four times daily Ubrelvy 100 mg tablet 100 mg PO ONCE PRN (Reason: Migraine Headache) Hold Instructions: Rx Instructions: as a single dose; may repeat once in >=2 hours after first dose if needed prenat.vits,radha,psa-uews-xvsgd Tablet 1 tab PO DAILY pantoprazole 40 mg tablet,delayed release (DR/EC) 60 mg PO DAILY escitalopram oxalate 10 mg tablet 10 mg PO DAILY Discontinued metformin 1,000 mg tablet 1,000 mg PO BIDWMEAL Qty: 60 3RF insulin glargine [Lantus Solostar U-100 Insulin] 100 unit/mL (3 mL) insulin pen 30 unit SUBCUT QPM Qty: 15 4RF Label Comments: Patient states she never took the prescribed lantus Follow up/Referrals: Juanito Powell MD [Physician] - (Urology Clinic appt for stent removal: , Jul 28 @ 8:30am) Trev Hopkins MD [Physician] - 1 Month (Peripartum cardiomyopathy: the cardiology office will call you with a 1month appt after the referral is in place) Mohsen Roper MD [Physician] - 3-5 Days (1. Phone call marleen/ Misty (Care management) this Monday at 11am 2.Incision check: Dr. Roper: Jul 22 @ 3:30pm 3. [employer] in [place]: [phone] 4. [facility]: [phone] 5.[facility] in [place]: [phone]) Discharge Health Status Multidrug resistant organism: No MDRO Diet/Activity/Treatments Diet: Diet as Tolerated Activity: tolerated Other treatments: Sfjh-usa-ypquvup Tylenol and/or ibuprofen suspension may be used for additional pain relief. Wlsd-fhb-qbzuagz stool softeners or MiraLax A /B used for constipation. Skin/Wound/Dressing Care Report to your healthcare provider any signs of infection, such as:: chills, fever, increased pain, unusual drainage and unusual redness Visit Report/Discharge Packet Instructions: DI for , DI for and Nipple Soreness, DI for Prescription Opioid Use Stand Alone Forms: Discharge: Care Discharge Data Primary Care Provider: Boo Booth
--- NOTE | 2022-07-20 07:57 | CM.SWNOTE ---
SHIPPING SERVICES SALES REPRESENTATIVE Note-Late Entry This SHIPPING SERVICES SALES REPRESENTATIVE requested for consult to assess needs of this 26 yo female, w/ poorly controlled GDMA2, gave via c section 12.09.04 and experienced significant post operative complications that are detailed in Dr Roper's DC Summary According to ABILIO Funez, no concern from Dr Roper take away worker team re mom and FOB's ability to discharge with their baby boy and care for once home. Maternal grandma had requested to speak with a social service manager as she needs to fly back to [place] soon and concerned about her dtr's access to resources and mental health needs Met w/mom Sejal, BHAVANAB Mckinley, maternal gma; FOB holding Baby Mckinley, baby boy mostly sleeping throughout this conversation, easily consolable when he did awake According to our conversation: Mom and FOB live together in [place]. FOB works in [employer] for a [employer] and has odd hours. Paternal grandma lives in [place] and can assist, maternal grandma is planning on staying with mom/FOB for at least a week before returning home. Mom and FOB describe the following resources that mom is already connected with: -WIC - Care Clinic who provides support and monthly diaper supply -Food stamps, mom calling to increase d/t of baby boy -Client services mom unsure what agency provides this service, gas vouchers, case management Discussed addtl needs- FOB to provide transport Educated on what to expect once home w/babe and encouraged family and FOB to support mom by carrying baby, bouncing, lifting up and down while mom's body recovers. In addition, discussed common signs of PPD and discussed patient's sx of anxiety before she got ; reviewed a few strategies to minimize anxiety and prevent panic attacks- asking for help with baby boy and walking away, going for a walk when feeling overwhelmed and how to talk back to anxiety producing thoughts Discussed the following resources and provided contacts and hand outs, with assistance from Virginia Dodd, web development consultant -[facility] (mental [facility] support) -[facility], [place] P# [phone] -[facility] public health ?New Baby, New family? visiting nurse program Overall, mom and FOB appear well versed in available resources and although mom presents with very flat affect, she seems forthcoming with information and willing to access resources available to her (and already has during ) Updated RN Dee Dee. Mom discharged 12.22 w/baby boy Mckinley Montoya MSW
== END 2022-07-19 13:27 | disposition home or self-care (01) | DRG 540 ==
LOC: LABOR 07-15 14:17 → AC 07-15 15:15 → ICU 07-15 15:27 → LABOR 07-15 16:08
PROVIDERS: Anesthesiology; Internal Medicine; Specialist; Admitting Provider Obstetrics & Gynecology; PCP Family Medicine; Referring Provider Obstetrics & Gynecology; Visit Provider Obstetrics & Gynecology
PROC: 10D00Z1 Extraction of Products of Conception, Low, Open Approach (ICD-10-PCS; CPT 59514; principal; 2022-07-14 06:00)
PROC: 0WJJ0ZZ Inspection of Pelvic Cavity, Open Approach (ICD-10-PCS; CPT 49000; principal; 2022-07-15 11:30)
PROC: 0T788DZ Dilation of Bilateral Ureters with Intraluminal Device, Via Natural or Artificial Opening Endoscopic (ICD-10-PCS; 2022-07-15 11:30)
DX: O24.425 Gestational diabetes mellitus in childbirth, controlled by oral hypoglycemic drugs (principal); J96.01 Acute respiratory failure with hypoxia; O86.04 Sepsis following an obstetrical procedure; D62 Acute posthemorrhagic anemia; O99.03 Anemia complicating the puerperium; N13.39 Other hydronephrosis; N13.5 Crossing vessel and stricture of ureter without hydronephrosis; O86.12 Endometritis following delivery; O12.14 Gestational proteinuria, complicating childbirth; R94.5 Abnormal results of liver function studies; O32.8XX0 Maternal care for other malpresentation of fetus, not applicable or unspecified; O76 Abnormality in fetal heart rate and rhythm complicating labor and delivery; O62.1 Secondary uterine inertia; O99.893 Other specified diseases and conditions complicating puerperium; O99.284 Endocrine, nutritional and metabolic diseases complicating childbirth; O99.892 Other specified diseases and conditions complicating childbirth; R51.9 Headache, unspecified; E28.2 Polycystic ovarian syndrome; R77.8 Other specified abnormalities of plasma proteins; Z3A.37 37 weeks gestation of pregnancy; Z37.0 Single live birth; Z79.4 Long term (current) use of insulin; Z20.822 Contact with and (suspected) exposure to COVID-19
CPT/HCPCS: 36415; 36430; 59050; 59200; 59514; 71045; 71275; 72197; 74018; 74176; 76000; 76857; 80053; 80076; 81001; 82550; 82553; 82570; 82962; 83605; 83615; 83880; 84145; 84156; 84484; 85007; 85014; 85018; 85025; 85049; 85379; 85384; 85610; 85730; 86850; 86900; 86901; 86927; 87040; 87070; 87075; 87086; 87205; 87635; 93005; 93306; C9803; P9016; A9579; G0379; J0131; J0690; J1100; J1170; J1650; J1756; J1885; J2250; J2270; J2274; J2405; J2543; J2590; J2704; J3010; Q9967

== ENCOUNTER → 2022-07-28 08:04 | Outpatient (CLI) | payer OTHER, MEDICAID, SELFPAY | PROVIDERS: PCP Family Medicine; Visit Provider Specialist | DX: R10.9 Unspecified abdominal pain (principal); N13.30 Unspecified hydronephrosis; Z96.0 Presence of urogenital implants | CPT/HCPCS: 52310; 81002; 87077; 87086; 87186; 99214 ==

== ENCOUNTER 2022-08-06 04:54 | Inpatient (IN) | payer OTHER, MEDICAID, SELFPAY ==
[2022-08-06] VITALS (77 sets, daily range): BP systolic 95–119; BP diastolic 50–68; PULSE 74–115; RESP 14–22; TEMP 36.6–38; O2SAT 94–100; BMI 20.6
--- NOTE | 2022-08-06 05:05 | ED.GENADULT ---
HPI - General Adult <Palmira Escobar MD - Last Filed: 08/06/22 22:43> General Chief complaint: Abdominal Pain Stated complaint: pain rt. lower abd./post 07/14 Time Seen by Provider: 08/06/22 05:05 History of Present Illness HPI narrative: 26-year-old with complicated delivery on July 14 with endomyometritis, enlarged ovaries, hydronephrosis with bilateral stent placement extended antibiotic course presents with acute onset right lower quadrant pain. She had finished her Augmentin and clindamycin yesterday, ureteral stents were removed on July 31. She notes she is still having moderate amount of vaginal bleeding, worse in the morning but not associated with smell or discomfort. She does not describe dysuria nor flank pain. She describes no fevers, headache, vomiting, chest pain, palpitations, dyspnea. She states that she was sitting in a rocking chair holding her son yesterday afternoon when she had the acute and rather dramatic onset of severe right lower quadrant pain that is persisted over the continuing 12 hours and she comes in for evaluation at this time. She states she did have a normal bowel movement this morning that did not influence her pain. Related Data Home Medications Medication Instructions Recorded Confirmed ubrogepant 100 mg tablet (Ubrelvy) 100 mg PO ONCE PRN Migraine 11/11/21 08/06/22 Headache Previous Rx's Medication Instructions Recorded losartan 25 mg tablet 12.5 mg PO DAILY #30 tabs 07/19/22 metoprolol tartrate 25 mg tablet 12.5 mg PO BID #30 tabs 07/19/22 levofloxacin 750 mg tablet 750 mg PO DAILY #7 tabs 08/08/22 oxycodone 5 mg tablet 5 mg PO Q6H PRN Pain, Moderate 08/08/22 (4-6) #12 tabs Allergies Allergy/AdvReac Type Severity Reaction Status Date / Time vancomycin Allergy Intermediate Rash Verified 08/06/22 15:30 Review of Systems <Palmira Escobar MD - Last Filed: 08/06/22 22:43> Review of Systems Narrative: Remainder of complete review of systems is otherwise unremarkable except for that included in the HPI. Patient History <Palmira Escobar MD - Last Filed: 08/06/22 22:43> Medical History Acid reflux Anxiety and depression (~2020) Headache (~2019) Migraine (~2019) Surgical History History of section History of esophagogastroduodenoscopy (EGD) Hx of laparoscopy [place] teeth extracted Family History Mother No pertinent past medical history Father No pertinent past medical history Social History marital status: unmarried,living together (engaged) number of children: 1 household members: significant other and children lives independently: Yes housing: apartment pets and animals: No (aware of Toxoplasmosisi) education level: high school occupational status: employed current occupational exposures/hazards: No special leatha needs: No seatbelt use: always water heater temp set < 120 deg: Yes (will check and turn down if needed) working smoke detector in home: Yes fire extinguisher in home: Yes carbon monox detector in home: Yes firearms in home: Yes (unloaded and hidden) firearms unloaded and locked: No do you feel safe at home: Yes Smoking Status: Never smoker second hand exposure: Yes (getting less, sig other has moved to smoking outside) alcohol intake: former substance use type: does not use during the past year weight has: increased > 10 lbs (with Covid infection) well-balanced diet: about half the time daily servings fruits/ve-1 caffeine: Yes (200mg caffeine) Type(s) of exercise: irregular exercise (will get back to the gym) Smoking Status: Never smoker alcohol intake frequency: holidays/special occasions only Substance Use Type: does not use Exam <Palmira Escobar MD - Last Filed: 08/06/22 22:43> Initial Vital Signs Initial Vital Signs: Vital Signs Blood Pressure 101/58 L 08/06/22 05:11 General: Healthy appearing, in no acute distress. Able to give a complete and coherent history. Well-nourished well-developed HEENT: Moist mucous membranes, normal sclera with reactive pupils, Neck: supple Respiratory: Lungs are clear to auscultation, no wheezing no rales no rhonchi. Full and symmetrical air movement Chest: Breasts are full, no mastitis/erythema appreciated Cardiac: Regular rate and rhythm no murmurs no bruits Abdomen: Significant right lower quadrant and suprapubic tenderness with both rebound and guarding, good bowel tones, no flank pain Skin: Pale but Warm and dry, no rashes Neurologic: Grossly neurologically intact with no obvious asymmetries or abnormalities Extremities: No trauma, well perfused Psych: Cooperative, appropriate insight and affect <Nakita Mathews DO - Last Filed: 08/11/22 19:36> Initial Vital Signs Initial Vital Signs: Vital Signs Blood Pressure 101/58 L 08/06/22 05:11 Course <Palmira Escobar MD - Last Filed: 08/06/22 22:43> Orders Ordered: Discontinued Medications Diphenhydramine HCl (Diphenhydramine 50 Mg/Ml Vial) 50 mg IV NOW ONE Stop: 08/06/22 14:40 Last Admin: 08/06/22 14:40 Dose: 50 mg Documented By: IRINA Enoxaparin Sodium (Enoxaparin 40 Mg/0.4 Ml Syringe) 40 mg SUBCUT DAILY [facility] Last Admin: 08/08/22 08:26 Dose: 40 mg Documented By: Admin: 08/07/22 08:59 Dose: 40 mg Documented By: MELANI Fidaxomicin (Fidaxomicin 200 Mg Tablet) 200 mg PO BID [facility] Last Admin: 08/08/22 08:27 Dose: 200 mg Documented By: Admin: 08/07/22 21:05 Dose: Not Given Documented By: Admin: 08/07/22 08:59 Dose: 200 mg Documented By: Admin: 08/06/22 21:51 Dose: 200 mg Documented By: SABINE Hydromorphone HCl (Hydromorphone 0.5 Mg Inj) 0.5 mg IV Q15MIN PRN PRN Reason: Pain, Last Admin: 08/06/22 13:02 Dose: 0.5 mg Documented By: Admin: 08/06/22 10:30 Dose: 0.5 mg Documented By: Admin: 08/06/22 08:31 Dose: 0.5 mg Documented By: Admin: 08/06/22 07:51 Dose: 0.5 mg Documented By: Admin: 08/06/22 06:30 Dose: 0.5 mg Documented By: Admin: 08/06/22 05:59 Dose: 0.5 mg Documented By: LISA Hydromorphone HCl (Hydromorphone 0.5 Mg Inj) 1 mg IV Q3H PRN PRN Reason: Pain, Moderate (4-6) Last Admin: 08/06/22 19:54 Dose: 1 mg Documented By: Admin: 08/06/22 16:27 Dose: 1 mg Documented By: LONNIE Hydromorphone HCl (Hydromorphone 0.5 Mg Inj) 1 mg IV Q3H PRN PRN Reason: Pain, Severe (7-10) Last Admin: 08/07/22 09:01 Dose: 1 mg Documented By: Admin: 08/07/22 05:09 Dose: 1 mg Documented By: Admin: 08/07/22 01:47 Dose: 1 mg Documented By: Admin: 08/06/22 22:48 Dose: 1 mg Documented By: LEOBARDO Hydromorphone HCl (Hydromorphone 0.5 Mg Inj) 0.5 mg IV Q4H PRN PRN Reason: Pain, Moderate (4-6) Last Admin: 08/07/22 23:59 Dose: 0.5 mg Documented By: Admin: 08/07/22 18:32 Dose: 0.5 mg Documented By: Admin: 08/07/22 13:16 Dose: 0.5 mg Documented By: MELANI Sodium Chloride (Normal Saline 0.9%) 1,000 mls @ 1,000 mls/hr IV BOLUS ONE Stop: 08/06/22 06:24 Last Infusion: 08/06/22 06:42 Dose: 0 mls/hr Documented By: Admin: 08/06/22 05:57 Dose: 1,000 mls/hr Documented By: LISA Piperacillin Sod/Tazobactam (Sod 4.5 gm/ Sodium Chloride) 100 mls @ 200 mls/hr IV NOW ONE Stop: 08/06/22 06:26 Last Infusion: 08/06/22 07:46 Dose: 0 mls/hr Documented By: Admin: 08/06/22 06:41 Dose: 200 mls/hr Documented By: LISA Sodium Chloride (Normal Saline 0.9%) 1,000 mls @ 1,000 mls/hr IV BOLUS ONE Stop: 08/06/22 08:46 Last Infusion: 08/06/22 10:12 Dose: 0 mls/hr Documented By: Admin: 08/06/22 07:50 Dose: 1,000 mls/hr Documented By: LISA Sodium Chloride (Normal Saline 0.9%) 1,000 mls @ 150 mls/hr IV CONT ROSA Last Infusion: 08/06/22 15:43 Dose: 0 mls/hr Documented By: Admin: 08/06/22 11:58 Dose: 150 mls/hr Documented By: ESTHER Vancomycin HCl/Dextrose (Vancomycin) 1,500 mg in 300 mls @ 200 mls/hr IV NOW ONE Stop: 08/06/22 13:38 Last Infusion: 08/06/22 14:44 Dose: 0 mls/hr Documented By: Infusion: 08/06/22 14:38 Dose: 0 mls/hr Documented By: Admin: 08/06/22 13:45 Dose: 200 mls/hr Documented By: IRINA Ertapenem 1 gm/ Sodium (Chloride) 100 mls @ 200 mls/hr IV Q24H [facility] Last Infusion: 08/07/22 16:41 Dose: 0 mls/hr Documented By: Admin: 08/07/22 16:11 Dose: 200 mls/hr Documented By: Infusion: 08/06/22 17:40 Dose: 0 mls/hr Documented By: Admin: 08/06/22 16:08 Dose: 200 mls/hr Documented By: LONNIE Sodium Chloride (Normal Saline 0.9%) 500 mls @ 1,000 mls/hr IV BOLUS ONE Stop: 08/08/22 04:24 Last Admin: 08/08/22 04:05 Dose: 1,000 mls/hr Documented By: AM Metoclopramide HCl (Metoclopramide 10 Mg/2 Ml Inj) 5 mg IV Q6HR PRN PRN Reason: Nausea And Vomiting Last Admin: 08/08/22 09:39 Dose: 5 mg Documented By: Admin: 08/08/22 00:47 Dose: 5 mg Documented By: AM Naloxone HCl (Naloxone 0.4 Mg/Ml Vial) 0.2 mg IV Q2MIN PRN PRN Reason: Opiate Reversal Ondansetron HCl (Ondansetron 4 Mg/2 Ml Inj) 4 mg IV Q8HR PRN PRN Reason: Nausea And Vomiting Ondansetron HCl (Ondansetron 4 Mg/2 Ml Inj) 4 mg IV Q6HR PRN PRN Reason: Nausea And Vomiting Last Admin: 08/07/22 05:11 Dose: 4 mg Documented By: SABINE Oxycodone HCl (Oxycodone Ir 5 Mg Tablet) 5 mg PO Q3HR PRN PRN Reason: Pain, Moderate (4-6) Last Admin: 08/08/22 08:26 Dose: 5 mg Documented By: Admin: 08/08/22 03:39 Dose: 5 mg Documented By: Admin: 08/07/22 20:35 Dose: 5 mg Documented By: Admin: 08/07/22 16:10 Dose: 5 mg Documented By: MELANI Potassium Chloride (Potassium Chloride 10 Meq Tab) 40 meq PO NOW ONE Stop: 08/06/22 16:31 Last Admin: 08/06/22 16:32 Dose: Not Given Documented By: LONNIE Potassium Chloride (Potassium Chloride 20 Meq/15 Ml Udc) 40 meq PO NOW ONE Stop: 08/06/22 16:46 Last Admin: 08/06/22 17:40 Dose: 40 meq Documented By: LONNIE Potassium Chloride (Potassium Chloride 20 Meq/15 Ml Udc) 40 meq PO Q6H [facility] Stop: 08/07/22 15:01 Last Admin: 08/07/22 15:51 Dose: Not Given Documented By: Admin: 08/07/22 09:11 Dose: 40 meq Documented By: MELANI Vital Signs Vital signs: Vital Signs - 8 hr 08/06/22 05:22 08/06/22 05:11 08/06/22 05:13 Temperature 97.8 F Pulse Rate 87 87 Respiratory Rate 16 Blood Pressure 101/58 L 101/58 L Pulse Oximetry 98 98 Oxygen Delivery Method Room Air 08/06/22 05:30 08/06/22 05:30 08/06/22 05:32 Temperature Pulse Rate 89 Respiratory Rate Blood Pressure 99/55 L Pulse Oximetry 98 98 Oxygen Delivery Method 08/06/22 05:43 08/06/22 05:55 08/06/22 05:58 Temperature Pulse Rate 77 76 Respiratory Rate Blood Pressure 98/56 L Pulse Oximetry 94 100 Oxygen Delivery Method 08/06/22 05:58 08/06/22 06:00 08/06/22 06:00 Temperature Pulse Rate 77 Respiratory Rate Blood Pressure 113/60 103/54 L Pulse Oximetry 100 Oxygen Delivery Method 08/06/22 06:03 08/06/22 06:03 08/06/22 06:05 Temperature Pulse Rate 85 Respiratory Rate Blood Pressure 104/60 97/50 L Pulse Oximetry 100 Oxygen Delivery Method 08/06/22 06:05 08/06/22 06:10 08/06/22 06:10 Temperature Pulse Rate 84 74 Respiratory Rate Blood Pressure 119/64 Pulse Oximetry 99 99 Oxygen Delivery Method 08/06/22 06:15 08/06/22 06:15 08/06/22 06:20 Temperature Pulse Rate 82 Respiratory Rate Blood Pressure 115/57 L 109/59 L Pulse Oximetry 99 Oxygen Delivery Method 08/06/22 06:20 08/06/22 06:25 08/06/22 06:25 Temperature Pulse Rate 85 83 Respiratory Rate Blood Pressure 109/55 L Pulse Oximetry 98 98 Oxygen Delivery Method 08/06/22 06:30 08/06/22 06:30 08/06/22 06:35 Temperature Pulse Rate 81 Respiratory Rate Blood Pressure 102/55 L 99/56 L Pulse Oximetry 99 Oxygen Delivery Method 08/06/22 06:35 08/06/22 06:40 08/06/22 06:40 Temperature Pulse Rate 95 H 92 H Respiratory Rate Blood Pressure 106/58 L Pulse Oximetry 99 100 Oxygen Delivery Method 08/06/22 06:45 08/06/22 06:45 08/06/22 06:50 Temperature Pulse Rate 88 Respiratory Rate Blood Pressure 108/59 L 108/59 L Pulse Oximetry 98 Oxygen Delivery Method 08/06/22 06:50 08/06/22 06:55 08/06/22 06:55 Temperature Pulse Rate 88 84 Respiratory Rate Blood Pressure 106/59 L Pulse Oximetry 98 96 Oxygen Delivery Method 08/06/22 07:00 08/06/22 07:00 08/06/22 07:05 Temperature Pulse Rate 82 Respiratory Rate Blood Pressure 107/55 L 107/55 L Pulse Oximetry 96 Oxygen Delivery Method 08/06/22 07:05 08/06/22 07:10 08/06/22 07:10 Temperature Pulse Rate 85 90 Respiratory Rate Blood Pressure 105/57 L Pulse Oximetry 98 97 Oxygen Delivery Method 08/06/22 10:14 08/06/22 10:14 08/06/22 10:15 Temperature Pulse Rate 93 H Respiratory Rate Blood Pressure 105/54 L 103/57 L Pulse Oximetry 95 Oxygen Delivery Method 08/06/22 10:15 08/06/22 10:20 08/06/22 10:20 Temperature Pulse Rate 84 93 H Respiratory Rate Blood Pressure 111/59 L Pulse Oximetry 99 99 Oxygen Delivery Method 08/06/22 10:25 08/06/22 10:25 08/06/22 10:30 Temperature Pulse Rate 87 Respiratory Rate Blood Pressure 114/58 L 114/58 L Pulse Oximetry 97 Oxygen Delivery Method 08/06/22 10:30 08/06/22 10:35 08/06/22 10:35 Temperature Pulse Rate 90 91 H Respiratory Rate Blood Pressure 111/56 L Pulse Oximetry 99 98 Oxygen Delivery Method 08/06/22 10:40 08/06/22 10:40 08/06/22 11:56 Temperature Pulse Rate 94 H Respiratory Rate Blood Pressure 118/59 L Pulse Oximetry 99 97 Oxygen Delivery Method 08/06/22 11:57 08/06/22 11:57 Temperature Pulse Rate 97 H Respiratory Rate Blood Pressure 95/51 L Pulse Oximetry 96 Oxygen Delivery Method <Nakita Mathews, - Last Filed: 08/11/22 19:36> Orders Ordered: Discontinued Medications Diphenhydramine HCl (Diphenhydramine 50 Mg/Ml Vial) 50 mg IV NOW ONE Stop: 08/06/22 14:40 Last Admin: 08/06/22 14:40 Dose: 50 mg Documented By: IRINA Enoxaparin Sodium (Enoxaparin 40 Mg/0.4 Ml Syringe) 40 mg SUBCUT DAILY [facility] Last Admin: 08/08/22 08:26 Dose: 40 mg Documented By: Admin: 08/07/22 08:59 Dose: 40 mg Documented By: MELANI Fidaxomicin (Fidaxomicin 200 Mg Tablet) 200 mg PO BID [facility] Last Admin: 08/08/22 08:27 Dose: 200 mg Documented By: Admin: 08/07/22 21:05 Dose: Not Given Documented By: Admin: 08/07/22 08:59 Dose: 200 mg Documented By: Admin: 08/06/22 21:51 Dose: 200 mg Documented By: SABINE Hydromorphone HCl (Hydromorphone 0.5 Mg Inj) 0.5 mg IV Q15MIN PRN PRN Reason: Pain, Last Admin: 08/06/22 13:02 Dose: 0.5 mg Documented By: Admin: 08/06/22 10:30 Dose: 0.5 mg Documented By: Admin: 08/06/22 08:31 Dose: 0.5 mg Documented By: Admin: 08/06/22 07:51 Dose: 0.5 mg Documented By: Admin: 08/06/22 06:30 Dose: 0.5 mg Documented By: Admin: 08/06/22 05:59 Dose: 0.5 mg Documented By: LISA Hydromorphone HCl (Hydromorphone 0.5 Mg Inj) 1 mg IV Q3H PRN PRN Reason: Pain, Moderate (4-6) Last Admin: 08/06/22 19:54 Dose: 1 mg Documented By: Admin: 08/06/22 16:27 Dose: 1 mg Documented By: LONNIE Hydromorphone HCl (Hydromorphone 0.5 Mg Inj) 1 mg IV Q3H PRN PRN Reason: Pain, Severe (7-10) Last Admin: 08/07/22 09:01 Dose: 1 mg Documented By: Admin: 08/07/22 05:09 Dose: 1 mg Documented By: Admin: 08/07/22 01:47 Dose: 1 mg Documented By: Admin: 08/06/22 22:48 Dose: 1 mg Documented By: LEOBARDO Hydromorphone HCl (Hydromorphone 0.5 Mg Inj) 0.5 mg IV Q4H PRN PRN Reason: Pain, Moderate (4-6) Last Admin: 08/07/22 23:59 Dose: 0.5 mg Documented By: Admin: 08/07/22 18:32 Dose: 0.5 mg Documented By: Admin: 08/07/22 13:16 Dose: 0.5 mg Documented By: MELANI Sodium Chloride (Normal Saline 0.9%) 1,000 mls @ 1,000 mls/hr IV BOLUS ONE Stop: 08/06/22 06:24 Last Infusion: 08/06/22 06:42 Dose: 0 mls/hr Documented By: Admin: 08/06/22 05:57 Dose: 1,000 mls/hr Documented By: LISA Piperacillin Sod/Tazobactam (Sod 4.5 gm/ Sodium Chloride) 100 mls @ 200 mls/hr IV NOW ONE Stop: 08/06/22 06:26 Last Infusion: 08/06/22 07:46 Dose: 0 mls/hr Documented By: Admin: 08/06/22 06:41 Dose: 200 mls/hr Documented By: LISA Sodium Chloride (Normal Saline 0.9%) 1,000 mls @ 1,000 mls/hr IV BOLUS ONE Stop: 08/06/22 08:46 Last Infusion: 08/06/22 10:12 Dose: 0 mls/hr Documented By: Admin: 08/06/22 07:50 Dose: 1,000 mls/hr Documented By: LISA Sodium Chloride (Normal Saline 0.9%) 1,000 mls @ 150 mls/hr IV CONT ROSA Last Infusion: 08/06/22 15:43 Dose: 0 mls/hr Documented By: Admin: 08/06/22 11:58 Dose: 150 mls/hr Documented By: ESTHER Vancomycin HCl/Dextrose (Vancomycin) 1,500 mg in 300 mls @ 200 mls/hr IV NOW ONE Stop: 08/06/22 13:38 Last Infusion: 08/06/22 14:44 Dose: 0 mls/hr Documented By: Infusion: 08/06/22 14:38 Dose: 0 mls/hr Documented By: Admin: 08/06/22 13:45 Dose: 200 mls/hr Documented By: IRINA Ertapenem 1 gm/ Sodium (Chloride) 100 mls @ 200 mls/hr IV Q24H [facility] Last Infusion: 08/07/22 16:41 Dose: 0 mls/hr Documented By: Admin: 08/07/22 16:11 Dose: 200 mls/hr Documented By: Infusion: 08/06/22 17:40 Dose: 0 mls/hr Documented By: Admin: 08/06/22 16:08 Dose: 200 mls/hr Documented By: LONNIE Sodium Chloride (Normal Saline 0.9%) 500 mls @ 1,000 mls/hr IV BOLUS ONE Stop: 08/08/22 04:24 Last Admin: 08/08/22 04:05 Dose: 1,000 mls/hr Documented By: MARISSA Metoclopramide HCl (Metoclopramide 10 Mg/2 Ml Inj) 5 mg IV Q6HR PRN PRN Reason: Nausea And Vomiting Last Admin: 08/08/22 09:39 Dose: 5 mg Documented By: Admin: 08/08/22 00:47 Dose: 5 mg Documented By: MARISSA Naloxone HCl (Naloxone 0.4 Mg/Ml Vial) 0.2 mg IV Q2MIN PRN PRN Reason: Opiate Reversal Ondansetron HCl (Ondansetron 4 Mg/2 Ml Inj) 4 mg IV Q8HR PRN PRN Reason: Nausea And Vomiting Ondansetron HCl (Ondansetron 4 Mg/2 Ml Inj) 4 mg IV Q6HR PRN PRN Reason: Nausea And Vomiting Last Admin: 08/07/22 05:11 Dose: 4 mg Documented By: SABINE Oxycodone HCl (Oxycodone Ir 5 Mg Tablet) 5 mg PO Q3HR PRN PRN Reason: Pain, Moderate (4-6) Last Admin: 08/08/22 08:26 Dose: 5 mg Documented By: Admin: 08/08/22 03:39 Dose: 5 mg Documented By: Admin: 08/07/22 20:35 Dose: 5 mg Documented By: Admin: 08/07/22 16:10 Dose: 5 mg Documented By: MELANI Potassium Chloride (Potassium Chloride 10 Meq Tab) 40 meq PO NOW ONE Stop: 08/06/22 16:31 Last Admin: 08/06/22 16:32 Dose: Not Given Documented By: LONNIE Potassium Chloride (Potassium Chloride 20 Meq/15 Ml Udc) 40 meq PO NOW ONE Stop: 08/06/22 16:46 Last Admin: 08/06/22 17:40 Dose: 40 meq Documented By: LONNIE Potassium Chloride (Potassium Chloride 20 Meq/15 Ml Udc) 40 meq PO Q6H ROSA Stop: 08/07/22 15:01 Last Admin: 08/07/22 15:51 Dose: Not Given Documented By: Admin: 08/07/22 09:11 Dose: 40 meq Documented By: MELANI Vital Signs Vital signs: Vital Signs - 8 hr 08/06/22 05:22 08/06/22 05:11 08/06/22 05:13 Temperature 97.8 F Pulse Rate 87 87 Respiratory Rate 16 Blood Pressure 101/58 L 101/58 L Pulse Oximetry 98 98 Oxygen Delivery Method Room Air 08/06/22 05:30 08/06/22 05:30 08/06/22 05:32 Temperature Pulse Rate 89 Respiratory Rate Blood Pressure 99/55 L Pulse Oximetry 98 98 Oxygen Delivery Method 08/06/22 05:43 08/06/22 05:55 08/06/22 05:58 Temperature Pulse Rate 77 76 Respiratory Rate Blood Pressure 98/56 L Pulse Oximetry 94 100 Oxygen Delivery Method 08/06/22 05:58 08/06/22 06:00 08/06/22 06:00 Temperature Pulse Rate 77 Respiratory Rate Blood Pressure 113/60 103/54 L Pulse Oximetry 100 Oxygen Delivery Method 08/06/22 06:03 08/06/22 06:03 08/06/22 06:05 Temperature Pulse Rate 85 Respiratory Rate Blood Pressure 104/60 97/50 L Pulse Oximetry 100 Oxygen Delivery Method 08/06/22 06:05 08/06/22 06:10 08/06/22 06:10 Temperature Pulse Rate 84 74 Respiratory Rate Blood Pressure 119/64 Pulse Oximetry 99 99 Oxygen Delivery Method 08/06/22 06:15 08/06/22 06:15 08/06/22 06:20 Temperature Pulse Rate 82 Respiratory Rate Blood Pressure 115/57 L 109/59 L Pulse Oximetry 99 Oxygen Delivery Method 08/06/22 06:20 08/06/22 06:25 08/06/22 06:25 Temperature Pulse Rate 85 83 Respiratory Rate Blood Pressure 109/55 L Pulse Oximetry 98 98 Oxygen Delivery Method 08/06/22 06:30 08/06/22 06:30 08/06/22 06:35 Temperature Pulse Rate 81 Respiratory Rate Blood Pressure 102/55 L 99/56 L Pulse Oximetry 99 Oxygen Delivery Method 08/06/22 06:35 08/06/22 06:40 08/06/22 06:40 Temperature Pulse Rate 95 H 92 H Respiratory Rate Blood Pressure 106/58 L Pulse Oximetry 99 100 Oxygen Delivery Method 08/06/22 06:45 08/06/22 06:45 08/06/22 06:50 Temperature Pulse Rate 88 Respiratory Rate Blood Pressure 108/59 L 108/59 L Pulse Oximetry 98 Oxygen Delivery Method 08/06/22 06:50 08/06/22 06:55 08/06/22 06:55 Temperature Pulse Rate 88 84 Respiratory Rate Blood Pressure 106/59 L Pulse Oximetry 98 96 Oxygen Delivery Method 08/06/22 07:00 08/06/22 07:00 08/06/22 07:05 Temperature Pulse Rate 82 Respiratory Rate Blood Pressure 107/55 L 107/55 L Pulse Oximetry 96 Oxygen Delivery Method 08/06/22 07:05 08/06/22 07:10 08/06/22 07:10 Temperature Pulse Rate 85 90 Respiratory Rate Blood Pressure 105/57 L Pulse Oximetry 98 97 Oxygen Delivery Method 08/06/22 10:14 08/06/22 10:14 08/06/22 10:15 Temperature Pulse Rate 93 H Respiratory Rate Blood Pressure 105/54 L 103/57 L Pulse Oximetry 95 Oxygen Delivery Method 08/06/22 10:15 08/06/22 10:20 08/06/22 10:20 Temperature Pulse Rate 84 93 H Respiratory Rate Blood Pressure 111/59 L Pulse Oximetry 99 99 Oxygen Delivery Method 08/06/22 10:25 08/06/22 10:25 08/06/22 10:30 Temperature Pulse Rate 87 Respiratory Rate Blood Pressure 114/58 L 114/58 L Pulse Oximetry 97 Oxygen Delivery Method 08/06/22 10:30 08/06/22 10:35 08/06/22 10:35 Temperature Pulse Rate 90 91 H Respiratory Rate Blood Pressure 111/56 L Pulse Oximetry 99 98 Oxygen Delivery Method 08/06/22 10:40 08/06/22 10:40 08/06/22 11:56 Temperature Pulse Rate 94 H Respiratory Rate Blood Pressure 118/59 L Pulse Oximetry 99 97 Oxygen Delivery Method 08/06/22 11:57 08/06/22 11:57 Temperature Pulse Rate 97 H Respiratory Rate Blood Pressure 95/51 L Pulse Oximetry 96 Oxygen Delivery Method Medical Decision Making <Palmira Escobar MD - Last Filed: 08/06/22 22:43> Lab Data Result diagrams: 08/07/22 05:25 08/08/22 05:49 Labs: Lab Results 08/06/22 08/06/22 08/06/22 Range/Units 05:40 05:40 05:40 WBC 17.5 H (4.5-11.0) X10^3/uL RBC 5.37 H (4.0-5.2) X10^6/uL Hgb 13.9 (12.0-16.0) g/dL Hct 43.6 (36-46) % MCV 81.3 (80-100) fL MCH 26.0 (26-34) PG MCHC 32.0 (30-36) % RDW 27.2 H (11.6-14.8) % Plt Count 379 (150-400) X10^3/uL Neut % (Auto) 86.5 H (50-75) % Lymph % (Auto) 8.3 L (25-40) % [place] % (Auto) 3.7 (3-14) % Eos % (Auto) 1.1 L (2-4) % Baso % (Auto) 0.4 (0-2) % Neut # (Auto) 59946 H (6104-1685) /uL Lymph # (Auto) 1500 (0143-6663) /uL [place] # (Auto) 700 (0-900) /uL Eos # (Auto) 200 (0-450) /uL Baso # (Auto) 100 (0-100) /uL RBC Morphology See below Poikilocytosis 1+ H Target Cells 1+ H Sodium 143 (137-145) mmol/L Potassium 3.1 L (3.4-5.1) mmol/L Chloride 104 (98-107) mmol/L Carbon Dioxide 25 (22-32) mmol/L BUN 10 (7-17) mg/dL Creatinine 0.59 (0.52-1.04) mg/dL Estimated GFR > 60 (>60) mL/min BUN/Creatinine Ratio 16.9 (6-22) Glucose 108 H (70-100) mg/dL Lactate 1.8 (0.7-2.1) mmol/L Calcium 8.8 (8.4-10.2) mg/dL Total Bilirubin 0.6 (0.2-1.3) mg/dL AST 20 (14-36) IU/L ALT 21 (<35) IU/L Alkaline Phosphatase 148 H (38-126) U/L Total Protein 7.5 (6.3-8.2) g/dL Albumin 4.1 (3.5-5.0) g/dL Globulin 3.4 (1.7-4.1) g/dL Albumin/Globulin Ratio 1.2 (1.0-2.8) Procalcitonin (<0.5) ng/mL Urine Color Urine Appearance Urine pH (4.5-8.0) Ur Specific [place] (1.000-1.035) Urine Protein (Negative) Urine Glucose (UA) (Negative) g/dL Urine Ketones (NEGATIVE) Urine Occult Blood (Negative) Urine Nitrate (Negative) Urine Bilirubin (NEGATIVE) Urine Urobilinogen (0.2) E.U./dL Ur Leukocyte Esterase (NEGATIVE) Urine RBC (0-5/HPF) Urine WBC (0-5/HPF) Ur Squamous Epith Cells (0-5/HPF) Urine Bacteria (None) C. difficile Tox (PCR) (Negative) C. diff Toxin A&B (EIA) (Negative) SARS-CoV-2 (PCR) (Negative) Influenza A (RT-PCR) (NEGATIVE) Influenza B (RT-PCR) (NEGATIVE) RSV (PCR) (Negative) 08/06/22 08/06/22 08/06/22 Range/Units 05:40 06:45 07:50 WBC (4.5-11.0) X10^3/uL RBC (4.0-5.2) X10^6/uL Hgb (12.0-16.0) g/dL Hct (36-46) % MCV (80-100) fL MCH (26-34) PG MCHC (30-36) % RDW (11.6-14.8) % Plt Count (150-400) X10^3/uL Neut % (Auto) (50-75) % Lymph % (Auto) (25-40) % [place] % (Auto) (3-14) % Eos % (Auto) (2-4) % Baso % (Auto) (0-2) % Neut # (Auto) (2809-3479) /uL Lymph # (Auto) (3979-7387) /uL [place] # (Auto) (0-900) /uL Eos # (Auto) (0-450) /uL Baso # (Auto) (0-100) /uL RBC Morphology Poikilocytosis Target Cells Sodium (137-145) mmol/L Potassium (3.4-5.1) mmol/L Chloride (98-107) mmol/L Carbon Dioxide (22-32) mmol/L BUN (7-17) mg/dL Creatinine (0.52-1.04) mg/dL Estimated GFR (>60) mL/min BUN/Creatinine Ratio (6-22) Glucose (70-100) mg/dL Lactate (0.7-2.1) mmol/L Calcium (8.4-10.2) mg/dL Total Bilirubin (0.2-1.3) mg/dL AST (14-36) IU/L ALT (<35) IU/L Alkaline Phosphatase (38-126) U/L Total Protein (6.3-8.2) g/dL Albumin (3.5-5.0) g/dL Globulin (1.7-4.1) g/dL Albumin/Globulin Ratio (1.0-2.8) Procalcitonin 0.04 (<0.5) ng/mL Urine Color Yellow Urine Appearance Clear Urine pH 7.0 (4.5-8.0) Ur Specific [place] <=1.005 (1.000-1.035) Urine Protein Negative (Negative) Urine Glucose (UA) Negative (Negative) g/dL Urine Ketones Negative (NEGATIVE) Urine Occult Blood 3+ H (Negative) Urine Nitrate Negative (Negative) Urine Bilirubin Negative (NEGATIVE) Urine Urobilinogen 0.2 (0.2) E.U./dL Ur Leukocyte Esterase 1+ H (NEGATIVE) Urine RBC 5-10/hpf H (0-5/HPF) Urine WBC 5-10/hpf H (0-5/HPF) Ur Squamous Epith Cells 1-5 /hpf (0-5/HPF) Urine Bacteria Few (2-10) H (None) C. difficile Tox (PCR) (Negative) C. diff Toxin A&B (EIA) (Negative) SARS-CoV-2 (PCR) Negative (Negative) Influenza A (RT-PCR) Flu a negative (NEGATIVE) Influenza B (RT-PCR) Flu b negative (NEGATIVE) RSV (PCR) Negative (Negative) 08/06/22 08/06/22 Range/Units 13:45 13:45 WBC (4.5-11.0) X10^3/uL RBC (4.0-5.2) X10^6/uL Hgb (12.0-16.0) g/dL Hct (36-46) % MCV (80-100) fL MCH (26-34) PG MCHC (30-36) % RDW (11.6-14.8) % Plt Count (150-400) X10^3/uL Neut % (Auto) (50-75) % Lymph % (Auto) (25-40) % [place] % (Auto) (3-14) % Eos % (Auto) (2-4) % Baso % (Auto) (0-2) % Neut # (Auto) (3073-5765) /uL Lymph # (Auto) (1426-9574) /uL [place] # (Auto) (0-900) /uL Eos # (Auto) (0-450) /uL Baso # (Auto) (0-100) /uL RBC Morphology Poikilocytosis Target Cells Sodium (137-145) mmol/L Potassium (3.4-5.1) mmol/L Chloride (98-107) mmol/L Carbon Dioxide (22-32) mmol/L BUN (7-17) mg/dL Creatinine (0.52-1.04) mg/dL Estimated GFR (>60) mL/min BUN/Creatinine Ratio (6-22) Glucose (70-100) mg/dL Lactate (0.7-2.1) mmol/L Calcium (8.4-10.2) mg/dL Total Bilirubin (0.2-1.3) mg/dL AST (14-36) IU/L ALT (<35) IU/L Alkaline Phosphatase (38-126) U/L Total Protein (6.3-8.2) g/dL Albumin (3.5-5.0) g/dL Globulin (1.7-4.1) g/dL Albumin/Globulin Ratio (1.0-2.8) Procalcitonin (<0.5) ng/mL Urine Color Urine Appearance Urine pH (4.5-8.0) Ur Specific [place] (1.000-1.035) Urine Protein (Negative) Urine Glucose (UA) (Negative) g/dL Urine Ketones (NEGATIVE) Urine Occult Blood (Negative) Urine Nitrate (Negative) Urine Bilirubin (NEGATIVE) Urine Urobilinogen (0.2) E.U./dL Ur Leukocyte Esterase (NEGATIVE) Urine RBC (0-5/HPF) Urine WBC (0-5/HPF) Ur Squamous Epith Cells (0-5/HPF) Urine Bacteria (None) C. difficile Tox (PCR) Positive for c. diff H (Negative) C. diff Toxin A&B (EIA) Positive A (Negative) SARS-CoV-2 (PCR) (Negative) Influenza A (RT-PCR) (NEGATIVE) Influenza B (RT-PCR) (NEGATIVE) RSV (PCR) (Negative) Imaging Data CT scan - abdomen/pelvis: Radiologist's Impression: thickened appearance of the ascending colon compatible with colitis. No bowel obstruction abscess or perforation. Enlarged ovaries with multiple bilateral cysts. Clinically indicated pelvic ultrasound could be performed further evaluate. Cholelithiasis and gallbladder sludge MDM Narrative Medical decision making narrative: 26-year-old woman with recent complications with delivery, endomyometritis, sepsis, hemorrhage requiring transfusion, ureteral stents placed and removed who presents with severe right lower quadrant pain. CT scan should thickened appearance of the ascending colon compatible with colitis no bowel obstruction abscess or perforation enlarged ovaries with multiple bilateral cysts. white count returns at 17.5 with left shift. Zosyn is initiated. Fluids are currently going, pain minimally controlled with initial dose Dilaudid. Will obtain pelvic ultrasound to confirm blood flow to both ovaries, ovarian torsion certainly is within the differential at this time. Will also ask them to do abdominal ultrasound to further evaluate the gallbladder. Will check COVID status in anticipation of possible admission. <Nakita Mathews, - Last Filed: 08/11/22 19:36> Lab Data Labs: Lab Results 08/06/22 08/06/22 08/06/22 Range/Units 05:40 05:40 05:40 WBC 17.5 H (4.5-11.0) X10^3/uL RBC 5.37 H (4.0-5.2) X10^6/uL Hgb 13.9 (12.0-16.0) g/dL Hct 43.6 (36-46) % MCV 81.3 (80-100) fL MCH 26.0 (26-34) PG MCHC 32.0 (30-36) % RDW 27.2 H (11.6-14.8) % Plt Count 379 (150-400) X10^3/uL Neut % (Auto) 86.5 H (50-75) % Lymph % (Auto) 8.3 L (25-40) % [place] % (Auto) 3.7 (3-14) % Eos % (Auto) 1.1 L (2-4) % Baso % (Auto) 0.4 (0-2) % Neut # (Auto) 40817 H (5031-8067) /uL Lymph # (Auto) 1500 (9108-0996) /uL [place] # (Auto) 700 (0-900) /uL Eos # (Auto) 200 (0-450) /uL Baso # (Auto) 100 (0-100) /uL RBC Morphology See below Poikilocytosis 1+ H Target Cells 1+ H Sodium 143 (137-145) mmol/L Potassium 3.1 L (3.4-5.1) mmol/L Chloride 104 (98-107) mmol/L Carbon Dioxide 25 (22-32) mmol/L BUN 10 (7-17) mg/dL Creatinine 0.59 (0.52-1.04) mg/dL Estimated GFR > 60 (>60) mL/min BUN/Creatinine Ratio 16.9 (6-22) Glucose 108 H (70-100) mg/dL Lactate 1.8 (0.7-2.1) mmol/L Calcium 8.8 (8.4-10.2) mg/dL Total Bilirubin 0.6 (0.2-1.3) mg/dL AST 20 (14-36) IU/L ALT 21 (<35) IU/L Alkaline Phosphatase 148 H (38-126) U/L Total Protein 7.5 (6.3-8.2) g/dL Albumin 4.1 (3.5-5.0) g/dL Globulin 3.4 (1.7-4.1) g/dL Albumin/Globulin Ratio 1.2 (1.0-2.8) Procalcitonin (<0.5) ng/mL Urine Color Urine Appearance Urine pH (4.5-8.0) Ur Specific [facility] (1.000-1.035) Urine Protein (Negative) Urine Glucose (UA) (Negative) g/dL Urine Ketones (NEGATIVE) Urine Occult Blood (Negative) Urine Nitrate (Negative) Urine Bilirubin (NEGATIVE) Urine Urobilinogen (0.2) E.U./dL Ur Leukocyte Esterase (NEGATIVE) Urine RBC (0-5/HPF) Urine WBC (0-5/HPF) Ur Squamous Epith Cells (0-5/HPF) Urine Bacteria (None) C. difficile Tox (PCR) (Negative) C. diff Toxin A&B (EIA) (Negative) SARS-CoV-2 (PCR) (Negative) Influenza A (RT-PCR) (NEGATIVE) Influenza B (RT-PCR) (NEGATIVE) RSV (PCR) (Negative) 08/06/22 08/06/22 08/06/22 Range/Units 05:40 06:45 07:50 WBC (4.5-11.0) X10^3/uL RBC (4.0-5.2) X10^6/uL Hgb (12.0-16.0) g/dL Hct (36-46) % MCV (80-100) fL MCH (26-34) PG MCHC (30-36) % RDW (11.6-14.8) % Plt Count (150-400) X10^3/uL Neut % (Auto) (50-75) % Lymph % (Auto) (25-40) % [place] % (Auto) (3-14) % Eos % (Auto) (2-4) % Baso % (Auto) (0-2) % Neut # (Auto) (8049-2203) /uL Lymph # (Auto) (9771-9896) /uL [place] # (Auto) (0-900) /uL Eos # (Auto) (0-450) /uL Baso # (Auto) (0-100) /uL RBC Morphology Poikilocytosis Target Cells Sodium (137-145) mmol/L Potassium (3.4-5.1) mmol/L Chloride (98-107) mmol/L Carbon Dioxide (22-32) mmol/L BUN (7-17) mg/dL Creatinine (0.52-1.04) mg/dL Estimated GFR (>60) mL/min BUN/Creatinine Ratio (6-22) Glucose (70-100) mg/dL Lactate (0.7-2.1) mmol/L Calcium (8.4-10.2) mg/dL Total Bilirubin (0.2-1.3) mg/dL AST (14-36) IU/L ALT (<35) IU/L Alkaline Phosphatase (38-126) U/L Total Protein (6.3-8.2) g/dL Albumin (3.5-5.0) g/dL Globulin (1.7-4.1) g/dL Albumin/Globulin Ratio (1.0-2.8) Procalcitonin 0.04 (<0.5) ng/mL Urine Color Yellow Urine Appearance Clear Urine pH 7.0 (4.5-8.0) Ur Specific [facility] <=1.005 (1.000-1.035) Urine Protein Negative (Negative) Urine Glucose (UA) Negative (Negative) g/dL Urine Ketones Negative (NEGATIVE) Urine Occult Blood 3+ H (Negative) Urine Nitrate Negative (Negative) Urine Bilirubin Negative (NEGATIVE) Urine Urobilinogen 0.2 (0.2) E.U./dL Ur Leukocyte Esterase 1+ H (NEGATIVE) Urine RBC 5-10/hpf H (0-5/HPF) Urine WBC 5-10/hpf H (0-5/HPF) Ur Squamous Epith Cells 1-5 /hpf (0-5/HPF) Urine Bacteria Few (2-10) H (None) C. difficile Tox (PCR) (Negative) C. diff Toxin A&B (EIA) (Negative) SARS-CoV-2 (PCR) Negative (Negative) Influenza A (RT-PCR) Flu a negative (NEGATIVE) Influenza B (RT-PCR) Flu b negative (NEGATIVE) RSV (PCR) Negative (Negative) 08/06/22 08/06/22 Range/Units 13:45 13:45 WBC (4.5-11.0) X10^3/uL RBC (4.0-5.2) X10^6/uL Hgb (12.0-16.0) g/dL Hct (36-46) % MCV (80-100) fL MCH (26-34) PG MCHC (30-36) % RDW (11.6-14.8) % Plt Count (150-400) X10^3/uL Neut % (Auto) (50-75) % Lymph % (Auto) (25-40) % [place] % (Auto) (3-14) % Eos % (Auto) (2-4) % Baso % (Auto) (0-2) % Neut # (Auto) (9951-9386) /uL Lymph # (Auto) (8560-4557) /uL [place] # (Auto) (0-900) /uL Eos # (Auto) (0-450) /uL Baso # (Auto) (0-100) /uL RBC Morphology Poikilocytosis Target Cells Sodium (137-145) mmol/L Potassium (3.4-5.1) mmol/L Chloride (98-107) mmol/L Carbon Dioxide (22-32) mmol/L BUN (7-17) mg/dL Creatinine (0.52-1.04) mg/dL Estimated GFR (>60) mL/min BUN/Creatinine Ratio (6-22) Glucose (70-100) mg/dL Lactate (0.7-2.1) mmol/L Calcium (8.4-10.2) mg/dL Total Bilirubin (0.2-1.3) mg/dL AST (14-36) IU/L ALT (<35) IU/L Alkaline Phosphatase (38-126) U/L Total Protein (6.3-8.2) g/dL Albumin (3.5-5.0) g/dL Globulin (1.7-4.1) g/dL Albumin/Globulin Ratio (1.0-2.8) Procalcitonin (<0.5) ng/mL Urine Color Urine Appearance Urine pH (4.5-8.0) Ur Specific [place] (1.000-1.035) Urine Protein (Negative) Urine Glucose (UA) (Negative) g/dL Urine Ketones (NEGATIVE) Urine Occult Blood (Negative) Urine Nitrate (Negative) Urine Bilirubin (NEGATIVE) Urine Urobilinogen (0.2) E.U./dL Ur Leukocyte Esterase (NEGATIVE) Urine RBC (0-5/HPF) Urine WBC (0-5/HPF) Ur Squamous Epith Cells (0-5/HPF) Urine Bacteria (None) C. difficile Tox (PCR) Positive for c. diff H (Negative) C. diff Toxin A&B (EIA) Positive A (Negative) SARS-CoV-2 (PCR) (Negative) Influenza A (RT-PCR) (NEGATIVE) Influenza B (RT-PCR) (NEGATIVE) RSV (PCR) (Negative) MDM Narrative Medical decision making narrative: 26-year-old woman with recent complications with delivery, endomyometritis, sepsis, hemorrhage requiring transfusion, ureteral stents placed and removed who presents with severe right lower quadrant pain. CT scan should thickened appearance of the ascending colon compatible with colitis no bowel obstruction abscess or perforation enlarged ovaries with multiple bilateral cysts. white count returns at 17.5 with left shift. Zosyn is initiated. Fluids are currently going, pain minimally controlled with initial dose Dilaudid. Will obtain pelvic ultrasound to confirm blood flow to both ovaries, ovarian torsion certainly is within the differential at this time. Will also ask them to do abdominal ultrasound to further evaluate the gallbladder. Will check COVID status in anticipation of possible admission. 08/06/22 [place]ank: Patient signed out to myself by Dr. Escobar. Patient seen in independently evaluated by myself. Patient had increasing pain starting yesterday with a quite complicated delivery and course. She is still on antibiotics she had missed some doses. Patient seen independently evaluated by myself she states that she has been improving, her abdominal pain had been improving she has not had fevers, yesterday she started developing significant right lower quadrant pain she states nausea no active vomiting currently she is better after Zofran she says. She denies urinary symptoms no dysuria frequency urgency, some loose stool today, was not having any diarrhea constipation. Patient is continuing to pump. She does note she is missed some doses of antibiotics and has not fully completed her antibiotics because of this but has continued to take them she is still taking the amoxicillin and she believes clindamycin. She has a white count of 17 potassium of 3.1, creatinine is normal with appropriate LFTs. CT shows thickened appearance of the ascending colon compatible with colitis and enlarged ovaries with multiple bilateral cysts, cholelithiasis and gallbladder sludge. Patient is quite tender right upper and lower quadrant on exam. Findings discussed with, Dr. Roper is her OBGYN. She has a pelvic ultrasound ordered tech had been asking if appropriate to use intravaginally as patient had question of dehiscence on MRI of her pelvis but was felt less likely by the physicians at that time. They had mentioned going back to evaluate at [address] Roper states we can do intravaginal ultrasound he would be interested to hear the report. Patient is still quite tender even after 1st dose of pain medications given a 2nd dose and continuing fluids as she is also pumping for breast milk. UA is being sent. Patient accepted for inpatient by Dr. Edouard. Discharge Plan Departure Patient Disposition: Admitted As Inpatient Clinical Impression: Right sided abdominal pain, Leukocytosis, Sludge in gallbladder, Colitis, S/P section Admit Date/Time: 08/06/22 13:56 Admit Provider: Chalo Edouard
--- NOTE | 2022-08-06 05:26 | DI.CT.S_ITS ---
PROCEDURE: CT ABDOMEN PELVIS W CON INDICATIONS: acute RLQ pain TECHNIQUE: After the administration of IV contrast, axial sections were acquired from the lung bases to the pubic symphysis. Coronal and sagittal reformats were performed. For radiation dose reduction, the following was used: automated exposure control, adjustment of mA and/or kV according to patient size. COMPARISON: [facility], CT, CT ABDOMEN PELVIS WO CON, 07/15/2022, 9:06. [facility], CT, CT ANGIO CHEST PE PROTOCOL, 07/15/2022, 17:27. [facility], US, US PELVIC COMPLETE, 08/06/2022, 8:03. [facility], US, US ABDOMEN LIMITED, 08/06/2022, 7:44. [facility], CT, CT ABDOMEN PELVIS W CON, 01/21/2021, 15:51. FINDINGS: Image quality: Excellent. Lung bases: Unremarkable. Heart: No significant findings. ABDOMEN: Liver: Unremarkable. Gallbladder: Narrowing sludge is seen within the gallbladder, which is better demonstrated on the subsequent formed ultrasound. Biliary ducts: Unremarkable. Pancreas: Unremarkable. Spleen: Unremarkable. Adrenal Glands: Unremarkable. Kidneys and Ureters: Along the posterior aspect of the left kidney, there is a simple appearing cyst seen. Mild right-sided pelviectasis is seen. No renal masses are seen. The kidneys demonstrate normal, symmetric size. The kidneys enhance symmetrically. Stomach and Bowel: A normal appendix is seen. Moderate wall thickening can be seen involving the ascending colon. The more distal colon demonstrates normal wall thickness. No dilated loops of small bowel are seen. Peritoneum: No abnormal intraperitoneal fluid. No free air. Ventral Wall: No hernia. Abdominal Nodes: No retroperitoneal or mesenteric adenopathy by size criteria. Vessels: Aorta and inferior vena cava are normal in size. PELVIS: Pelvic Organs: The cervix appears inflamed, with surrounding inflammatory change. Gas is seen within the region of the cervix. The endometrial stripe demonstrates fluid along it, with a thickness of 13 mm. A multi cystic left ovary is seen that measures up to 5.8 cm. A multi-cystic right ovary is seen that measures up to 6 cm. Bladder: Unremarkable. Pelvic Nodes: No enlarged lymph nodes. Miscellaneous: No inguinal hernias are seen. Bones: Mild levoconvex scoliotic curvature is noted. IMPRESSION: A normal appendix is seen. There is moderate wall thickening seen involving the ascending colon. No findings of perforation or abscess are seen. Please correlate with potential infectious or inflammatory causes of colitis. Inflammatory change is seen involving the cervix, with fluid and gas. There is fluid seen along the endometrial stripe. The appearance of the cervix, endometrium, and uterus are clearly improved compared to the 07/15/2022 CT examination. A multi cystic left ovary is seen that measures up to 5.8 cm. Incidental note is made of: Right kidney pelviectasis Simple appearing left renal cyst Note: No significant discrepancy from the preliminary report. Dictated by: Rylan Camarena M.D. on 08/06/2022 at 8:40 Approved by: Rylan Camarena M.D. on 08/06/2022 at 8:46
[2022-08-06] MEDS: SODIUM CHLORIDE 0.9% 1,000 ML 1000 ML IV ×2 (05:57→07:50)
[2022-08-06] MEDS: HYDROMORPHONE 0.5 MG INJ IV ×6 (05:59→13:02)
[2022-08-06 06:12] LABS: Add Manual Diff / Slide Review NO; Basophils Absolute Auto 100 /uL (0-100); Basophils Percent Auto 0.4 % (0-2); Eosinophils Absolute Auto 200 /uL (0-450); Eosinophils Percent Auto 1.1 % (2-4); Hematocrit 43.6 % (36-46); Hemoglobin 13.9 g/dL (12.0-16.0); Lymphocytes Absolute Auto 1500 /uL (1100-4500); Lymphocytes Percent Auto 8.3 % (25-40); Mean Corpuscular Volume 81.3 fL (80-100); Monocytes Absolute Auto 700 /uL (0-900); Monocytes Percent Auto 3.7 % (3-14); Neutrophils Absolute Auto 15100 /uL (1500-7000); Neutrophils Percent Auto 86.5 % (50-75); Platelet Count 379 X10^3/uL (150-400); Red Blood Cell Count 5.37 X10^6/uL (4.0-5.2); Red Cell Distribution Width 27.2 % (11.6-14.8); White Blood Cell Count 17.5 X10^3/uL (4.5-11.0)
[2022-08-06 06:16] LABS: Alanine Aminotransferase 21 IU/L (<35); Albumin 4.1 g/dL (3.5-5.0); Albumin Globulin Ratio 1.2 (1.0-2.8); Alkaline Phosphatase 148 U/L (38-126); Aspartate Aminotransferase 20 IU/L (14-36); BUN Creatinine Ratio 16.9 (6-22); Bilirubin Total 0.6 mg/dL (0.2-1.3); Blood Urea Nitrogen 10 mg/dL (7-17); Calcium 8.8 mg/dL (8.4-10.2); Carbon Dioxide 25 mmol/L (22-32); Chloride 104 mmol/L (98-107); Estimated Glomerular Filt Rate > 60 mL/min (>60); Globulin 3.4 g/dL (1.7-4.1); Glucose 108 mg/dL (70-100); HEMOLYSIS < 15 (0-50); Potassium 3.1 mmol/L (3.4-5.1); Sodium 143 mmol/L (137-145); Total Protein 7.5 g/dL (6.3-8.2)
[2022-08-06 06:17] LABS: Lactate (Lactic Acid) 1.8 mmol/L (0.7-2.1)
--- NOTE | 2022-08-06 06:25 | DI.US.S_ITS ---
PROCEDURE: US PELVIC COMPLETE INDICATIONS: SEVERE RIGHT LOWER QUADRANT PAIN TECHNIQUE: Real-time scanning was performed of the pelvic organs, with image documentation. Additional endovaginal scanning was necessary due to incomplete visualization of the adnexal and endometrial structures by transabdominal scanning. COMPARISON: [facility], US, US ABDOMEN LIMITED, 08/06/2022, 7:44. [facility], CT, CT ABDOMEN PELVIS W CON, 08/06/2022, 5:31. [facility], MR, MR PELVIS WO/W CON, 07/18/2022, 7:34. FINDINGS: Uterus: Uterus is anteverted and enlarged in size at 11.7 x 6 x 5.3 cm. The myometrium is homogeneous. Complex fluid is seen along the endometrial stripe. Along the endometrial stripe, there is a complex nonvascular hyperechoic region that measures 3.5 x 1.6 x 0.8 cm. Complex fluid is also seen along the cervix. Ovaries: The right ovary measures 7.8 x 4 x 4.2 cm, with a calculated ovarian volume of 68 cc. The left ovary measures 6.8 x 3.9 x 3.4 cm, with a calculated ovarian volume of 47 cc. Both ovaries demonstrate an enlarged appearance, with multiple follicles (greater than 12 per ovary). Within the left ovary, there is a simple 3 cm cyst. Normal appearing arterial and venous waveforms are confirmed to each ovary. Other: No pathologic free abdominal or pelvic fluid. Incidental note is made of debris within the urinary bladder. IMPRESSION: Nonvascular debris seen along the endometrial stripe, which is attributed to hemorrhagic products. No abnormal vascular material can be seen along the endometrial stripe to suggest retained products of conception. Bilateral enlarged ovaries are seen, with multiple follicles. Debris noted within the urinary bladder. Please correlate with UTI. We strive to produce accurate, complete, and clear reports of imaging services. To assist us in improving patient care, this report was composed using standard report templates and voice recognition software. Therefore, it may contain abnormal punctuation, insertions and/or omissions. Occasional wrong-word or sound-alike substitutions may occur. Though we review the report and make efforts to correct it, we do recommend that the report be read carefully in proper context to recognize any text inaccuracies. Dictated by: Rylan Camarena M.D. on 08/06/2022 at 8:46 Approved by: Rylan Camarena M.D. on 08/06/2022 at 8:50
[2022-08-06 06:32] LABS: Procalcitonin 0.04 ng/mL (<0.5)
--- NOTE | 2022-08-06 06:33 | DI.US.S_ITS ---
PROCEDURE: US ABDOMEN LIMITED INDICATIONS: FOLLOW UP CT TODAY ?CHOLELITHIASIS AND SLUDGE TECHNIQUE: Real-time focused scanning was performed of the abdomen, with image documentation. COMPARISON: [facility], US, US ABDOMEN LIMITED, 05/19/2021, 11:28. [facility], CT, CT ABDOMEN PELVIS W CON, 08/06/2022, 5:31. FINDINGS: The liver demonstrates mildly enlarged size, with a prominent right lobe of the liver. The liver demonstrates normal overall echogenicity. Mobile sludge can be seen within the gallbladder. No shadowing stones are seen. There is likely gallbladder wall adenomyomatosis. The gallbladder wall is not thickened, measuring 3 mm or less. No specific pericholecystic fluid is seen. The sonographic Gaines sign is negative. There is no biliary dilatation, the common bile duct measures 5 mm. No significant pancreatic abnormality is seen on these images. The right kidney demonstrates mild pelviectasis. IMPRESSION: Sludge can be seen within the gallbladder, yet without shadowing stones seen. No additional sonographic signs of cholecystitis are seen. No biliary dilatation is seen. Prominent right lobe of the liver noted. Mild right kidney pelviectasis is incidentally noted. Dictated by: Rylan Camarena M.D. on 08/06/2022 at 8:20 Approved by: Rylan Camarena M.D. on 08/06/2022 at 8:22
[2022-08-06] MEDS: PIPERACILLIN/TAZO 4.5 GM in SODIUM CHLORIDE 0.9% 100 ML IV (06:41)
[2022-08-06 06:43] LABS: Target Cells 1+
[2022-08-06 06:44] LABS: Poikilocytosis 1+
[2022-08-06 08:23] LABS: Appearance Urine UA CLEAR; Bilirubin Urine UA NEGATIVE (NEGATIVE); Color Urine UA YELLOW; Glucose Urine UA NEGATIVE (Negative); Ketones Urine UA NEGATIVE (NEGATIVE); Leukocyte Esterase Urine UA 1+ (NEGATIVE); Nitrite Urine UA NEGATIVE (Negative); Occult Blood Urine UA 3+ (Negative); Protein Urine UA NEGATIVE (Negative); Specific Gravity Urine UA <=1.005 (1.000-1.035); Urobilinogen Urine UA 0.2 E.U./dL (0.2)
[2022-08-06 08:25] LABS: Influenza A - CEPHEID Flu A NEGATIVE (NEGATIVE); Influenza B - CEPHEID Flu B NEGATIVE (NEGATIVE); Respiratory Syncytial Virus Negative (Negative)
[2022-08-06 08:28] LABS: COVID-19 CEPHEID 4-PLEX PCR Negative (Negative)
[2022-08-06 08:44] LABS: Bacteria Urine Few (2-10); RBC Urine 5-10/HPF (0-5/HPF); Squamous Epithelial Cell Urine 1-5 /HPF (0-5/HPF); WBC Urine 5-10/HPF (0-5/HPF)
[2022-08-06] MEDS: SODIUM CHLORIDE 0.9% 1,000 ML 150 ML IV (11:58)
[2022-08-06] MEDS: VANCOMYCIN 1,500 MG/300 ML PIGGYBACK 200 MG IV (13:45)
--- NOTE | 2022-08-06 13:53 | PM.HP.1 ---
History of Present Illness History of Present Illness Date Patient Seen: 08/06/22 Time Patient Seen: 11:00 Chief complaint: pain rt. lower abd./post 07/14 Narrative: Ms. Bull is a 26W with recent delivery by on 07/14/22 who had significant complication with possible endometritis, UTI, hydronephrosis and bilateral stents placed who comes in with abdominal pain.. She was discharged home doing well with abdominal pain resolved. She saw urology who removed the stents. She was found to have a resistant UTI during that visit just over a week ago. She still has antibiotics from discharge and from this urology visit. She has taken 4 days of UTI treatment in over a week. She has missed at least doses of antibiotics for her endometritis. She states she has difficulty with regularly taking medications. Her abdominal pain is on the right side. She has vaginal bleeding which is improving since discharge from the hospital. Her abdominal pain started all of a sudden while seated within the last day. She had formed bowel movement. No dysuria, cough, vomiting, shortness of breath, no fevers, chest pain. In the ED workup was done, vitals notable for blood pressure 100s/50s. Labs notable for WBC 17.5, hgb 13.9, plts 379. Creatinine 0.59. Lactate 1.8. Procal 0.04. Ua with 5-10 WBC, few bacteria. Flu, covid negative. CT scan shows concern for possible ascending colitis. Ob-executive administrative assistant notified in ED who noted that her imaging is more consistent with improving uterus. She was ordered for antibiotics and admitted for further treatment. Patient History Medical History Acid reflux Anxiety and depression (~2020) Headache (~2018) Migraine (~2019) Surgical History History of section History of esophagogastroduodenoscopy (EGD) Hx of laparoscopy [place] teeth extracted Family & Social History Family History Mother No pertinent past medical history Father No pertinent past medical history Social History: household members significant other lives independently Yes Safety & Behavioral: Feels Safe in Current Yes Environment Been Physically Hurt or No Threatened By a Person Tobacco & Substance use: Smoking Status Never smoker alcohol intake former alcohol intake frequency holiday/special occasion Substance Use Type does not use Meds Home Medications and Allergies Home Medications Medication Instructions Recorded Confirmed Type ubrogepant 100 mg tablet (Ubrelvy) 100 mg PO ONCE PRN Migraine 11/11/21 08/06/22 History Headache losartan 25 mg tablet 12.5 mg PO DAILY #30 tabs 07/19/22 08/06/22 Rx metoprolol tartrate 25 mg tablet 12.5 mg PO BID #30 tabs 07/19/22 08/06/22 Rx Allergies Allergy/AdvReac Type Severity Reaction Status Date / Time vancomycin Allergy Intermediate Rash Verified 08/06/22 15:30 Review of Systems Review of Systems Narrative: 14 systems reviewed and negative aside from what is noted in HPI Exam Vital Signs (past 8 hours): - 08/06/22 05:55 08/06/22 05:58 08/06/22 05:58 Pulse Rate 77 76 Respiratory Rate Blood Pressure 113/60 Pulse Oximetry 94 100 Oxygen Delivery Method 08/06/22 06:00 08/06/22 06:00 08/06/22 06:03 Pulse Rate 77 Respiratory Rate Blood Pressure 103/54 L 104/60 Pulse Oximetry 100 Oxygen Delivery Method 08/06/22 06:03 08/06/22 06:05 08/06/22 06:05 Pulse Rate 85 84 Respiratory Rate Blood Pressure 97/50 L Pulse Oximetry 100 99 Oxygen Delivery Method 08/06/22 06:10 08/06/22 06:10 08/06/22 06:15 Pulse Rate 74 Respiratory Rate Blood Pressure 119/64 115/57 L Pulse Oximetry 99 Oxygen Delivery Method 08/06/22 06:15 08/06/22 06:20 08/06/22 06:20 Pulse Rate 82 85 Respiratory Rate Blood Pressure 109/59 L Pulse Oximetry 99 98 Oxygen Delivery Method 08/06/22 06:25 08/06/22 06:25 08/06/22 06:30 Pulse Rate 83 Respiratory Rate Blood Pressure 109/55 L 102/55 L Pulse Oximetry 98 Oxygen Delivery Method 08/06/22 06:30 08/06/22 06:35 08/06/22 06:35 Pulse Rate 81 95 H Respiratory Rate Blood Pressure 99/56 L Pulse Oximetry 99 99 Oxygen Delivery Method 08/06/22 06:40 08/06/22 06:40 08/06/22 06:45 Pulse Rate 92 H Respiratory Rate Blood Pressure 106/58 L 108/59 L Pulse Oximetry 100 Oxygen Delivery Method 08/06/22 06:45 08/06/22 06:50 08/06/22 06:50 Pulse Rate 88 88 Respiratory Rate Blood Pressure 108/59 L Pulse Oximetry 98 98 Oxygen Delivery Method 08/06/22 06:55 08/06/22 06:55 08/06/22 07:00 Pulse Rate 84 Respiratory Rate Blood Pressure 106/59 L 107/55 L Pulse Oximetry 96 Oxygen Delivery Method 08/06/22 07:00 08/06/22 07:05 08/06/22 07:05 Pulse Rate 82 85 Respiratory Rate Blood Pressure 107/55 L Pulse Oximetry 96 98 Oxygen Delivery Method 08/06/22 07:10 08/06/22 07:10 08/06/22 10:14 Pulse Rate 90 Respiratory Rate Blood Pressure 105/57 L 105/54 L Pulse Oximetry 97 Oxygen Delivery Method 08/06/22 10:14 08/06/22 10:15 08/06/22 10:15 Pulse Rate 93 H 84 Respiratory Rate Blood Pressure 103/57 L Pulse Oximetry 95 99 Oxygen Delivery Method 08/06/22 10:20 08/06/22 10:20 08/06/22 10:25 Pulse Rate 93 H Respiratory Rate Blood Pressure 111/59 L 114/58 L Pulse Oximetry 99 Oxygen Delivery Method 08/06/22 10:25 08/06/22 10:30 08/06/22 10:30 Pulse Rate 87 90 Respiratory Rate Blood Pressure 114/58 L Pulse Oximetry 97 99 Oxygen Delivery Method 08/06/22 10:35 08/06/22 10:35 08/06/22 10:40 Pulse Rate 91 H Respiratory Rate Blood Pressure 111/56 L 118/59 L Pulse Oximetry 98 Oxygen Delivery Method 08/06/22 10:40 08/06/22 11:56 08/06/22 11:57 Pulse Rate 94 H Respiratory Rate Blood Pressure 95/51 L Pulse Oximetry 99 97 Oxygen Delivery Method 08/06/22 11:57 08/06/22 12:00 08/06/22 12:00 Pulse Rate 97 H 94 H Respiratory Rate Blood Pressure 99/56 L Pulse Oximetry 96 95 Oxygen Delivery Method 08/06/22 12:04 08/06/22 12:04 08/06/22 12:05 Pulse Rate 91 H 97 H Respiratory Rate Blood Pressure 96/52 L Pulse Oximetry 98 97 Oxygen Delivery Method 08/06/22 12:10 08/06/22 12:10 08/06/22 12:15 Pulse Rate 98 H 91 H Respiratory Rate Blood Pressure 101/57 L Pulse Oximetry 96 94 Oxygen Delivery Method 08/06/22 12:20 08/06/22 12:20 08/06/22 12:25 Pulse Rate 95 H 100 H Respiratory Rate Blood Pressure 102/58 L Pulse Oximetry 96 98 Oxygen Delivery Method 08/06/22 12:30 08/06/22 12:30 08/06/22 12:35 Pulse Rate 96 H 101 H Respiratory Rate Blood Pressure 108/56 L Pulse Oximetry 98 97 Oxygen Delivery Method 08/06/22 12:40 08/06/22 12:40 08/06/22 12:45 Pulse Rate 98 H 96 H Respiratory Rate Blood Pressure 101/54 L Pulse Oximetry 97 97 Oxygen Delivery Method 08/06/22 12:50 08/06/22 12:50 08/06/22 12:55 Pulse Rate 89 84 Respiratory Rate Blood Pressure 109/56 L Pulse Oximetry 95 95 Oxygen Delivery Method 08/06/22 13:00 08/06/22 13:00 08/06/22 13:05 Pulse Rate 97 H 99 H Respiratory Rate 14 Blood Pressure 104/57 L Pulse Oximetry 99 98 Oxygen Delivery Method Room Air 08/06/22 13:10 08/06/22 13:10 08/06/22 13:35 Pulse Rate 89 97 H Respiratory Rate Blood Pressure 109/57 L Pulse Oximetry 95 97 Oxygen Delivery Method 08/06/22 13:40 Pulse Rate 99 H Respiratory Rate Blood Pressure Pulse Oximetry 97 Oxygen Delivery Method Oxygen Delivery Method Room Air Narrative Exam Narrative: GEN: in distress from pain HEENT: moist mucous membranes, PERRL NECK: trachea midline, no JVD PULM: clear bilaterally, no wheezes, rhonchi, rales CV: regular rate and rhythm, no murmurs ABD: soft, tender to palpation on right side of abdomen, quite sensitive to palpation, absent bowel sounds EXT: warm and well perfused with no edema NEURO: awake, alert, oriented no focal deficits Objective Labs Result Diagrams: 08/06/22 05:40 08/06/22 05:40 Labs: Laboratory Results - last 24 hr 08/06/22 08/06/22 08/06/22 05:40 05:40 05:40 WBC 17.5 H RBC 5.37 H Hgb 13.9 Hct 43.6 MCV 81.3 MCH 26.0 MCHC 32.0 RDW 27.2 H Plt Count 379 Neut % (Auto) 86.5 H Lymph % (Auto) 8.3 L [place] % (Auto) 3.7 Eos % (Auto) 1.1 L Baso % (Auto) 0.4 Neut # (Auto) 04654 H Lymph # (Auto) 1500 [place] # (Auto) 700 Eos # (Auto) 200 Baso # (Auto) 100 RBC Morphology See below Poikilocytosis 1+ H Target Cells 1+ H Sodium 143 Potassium 3.1 L Chloride 104 Carbon Dioxide 25 BUN 10 Creatinine 0.59 Estimated GFR > 60 BUN/Creatinine Ratio 16.9 Glucose 108 H Lactate 1.8 Calcium 8.8 Total Bilirubin 0.6 AST 20 ALT 21 Alkaline Phosphatase 148 H Total Protein 7.5 Albumin 4.1 Globulin 3.4 Albumin/Globulin Ratio 1.2 Procalcitonin Urine Color Urine Appearance Urine pH Ur Specific [place] Urine Protein Urine Glucose (UA) Urine Ketones Urine Occult Blood Urine Nitrate Urine Bilirubin Urine Urobilinogen Ur Leukocyte Esterase Urine RBC Urine WBC Ur Squamous Epith Cells Urine Bacteria SARS-CoV-2 (PCR) Influenza A (RT-PCR) Influenza B (RT-PCR) RSV (PCR) 08/06/22 08/06/22 08/06/22 05:40 06:45 07:50 WBC RBC Hgb Hct MCV MCH MCHC RDW Plt Count Neut % (Auto) Lymph % (Auto) [place] % (Auto) Eos % (Auto) Baso % (Auto) Neut # (Auto) Lymph # (Auto) [place] # (Auto) Eos # (Auto) Baso # (Auto) RBC Morphology Poikilocytosis Target Cells Sodium Potassium Chloride Carbon Dioxide BUN Creatinine Estimated GFR BUN/Creatinine Ratio Glucose Lactate Calcium Total Bilirubin AST ALT Alkaline Phosphatase Total Protein Albumin Globulin Albumin/Globulin Ratio Procalcitonin 0.04 Urine Color Yellow Urine Appearance Clear Urine pH 7.0 Ur Specific [place] <=1.005 Urine Protein Negative Urine Glucose (UA) Negative Urine Ketones Negative Urine Occult Blood 3+ H Urine Nitrate Negative Urine Bilirubin Negative Urine Urobilinogen 0.2 Ur Leukocyte Esterase 1+ H Urine RBC 5-10/hpf H Urine WBC 5-10/hpf H Ur Squamous Epith Cells 1-5 /hpf Urine Bacteria Few (2-10) H SARS-CoV-2 (PCR) Negative Influenza A (RT-PCR) Flu a negative Influenza B (RT-PCR) Flu b negative RSV (PCR) Negative Assessment & Plan Assessment & Plan narrative: 1. Acute abdominal pain -initial WBC of 17.5 -CT shows evidence of colitis -recent history of endometrititis which is still in differential -consulted Dr. Roper ob-executive administrative assistant -given severity of abdominal pain general surgery consulted per ED doc -possible could have c diff from recent antibiotics -given recent resistant UTI will order ertapenem -empirically treat for c diff for now with PO vancomycin -SIRS positive with tachycardia and tachypnea -lactate normal -send GI panel and c diff pcr -follow up blood and urine cultures -IV dilaudid 1mg q3hr prn for poorly controlled pain. 2. Hypokalemia -replete IV for now Patient has severe abdominal pain, has had antibiotic resistant UTI recently and under treated her infection by inconsistent antibiotic use. She has failed oral antibiotics. She has significant abdominal pain and has surgical and ob consults for further evaluation given concern for acute albumin Time Spent With Patient Critical Care time: I spent a total of [] minutes of critical care time on this patient's care today; this time is exclusive of procedural time.
[2022-08-06] MEDS: diphenhydrAMINE 50 MG/ML VIAL IV (14:40)
--- NOTE | 2022-08-06 14:44 | PC.NURSE ---
Pt c/o Itching feeling hot. Noted redness on back, shoulders and raised area across chest. Denies n/v. No airway swelling / edema. Hospitalist called. Ordered benedryl 50 mg IV / given. Vancomycin discontinued.
[2022-08-06] MEDS: ERTAPENEM 1 GM in SODIUM CHLORIDE 0.9% 100 ML IV (16:08)
--- NOTE | 2022-08-06 16:22 | P.CONS_ITS ---
History of Present Illness Consult details Date Patient Seen: 08/06/22 Time Patient Seen: 16:22 Chief complaint: pain rt. lower abd./post 07/14 Reason for consult: acsending colitis, UTI, recent complicated Csection. Requesting provider: Palmira Escobar Narrative: s/p complicated Csection with endometrial infection and antibiotic resistent UTI. Returns with increased abdominal pain, mainly RLQ. Last BM today and was loose, no emesis. Meds Home Medications and Allergies Home Medications Medication Instructions Recorded Confirmed Type ubrogepant 100 mg tablet (Ubrelvy) 100 mg PO ONCE PRN Migraine 11/11/21 07/28/22 History Headache prenat.vits,radha,[id number] 1 tab PO DAILY 12/27/21 07/28/22 History blood-glucose meter #1 ea 05/12/22 07/28/22 Rx losartan 25 mg tablet 12.5 mg PO DAILY #30 tabs 07/19/22 07/28/22 Rx metoprolol tartrate 25 mg tablet 12.5 mg PO BID #30 tabs 07/19/22 07/28/22 Rx oxycodone 5 mg tablet 5 mg PO Q4H PRN Pain, Moderate 07/19/22 07/28/22 Rx (4-6) #30 tabs amoxicillin 400 mg-potassium 10 ml PO BID 07/28/22 07/28/22 History clavulanate 57 mg/5 mL oral suspension cefdinir 300 mg capsule 300 mg PO BID #10 caps 08/01/22 Rx Allergies Allergy/AdvReac Type Severity Reaction Status Date / Time vancomycin Allergy Intermediate Rash Verified 08/06/22 15:30 Review of Systems Review of Systems ROS: Yes All systems reviewed with the patient and are negative except as otherwise documented Exam Vital Signs (past 8 hours): - 08/06/22 10:14 08/06/22 10:14 08/06/22 10:15 Pulse Rate 93 H Respiratory Rate Blood Pressure 105/54 L 103/57 L Pulse Oximetry 95 Oxygen Delivery Method 08/06/22 10:15 08/06/22 10:20 08/06/22 10:20 Pulse Rate 84 93 H Respiratory Rate Blood Pressure 111/59 L Pulse Oximetry 99 99 Oxygen Delivery Method 08/06/22 10:25 08/06/22 10:25 08/06/22 10:30 Pulse Rate 87 Respiratory Rate Blood Pressure 114/58 L 114/58 L Pulse Oximetry 97 Oxygen Delivery Method 08/06/22 10:30 08/06/22 10:35 08/06/22 10:35 Pulse Rate 90 91 H Respiratory Rate Blood Pressure 111/56 L Pulse Oximetry 99 98 Oxygen Delivery Method 08/06/22 10:40 08/06/22 10:40 08/06/22 11:56 Pulse Rate 94 H Respiratory Rate Blood Pressure 118/59 L Pulse Oximetry 99 97 Oxygen Delivery Method 08/06/22 11:57 08/06/22 11:57 08/06/22 12:00 Pulse Rate 97 H Respiratory Rate Blood Pressure 95/51 L 99/56 L Pulse Oximetry 96 Oxygen Delivery Method 08/06/22 12:00 08/06/22 12:04 08/06/22 12:04 Pulse Rate 94 H 91 H Respiratory Rate Blood Pressure 96/52 L Pulse Oximetry 95 98 Oxygen Delivery Method 08/06/22 12:05 08/06/22 12:10 08/06/22 12:10 Pulse Rate 97 H 98 H Respiratory Rate Blood Pressure 101/57 L Pulse Oximetry 97 96 Oxygen Delivery Method 08/06/22 12:15 08/06/22 12:20 08/06/22 12:20 Pulse Rate 91 H 95 H Respiratory Rate Blood Pressure 102/58 L Pulse Oximetry 94 96 Oxygen Delivery Method 08/06/22 12:25 08/06/22 12:30 08/06/22 12:30 Pulse Rate 100 H 96 H Respiratory Rate Blood Pressure 108/56 L Pulse Oximetry 98 98 Oxygen Delivery Method 08/06/22 12:35 08/06/22 12:40 08/06/22 12:40 Pulse Rate 101 H 98 H Respiratory Rate Blood Pressure 101/54 L Pulse Oximetry 97 97 Oxygen Delivery Method 08/06/22 12:45 08/06/22 12:50 08/06/22 12:50 Pulse Rate 96 H 89 Respiratory Rate Blood Pressure 109/56 L Pulse Oximetry 97 95 Oxygen Delivery Method 08/06/22 12:55 08/06/22 13:00 08/06/22 13:00 Pulse Rate 84 97 H Respiratory Rate 14 Blood Pressure 104/57 L Pulse Oximetry 95 99 Oxygen Delivery Method Room Air 08/06/22 13:05 08/06/22 13:10 08/06/22 13:10 Pulse Rate 99 H 89 Respiratory Rate Blood Pressure 109/57 L Pulse Oximetry 98 95 Oxygen Delivery Method 08/06/22 13:35 08/06/22 13:40 08/06/22 13:45 Pulse Rate 97 H 99 H 96 H Respiratory Rate Blood Pressure Pulse Oximetry 97 97 96 Oxygen Delivery Method 08/06/22 13:50 08/06/22 13:55 08/06/22 14:00 Pulse Rate 88 90 84 Respiratory Rate Blood Pressure Pulse Oximetry 94 96 94 Oxygen Delivery Method 08/06/22 14:05 08/06/22 14:10 08/06/22 14:15 Pulse Rate 87 90 94 H Respiratory Rate Blood Pressure Pulse Oximetry 95 96 96 Oxygen Delivery Method 08/06/22 14:20 08/06/22 14:25 08/06/22 14:30 Pulse Rate 96 H 107 H 106 H Respiratory Rate Blood Pressure Pulse Oximetry 96 97 96 Oxygen Delivery Method 08/06/22 14:35 08/06/22 14:36 08/06/22 14:46 Pulse Rate 115 H 107 H Respiratory Rate 22 Blood Pressure 108/60 Pulse Oximetry 94 96 Oxygen Delivery Method Room Air 08/06/22 14:46 08/06/22 14:50 08/06/22 14:50 Pulse Rate 100 H 104 H Respiratory Rate Blood Pressure 114/62 Pulse Oximetry 100 100 Oxygen Delivery Method 08/06/22 14:55 08/06/22 14:58 08/06/22 14:58 Pulse Rate 99 H 97 H Respiratory Rate 16 Blood Pressure 113/60 Pulse Oximetry 100 100 Oxygen Delivery Method 08/06/22 15:00 08/06/22 15:00 08/06/22 15:05 Pulse Rate 96 H 93 H Respiratory Rate Blood Pressure 111/64 Pulse Oximetry 99 100 Oxygen Delivery Method 08/06/22 15:10 08/06/22 15:10 08/06/22 15:15 Pulse Rate 95 H 94 H Respiratory Rate Blood Pressure 115/65 Pulse Oximetry 100 99 Oxygen Delivery Method 08/06/22 15:20 08/06/22 15:20 08/06/22 15:25 Pulse Rate 97 H 89 Respiratory Rate Blood Pressure 116/68 Pulse Oximetry 98 100 Oxygen Delivery Method Oxygen Delivery Method Room Air Narrative Exam Narrative: Watching her w/o her awareness, patient moves freely. NO evidence of a surgical or acute abdomen. But very dramatic exam with the exception that her abdomen is soft. Const General: cooperative Nutritional Appearance: average body habitus Orientation: alert, awake and oriented x3 HENMT Head: normocephalic and atraumatic Ears: hearing grossly normal bilaterally Eyes General: appearance normal, both eyes and all related structures Neck Neck: trachea midline Chest Chest: normal inspection of the chest Resp Effort & Inspection: normal respiratory effort and able to speak in complete sentences Cardio Rate: tachycardic Rhythm: regular rhythm GI Other: not distended, soft, RLQ tenderness (but flinches at the lightest touch anywhere on abdomen). Likely reacting some to her recent complicated course. Skin General: no rashes or lesions noted Trauma: no lacerations or abrasions Wounds: wounds noted Other: incision healing Neuro General: patient alert, patient awake and patient oriented x3 Cognition: normal cognition Extrem General: normal to inspection Psych Appearance: grossly normal Mental Status: mental status grossly normal Judgment: judgment good Objective Labs Result Diagrams: 08/06/22 05:40 08/06/22 05:40 Labs: Laboratory Results - last 24 hr 08/06/22 08/06/22 08/06/22 05:40 05:40 05:40 WBC 17.5 H RBC 5.37 H Hgb 13.9 Hct 43.6 MCV 81.3 MCH 26.0 MCHC 32.0 RDW 27.2 H Plt Count 379 Neut % (Auto) 86.5 H Lymph % (Auto) 8.3 L [place] % (Auto) 3.7 Eos % (Auto) 1.1 L Baso % (Auto) 0.4 Neut # (Auto) 32833 H Lymph # (Auto) 1500 [place] # (Auto) 700 Eos # (Auto) 200 Baso # (Auto) 100 RBC Morphology See below Poikilocytosis 1+ H Target Cells 1+ H Sodium 143 Potassium 3.1 L Chloride 104 Carbon Dioxide 25 BUN 10 Creatinine 0.59 Estimated GFR > 60 BUN/Creatinine Ratio 16.9 Glucose 108 H Lactate 1.8 Calcium 8.8 Total Bilirubin 0.6 AST 20 ALT 21 Alkaline Phosphatase 148 H Total Protein 7.5 Albumin 4.1 Globulin 3.4 Albumin/Globulin Ratio 1.2 Procalcitonin Urine Color Urine Appearance Urine pH Ur Specific [place] Urine Protein Urine Glucose (UA) Urine Ketones Urine Occult Blood Urine Nitrate Urine Bilirubin Urine Urobilinogen Ur Leukocyte Esterase Urine RBC Urine WBC Ur Squamous Epith Cells Urine Bacteria SARS-CoV-2 (PCR) Influenza A (RT-PCR) Influenza B (RT-PCR) RSV (PCR) 08/06/22 08/06/22 08/06/22 05:40 06:45 07:50 WBC RBC Hgb Hct MCV MCH MCHC RDW Plt Count Neut % (Auto) Lymph % (Auto) [place] % (Auto) Eos % (Auto) Baso % (Auto) Neut # (Auto) Lymph # (Auto) [place] # (Auto) Eos # (Auto) Baso # (Auto) RBC Morphology Poikilocytosis Target Cells Sodium Potassium Chloride Carbon Dioxide BUN Creatinine Estimated GFR BUN/Creatinine Ratio Glucose Lactate Calcium Total Bilirubin AST ALT Alkaline Phosphatase Total Protein Albumin Globulin Albumin/Globulin Ratio Procalcitonin 0.04 Urine Color Yellow Urine Appearance Clear Urine pH 7.0 Ur Specific [place] <=1.005 Urine Protein Negative Urine Glucose (UA) Negative Urine Ketones Negative Urine Occult Blood 3+ H Urine Nitrate Negative Urine Bilirubin Negative Urine Urobilinogen 0.2 Ur Leukocyte Esterase 1+ H Urine RBC 5-10/hpf H Urine WBC 5-10/hpf H Ur Squamous Epith Cells 1-5 /hpf Urine Bacteria Few (2-10) H SARS-CoV-2 (PCR) Negative Influenza A (RT-PCR) Flu a negative Influenza B (RT-PCR) Flu b negative RSV (PCR) Negative [facility] Medical History Acid reflux Anxiety and depression (~2020) Headache (~2018) Migraine (~2019) Surgical History History of section History of esophagogastroduodenoscopy (EGD) Hx of laparoscopy [place] teeth extracted Family History Mother No pertinent past medical history Father No pertinent past medical history Social History marital status: unmarried,living together (engaged) number of children: 1 household members: significant other lives independently: Yes housing: apartment pets and animals: No (aware of Toxoplasmosisi) education level: high school occupational status: employed current occupational exposures/hazards: No special leatha needs: No Safety seatbelt use: always water heater temp set < 120 deg: Yes (will check and turn down if needed) working smoke detector in home: Yes fire extinguisher in home: Yes carbon monox detector in home: Yes firearms in home: Yes (unloaded and hidden) firearms unloaded and locked: No do you feel safe at home: Yes Tobacco & Substance Use Smoking Status: Never smoker second hand exposure: Yes (getting less, sig other has moved to smoking outside) alcohol intake: former substance use type: does not use Diet and Exercise during the past year weight has: increased > 10 lbs (with Covid infection) well-balanced diet: about half the time daily servings fruits/ve-1 caffeine: Yes (200mg caffeine) Type(s) of exercise: irregular exercise (will get back to the gym) Assessment & Plan Assessment & Plan narrative: S/P C section 07/14 with post op complications of infection. Now with UTI and ascending colon wall thickening concerning for infectious colitis. Not an acute abdomen to my exam. CT scan reviewed personally as well Plan: Medical management. COVID-19 COVID-19 status: Negative Time Spent With Patient Time with patient: 30 to 49 minutes with 50% spent counseling/coordinating care Critical Care time: I spent a total of [] minutes of critical care time on this patient's care today; this time is exclusive of procedural time.
[2022-08-06] MEDS: HYDROMORPHONE 0.5 MG INJ 1 MG IV ×3 (16:27→22:48)
[2022-08-06] MEDS: POTASSIUM CHLORIDE 20 MEQ/15 ML UDC 40 MEQ PO (17:40)
[2022-08-06] MEDS: FIDAXOMICIN 200 MG TABLET PO (21:51)
[2022-08-07] VITALS (8 sets, daily range): BP systolic 95–114; BP diastolic 43–54; PULSE 67–94; RESP 16–18; TEMP 36.4–37.3; O2SAT 95–100
[2022-08-07] MEDS: HYDROMORPHONE 0.5 MG INJ 1 MG IV ×3 (01:47→09:01)
[2022-08-07] MEDS: ONDANSETRON 4 MG/2 ML INJ IV (05:11)
[2022-08-07 06:36] LABS: Add Manual Diff / Slide Review NO; Basophils Absolute Auto 0 /uL (0-100); Basophils Percent Auto 0.4 % (0-2); Eosinophils Absolute Auto 200 /uL (0-450); Eosinophils Percent Auto 2.7 % (2-4); Hematocrit 34.9 % (36-46); Hemoglobin 11.2 g/dL (12.0-16.0); Lymphocytes Absolute Auto 1900 /uL (1100-4500); Lymphocytes Percent Auto 20.7 % (25-40); Mean Corpuscular HGB Conc 32.2 % (30-36); Mean Corpuscular Volume 80.7 fL (80-100); Monocytes Absolute Auto 500 /uL (0-900); Neutrophils Absolute Auto 6400 /uL (1500-7000); Neutrophils Percent Auto 71.2 % (50-75); Platelet Count 271 X10^3/uL (150-400); Red Blood Cell Count 4.32 X10^6/uL (4.0-5.2); Red Cell Distribution Width 26.3 % (11.6-14.8); White Blood Cell Count 9.1 X10^3/uL (4.5-11.0)
[2022-08-07 06:43] LABS: BUN Creatinine Ratio 5.9 (6-22); Blood Urea Nitrogen 3 mg/dL (7-17); Calcium 8.1 mg/dL (8.4-10.2); Carbon Dioxide 25 mmol/L (22-32); Chloride 107 mmol/L (98-107); Estimated Glomerular Filt Rate > 60 mL/min (>60); Glucose 109 mg/dL (70-100); HEMOLYSIS < 15 (0-50); Sodium 139 mmol/L (137-145)
[2022-08-07] MEDS: FIDAXOMICIN 200 MG TABLET PO (08:59)
[2022-08-07] MEDS: ENOXAPARIN 40 MG/0.4 ML SYRINGE SUBCUT (08:59)
[2022-08-07] MEDS: POTASSIUM CHLORIDE 20 MEQ/15 ML UDC 40 MEQ PO (09:11)
[2022-08-07 10:33] LABS: Hypochromasia 1+; Platelet Estimate Adequate on smear
[2022-08-07 10:34] LABS: Anisocytosis 2+; RBC Morphology See
--- NOTE | 2022-08-07 11:15 | P.PN_ITS ---
Subjective Subjective Date Patient Seen: 08/07/22 Time Patient Seen: 11:15 Interval history: Patient sleeping, no distress. Exam Vital Signs (past 8 hours): - 08/07/22 04:00 08/07/22 04:00 08/07/22 08:00 Temperature 98.8 F 97.6 F Pulse Rate 68 78 Respiratory Rate 18 18 Blood Pressure 102/51 L 95/48 L Pulse Oximetry 97 97 97 Oxygen Delivery Method Room Air Oxygen Flow Rate 0 0 Oxygen Delivery Method Room Air Oxygen Flow Rate 0 Const General: comfortable Resp Effort & Inspection: normal respiratory effort Cardio Rate: regular rate Rhythm: regular rhythm GI Palpation: soft Skin General: no rashes or lesions noted Objective Labs Result Diagrams: 08/07/22 05:25 08/07/22 05:25 Labs: Laboratory Results - last 24 hr 08/07/22 08/07/22 05:25 05:25 WBC 9.1 RBC 4.32 Hgb 11.2 L Hct 34.9 L MCV 80.7 MCH 26.0 MCHC 32.2 RDW 26.3 H Plt Count 271 Neut % (Auto) 71.2 Lymph % (Auto) 20.7 L [place] % (Auto) 5.0 Eos % (Auto) 2.7 Baso % (Auto) 0.4 Neut # (Auto) 6400 Lymph # (Auto) 1900 [place] # (Auto) 500 Eos # (Auto) 200 Baso # (Auto) 0 Platelet Estimate Adequate on smear RBC Morphology See Hypochromasia 1+ H Anisocytosis 2+ H Sodium 139 Potassium 3.0 L Chloride 107 Carbon Dioxide 25 BUN 3 L Creatinine 0.51 L Estimated GFR > 60 BUN/Creatinine Ratio 5.9 L Glucose 109 H Calcium 8.1 L PFSH Medical History Acid reflux Anxiety and depression (~2020) Headache (~2018) Migraine (~2019) Surgical History History of section History of esophagogastroduodenoscopy (EGD) Hx of laparoscopy [place] teeth extracted Family History Mother No pertinent past medical history Father No pertinent past medical history Social History marital status: unmarried,living together (engaged) number of children: 1 household members: significant other lives independently: Yes housing: apartment pets and animals: No (aware of Toxoplasmosisi) education level: high school occupational status: employed current occupational exposures/hazards: No special leatha needs: No seatbelt use: always water heater temp set < 120 deg: Yes (will check and turn down if needed) working smoke detector in home: Yes fire extinguisher in home: Yes carbon monox detector in home: Yes firearms in home: Yes (unloaded and hidden) firearms unloaded and locked: No do you feel safe at home: Yes Smoking Status: Never smoker second hand exposure: Yes (getting less, sig other has moved to smoking outside) alcohol intake: former substance use type: does not use during the past year weight has: increased > 10 lbs (with Covid infection) well-balanced diet: about half the time daily servings fruits/ve-1 caffeine: Yes (200mg caffeine) Type(s) of exercise: irregular exercise (will get back to the gym) Assessment & Plan Assessment & Plan narrative: Appears stable to improved. No changes in treatment, surgery not indicated at this time. COVID-19 COVID-19 status: Negative Time Spent With Patient Time with patient: less than 30 minutes Critical Care time: I spent a total of [] minutes of critical care time on this patient's care today; this time is exclusive of procedural time.
--- NOTE | 2022-08-07 11:38 | CM.DANOTE ---
Patient is a 26 yo female who was a Readmit on 08/06/22 for Abd Pain. Pt has [employer] and [employer] for insurance and her PCP is Boo Booth. EMR was reviewed. Per MD, pt with recent complicated on 07/14/22 but was eventually able to d/c home with outpt f/u with Urology and OB. Pt with resistant UTI and failed outpt abx and admitted for further treatment and potassium low. Per Surgeon, pt with possible colitis but no need for surgical intervention at this time and to treat conservatively. OB Consult pending. SW met bedside with pt and explained role and she confirms she still lives in [facility] in [place] with cintia Sen and their baby boy Mckinley III. Pt states things are well at home but I wasn't able to take my abx and other medications very consistently due to the new meds making me feel so poorly. Pt states no concerns with post , baby Mckinley is sleeping quite well and seems to be feeding well, and pt was given maternity/ resources at last admission for delivery and has good local support. Pt states cintia is just about to return to work from Paternity leave so her MIL who is local will be assisting while he is at work also. Pt does not anticipate any needs at d/c and is hopeful for d/c home today or tomorrow if stable. Plan: SW to follow closely for plan of d/c to home with family assist and any further identified discharge planning needs. BENJI Alvarez Discharge Planning/Care Management Advanced directive, confirm from FAMILY Start: 08/06/22 17:14 Freq: Q24H Status: Active Protocol: Document 08/06/22 17:14 YAD (Rec: 08/06/22 17:14 YAD [id number]) Advance Directive, confirm on record Time 17:14 Person contacted Patient. Pt states I do not have an advanced directive. Copy received No CM Discharge Assessment Start: 08/07/22 11:35 Freq: Status: Active Protocol: Document 08/07/22 11:36 BF (Rec: 08/07/22 11:37 BF [id number]) Discharge Planning Assessment Assigned Balance Wheel Facer BENJI Colin DPOA/Assigned Designee Name informally cintia Sen Contact Information [phone] Advance Directives? No Advance Directives on File No History Provided By Patient,Medical Record Has Patient been admitted in last 30 Yes days? Comment with compliations on 07/14/22 and discharged home with outpt f/u. Prior Living Arrangements Apartment/Condo Household Members significant other,children Comment [place] baby born this month Type of transporation used prior to Drives own vehicle admit Independent with ADL's Yes Is patient alert and oriented? Yes Needs Assistance With Managing Medications Caregiver for Another Yes: baby boy Mckinley Barriers to Discharge No Discharge Plan Home Transportation Arrangement Likely Sig Other or MIL to transport at d/c Referrals Initiated None needed Whiteboard Updated in Patient Room with Yes name and ext. # of Balance Wheel Facer Review Status In Process Please Provide Date Initial DC 08/07/22 Assessment Was Performed Next Review Type Continued Stay Review
--- NOTE | 2022-08-07 11:41 | PM.CN ---
History of Present Illness Consult details Date Patient Seen: 08/07/22 Time Patient Seen: 11:45 Chief complaint: pain rt. lower abd./post 07/14 Reason for consult: OB Follow-up Requesting provider: Nakita Mathews Narrative: Sejal is a 26 yo status post primary section on the morning of 07/14/2022 for secondary arrest of descent and dilatation. Her course was complicated by sepsis beginning barely 24 hours postop associated with cardiac injury thought to be due to hypoperfusion related to sepsis induced hypotension and anemia. She underwent placement of bilateral ureteral stents for hydronephrosis and surgical re-exploration for concerns regarding intra-abdominal bleeding with re-exploration revealing only markedly enlarged ovaries but otherwise unremarkable findings for post changes. She was treated initially with Zosyn and clindamycin due to concerns regarding possible gas producing anaerobic bacteria as the cause of her endomyometritis. She responded well to therapy and was discharged to home on the 4th postoperative day with oral Augmentin and clindamycin times 14 days. Patient had been somewhat compliant with this regimen and she also had her stents removed 07/28/2022 at which time she had a urine culture performed which rule out Klebsiella resistant to ampicillin. She was initiated on cefdinir once the culture results were known which she completed. Patient had done well up until a couple of days ago when she began to develop right lower quadrant pain and subsequently looser stools but no overt diarrhea. Vaginal bleeding following her delivery is now minimal and she is having little in the way of pelvic discomfort/symptoms at this point. Imaging reviewed (pelvic CT and ultrasound) which demonstrates changes consistent with progressive involution following delivery a little more than 3 weeks prior to admission. ABD/Pelvic CT does show segmental thickening of the ascending colon which correlates well with the patient's clinical symptoms/tenderness. WBC elevated w/ left shift on admission but now WBC normal. Procalcitonin is not elevated. Meds Home Medications and Allergies Home Medications Medication Instructions Recorded Confirmed Type ubrogepant 100 mg tablet (Ubrelvy) 100 mg PO ONCE PRN Migraine 11/11/21 08/06/22 History Headache losartan 25 mg tablet 12.5 mg PO DAILY #30 tabs 07/19/22 08/06/22 Rx metoprolol tartrate 25 mg tablet 12.5 mg PO BID #30 tabs 07/19/22 08/06/22 Rx Allergies Allergy/AdvReac Type Severity Reaction Status Date / Time vancomycin Allergy Intermediate Rash Verified 08/06/22 15:30 Review of Systems Review of Systems Narrative: Problem-specific ROS positives included in HPI Exam Vital Signs (past 8 hours): - 08/07/22 04:00 08/07/22 04:00 08/07/22 08:00 Temperature 98.8 F 97.6 F Pulse Rate 68 78 Respiratory Rate 18 18 Blood Pressure 102/51 L 95/48 L Pulse Oximetry 97 97 97 Oxygen Delivery Method Room Air Oxygen Flow Rate 0 0 Oxygen Delivery Method Room Air Oxygen Flow Rate 0 Const General: cooperative and comfortable Nutritional Appearance: average body habitus Orientation: alert and oriented x3 HENMT Head: normal to inspection, atraumatic and abrasion Ears: hearing grossly normal bilaterally Face and sinus: face symmetric Eyes General: appearance normal, both eyes and all related structures Conjunctivae: conjunctivae normal Sclera: sclerae normal EOM: EOM intact bilaterally Neck Neck: normal visual inspection Resp Effort & Inspection: normal respiratory effort and able to speak in complete sentences GI Inspection: normal to inspection and incision (Pfanensteil incision has healed nicely) Palpation: soft, no hepatosplenomegaly, mass (Firm, minimally tender fundus at/below pubis) and tender (Moderate RLQ tenderness w/ slight rebound, improved from admission) Auscultation: normal bowel sounds External Female Exam: other (No significant bleeding noted) Extrem General: no calf tenderness Psych Appearance: grossly normal Mental Status: mental status grossly normal Speech and Movement: speech and movement normal Mood: congruent mood Affect: normal affect Attitude: cooperative Thought Process: normal Thought Content: normal Judgment: judgment good Objective Labs Result Diagrams: 08/07/22 05:25 08/07/22 05:25 Labs: Laboratory Results - last 24 hr 08/07/22 08/07/22 05:25 05:25 WBC 9.1 RBC 4.32 Hgb 11.2 L Hct 34.9 L MCV 80.7 MCH 26.0 MCHC 32.2 RDW 26.3 H Plt Count 271 Neut % (Auto) 71.2 Lymph % (Auto) 20.7 L [place] % (Auto) 5.0 Eos % (Auto) 2.7 Baso % (Auto) 0.4 Neut # (Auto) 6400 Lymph # (Auto) 1900 [place] # (Auto) 500 Eos # (Auto) 200 Baso # (Auto) 0 Platelet Estimate Adequate on smear RBC Morphology See Hypochromasia 1+ H Anisocytosis 2+ H Sodium 139 Potassium 3.0 L Chloride 107 Carbon Dioxide 25 BUN 3 L Creatinine 0.51 L Estimated GFR > 60 BUN/Creatinine Ratio 5.9 L Glucose 109 H Calcium 8.1 L PFSH Medical History Acid reflux Anxiety and depression (~2020) Headache (~2018) Migraine (~2019) Surgical History History of section History of esophagogastroduodenoscopy (EGD) Hx of laparoscopy [facility] [place] teeth extracted Family History Mother No pertinent past medical history Father No pertinent past medical history Social History marital status: unmarried,living together (engaged) number of children: 1 household members: significant other and children lives independently: Yes housing: apartment pets and animals: No (aware of Toxoplasmosisi) education level: high school occupational status: employed current occupational exposures/hazards: No special leatha needs: No Safety seatbelt use: always water heater temp set < 120 deg: Yes (will check and turn down if needed) working smoke detector in home: Yes fire extinguisher in home: Yes carbon monox detector in home: Yes firearms in home: Yes (unloaded and hidden) firearms unloaded and locked: No do you feel safe at home: Yes Tobacco & Substance Use Smoking Status: Never smoker second hand exposure: Yes (getting less, sig other has moved to smoking outside) alcohol intake: former substance use type: does not use Diet and Exercise during the past year weight has: increased > 10 lbs (with Covid infection) well-balanced diet: about half the time daily servings fruits/ve-1 caffeine: Yes (200mg caffeine) Type(s) of exercise: irregular exercise (will get back to the gym) Assessment & Plan Assessment and plan (1) Colitis: Status: Acute (2) Right sided abdominal pain: Status: Acute (3) S/P section: Problem details: 07/14/2022 Status: Acute (4) Urinary tract infection: Problem details: Two gram negative bacilli identified on preliminary results; ID and sensitivities pending Status: Acute Plan No OB related interventions at this juncture. Will continue to visit with the patient periodically during her hospitalization and will be available for additional consultation should OB related issues arise during her hospitalization. Time Spent With Patient Time with patient: less than 30 minutes Critical Care time: I spent a total of [] minutes of critical care time on this patient's care today; this time is exclusive of procedural time.
[2022-08-07] MEDS: HYDROMORPHONE 0.5 MG INJ IV ×3 (13:16→23:59)
--- NOTE | 2022-08-07 14:54 | PM.PN.1 ---
Subjective Subjective Date Patient Seen: 08/07/22 Time Patient Seen: 08:00 Interval history: She feels better today. She still has pain but it is improving. No nausea, vomiting, or diarrhea. Exam Vital Signs (past 8 hours): - 08/07/22 08:00 08/07/22 08:00 08/07/22 12:00 Temperature 97.6 F 97.8 F Pulse Rate 78 70 Respiratory Rate 18 18 Blood Pressure 95/48 L 101/50 L Pulse Oximetry 97 97 96 Oxygen Delivery Method Room Air Oxygen Flow Rate 0 0 0 Oxygen Delivery Method Room Air Oxygen Flow Rate 0 Narrative Exam Narrative: GEN: no acute distress HEENT: moist mucous membranes, PERRL NECK: trachea midline, no JVD PULM: clear bilaterally, no wheezes, rhonchi, rales CV: regular rate and rhythm, no murmurs ABD: soft, right sided tenderness, no rebound/guarding EXT: warm and well perfused with no edema NEURO: awake, alert, oriented no focal deficits Objective Labs Result Diagrams: 08/07/22 05:25 08/07/22 05:25 Labs: Laboratory Results - last 24 hr 08/07/22 08/07/22 05:25 05:25 WBC 9.1 RBC 4.32 Hgb 11.2 L Hct 34.9 L MCV 80.7 MCH 26.0 MCHC 32.2 RDW 26.3 H Plt Count 271 Neut % (Auto) 71.2 Lymph % (Auto) 20.7 L [place] % (Auto) 5.0 Eos % (Auto) 2.7 Baso % (Auto) 0.4 Neut # (Auto) 6400 Lymph # (Auto) 1900 [place] # (Auto) 500 Eos # (Auto) 200 Baso # (Auto) 0 Platelet Estimate Adequate on smear RBC Morphology See Hypochromasia 1+ H Anisocytosis 2+ H Sodium 139 Potassium 3.0 L Chloride 107 Carbon Dioxide 25 BUN 3 L Creatinine 0.51 L Estimated GFR > 60 BUN/Creatinine Ratio 5.9 L Glucose 109 H Calcium 8.1 L PFSH Medical History Acid reflux Anxiety and depression (~2020) Headache (~2018) Migraine (~2019) Surgical History History of section History of esophagogastroduodenoscopy (EGD) Hx of laparoscopy [place] teeth extracted Family History Mother No pertinent past medical history Father No pertinent past medical history Social History marital status: unmarried,living together (engaged) number of children: 1 household members: significant other and children lives independently: Yes housing: apartment pets and animals: No (aware of Toxoplasmosisi) education level: high school occupational status: employed current occupational exposures/hazards: No special leatha needs: No seatbelt use: always water heater temp set < 120 deg: Yes (will check and turn down if needed) working smoke detector in home: Yes fire extinguisher in home: Yes carbon monox detector in home: Yes firearms in home: Yes (unloaded and hidden) firearms unloaded and locked: No do you feel safe at home: Yes Smoking Status: Never smoker second hand exposure: Yes (getting less, sig other has moved to smoking outside) alcohol intake: former substance use type: does not use during the past year weight has: increased > 10 lbs (with Covid infection) well-balanced diet: about half the time daily servings fruits/ve-1 caffeine: Yes (200mg caffeine) Type(s) of exercise: irregular exercise (will get back to the gym) Assessment & Plan Assessment & Plan narrative: 1. Acute abdominal pain -initial WBC of 17.5, now improving -CT is consistent with colitis -UA consistent with UTI -recent history of endometrititis which is unlikely -consulted Dr. Roper ob-seamless hosiery knitter, no ob-seamless hosiery knitter issues this admission -surgery consult noted no need for surgery -possible could have c diff from recent antibiotics -given recent resistant UTI will order ertapenem -empirically treat for c diff for now with PO vancomycin -SIRS positive with tachycardia and tachypnea -send GI panel and c diff pcr -follow up blood and urine cultures -wean down IV dilaudid 2. Hypokalemia -replete IV for now Patient has severe abdominal pain, has had antibiotic resistant UTI recently and under treated her infection by inconsistent antibiotic use. She has failed oral antibiotics. Time Spent With Patient Critical Care time: I spent a total of [] minutes of critical care time on this patient's care today; this time is exclusive of procedural time.
--- NOTE | 2022-08-07 15:38 | PC.NURSE ---
Addendum entered by Carolyn Hayward R.N. 08/07/22 19:45: Late entry-Spoke to Dr. Edouard to notify and he states, oral solution, tablets, or IV potassium, if patient continue to refuse educate about dietary potassium intake. Pt declined potassium oral solution, see MAR, she states, can not swallow pills already tried and does not want IV potassium. Educated pt about dietary sources of potassium per Dr. Edouard. Original Note: Late entry- Pt states, about 1 hour after potassium threw it up in the trash can, what other options do I have. Educated pt about potassium tablets, solution, and IV potassium. Will discuss with Dr. Edouard options for potassium replacement.
[2022-08-07] MEDS: OXYCODONE IR 5 MG TABLET PO ×2 (16:10→20:35)
[2022-08-07] MEDS: ERTAPENEM 1 GM in SODIUM CHLORIDE 0.9% 100 ML IV (16:11)
[2022-08-07 18:07] LABS: Clostridium Difficile Tox PCR Positive for C. diff (Negative)
[2022-08-08] VITALS: O2SAT 100
[2022-08-08] MEDS: METOCLOPRAMIDE 10 MG/2 ML INJ 5 MG IV ×2 (00:47→09:39)
[2022-08-08 02:40] VITALS: BMI 20.6
[2022-08-08 03:00] VITALS: BP 90/50; PULSE 68; RESP 16; TEMP 36.9; O2SAT 95
[2022-08-08] MEDS: OXYCODONE IR 5 MG TABLET PO ×2 (03:39→08:26)
[2022-08-08 04:00] VITALS: O2SAT 96
[2022-08-08] MEDS: SODIUM CHLORIDE 0.9% 500 ML 1000 ML IV (04:05)
[2022-08-08 06:36] LABS: BUN Creatinine Ratio 7.7 (6-22); Blood Urea Nitrogen 4 mg/dL (7-17); Calcium 8.1 mg/dL (8.4-10.2); Carbon Dioxide 27 mmol/L (22-32); Chloride 105 mmol/L (98-107); Estimated Glomerular Filt Rate > 60 mL/min (>60); Glucose 84 mg/dL (70-100); HEMOLYSIS < 15 (0-50); Potassium 3.3 mmol/L (3.4-5.1); Sodium 139 mmol/L (137-145)
[2022-08-08 06:38] LABS: Magnesium 1.9 mg/dL (1.6-2.3)
[2022-08-08 07:00] VITALS: BP 103/54; PULSE 63; RESP 18; TEMP 36.4; O2SAT 95
[2022-08-08 08:00] VITALS: O2SAT 95
[2022-08-08] MEDS: ENOXAPARIN 40 MG/0.4 ML SYRINGE SUBCUT (08:26)
[2022-08-08] MEDS: FIDAXOMICIN 200 MG TABLET PO (08:27)
--- NOTE | 2022-08-08 09:28 | P.DS_ITS ---
History of Present Illness History of Present Illness Chief complaint: pain rt. lower abd./post 07/14 Narrative: Ms. Bull is a 26W with recent delivery by on 07/14/22 who had significant complication with possible endometritis, UTI, hydronephrosis and bilateral stents placed who comes in with abdominal pain.. She was discharged home doing well with abdominal pain resolved. She saw urology who removed the stents. She was found to have a resistant UTI during that visit just over a week ago. She still has antibiotics from discharge and from this urology visit. She has taken 4 days of UTI treatment in over a week. She has missed at least doses of antibiotics for her endometritis. She states she has difficulty with regularly taking medications. Her abdominal pain is on the right side. She has vaginal bleeding which is improving since discharge from the hospital. Her abdominal pain started all of a sudden while seated within the last day. She had formed bowel movement. No dysuria, cough, vomiting, shortness of breath, no fevers, chest pain. In the ED workup was done, vitals notable for blood pressure 100s/50s. Labs notable for WBC 17.5, hgb 13.9, plts 379. Creatinine 0.59. Lactate 1.8. Procal 0.04. Ua with 5-10 WBC, few bacteria. Flu, covid negative. CT scan shows concern for possible ascending colitis. Ob-obstetrics gynecology md notified in ED who noted that her imaging is more consistent with improving uterus. She was ordered for antibiotics and admitted for further treatment. Discharge Providers Provider Date of admission: 08/06/22 13:56 Discharge Date: 08/08/22 Primary care physician: Boo Booth MD Consults: 08/06/22 11:12 Consult to General Surgery Stat Comment: Consulting Provider: Ayesha Ovalle Reason for consultation: acute abdomen, colitis, Gb sludge, prior endomyometritis, Consult to Obstetrics Stat Comment: Consulting Provider: Mohsen Roper Reason for consultation: acute abdomen, prior endomyometritis Discharge provider: Chalo Edouard MD Summary Hospital Course Discharge Diagnosis: 1. UTI 2. Colitis 3. Hypokalemia 4. Recent complicated by endomyemetritis, hydronephrois with ureteral stents since removed Hospital Course: Ms. Bull was admitted with abdominal pain. She had developed a resistant UTI prior to admission but irregularly took her antibiotics. She had urine culture with two gram negative bacteria both sensitive to levofloxacin. She had colitis noted on right colon. She improved with antibiotics. She is discharged with levofloxacin for 7 days and strongly encouraged to take her medications as prescribed. Exam Vital Signs (past 8 hours): Oxygen Delivery Method Room Air Oxygen Flow Rate 0 Objective Labs Result Diagrams: 08/07/22 05:25 08/08/22 05:49 Labs: Laboratory Results - last 24 hr 08/06/22 13:45 C. diff Toxin A&B (EIA) Positive A [facility] Medical History Acid reflux Anxiety and depression (~2020) Headache (~2018) Migraine (~2019) Surgical History History of section History of esophagogastroduodenoscopy (EGD) Hx of laparoscopy [place] teeth extracted Family History Mother No pertinent past medical history Father No pertinent past medical history Social History marital status: unmarried,living together (engaged) number of children: 1 household members: significant other and children lives independently: Yes housing: apartment pets and animals: No (aware of Toxoplasmosisi) education level: high school occupational status: employed current occupational exposures/hazards: No special leatha needs: No seatbelt use: always water heater temp set < 120 deg: Yes (will check and turn down if needed) working smoke detector in home: Yes fire extinguisher in home: Yes carbon monox detector in home: Yes firearms in home: Yes (unloaded and hidden) firearms unloaded and locked: No do you feel safe at home: Yes Smoking Status: Never smoker second hand exposure: Yes (getting less, sig other has moved to smoking outside) alcohol intake: former substance use type: does not use during the past year weight has: increased > 10 lbs (with Covid infection) well-balanced diet: about half the time daily servings fruits/ve-1 caffeine: Yes (200mg caffeine) Type(s) of exercise: irregular exercise (will get back to the gym) Discharge Plan Discharge Plan Patient Disposition: Home Provider Discharge Comment: Ms. Bull came in to the hospital with abdominal pain. She had a colitis and urine infection. She felt better with antibiotics. To completely treat this infection please take this antibiotic once a day every single day. Please follow up with your PCP this week. Discharge orders & Medications Prescriptions: New oxycodone 5 mg Tablet 5 mg PO Q6H PRN (Reason: Pain, Moderate (4-6)) Qty: 12 0RF levofloxacin 750 mg tablet 750 mg PO DAILY Qty: 7 0RF Continued Ubrelvy 100 mg tablet 100 mg PO ONCE PRN (Reason: Migraine Headache) Hold Instructions: Rx Instructions: as a single dose; may repeat once in >=2 hours after first dose if needed losartan 25 mg Tablet 12.5 mg PO DAILY Qty: 30 3RF metoprolol tartrate 25 mg Tablet 12.5 mg PO BID Qty: 30 3RF Follow up/Referrals: Boo Booth MD [Primary Care Provider] - 3-5 Days (recently hospitalized endometritis, UTI, not taking antibiotics consistently, back with infectious colitis/UTI) Diet/Activity/Treatments Diet: Regular Discharge Data Primary Care Provider: Boo Booth
--- NOTE | 2022-08-08 11:16 | PM.CALLCOV.1 ---
Call Coverage Note Note Date of Patient Contact: 08/08/22 Narrative of Care Provided: Chart reviewed. Surgery will sign off. No follow up needed.
--- NOTE | 2022-08-08 12:24 | PC.NURSE ---
Pt is A&OX 3, on RA, VSS, afebrile. She expresses lower abdominal pain this a.m. 03/23 which she states is controlled with prn oxycodone. She is able to ambulate independently to the BR and able to tolerate liquids and a.m. medications however she reports c/o nausea and is unable to tolerate breakfast. She is given prn zofran with good effect. MD at bedside evaluating patient and she is cleared to discharge home on oral antibiotics. She acknowledges understanding of medications, activity and follow up care importance. She is agreeable to discharge plan and antibiotics as well as following up with her PCP this week (explained that her appointment should be expedited for follow up). Her spouse arrives this a.m. to transport patient home. She is escorted to entrance via w/ch to private vehicle for discharge home with all of her belongings at approximately 1120 this a.m.
[2022-08-09 16:29] LABS: C difficie Toxins A and B, EIA Positive (Negative)
== END 2022-08-08 11:23 | disposition home or self-care (01) | DRG 561 ==
LOC: ED 07:17 → AC 13:57
PROVIDERS: Emergency Medicine; Admitting Provider Internal Medicine; Emergency Provider Emergency Medicine; PCP Family Medicine; Referring Provider Emergency Medicine; Visit Provider Internal Medicine
DX: O90.89 Other complications of the puerperium, not elsewhere classified (principal); A09 Infectious gastroenteritis and colitis, unspecified; N39.0 Urinary tract infection, site not specified; E87.6 Hypokalemia; O86.20 Urinary tract infection following delivery, unspecified; G43.909 Migraine, unspecified, not intractable, without status migrainosus; Z20.822 Contact with and (suspected) exposure to COVID-19
CPT/HCPCS: 0241U; 36415; 74177; 76705; 76830; 76856; 80048; 80053; 81001; 83605; 83735; 84145; 85025; 87040; 87077; 87086; 87186; 87324; 87493; 96365; 96367; 96375; 99231; 99232; 99284; J1170; J1200; J1335; J1650; J2405; J2543; J2765; Q9967

== ENCOUNTER 2022-08-14 19:31 | Emergency (ER) | payer OTHER, MEDICAID, SELFPAY ==
[2022-08-14] VITALS (7 sets, daily range): BP systolic 99–116; BP diastolic 58–74; PULSE 45–84; RESP 16; TEMP 36.9; O2SAT 96–99; BMI 20.1
[2022-08-14] MEDS: SODIUM CHLORIDE 0.9% 1,000 ML 1000 ML IV (20:27)
[2022-08-14] MEDS: ONDANSETRON 4 MG/2 ML INJ IV (20:29)
[2022-08-14 20:48] LABS: Alanine Aminotransferase 19 IU/L (<35); Albumin 4.2 g/dL (3.5-5.0); Albumin Globulin Ratio 1.2 (1.0-2.8); Alkaline Phosphatase 147 U/L (38-126); Aspartate Aminotransferase 26 IU/L (14-36); BUN Creatinine Ratio 14.8 (6-22); Bilirubin Total 0.7 mg/dL (0.2-1.3); Blood Urea Nitrogen 9 mg/dL (7-17); Calcium 9.1 mg/dL (8.4-10.2); Carbon Dioxide 28 mmol/L (22-32); Chloride 105 mmol/L (98-107); Estimated Glomerular Filt Rate > 60 mL/min (>60); Globulin 3.6 g/dL (1.7-4.1); Glucose 90 mg/dL (70-100); HEMOLYSIS 49 (0-50); Potassium 3.8 mmol/L (3.4-5.1); Sodium 142 mmol/L (137-145); Total Protein 7.8 g/dL (6.3-8.2)
[2022-08-14 20:51] LABS: Add Manual Diff / Slide Review NO; Basophils Absolute Auto 100 /uL (0-100); Basophils Percent Auto 0.5 % (0-2); Eosinophils Absolute Auto 200 /uL (0-450); Eosinophils Percent Auto 1.8 % (2-4); Hematocrit 43.6 % (36-46); Hemoglobin 14.4 g/dL (12.0-16.0); Lymphocytes Absolute Auto 2200 /uL (1100-4500); Lymphocytes Percent Auto 22.1 % (25-40); Mean Corpuscular Hemoglobin 26.6 PG (26-34); Mean Corpuscular Volume 80.6 fL (80-100); Monocytes Absolute Auto 400 /uL (0-900); Monocytes Percent Auto 3.6 % (3-14); Neutrophils Absolute Auto 7300 /uL (1500-7000); Platelet Count 387 X10^3/uL (150-400); Red Blood Cell Count 5.41 X10^6/uL (4.0-5.2); White Blood Cell Count 10.1 X10^3/uL (4.5-11.0)
[2022-08-14 21:05] LABS: Appearance Urine UA CLEAR; Bilirubin Urine UA NEGATIVE (NEGATIVE); Color Urine UA YELLOW; Glucose Urine UA NEGATIVE (Negative); Ketones Urine UA NEGATIVE (NEGATIVE); Leukocyte Esterase Urine UA 1+ (NEGATIVE); Nitrite Urine UA NEGATIVE (Negative); Occult Blood Urine UA 1+ (Negative); Protein Urine UA TRACE (Negative); Specific Gravity Urine UA 1.025 (1.000-1.035); Urobilinogen Urine UA 0.2 E.U./dL (0.2)
[2022-08-14 21:14] LABS: Anisocytosis 1+; Target Cells 1+
[2022-08-14 21:45] LABS: Lipase 48 U/L (23-300)
[2022-08-14 22:04] LABS: RBC Urine 1-5/HPF (0-5/HPF); WBC Urine 1-5/HPF (0-5/HPF)
[2022-08-14 22:05] LABS: Bacteria Urine Few (2-10); Culture Indicated Urine Specimen Cultured; Mucus Urine 1+ (Negative); Squamous Epithelial Cell Urine 1-5 /HPF (0-5/HPF)
--- NOTE | 2022-08-14 22:13 | ED.NAVMDI ---
HPI - Nausea/Vomiting/Diarrhea General Chief complaint: Nausea/Vomiting/Diarrhea Stated complaint: vomiting/aching/dizzy Time Seen by Provider: 08/14/22 21:27 Source: patient Mode of arrival: Ambulatory Limitations: no limitations History of Present Illness HPI Narrative: This is a 26-year-old female with recent delivery by on 07/14/2022 who developed endometritis, UTI and hydronephrosis and bilateral stents which were placed she was discharged after her abdominal pain resolved she had her stents removed found have a resistant UTI during that visit. She returned to the emergency department on 08/06/2022 and was found to have recurrent infection with concern, UTI/pyelonephritis, hypokalemia and was found to be C diff positive on the 09 August but is not currently on any medications other than Levaquin for her UTI which had to bacteria both sensitive to Levaquin. Patient states she is been feeling better until the last several days started having nausea and vomiting she is been able to take some fluids but minimal, she has not been able to tolerate solids. She denies active fevers but states she feels very unwell in general. She denies chest pain or shortness breath. She states she is having any recurrence of abdominal pain, no new urinary symptoms. She is having some persistent diarrhea. Patient states she is also feeling very dizzy and lightheaded this evening. Related Data Home Medications Medication Instructions Recorded Confirmed ubrogepant 100 mg tablet (Ubrelvy) 100 mg PO ONCE PRN Migraine 11/11/21 08/06/22 Headache Previous Rx's Medication Instructions Recorded losartan 25 mg tablet 12.5 mg PO DAILY #30 tabs 07/19/22 metoprolol tartrate 25 mg tablet 12.5 mg PO BID #30 tabs 07/19/22 levofloxacin 750 mg tablet 750 mg PO DAILY #7 tabs 08/08/22 oxycodone 5 mg tablet 5 mg PO Q6H PRN Pain, Moderate 08/08/22 (4-6) #12 tabs fidaxomicin 200 mg tablet (Dificid) 200 mg PO BID 14 days #28 tabs 08/15/22 lorazepam 0.5 mg tablet (Ativan) 0.5 mg PO TID PRN nausea and 08/15/22 vomiting #5 tabs Allergies Allergy/AdvReac Type Severity Reaction Status Date / Time vancomycin Allergy Intermediate Rash Verified 08/06/22 15:30 Review of Systems Review of Systems ROS Unobtainable: All systems reviewed & are unremarkable except as noted in HPI and below Patient History Medical History Acid reflux Anxiety and depression (~2020) Headache (~2018) Migraine (~2019) Surgical History History of section History of esophagogastroduodenoscopy (EGD) Hx of laparoscopy [place] teeth extracted Family History Mother No pertinent past medical history Father No pertinent past medical history Social History marital status: unmarried,living together (engaged) number of children: 1 household members: significant other and children lives independently: Yes housing: apartment pets and animals: No (aware of Toxoplasmosisi) education level: high school occupational status: employed current occupational exposures/hazards: No special leatha needs: No seatbelt use: always water heater temp set < 120 deg: Yes (will check and turn down if needed) working smoke detector in home: Yes fire extinguisher in home: Yes carbon monox detector in home: Yes firearms in home: Yes (unloaded and hidden) firearms unloaded and locked: No do you feel safe at home: Yes Smoking Status: Never smoker second hand exposure: Yes (getting less, sig other has moved to smoking outside) alcohol intake: former substance use type: does not use during the past year weight has: increased > 10 lbs (with Covid infection) well-balanced diet: about half the time daily servings fruits/ve-1 caffeine: Yes (200mg caffeine) Type(s) of exercise: irregular exercise (will get back to the gym) Smoking Status: Never smoker alcohol intake frequency: holidays/special occasions only Substance Use Type: does not use Exam Narrative Exam Narrative: GENERAL: Alert and oriented x three, female in mild distress. HEENT: Head normocephalic, atraumatic, EOMI, pupils reactive, face symmetric, moist mucous membranes NECK: Supple, full range of motion CARDIOVASCULAR: Regular rate and rhythm without murmurs, rubs or gallops. RESPIRATORY: Breath sounds equal bilaterally, no wheezes rales or rhonchi. ABDOMEN: Soft, nontender. Normoactive bowel sounds all 4 quadrants. No guarding or rebound, rigidity, no mass : No CVA tenderness EXTREMITIES: Normal range of motion, no clubbing or edema. Neurovascularly intact NEUROLOGICAL: Cranial nerves II through XII grossly intact. Moving all extremities SKIN: Warm, dry, no petechiae, no rashes or lesions. Initial Vital Signs Initial Vital Signs: Vital Signs Temperature 98.4 F 08/14/22 19:34 Pulse Rate 84 08/14/22 19:34 Respiratory Rate 16 08/14/22 19:34 Blood Pressure 99/58 L 08/14/22 19:34 Pulse Oximetry 96 08/14/22 19:34 Oxygen Delivery Method 08/14/22 19:34 Course Orders Ordered: ED Orders 08/14/22 20:00 Complete Blood Count AUTO DIFF Stat Comprehensive Metabolic Panel Stat Lactate (Lactic Acid) Stat Lipase Stat 08/14/22 21:00 Urinalysis and Microscopic Stat Urine Culture Stat 08/14/22 21:29 Blood Culture Stat 08/14/22 22:00 Covid-19 + FLU A/B + RSV - PCR Stat 08/14/22 22:31 CT abdomen pelvis w con Stat Discontinued Medications Sodium Chloride (Normal Saline 0.9%) 1,000 mls @ 1,000 mls/hr IV BOLUS ONE Stop: 08/14/22 20:48 Last Infusion: 08/14/22 22:02 Dose: 0 mls/hr Documented By: Admin: 08/14/22 20:27 Dose: 1,000 mls/hr Documented By: YAQUELIN Sodium Chloride (Normal Saline 0.9%) 1,000 mls @ 1,000 mls/hr IV BOLUS ONE Stop: 08/14/22 23:10 Last Admin: 08/14/22 22:26 Dose: Not Given Documented By: SB Lorazepam (Lorazepam 2 Mg/Ml Inj) 0.5 mg IV NOW ONE Stop: 08/15/22 00:04 Last Admin: 08/15/22 00:21 Dose: 0.5 mg Documented By: SB Metoclopramide HCl (Metoclopramide 10 Mg/2 Ml Inj) 10 mg IV NOW ONE Stop: 08/14/22 22:32 Last Admin: 08/14/22 22:56 Dose: 10 mg Documented By: JAYDON Ondansetron HCl (Ondansetron 4 Mg/2 Ml Inj) 4 mg IV NOW ONE Stop: 08/14/22 19:50 Last Admin: 08/14/22 20:29 Dose: 4 mg Documented By: YAQUELIN Ondansetron HCl (Ondansetron 4 Mg Odt Prepack) 1 bottle MISC SEEINSTR ONE Stop: 08/15/22 01:44 Last Admin: 08/15/22 01:45 Dose: 1 bottle Documented By: JAYDON Consultations Consultation #1: Dr. 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 Consultation #2: Dr. Edouard, hospitalist discussed patient should likely have finished her Levaquin at this point. He states he had initially order coverage for Cdiff, discussed observation for persistent dry heaving and vomiting, labs are normal, CT is improving, patient is having some persistent diarrhea. He will see patient in the department Time: 00:56 Vital Signs Vital signs: Vital Signs - 8 hr 08/14/22 21:53 08/14/22 21:55 08/14/22 21:55 Pulse Rate 52 L 51 L Blood Pressure 114/67 Pulse Oximetry 96 99 Oxygen Delivery Method 08/14/22 22:00 08/14/22 22:00 08/14/22 22:30 Pulse Rate 48 L Blood Pressure 116/70 115/74 Pulse Oximetry 99 Oxygen Delivery Method Room Air 08/14/22 22:30 08/14/22 23:00 08/14/22 23:00 Pulse Rate 63 50 L Blood Pressure 112/71 Pulse Oximetry 98 98 Oxygen Delivery Method 08/14/22 23:30 08/14/22 23:30 08/15/22 00:27 Pulse Rate 45 L Blood Pressure 110/61 116/68 Pulse Oximetry 96 Oxygen Delivery Method 08/15/22 00:27 08/15/22 00:30 08/15/22 01:00 Pulse Rate 66 64 50 L Blood Pressure Pulse Oximetry 97 97 96 Oxygen Delivery Method 08/15/22 01:30 08/15/22 01:36 08/15/22 01:36 Pulse Rate 58 L 79 Blood Pressure 126/71 Pulse Oximetry 96 96 Oxygen Delivery Method MDM - Nausea/Vomiting/Diarrhea Lab Data Result diagrams: 08/14/22 20:00 08/14/22 20:00 Labs: Lab Results 08/14/22 08/14/22 08/14/22 Range/Units 20:00 20:00 20:00 WBC 10.1 (4.5-11.0) X10^3/uL RBC 5.41 H (4.0-5.2) X10^6/uL Hgb 14.4 (12.0-16.0) g/dL Hct 43.6 (36-46) % MCV 80.6 (80-100) fL MCH 26.6 (26-34) PG MCHC 33.0 (30-36) % RDW 26.0 H (11.6-14.8) % Plt Count 387 (150-400) X10^3/uL Neut % (Auto) 72.0 (50-75) % Lymph % (Auto) 22.1 L (25-40) % [place] % (Auto) 3.6 (3-14) % Eos % (Auto) 1.8 L (2-4) % Baso % (Auto) 0.5 (0-2) % Neut # (Auto) 7300 H (8199-6995) /uL Lymph # (Auto) 2200 (6044-0260) /uL [place] # (Auto) 400 (0-900) /uL Eos # (Auto) 200 (0-450) /uL Baso # (Auto) 100 (0-100) /uL RBC Morphology See below Anisocytosis 1+ H Target Cells 1+ H Sodium 142 (137-145) mmol/L Potassium 3.8 (3.4-5.1) mmol/L Chloride 105 (98-107) mmol/L Carbon Dioxide 28 (22-32) mmol/L BUN 9 (7-17) mg/dL Creatinine 0.61 (0.52-1.04) mg/dL Estimated GFR > 60 (>60) mL/min BUN/Creatinine Ratio 14.8 (6-22) Glucose 90 (70-100) mg/dL Lactate (0.7-2.1) mmol/L Calcium 9.1 (8.4-10.2) mg/dL Total Bilirubin 0.7 (0.2-1.3) mg/dL AST 26 (14-36) IU/L ALT 19 (<35) IU/L Alkaline Phosphatase 147 H (38-126) U/L Total Protein 7.8 (6.3-8.2) g/dL Albumin 4.2 (3.5-5.0) g/dL Globulin 3.6 (1.7-4.1) g/dL Albumin/Globulin Ratio 1.2 (1.0-2.8) Lipase 48 (23-300) U/L Urine Color Urine Appearance Urine pH (4.5-8.0) Ur Specific [place] (1.000-1.035) Urine Protein (Negative) Urine Glucose (UA) (Negative) g/dL Urine Ketones (NEGATIVE) Urine Occult Blood (Negative) Urine Nitrate (Negative) Urine Bilirubin (NEGATIVE) Urine Urobilinogen (0.2) E.U./dL Ur Leukocyte Esterase (NEGATIVE) Urine RBC (0-5/HPF) Urine WBC (0-5/HPF) Ur Squamous Epith Cells (0-5/HPF) Urine Bacteria (None) Urine Mucus (Negative) Ur Culture Indicated? SARS-CoV-2 (PCR) (Negative) Influenza A (RT-PCR) (NEGATIVE) Influenza B (RT-PCR) (NEGATIVE) RSV (PCR) (Negative) 08/14/22 08/14/22 08/14/22 Range/Units 20:00 21:00 22:00 WBC (4.5-11.0) X10^3/uL RBC (4.0-5.2) X10^6/uL Hgb (12.0-16.0) g/dL Hct (36-46) % MCV (80-100) fL MCH (26-34) PG MCHC (30-36) % RDW (11.6-14.8) % Plt Count (150-400) X10^3/uL Neut % (Auto) (50-75) % Lymph % (Auto) (25-40) % [place] % (Auto) (3-14) % Eos % (Auto) (2-4) % Baso % (Auto) (0-2) % Neut # (Auto) (1713-8562) /uL Lymph # (Auto) (8576-1936) /uL [place] # (Auto) (0-900) /uL Eos # (Auto) (0-450) /uL Baso # (Auto) (0-100) /uL RBC Morphology Anisocytosis Target Cells Sodium (137-145) mmol/L Potassium (3.4-5.1) mmol/L Chloride (98-107) mmol/L Carbon Dioxide (22-32) mmol/L BUN (7-17) mg/dL Creatinine (0.52-1.04) mg/dL Estimated GFR (>60) mL/min BUN/Creatinine Ratio (6-22) Glucose (70-100) mg/dL Lactate 0.9 (0.7-2.1) mmol/L Calcium (8.4-10.2) mg/dL Total Bilirubin (0.2-1.3) mg/dL AST (14-36) IU/L ALT (<35) IU/L Alkaline Phosphatase (38-126) U/L Total Protein (6.3-8.2) g/dL Albumin (3.5-5.0) g/dL Globulin (1.7-4.1) g/dL Albumin/Globulin Ratio (1.0-2.8) Lipase (23-300) U/L Urine Color Yellow Urine Appearance Clear Urine pH 5.0 (4.5-8.0) Ur Specific [place] 1.025 (1.000-1.035) Urine Protein Trace H (Negative) Urine Glucose (UA) Negative (Negative) g/dL Urine Ketones Negative (NEGATIVE) Urine Occult Blood 1+ H (Negative) Urine Nitrate Negative (Negative) Urine Bilirubin Negative (NEGATIVE) Urine Urobilinogen 0.2 (0.2) E.U./dL Ur Leukocyte Esterase 1+ H (NEGATIVE) Urine RBC 1-5/hpf (0-5/HPF) Urine WBC 1-5/hpf (0-5/HPF) Ur Squamous Epith Cells 1-5 /hpf (0-5/HPF) Urine Bacteria Few (2-10) H (None) Urine Mucus 1+ H (Negative) Ur Culture Indicated? Specimen cultured SARS-CoV-2 (PCR) Negative (Negative) Influenza A (RT-PCR) Flu a negative (NEGATIVE) Influenza B (RT-PCR) Flu b negative (NEGATIVE) RSV (PCR) Negative (Negative) Imaging Data CT scan - abdomen/pelvis: Radiologist's Impression: Close Abdomen/Pelvis CT (Signed) Rylan Camarena - 08/14/22 Launch?Image [address] [address] [address] Scan Report Signed Patient: Sandra Bull MR#: [id number] : 1995 Acct:[id number] Age/Sex: 26 / F Date of Service: 08/14/22 Loc: ED Accession Number: [id number] ?? Procedure: CT abdomen pelvis w con Ordering Provider: Nakita Mahtews D.O. PROCEDURE:? CT ABDOMEN PELVIS W CON ? INDICATIONS:? dizzy, n/v, recent endometritis, +Cdiff, prior hydro ? TECHNIQUE:? After the administration of oral and IV contrast, axial sections were acquired from the lung bases to the pubic symphysis.? Coronal and sagittal reformats were performed.? For radiation dose reduction, the following was used:? automated exposure control, adjustment of mA and/or kV according to patient size. ? COMPARISON:? [facility], CT, CT ABDOMEN PELVIS WO CON, 07/15/2022, 9:06.? [facility], , US PELVIC COMPLETE, 08/06/2022, 8:03.? [facility], , US ABDOMEN LIMITED, 08/06/2022, 7:44.? [facility], CT, CT ABDOMEN PELVIS W CON, 08/06/2022, 5:31. ? FINDINGS:? Image quality:? Excellent.? ? Lung bases:? Unremarkable.? ? Heart:? No significant findings. ? ? ABDOMEN: Liver:? Unremarkable.? ? Gallbladder:? Layering hyperdense material is seen within the gallbladder, which is similar to the prior CT. Biliary ducts:? Unremarkable.? ? Pancreas:? Unremarkable.? ? Spleen:? Unremarkable.? ? Adrenal Glands:? Unremarkable.? ? Kidneys and Ureters:? There is a cyst seen along the posterior aspect of the left kidney measuring 1 cm.? The kidneys demonstrate normal size and enhance symmetrically.? There is no hydronephrosis. ? Stomach and Bowel:? In this patient with this given history, scrutiny is given to the colon.? No significant colonic abnormality is seen.? The distal colon is decompressed. No dilated loops of small bowel are seen. The stomach is relatively decompressed. Peritoneum:? No abnormal intraperitoneal fluid.? No free air.? ? Ventral Wall: ? No hernia.? Abdominal Nodes:? No retroperitoneal or mesenteric adenopathy by size criteria.? Vessels:? Aorta and inferior vena cava are normal in size.? ? PELVIS: Pelvic Organs:? The uterus demonstrates an improved appearance compared to 08/06/2022, which appears less distended, with no significant residual material within the endometrial cavity.? The cervix appears inflamed and irregular.? Cystic changes are seen of the adnexal regions, which are also improved compared to the prior examination and likely within physiologic limits.? No adnexal masses are seen on either side.? Bladder:? Unremarkable.? ? Pelvic Nodes: No enlarged lymph nodes.? Miscellaneous: No inguinal hernias are seen. ? ? ? Bones:? Mild levoconvex scoliotic curvature is noted.? ? ? IMPRESSION:? No hydronephrosis is now seen. ? Improved appearance of the uterus, now without significant abnormal material along the endometrial stripe.? However, there is again seen inflammatory change and irregularity of the cervical region. ? Cystic changes of the ovaries, which are also improved compared to the prior, and likely now within physiologic limits. ? No significant abnormality of the colon is now seen. ? Additional findings: Gallbladder sludge Simple appearing left renal cyst Levoconvex scoliotic curvature ? Dictated by: Rylan Camarena M.D. on 08/14/2022 at 22:21 ? ? Approved by: Rylan Camarena M.D. on 08/14/2022 at 22:31?? ECG Data Attestation: I personally reviewed and interpreted this ECG as follows: Interpretation: Sinus bradycardia, marked sinus arrhythmia rate of 43 AK 154 QRS is 76 and QTC 427. No acute ST elevation patient has similar ST as EKG from 07/15/2022 although rate was in the 90s today was 43 on EKG. MDM Narrative Medical decision making narrative: This is a 26-year-old female who has had recent difficult . With endometritis followed by colitis and hydronephrosis had ureteral stents placed and removed and had developed a UTI is currently on Levaquin and was found to have C diff on 1227 but is not currently on treatment. Patient's initial labs CBC, CMP, lipase are negative urine shows leuks, nitrite negative with 1-5 RBCs, 1-5 WBCs 1-5 squamous epithelium few bacteria. Cultures sent. Patient's flu/RSV/COVID is currently pending. Patient does have a positive C diff from 08/06/2022 which could be contributing to her symptoms. CT abdomen pelvis was obtained to evaluate for colitis, megacolon, pyelonephritis, renal stones or other causes. Heart rate occasionally dips down into the 40s, EKG shows bradycardia but no other acute ST changes. Patient's blood pressures been in the 90s to 100 range she feels dizzy but this is her normal range for her blood pressure. Heart rate has been variable 40s to 90s, will continue patient on telemetry. Patient was given IV fluids, Zofran still feels quite nauseated tried Reglan, will continue to monitor. Patient had some persistent dry heaving, given a dose of Ativan in the department. CT imaging appears improved there still some inflammation of the cervix, colon also appears improved. Patient felt she could not tolerate orals at home but after some further time and was seen by Dr. Edouard, hospitalist patient elects to return home. She and I discussed coverage for C Diff infection and was tolerating deficit in the hospital, she elects to continue this, she did find the Ativan helpful and will give a short course of several tablets. Precautions she does have a young baby at home. And we discussed return precautions with patient as well as at bedside. Discharge Plan Departure Patient Disposition: Home Clinical Impression: Vomiting, C. difficile diarrhea Activity Restrictions/Additional Instructions: Hope you continue to feel better. You can take 0.5 mg of Ativan every 8 hours as needed for nausea. This medication can make you sleepy so make sure that someone is with you when you are taking this medication and holding or being with your baby. Take fidaxomicin twice daily until gone. This medication is for C difficile infection in your colon. Prescription sent to [facility] in [place]. Please return for fevers, new or worsening abdominal pain, persistent vomiting, black or bloody stools, passing out or other new or concerning changes. Prescriptions: New Dificid 200 mg tablet 200 mg PO BID 14 Days Qty: 28 0RF lorazepam [Ativan] 0.5 mg tablet 0.5 mg PO TID PRN (Reason: nausea and vomiting) Qty: 5 0RF No Action Ubrelvy 100 mg tablet 100 mg PO ONCE PRN (Reason: Migraine Headache) Hold Instructions: Rx Instructions: as a single dose; may repeat once in >=2 hours after first dose if needed oxycodone 5 mg Tablet 5 mg PO Q6H PRN (Reason: Pain, Moderate (4-6)) Qty: 12 0RF levofloxacin 750 mg tablet 750 mg PO DAILY Qty: 7 0RF losartan 25 mg Tablet 12.5 mg PO DAILY Qty: 30 3RF metoprolol tartrate 25 mg Tablet 12.5 mg PO BID Qty: 30 3RF Referrals: Boo Booth MD [Primary Care Provider] -
[2022-08-14 22:23] LABS: Lactate (Lactic Acid) 0.9 mmol/L (0.7-2.1)
--- NOTE | 2022-08-14 22:30 | PC.NURSE ---
Pt reports N&V, generalized body aches, lightheadedness and dizziness since yesterday, with persistent diarrhea for a while. Recent history of C diff, , and UTI. Pt also had complications after and reports being septic. Pt also states she was told she had an enlarged heart. Provider aware. 2225: Pt reporting increased dizziness and nausea. Provider aware.
--- NOTE | 2022-08-14 22:31 | DI.CT.S_ITS ---
PROCEDURE: CT ABDOMEN PELVIS W CON INDICATIONS: dizzy, n/v, recent endometritis, +Cdiff, prior hydro TECHNIQUE: After the administration of oral and IV contrast, axial sections were acquired from the lung bases to the pubic symphysis. Coronal and sagittal reformats were performed. For radiation dose reduction, the following was used: automated exposure control, adjustment of mA and/or kV according to patient size. COMPARISON: [facility], CT, CT ABDOMEN PELVIS WO CON, 07/15/2022, 9:06. [facility], US, US PELVIC COMPLETE, 08/06/2022, 8:03. [facility], US, US ABDOMEN LIMITED, 08/06/2022, 7:44. [facility], CT, CT ABDOMEN PELVIS W CON, 08/06/2022, 5:31. FINDINGS: Image quality: Excellent. Lung bases: Unremarkable. Heart: No significant findings. ABDOMEN: Liver: Unremarkable. Gallbladder: Layering hyperdense material is seen within the gallbladder, which is similar to the prior CT. Biliary ducts: Unremarkable. Pancreas: Unremarkable. Spleen: Unremarkable. Adrenal Glands: Unremarkable. Kidneys and Ureters: There is a cyst seen along the posterior aspect of the left kidney measuring 1 cm. The kidneys demonstrate normal size and enhance symmetrically. There is no hydronephrosis. Stomach and Bowel: In this patient with this given history, scrutiny is given to the colon. No significant colonic abnormality is seen. The distal colon is decompressed. No dilated loops of small bowel are seen. The stomach is relatively decompressed. Peritoneum: No abnormal intraperitoneal fluid. No free air. Ventral Wall: No hernia. Abdominal Nodes: No retroperitoneal or mesenteric adenopathy by size criteria. Vessels: Aorta and inferior vena cava are normal in size. PELVIS: Pelvic Organs: The uterus demonstrates an improved appearance compared to 08/06/2022, which appears less distended, with no significant residual material within the endometrial cavity. The cervix appears inflamed and irregular. Cystic changes are seen of the adnexal regions, which are also improved compared to the prior examination and likely within physiologic limits. No adnexal masses are seen on either side. Bladder: Unremarkable. Pelvic Nodes: No enlarged lymph nodes. Miscellaneous: No inguinal hernias are seen. Bones: Mild levoconvex scoliotic curvature is noted. IMPRESSION: No hydronephrosis is now seen. Improved appearance of the uterus, now without significant abnormal material along the endometrial stripe. However, there is again seen inflammatory change and irregularity of the cervical region. Cystic changes of the ovaries, which are also improved compared to the prior, and likely now within physiologic limits. No significant abnormality of the colon is now seen. Additional findings: Gallbladder sludge Simple appearing left renal cyst Levoconvex scoliotic curvature Dictated by: Rylan Camarena M.D. on 08/14/2022 at 22:21 Approved by: Rylan Camarena M.D. on 08/14/2022 at 22:31
[2022-08-14] MEDS: METOCLOPRAMIDE 10 MG/2 ML INJ IV (22:56)
[2022-08-14 23:11] LABS: Influenza A - CEPHEID Flu A NEGATIVE (NEGATIVE); Influenza B - CEPHEID Flu B NEGATIVE (NEGATIVE); Respiratory Syncytial Virus Negative (Negative)
[2022-08-14 23:12] LABS: COVID-19 CEPHEID 4-PLEX PCR Negative (Negative)
[2022-08-15] MEDS: LORazepam 2 MG/ML INJ 0.5 MG IV (00:21)
[2022-08-15 00:27] VITALS: BP 116/68; PULSE 66; O2SAT 97
[2022-08-15 00:30] VITALS: PULSE 64; O2SAT 97
[2022-08-15 01:00] VITALS: PULSE 50; O2SAT 96
[2022-08-15 01:30] VITALS: PULSE 58; O2SAT 96
[2022-08-15 01:36] VITALS: BP 126/71; PULSE 79; O2SAT 96
[2022-08-15] MEDS: ONDANSETRON 4 MG ODT PREPACK 1 BOTTLE MISC (01:45)
== END 2022-08-15 01:48 | disposition home or self-care (01) ==
PROVIDERS: Emergency Provider Emergency Medicine; PCP Family Medicine
DX: A04.72 Enterocolitis due to Clostridium difficile, not specified as recurrent (principal); R11.10 Vomiting, unspecified; N71.9 Inflammatory disease of uterus, unspecified; Z20.822 Contact with and (suspected) exposure to COVID-19
CPT/HCPCS: 0241U; 36415; 74177; 80053; 81001; 83605; 83690; 85025; 87040; 87086; 93005; 93010; 96361; 96374; 96375; 99283; 99284; J2060; J2405; J2765; Q9967

== ENCOUNTER → 2022-08-26 14:59 | Outpatient (CLI) | payer OTHER, MEDICAID, SELFPAY ==
[2022-08-08 02:40] VITALS: BMI 20.6
== END ==
PROVIDERS: PCP Family Medicine; Visit Provider Obstetrics & Gynecology
DX: N89.8 Other specified noninflammatory disorders of vagina (principal)
CPT/HCPCS: 81002; 87077; 87086; 87147

== ENCOUNTER → 2022-09-02 10:47 | Outpatient (CLI) | payer OTHER, MEDICAID, SELFPAY ==
[2022-08-08 02:40] VITALS: BMI 20.6
[2022-09-02 12:46] LABS: Add Manual Diff / Slide Review NO; Basophils Absolute Auto 100 /uL (0-100); Basophils Percent Auto 0.9 % (0-2); Eosinophils Absolute Auto 200 /uL (0-450); Eosinophils Percent Auto 3.4 % (2-4); Hematocrit 44.4 % (36-46); Hemoglobin 14.3 g/dL (12.0-16.0); Lymphocytes Absolute Auto 2200 /uL (1100-4500); Lymphocytes Percent Auto 37.3 % (25-40); Mean Corpuscular HGB Conc 32.2 % (30-36); Mean Corpuscular Hemoglobin 26.5 PG (26-34); Mean Corpuscular Volume 82.3 fL (80-100); Monocytes Absolute Auto 400 /uL (0-900); Monocytes Percent Auto 6.8 % (3-14); Neutrophils Absolute Auto 3100 /uL (1500-7000); Neutrophils Percent Auto 51.6 % (50-75); Platelet Count 294 X10^3/uL (150-400); Red Blood Cell Count 5.39 X10^6/uL (4.0-5.2); Red Cell Distribution Width 24.1 % (11.6-14.8)
[2022-09-02 13:03] LABS: Anisocytosis 1+
[2022-09-02 13:07] LABS: Poikilocytosis 1+
[2022-09-02 13:30] LABS: Alanine Aminotransferase 64 IU/L (<35); Alkaline Phosphatase 171 U/L (38-126); Aspartate Aminotransferase 62 IU/L (14-36); BUN Creatinine Ratio 14.5 (6-22); Bilirubin Total 0.6 mg/dL (0.2-1.3); Blood Urea Nitrogen 9 mg/dL (7-17); Calcium 9.4 mg/dL (8.4-10.2); Carbon Dioxide 29 mmol/L (22-32); Chloride 102 mmol/L (98-107); Estimated Glomerular Filt Rate > 60 mL/min (>60); Glucose 78 mg/dL (70-100); HEMOLYSIS < 15 (0-50); Potassium 3.6 mmol/L (3.4-5.1); Sodium 142 mmol/L (137-145); Total Protein 7.1 g/dL (6.3-8.2)
[2022-09-02 13:37] LABS: NT-proBNP (BNP-Adult 18+) 147 pg/mL (<125)
[2022-09-02 14:04] LABS: TSH w/ Reflex to FT4 1.76 uIU/mL (0.47-4.68)
[2022-09-02 19:40] LABS: Albumin 4.3 g/dL (3.5-5.0); Albumin Globulin Ratio 1.5 (1.0-2.8); Globulin 2.8 g/dL (1.7-4.1)
== END ==
PROVIDERS: PCP Family Medicine; Referring Provider Family Medicine; Visit Provider Family Medicine
DX: D64.9 Anemia, unspecified (principal); D72.829 Elevated white blood cell count, unspecified; F32.A Depression, unspecified; F41.9 Anxiety disorder, unspecified; N13.30 Unspecified hydronephrosis
CPT/HCPCS: 36415; 80053; 83036; 83880; 84443; 85025

== ENCOUNTER → 2022-09-23 15:20 | Outpatient (CLI) | payer OTHER, MEDICAID, SELFPAY ==
[2022-09-23 16:09] LABS: Alanine Aminotransferase 105 IU/L (<35); Albumin 4.2 g/dL (3.5-5.0); Albumin Globulin Ratio 1.5 (1.0-2.8); Alkaline Phosphatase 189 U/L (38-126); Aspartate Aminotransferase 73 IU/L (14-36); BUN Creatinine Ratio 15.4 (6-22); Bilirubin Total 0.6 mg/dL (0.2-1.3); Blood Urea Nitrogen 10 mg/dL (7-17); Calcium 9.2 mg/dL (8.4-10.2); Carbon Dioxide 31 mmol/L (22-32); Chloride 103 mmol/L (98-107); Estimated Glomerular Filt Rate > 60 mL/min (>60); Globulin 2.8 g/dL (1.7-4.1); Glucose 71 mg/dL (70-100); HEMOLYSIS < 15 (0-50); Potassium 3.7 mmol/L (3.4-5.1); Sodium 143 mmol/L (137-145)
[2022-09-23 16:45] LABS: Appearance Urine UA CLEAR; Bilirubin Urine UA NEGATIVE (NEGATIVE); Color Urine UA YELLOW; Glucose Urine UA NEGATIVE (Negative); Ketones Urine UA NEGATIVE (NEGATIVE); Leukocyte Esterase Urine UA NEGATIVE (NEGATIVE); Nitrite Urine UA NEGATIVE (Negative); Occult Blood Urine UA NEGATIVE (Negative); Protein Urine UA NEGATIVE (Negative); Specific Gravity Urine UA 1.015 (1.000-1.035); Urobilinogen Urine UA 0.2 E.U./dL (0.2)
[2022-09-23 16:50] LABS: Bacteria Urine None Seen; Culture Indicated Urine Cult Not Indicated; RBC Urine None Seen (0-5/HPF); Squamous Epithelial Cell Urine 1-5 /HPF (0-5/HPF); WBC Urine 1-5/HPF (0-5/HPF)
== END ==
PROVIDERS: PCP Family Medicine; Referring Provider Family Medicine; Visit Provider Family Medicine
DX: R74.8 Abnormal levels of other serum enzymes (principal); R30.0 Dysuria
CPT/HCPCS: 36415; 80053; 81001

== ENCOUNTER → 2022-11-28 07:43 | Outpatient (CLI) | payer OTHER, MEDICAID, SELFPAY ==
--- NOTE | 2022-11-28 | DI.ECHO.S_ITS ---
[facility] +---------+ : : [address] : [place] : : : : [id number] : : : : Phone: [phone]+ Echocardiogram Report + + :Name: JOSH EUCEDA Study Date: 11/28/2022 Height: 62 in : :[facility] ReadingLocation: Weight: 110 lb : : Gender: Female BSA: 1.5 m2 : :: 1995 Age: 27 yrs BP: 102/54 mmHg: :Reason For Study: PERIPARTUM CARDIOMYOPATHY HR: 62 : :Ordering Physician: MILADYS, : :LEXIE Performed By: SIRENA STEPHENSON : :Referring: LEXIE HOOK : + + Interpretation Summary The left ventricle is normal in size and wall thickness. The ejection fraction is estimated to be 50-55%. Previous LV ejection fraction 45 to 50%. Diastolic parameters suggest probable normal left ventricular diastolic function and normal filling pressures. The right ventricle is mild to moderately dilated. The right ventricular systolic function is normal. There is mild to moderate tricuspid regurgitation. Previously moderate TR. The right ventricular systolic pressure is estimated to be at least 23 mmHg based on an estimated right atrial pressure of 3 mm Hg. Procedure: A two-dimensional transthoracic echocardiogram with color flow and Doppler was performed. The study quality was technically adequate. Comparison is made with the echocardiogram of 07/17/2022. The patient was in normal sinus rhythm during the exam. Left Ventricle: The left ventricle is normal in size and wall thickness. There is no thrombus. Left ventricular systolic function is normal. The ejection fraction is estimated to be 50-55%. There are no focal wall motion abnormalities. Diastolic parameters suggest probable normal left ventricular diastolic function and normal filling pressures. Right Ventricle: The right ventricle is mild to moderately dilated. There has been no significant change since the previous study. The right ventricular systolic function is normal. Atria: The left atrial size is normal. There has been no significant change since the previous study. The right atrium is mildly dilated. There has been no significant change since the previous study. There is no Doppler evidence for an interatrial shunt. Mitral Valve: The mitral valve is normal in structure and function. There is trace mitral regurgitation. Aortic Valve: The aortic valve is trileaflet. The aortic valve opens well. There is no aortic valve stenosis. No aortic regurgitation is present. Tricuspid Valve: The tricuspid valve is normal. There is mild to moderate tricuspid regurgitation. The right ventricular systolic pressure is estimated to be at least 23 mmHg based on an estimated right atrial pressure of 3 mm Hg. Pulmonic Valve: The pulmonic valve leaflets are thin and pliable; valve motion is normal. There is mild pulmonic regurgitation. Great Vessels: The aortic root is normal size. The ascending aorta is normal in size. The IVC is of normal diameter and collapses greater than 50% with a sniff. This suggests a low right atrial pressure of 3 mm Hg. Pericardium/ Pleura There is no pericardial effusion. There is no pleural effusion. MMode/2D Measurements & Calculations LVIDd: 4.5 cm LVOT diam: 1.7 cm LVIDs: 3.0 cm Ao root diam: 2.5 cm FS: 33.1 % asc Aorta Diam: 2.1 cm IVSd: 0.58 cm LVPWd: 0.69 cm LV huston. diameter/BSA (cm/m^2): 3.1 LV sys. diameter/BSA (cm/m^2): 2.0 LA A2 area: 12.2 cm2 RA long axis: 4.1 cm LA A4 area: 9.9 cm2 RA area: 12.5 cm2 LA length (vol): 4.6 cm RA vol: 32.4 ml LA vol: 22.2 ml RA : 21.8 ml/m2 LA vol index: 15.0 ml/m2 IVC diam: 0.84 cm TAPSE: 1.7 cm Doppler Measurements & Calculations Ao V2 max: 108.7 cm/sec LVOT Max Ronni: 95.1 cm/sec Ao V2 mean: 85.6 cm/sec LV V1 max P.6 mmHg Ao max P.7 mmHg LV V1 VTI: 21.8 cm Ao mean P.1 mmHg NEREYDA(I,D): 2.2 cm2 Ao V2 VTI: 24.1 cm NEREYDA(V,D): 2.1 cm2 sev ratio: 0.91 NEREYDA indexed to BSA (cm^2/m^2): 1.5 MV E max ronni: 76.8 cm/sec TR max ronni: 221.5 cm/sec MV A max ronni: 43.7 cm/sec TR max P.6 mmHg MV E/A: 1.8 PA V2 max: 94.6 cm/sec Med Peak E' Ronni: 11.7 cm/sec PA V2 mean: 72.5 cm/sec E/E' med: 6.6 PA mean P.2 mmHg Lat Peak E' Ronni: 12.7 cm/sec PA pr(Accel): 29.3 mmHg E/E' lat: 6.1 E/e' average: 6.3 MV dec time: 0.23 sec SV(LVOT): 52.5 ml Reading Physician:12:41 PM
== END ==
PROVIDERS: PCP Family Medicine; Referring Provider Internal Medicine Cardiovascular Disease; Visit Provider Internal Medicine Cardiovascular Disease
DX: I07.1 Rheumatic tricuspid insufficiency (principal); I37.1 Nonrheumatic pulmonary valve insufficiency; O90.3 Peripartum cardiomyopathy
CPT/HCPCS: 93306

== ENCOUNTER → 2022-12-27 11:47 | Outpatient (CLI) | payer OTHER, MEDICAID, SELFPAY ==
[2022-12-27 12:34] LABS: Add Manual Diff / Slide Review NO; Basophils Absolute Auto 0 /uL (0-100); Basophils Percent Auto 0.8 % (0-2); Eosinophils Absolute Auto 100 /uL (0-450); Eosinophils Percent Auto 2.1 % (2-4); Hematocrit 41.9 % (36-46); Hemoglobin 13.9 g/dL (12.0-16.0); Lymphocytes Absolute Auto 2600 /uL (1100-4500); Lymphocytes Percent Auto 39.2 % (25-40); Mean Corpuscular HGB Conc 33.2 % (30-36); Mean Corpuscular Volume 87.4 fL (80-100); Monocytes Absolute Auto 400 /uL (0-900); Monocytes Percent Auto 5.7 % (3-14); Neutrophils Absolute Auto 3400 /uL (1500-7000); Neutrophils Percent Auto 52.2 % (50-75); Platelet Count 295 X10^3/uL (150-400); Red Blood Cell Count 4.79 X10^6/uL (4.0-5.2); Red Cell Distribution Width 16.3 % (11.6-14.8); White Blood Cell Count 6.5 X10^3/uL (4.5-11.0)
[2022-12-27 12:50] LABS: Alanine Aminotransferase 65 IU/L (<35); Albumin Globulin Ratio 1.6 (1.0-2.8); Alkaline Phosphatase 138 U/L (38-126); Aspartate Aminotransferase 39 IU/L (14-36); BUN Creatinine Ratio 16.1 (6-22); Blood Urea Nitrogen 9 mg/dL (7-17); Carbon Dioxide 29 mmol/L (22-32); Chloride 104 mmol/L (98-107); Estimated Glomerular Filt Rate > 60 mL/min (>60); Globulin 2.5 g/dL (1.7-4.1); Glucose 79 mg/dL (70-100); HEMOLYSIS < 15 (0-50); Potassium 3.7 mmol/L (3.4-5.1); Sodium 141 mmol/L (137-145); Total Protein 6.5 g/dL (6.3-8.2)
== END ==
PROVIDERS: PCP Family Medicine; Referring Provider Family Medicine; Visit Provider Family Medicine
DX: F32.A Depression, unspecified (principal); F41.9 Anxiety disorder, unspecified; G43.909 Migraine, unspecified, not intractable, without status migrainosus; K82.8 Other specified diseases of gallbladder; R74.8 Abnormal levels of other serum enzymes; R94.30 Abnormal result of cardiovascular function study, unspecified
CPT/HCPCS: 36415; 80053; 85025

== ENCOUNTER → 2023-01-23 13:21 | Outpatient (CLI) | payer OTHER, MEDICAID, SELFPAY ==
--- NOTE | 2023-01-23 13:23 | DI.RAD.S_ITS ---
PROCEDURE: XR T AND L SPINE 2 TO 3 VIEWS INDICATIONS: chronic low back pain and possible scoliosis TECHNIQUE: 2 views acquired of the thoracolumbar spine. COMPARISON: None. FINDINGS: Bones: No acute fractures or dislocations. Visualized inferior ribs appear intact. No suspicious bony lesions. Convex left scoliosis of the lumbar spine, centered at L3, Ness angle of 16?. Slight rightward curvature of the thoracic spine. Soft tissues: No suspicious soft tissue calcifications. IMPRESSION: Convex left scoliosis of the lumbar spine, Ness angle of 16?. Dictated by: Samuel Casey M.D. on 01/23/2023 at 16:38 Approved by: Samuel Casey M.D. on 01/23/2023 at 16:39
== END ==
PROVIDERS: PCP Family Medicine; Referring Provider Family Medicine; Visit Provider Family Medicine
DX: M54.50 Low back pain, unspecified (principal); M41.9 Scoliosis, unspecified
CPT/HCPCS: 72082

== ENCOUNTER → 2023-02-06 07:01 | Outpatient (CLI) | payer OTHER, MEDICAID, SELFPAY ==
--- NOTE | 2023-02-06 07:02 | DI.US.S_ITS ---
PROCEDURE: US ABDOMEN LIMITED INDICATIONS: RIGHT UPPER QUADRANT PAIN/INCREASED LIVER FUNCTION TESTS TECHNIQUE: Real-time scanning was performed of the abdominal and retroperitoneal organs, with image documentation. COMPARISON: [facility], US, US PELVIC COMPLETE, 08/06/2022, 8:03. [facility], US, US ABDOMEN LIMITED, 08/06/2022, 7:44. [facility], CT, CT ABDOMEN PELVIS W CON, 08/14/2022, 22:41. FINDINGS: Liver: Liver is normal in size and homogeneous in echotexture. Gallbladder: There is gallbladder sludge or gravel stones. Gallbladder wall measures 2.8 mm. No pericholecystic fluid collection or sonographic Gaines sign. Echogenic foci of gallbladder wall suggesting adenomyomatosis. Biliary ducts: Intrahepatic bile ducts are non-dilated. Extrahepatic bile duct caliber measures 2.8 mm. Normal is 6-7 mm or less in diameter, or 10 mm or less post-cholecystectomy. Pancreas: Visualized portions of the pancreas are sonographically normal. Miscellaneous: No free abdominal fluid. IMPRESSION: 1. Gallbladder sludge versus tiny gravel stones. No findings to suggest acute cholecystitis or biliary obstruction. 2. Adenomyomatosis of the gallbladder. 3. Normal ultrasound appearance of pancreas. Dictated by: Tish Gtz M.D. on 02/06/2023 at 11:57 Approved by: Tish Gtz M.D. on 02/06/2023 at 12:01
== END ==
PROVIDERS: PCP Family Medicine; Referring Provider Physician Assistant; Visit Provider Physician Assistant
DX: R74.8 Abnormal levels of other serum enzymes (principal); K82.8 Other specified diseases of gallbladder
CPT/HCPCS: 76705

== ENCOUNTER → 2023-10-13 16:25 | Outpatient (CLI) | payer OTHER, MEDICAID, SELFPAY ==
[2023-09-26 11:35] VITALS: BMI 20.6
[2023-10-13 18:41] LABS: Alanine Aminotransferase 109 IU/L (<35); Albumin Globulin Ratio 1.5 (1.0-2.8); Alkaline Phosphatase 95 U/L (38-126); Aspartate Aminotransferase 69 IU/L (14-36); Bilirubin Total 0.6 mg/dL (0.2-1.3); Blood Urea Nitrogen 13 mg/dL (7-17); Calcium 10.1 mg/dL (8.4-10.2); Carbon Dioxide 31 mmol/L (22-32); Chloride 108 mmol/L (98-107); Estimated Glomerular Filt Rate > 60 mL/min (>60); Globulin 2.7 g/dL (1.7-4.1); Glucose 51 mg/dL (70-100); HEMOLYSIS < 15 (0-50); Potassium 4.5 mmol/L (3.4-5.1); Sodium 142 mmol/L (137-145); Total Protein 6.7 g/dL (6.3-8.2)
[2023-10-13 18:56] LABS: HCG Quantitative /Beta subunit < 2.4 mIU/mL
== END ==
LOC: LAB 16:26
PROVIDERS: Family Provider Family Medicine; PCP Family Medicine; Referring Provider Obstetrics & Gynecology; Visit Provider Obstetrics & Gynecology
DX: O09.299 Supervision of pregnancy with other poor reproductive or obstetric history, unspecified trimester (principal); O20.9 Hemorrhage in early pregnancy, unspecified
CPT/HCPCS: 36415; 80053; 84702

== ENCOUNTER → 2024-03-05 08:39 | Outpatient (CLI) | payer OTHER, MEDICAID, SELFPAY ==
[2023-09-26 11:35] VITALS: BMI 20.6
--- NOTE | 2024-03-05 08:40 | DI.ECHO.S_ITS ---
[facility] : : [address] : : [place] : : [id number] : : Phone: [phone] Echocardiogram Report + + :Name: JOSH EUCEDA Study Date: 03/05/2024 Height: 62 in : :[facility] ReadingLocation: Weight: 110 lb : : Gender: Female BSA: 1.5 m2 : :: 1995 Age: 28 yrs BP: 105/69 mmHg: :Reason For Study: PERIPARTUM CARDIOMYOPATHY : :Ordering Physician: MILADYS, : :LEXIE Performed By: Zeb Gallardo : :Referring: LEXIE HOOK : + + Interpretation Summary The left ventricle is normal in size and wall thickness. The ejection fraction is estimated to be 50-55%. There has been no significant change in LVEF since the previous exam. The right ventricle is mild to moderately dilated. There has been no significant change since the previous study. The right ventricular systolic function is normal. There is mild to moderate tricuspid regurgitation. Compared to the prior echo exam, there has been no change in TR severity. The right ventricular systolic pressure is estimated to be at least 28 mmHg based on an estimated right atrial pressure of 3 mm Hg. Procedure: A two-dimensional transthoracic echocardiogram with color flow and Doppler was performed. The study quality was technically adequate. Comparison is made with the echocardiogram of 11/28/2022. The patient was in sinus rhythm with heart rates between 56-77 bpm during the exam. Left Ventricle: The left ventricle is normal in size and wall thickness. There is no thrombus. The ejection fraction is estimated to be 50-55%. There has been no significant change since the previous exam. There are no focal wall motion abnormalities. Diastolic parameters suggest probable normal left ventricular diastolic function and normal filling pressures. Right Ventricle: The right ventricle is mild to moderately dilated. There has been no significant change since the previous study. A moderator band is seen in the right ventricle. The right ventricular systolic function is normal. Atria: The left atrial size is normal. There has been no significant change since the previous study. The right atrium is mildly dilated. There has been no significant change since the previous study. The interatrial septum grossly appears intact with no obvious evidence for an atrial septal defect. Mitral Valve: The mitral valve is normal. There is no mitral valve stenosis. There is trace mitral regurgitation. Aortic Valve: The aortic valve is trileaflet. There is no aortic valve stenosis. No aortic regurgitation is present. Tricuspid Valve: The tricuspid valve is normal. There is no tricuspid stenosis. There is mild to moderate tricuspid regurgitation. The right ventricular systolic pressure is estimated to be at least 28 mmHg based on an estimated right atrial pressure of 3 mm Hg. Compared to the prior echo exam, there has been no change in TR severity. Pulmonic Valve: The pulmonic valve is not well visualized. There is no pulmonic valvular stenosis. There is no pulmonic valvular regurgitation. Great Vessels: The aortic root is normal size. The dimensions of the ascending aorta are normal. The IVC is of normal diameter and collapses greater than 50% with a sniff. This suggests a low right atrial pressure of 3 mm Hg. Pericardium/ Pleura There is no pericardial effusion. There is no pleural effusion. MMode/2D Measurements & Calculations LVIDd: 4.4 cm LVOT diam: 2.0 cm LVIDs: 3.1 cm Ao root diam: 2.6 cm FS: 29.2 % asc Aorta Diam: 2.1 cm IVSd: 0.86 cm LVPWd: 0.73 cm LV huston. diameter/BSA (cm/m^2): 3.0 LV sys. diameter/BSA (cm/m^2): 2.1 LA A2 area: 11.6 cm2 RA long axis: 4.0 cm LA A4 area: 14.7 cm2 RA area: 12.6 cm2 LA length (vol): 4.7 cm RA vol: 33.5 ml LA vol: 31.0 ml RA : 22.6 ml/m2 LA vol index: 20.9 ml/m2 IVC diam: 1.6 cm RVD1 (basal): 4.4 cm RVD2 (mid): 4.0 cm TAPSE: 2.1 cm Doppler Measurements & Calculations Ao V2 max: 105.8 cm/sec LVOT Max Ronni: 82.6 cm/sec Ao V2 mean: 78.3 cm/sec LV V1 max P.7 mmHg Ao max P.5 mmHg LV V1 VTI: 18.6 cm Ao mean P.6 mmHg NEREYDA(I,D): 2.4 cm2 Ao V2 VTI: 23.5 cm NEREYDA(V,D): 2.4 cm2 sev ratio: 0.79 NEREYDA indexed to BSA (cm^2/m^2): 1.6 MV E max ronni: 86.4 cm/sec TR max ronni: 224.0 cm/sec MV A max ronni: 35.8 cm/sec TR max P.4 mmHg MV E/A: 2.4 PA V2 max: 97.1 cm/sec Med Peak E' Ronni: 10.6 cm/sec PA V2 mean: 74.5 cm/sec E/E' med: 8.2 PA mean P.4 mmHg Lat Peak E' Ronni: 12.8 cm/sec PA pr(Accel): 19.1 mmHg E/E' lat: 6.7 E/e' average: 7.5 MV dec time: 0.22 sec SV(LVOT): 56.3 ml Reading Physician:01:50 PM
[2024-03-05 09:32] LABS: Add Manual Diff / Slide Review NO; Basophils Absolute Auto 0 /uL (0-100); Basophils Percent Auto 0.3 % (0-2); Eosinophils Absolute Auto 100 /uL (0-450); Eosinophils Percent Auto 2.2 % (2-4); Hematocrit 43.5 % (36-46); Hemoglobin 14.4 g/dL (12.0-16.0); Lymphocytes Absolute Auto 2200 /uL (1100-4500); Lymphocytes Percent Auto 34.5 % (25-40); Mean Corpuscular HGB Conc 33.2 % (30-36); Mean Corpuscular Hemoglobin 30.1 PG (26-34); Mean Corpuscular Volume 90.7 fL (80-100); Monocytes Absolute Auto 400 /uL (0-900); Monocytes Percent Auto 5.8 % (3-14); Neutrophils Absolute Auto 3600 /uL (1500-7000); Neutrophils Percent Auto 57.2 % (50-75); Platelet Count 228 X10^3/uL (150-400); Red Blood Cell Count 4.79 X10^6/uL (4.0-5.2); Red Cell Distribution Width 14.7 % (11.6-14.8); White Blood Cell Count 6.4 X10^3/uL (4.5-11.0)
[2024-03-05 10:06] LABS: Alanine Aminotransferase 53 IU/L (<35); Albumin 4.3 g/dL (3.5-5.0); Albumin Globulin Ratio 1.7 (1.0-2.8); Alkaline Phosphatase 83 U/L (38-126); Aspartate Aminotransferase 43 IU/L (14-36); BUN Creatinine Ratio 14.1 (6-22); Bilirubin Total 0.9 mg/dL (0.2-1.3); Blood Urea Nitrogen 10 mg/dL (7-17); Calcium 8.7 mg/dL (8.4-10.2); Carbon Dioxide 28 mmol/L (22-32); Chloride 106 mmol/L (98-107); Estimated Glomerular Filt Rate > 60 mL/min (>60); Globulin 2.6 g/dL (1.7-4.1); Glucose 96 mg/dL (70-100); HEMOLYSIS < 15 (0-50); Potassium 3.8 mmol/L (3.4-5.1); Sodium 141 mmol/L (137-145); Total Protein 6.9 g/dL (6.3-8.2)
[2024-03-05 10:29] LABS: TSH w/ Reflex to FT4 1.89 uIU/mL (0.47-4.68)
== END ==
PROVIDERS: Family Provider Family Medicine; PCP Family Medicine; Referring Provider Internal Medicine Cardiovascular Disease; Visit Provider Internal Medicine Cardiovascular Disease
DX: I07.1 Rheumatic tricuspid insufficiency (principal); O90.3 Peripartum cardiomyopathy; D72.829 Elevated white blood cell count, unspecified; R74.8 Abnormal levels of other serum enzymes
CPT/HCPCS: 36415; 80053; 84443; 85025; 93306

== ENCOUNTER → 2024-08-01 14:19 | Outpatient (CLI) | payer OTHER, SELFPAY ==
[2023-09-26 11:35] VITALS: BMI 20.6
--- NOTE | 2024-08-01 14:21 | DI.US.S_ITS ---
PROCEDURE: US OB <= 14 WEEKS FETUS INDICATIONS: DATES OUTSIDE/PRIOR DATING DATA: Last menstrual period (LMP): 06/04/2024. LMP-based estimated date of delivery (EMRE): 03/11/2025. First dating scan (date and location): 08/01/2024. Estimated date of delivery (EMRE) from first dating scan: 03/13/2024. TECHNIQUE: Real-time scanning was performed of the fetus and maternal pelvic organs, with image documentation. COMPARISON: [facility], OB <= 14 WEEKS FETUS, 12/24/2021, 15:53. FINDINGS: Embryo: Williams-rump length 1.6 cm corresponds with an 8 week 0 day gestation Heart rate: 150 beats per minute Maternal organs: Ovaries unremarkable. IMPRESSION: Single live intrauterine corresponds with an 8 week 0 day gestation Approved by: Jer Be M.D. on 08/02/2024 at 12:10
[2024-08-01 15:27] LABS: Add Manual Diff / Slide Review NO; Basophils Absolute Auto 0 /uL (0-100); Basophils Percent Auto 0.1 % (0-2); Eosinophils Absolute Auto 100 /uL (0-450); Eosinophils Percent Auto 0.5 % (2-4); Hemoglobin 14.6 g/dL (12.0-16.0); Lymphocytes Absolute Auto 1600 /uL (1100-4500); Lymphocytes Percent Auto 13.4 % (25-40); Mean Corpuscular HGB Conc 33.3 % (30-36); Mean Corpuscular Hemoglobin 29.9 PG (26-34); Monocytes Absolute Auto 600 /uL (0-900); Neutrophils Absolute Auto 9700 /uL (1500-7000); Platelet Count 250 X10^3/uL (150-400); Red Blood Cell Count 4.89 X10^6/uL (4.0-5.2); Red Cell Distribution Width 14.4 % (11.6-14.8)
[2024-08-01 15:45] LABS: Hemoglobin A1C% w Est Avg Glu 4.6 % (4.0-6.0)
[2024-08-01 15:46] LABS: Alanine Aminotransferase 46 IU/L (<35); Albumin 4.1 g/dL (3.5-5.0); Albumin Globulin Ratio 1.6 (1.0-2.8); Alkaline Phosphatase 91 U/L (38-126); Aspartate Aminotransferase 38 IU/L (14-36); Bilirubin Total 0.6 mg/dL (0.2-1.3); Bilirubin Unconjugated 0.3 mg/dL (0.0-1.1); Globulin 2.6 g/dL (1.7-4.1); HEMOLYSIS < 15 (0-50); Total Protein 6.7 g/dL (6.3-8.2)
[2024-08-01 15:47] LABS: Alanine Aminotransferase 46 IU/L (<35); Albumin 4.1 g/dL (3.5-5.0); Albumin Globulin Ratio 1.6 (1.0-2.8); Alkaline Phosphatase 89 U/L (38-126); Aspartate Aminotransferase 37 IU/L (14-36); Bilirubin Total 0.6 mg/dL (0.2-1.3); Blood Urea Nitrogen 13 mg/dL (7-17); Calcium 9.7 mg/dL (8.4-10.2); Carbon Dioxide 22 mmol/L (22-32); Chloride 106 mmol/L (98-107); Estimated Glomerular Filt Rate > 60 mL/min (>60); Globulin 2.6 g/dL (1.7-4.1); Glucose 89 mg/dL (70-100); HEMOLYSIS < 15 (0-50); Potassium 3.9 mmol/L (3.4-5.1); Sodium 135 mmol/L (137-145); Total Protein 6.7 g/dL (6.3-8.2)
[2024-08-01 16:22] LABS: Hepatitis B Surface Antigen NEGATIVE s/c (NEGATIVE); Rubella Antibody IgG 7.1 IU/mL (>15)
[2024-08-01 16:38] LABS: HIV 1 & 2 Ab/Ag 4th Gen Combo NEGATIVE (NEGATIVE); Hep C Virus Ab w/Reflex Quant NEGATIVE s/c (NEGATIVE)
[2024-08-03 04:36] LABS: RPR Screen Non Reactive (Non Reactive)
[2024-08-03 11:08] LABS: Varicella IgG Antibody Non Reactive (Non Reactive)
== END ==
PROVIDERS: PCP Family Medicine; Referring Provider Obstetrics & Gynecology; Visit Provider Obstetrics & Gynecology
DX: O09.291 Supervision of pregnancy with other poor reproductive or obstetric history, first trimester (principal); O99.891 Other specified diseases and conditions complicating pregnancy; R74.8 Abnormal levels of other serum enzymes; R74.01 Elevation of levels of liver transaminase levels; Z86.32 Personal history of gestational diabetes; Z3A.08 8 weeks gestation of pregnancy
CPT/HCPCS: 36415; 76801; 76817; 80053; 80055; 80076; 83036; 86787; 86803; 86850; 86900; 86901; 87389

== ENCOUNTER → 2024-08-27 11:37 | Outpatient (CLI) | payer OTHER, SELFPAY ==
[2023-09-26 11:35] VITALS: BMI 20.6
[2024-08-27 14:40] LABS: Urine Chlamydia NOT DETECTED; Urine N gonorrhoeae NOT DETECTED
== END ==
PROVIDERS: PCP Family Medicine; Visit Provider Obstetrics & Gynecology
DX: Z34.01 Encounter for supervision of normal first pregnancy, first trimester (principal)
CPT/HCPCS: 87491; 87591

== ENCOUNTER → 2024-09-25 12:02 | Outpatient (CLI) | payer OTHER, SELFPAY ==
[2023-09-26 11:35] VITALS: BMI 20.6
== END ==
PROVIDERS: PCP Family Medicine; Referring Provider Obstetrics & Gynecology; Visit Provider Obstetrics & Gynecology
DX: Z34.82 Encounter for supervision of other normal pregnancy, second trimester (principal); Z3A.16 16 weeks gestation of pregnancy
CPT/HCPCS: 36415; 82105

== ENCOUNTER → 2024-10-07 15:10 | Outpatient (CLI) | payer OTHER, SELFPAY ==
[2023-09-26 11:35] VITALS: BMI 20.6
== END ==
PROVIDERS: PCP Family Medicine; Referring Provider Obstetrics & Gynecology; Visit Provider Obstetrics & Gynecology
DX: O09.299 Supervision of pregnancy with other poor reproductive or obstetric history, unspecified trimester (principal)
CPT/HCPCS: 36415; 82105; 87086

== ENCOUNTER → 2024-10-22 13:21 | Outpatient (CLI) | payer OTHER, SELFPAY ==
[2023-09-26 11:35] VITALS: BMI 20.6
--- NOTE | 2024-10-22 13:23 | DI.US.S_ITS ---
PROCEDURE: US OB >= 14 WEEKS FETUS INDICATIONS: anatomy scan OUTSIDE/PRIOR DATING DATA: Last menstrual period (LMP): 06/04/2024. LMP-based estimated date of delivery (EMRE): 03/11/2025. First dating scan (date and location): 08/01/2024. Estimated date of delivery (EMRE) from first dating scan: 03/13/2025. The calculations are made using the clinical EMRE of 03/11/2025. TECHNIQUE: Real-time scanning was performed of the fetus, with image documentation and biometric measurements. Endovaginal scanning: Not performed. COMPARISON: [facility], OB <= 14 WEEKS FETUS, 08/01/2024, 14:27. [facility], OB >= 14 WEEKS FETUS, 03/11/2022, 12:30. FINDINGS: General: A single living intrauterine gestation is present. Presentation: Variable. Placenta: Placental position is posterior, without previa. Amniotic fluid index: 13.3 cm, normal range is 5-24 cm. Single deepest vertical pocket is 4 cm. heart rate: 135 beats per minute. Maternal cervical canal: 4.6 cm long. Normal lower limit is 2.5 cm. biometrics: Biparietal diameter: 4.7 cm, 20 weeks 2 days Head circumference: 16.7 cm, 19 weeks 3 days Abdominal circumference: 15.6 cm, 20 weeks 5 days Femur length: 3.2 cm, 20 weeks 0 days Clinically estimated gestational age: 20 weeks 0 days Composite gestational age from present scan: 20 weeks 1 day Estimated weight and percentile: 344 g, 62nd percentile. Anatomic survey: Neuro: Ventricles are non-dilated at less than 10 mm. Cisterna magna is normal at 3-11 mm. Cerebellum is normal in size and morphology. Nuchal skin fold: Normal at less than 6 mm between 14-21 weeks gestational age. Face: Nose and lips are normal. Profile is not well seen. Spine: No evidence for spina bifida. Heart: 4-chambered and ventricular outflow tracts are not well seen. Diaphragm: Diaphragm is intact. Stomach: Left-sided stomach is present. Kidneys: No hydronephrosis. Normal is less than 5 mm in 2nd trimester, less than 7 mm in 3rd trimester. Cord: Three-vessel cord. Marginal cord insertion 1.4 cm from the placental edge. Bladder: Normal in size. Extremities: All 4 extremities identified. IMPRESSION: 1. Holley living intrauterine at 20 weeks 1 day based on today's ultrasound. Fetus is in the 62nd percentile for weight. 2. Normal placenta and amniotic fluid. 3. Marginal cord insertion. profile and heart are not well seen. Otherwise normal anatomic survey. Recommend follow-up OB ultrasound. We strive to produce accurate, complete, and clear reports of imaging services. To assist us in improving patient care, this report was composed using standard report templates and voice recognition software. Therefore, it may contain abnormal punctuation, insertions and/or omissions. Occasional wrong-word or sound-alike substitutions may occur. Though we review the report and make efforts to correct it, we do recommend that the report be read carefully in proper context to recognize any text inaccuracies. Dictated by: Tim Sky M.D. on 10/22/2024 at 16:52 Approved by: Tim Sky M.D. on 10/22/2024 at 16:59
== END ==
LOC: US 13:22
PROVIDERS: PCP Family Medicine; Referring Provider Obstetrics & Gynecology; Visit Provider Obstetrics & Gynecology
DX: Z34.82 Encounter for supervision of other normal pregnancy, second trimester (principal); Z3A.20 20 weeks gestation of pregnancy
CPT/HCPCS: 76811

== ENCOUNTER → 2024-11-26 13:50 | Outpatient (CLI) | payer OTHER, SELFPAY ==
[2023-09-26 11:35] VITALS: BMI 20.6
== END ==
LOC: LAB 13:51
PROVIDERS: PCP Family Medicine; Visit Provider Obstetrics & Gynecology
DX: R82.998 Other abnormal findings in urine (principal)
CPT/HCPCS: 87086

== ENCOUNTER → 2024-12-03 10:13 | Outpatient (CLI) | payer OTHER, SELFPAY ==
[2023-09-26 11:35] VITALS: BMI 20.6
[2024-12-03 12:44] LABS: Hematocrit 35.3 % (36-46); Hemoglobin 11.7 g/dL (12.0-16.0)
[2024-12-03 13:08] LABS: GTT (PREG) 1 Hour PP 50gm Dose 96 mg/dL (76-139)
== END ==
PROVIDERS: PCP Family Medicine; Referring Provider Obstetrics & Gynecology; Visit Provider Obstetrics & Gynecology
DX: Z34.82 Encounter for supervision of other normal pregnancy, second trimester (principal); Z3A.26 26 weeks gestation of pregnancy
CPT/HCPCS: 36415; 82950; 85014; 85018

== ENCOUNTER → 2024-12-12 10:52 | Outpatient (CLI) | payer OTHER, SELFPAY ==
[2023-09-26 11:35] VITALS: BMI 20.6
== END ==
LOC: LAB 10:53
PROVIDERS: PCP Family Medicine; Visit Provider Obstetrics & Gynecology
DX: N89.8 Other specified noninflammatory disorders of vagina (principal)
CPT/HCPCS: 87480; 87510; 87660

== ENCOUNTER → 2024-12-30 15:11 | Outpatient (CLI) | payer OTHER, SELFPAY ==
[2023-09-26 11:35] VITALS: BMI 20.6
== END ==
LOC: LAB 15:13
PROVIDERS: PCP Family Medicine; Visit Provider Obstetrics & Gynecology
DX: R82.998 Other abnormal findings in urine (principal); R31.9 Hematuria, unspecified
CPT/HCPCS: 87086

== ENCOUNTER 2025-01-04 19:22 | Observation (INO) | payer OTHER, SELFPAY ==
[2023-09-26 11:35] VITALS: BMI 20.6
[2025-01-04 19:49] LABS: Appearance Urine UA CLEAR; Bilirubin Urine UA NEGATIVE (NEGATIVE); Color Urine UA YELLOW; Glucose Urine UA NEGATIVE (Negative); Ketones Urine UA NEGATIVE (NEGATIVE); Leukocyte Esterase Urine UA NEGATIVE (NEGATIVE); Nitrite Urine UA NEGATIVE (Negative); Occult Blood Urine UA NEGATIVE (Negative); Protein Urine UA NEGATIVE (Negative); Specific Gravity Urine UA 1.015 (1.000-1.035); Urobilinogen Urine UA 0.2 E.U./dL (0.2)
[2025-01-04] MEDS: NIFEdipine 10 MG CAPSULE PO ×4 (20:08→21:08)
[2025-01-04 20:12] LABS: pH Urine UA 5.5 (4.5-8.0)
[2025-01-04 20:15] LABS: RBC Urine None Seen (0-5/HPF); Urine Volume 10mL (spun); WBC Urine 0-1/HPF (0-5/HPF)
[2025-01-04 20:16] LABS: Amorphous Sediment Urine 1+; Bacteria Urine None Seen; Culture Indicated Urine Cult Not Indicated; Renal Epithelial Cells Urine 0-1/HPF (0-1/HPF); Squamous Epithelial Cell Urine 1-5 /HPF (0-5/HPF)
== END 2025-01-04 22:10 | disposition home or self-care (01) ==
PROVIDERS: Admitting Provider Obstetrics & Gynecology; PCP Family Medicine; Referring Provider Obstetrics & Gynecology; Visit Provider Obstetrics & Gynecology
DX: O60.03 Preterm labor without delivery, third trimester (principal); O99.413 Diseases of the circulatory system complicating pregnancy, third trimester; I99.9 Unspecified disorder of circulatory system; Z3A.30 30 weeks gestation of pregnancy
CPT/HCPCS: 59025; 59050; 81001; G0378; G0379

== ENCOUNTER → 2025-01-07 07:08 | Outpatient (CLI) | payer OTHER, SELFPAY ==
[2023-09-26 11:35] VITALS: BMI 20.6
--- NOTE | 2025-01-07 07:09 | DI.US.S_ITS ---
PROCEDURE: US OB LIMITED INDICATIONS: SIZE GREATER THAN DATES OUTSIDE/PRIOR DATING DATA: Working EMRE is 03/11/2025 TECHNIQUE: Real-time scanning was performed of the fetus, with image documentation and biometric measurements. COMPARISON: None. FINDINGS: General: A single living intrauterine gestation is present. Presentation: Vertex. Placenta: Placental position is fundal , without previa. Amniotic fluid index: 48.5 cm, normal range is 5-24 cm. Single deepest vertical pocket is 17.9 cm. heart rate: Unable to be obtained. Cardiac motion however was seen. Maternal cervical canal: 4.9 cm biometrics: Biparietal diameter: 8.7 cm, 35 weeks and 2 days Head circumference: 30 cm, 33 weeks and 1 day Abdominal circumference: 26 cm, 30 weeks and 1 day Femur length: 6.1 cm, 31 weeks and 3 days Clinically estimated gestational age: 31 weeks Composite gestational age from present scan: 32 weeks and 4 days Estimated weight and percentile: 1729 g, 46% Other: At the area of focal right upper quadrant pain, there is no discrete hematoma or evidence of a bowel obstruction. IMPRESSION: Marked polyhydramnios. Patient transferred to Dr. Roper's office. Consider M followup. EFW is within normal limits, 46 percentile. BPD is greater than expected, over 99 percentile. Vertex presentation. No focal abnormality in the right abdomen at the area of pain identified by ultrasound. Dictated by: Pieter Mendez M.D. on 01/07/2025 at 8:31 Approved by: Pieter Mendez M.D. on 01/07/2025 at 8:35
== END ==
PROVIDERS: PCP Family Medicine; Referring Provider Obstetrics & Gynecology; Visit Provider Obstetrics & Gynecology
DX: O26.843 Uterine size-date discrepancy, third trimester (principal); O40.3XX0 Polyhydramnios, third trimester, not applicable or unspecified; Z3A.31 31 weeks gestation of pregnancy
CPT/HCPCS: 76816; 76817

== ENCOUNTER 2025-01-15 20:04 | Inpatient (IN) | payer OTHER, SELFPAY ==
[2023-09-26 11:35] VITALS: BMI 20.6
[2025-01-15] MEDS: AMPICILLIN 2,000 MG in SODIUM CHLORIDE 0.9% 100 ML 200 MG IV (20:29)
[2025-01-15] MEDS: TRANEXAMIC ACID 1,000 MG VIAL 2000 MG INJ (20:35)
[2025-01-15] MEDS: BETAMETHASONE 30 MG/5 ML MDV 12 MG IM (20:37)
[2025-01-15 20:41] LABS: Add Manual Diff / Slide Review NO; Basophils Absolute Auto 200 /uL (0-100); Basophils Percent Auto 1.2 % (0-2); Eosinophils Absolute Auto 300 /uL (0-450); Eosinophils Percent Auto 1.7 % (2-4); Hematocrit 33.5 % (36-46); Hemoglobin 10.7 g/dL (12.0-16.0); Lymphocytes Absolute Auto 2900 /uL (1100-4500); Lymphocytes Percent Auto 19.4 % (25-40); Mean Corpuscular Hemoglobin 25.8 PG (26-34); Mean Corpuscular Volume 80.8 fL (80-100); Monocytes Absolute Auto 1200 /uL (0-900); Monocytes Percent Auto 8.2 % (3-14); Neutrophils Absolute Auto 10500 /uL (1500-7000); Neutrophils Percent Auto 69.5 % (50-75); Platelet Count 486 X10^3/uL (150-400); Red Blood Cell Count 4.15 X10^6/uL (4.0-5.2); Red Cell Distribution Width 15.8 % (11.6-14.8); White Blood Cell Count 15.1 X10^3/uL (4.5-11.0)
[2025-01-15] MEDS: LACTATED RINGERS 1,000 ML 999 ML IV (20:48)
--- NOTE | 2025-01-15 20:51 | PM.OBHP.IH.1 ---
OB HPI Date/Time Date of admission: 01/15/25 Date Patient Seen: 01/15/25 Time Patient Seen: 19:20 History of Present Condition Chief complaint: PPROM EMRE Calculator Estimated Delivery Date Method Current WG Current Estimate 03/11/25 LMP (Certain) 32w 2d Other Estimates 03/13/25 Ultrasound #1 32w 0d : 3 Para: 1 Narrative: 29yo at 32w2d by 8wk US presents to facility via EMS following LOF at home. Patient has had good PNC throughout with initiation of care at 12wga. PMHX notable for personal h/o cardiomyopathy secondary to profound acute blood loss anemia at time of delivery necessitating MTP, prolonged inpatient admission, h/o GDM A2. Current course complicated by newly identified severe polyhydramnios (JULIO CÉSAR 50) identified on 01/07/25. Since that time patient has had urgent consultation with MFM and is scheduled to undergo therapeutic amnioreduction with planned karyotype/microarray. At this time etiology of polyhdramnios is unknown, high suspicion for anomaly without prior genetic screening as patient had previously declined. course additionally notable for mild transaminitis, chronic maternal anemia. Patient had called on-call provider at 1850 with concerns for PPROM, reporting large gush of fluid with continued leaking thereafter. Patient instructed to call EMS and to present to closest facility at discretion of EMS. Provider notified per RN at 1921 that patient was en route in facility. OR team and doorkeeper notifed and on stand-by at this time. On arrival to unit patient initially noted to be comfortable, denied abdominal pain, +FM, continued leakage of clear fluid, evidence of gross ROM. Initial reassuring tracing (FHR 120bpm, mod variability, +accels, no decels, baseline uterine irritability with isolated contraction without change in FHTs). GBS collected, BMZ x1 administered, IV abx (amp/erytho) initiated per PPROM protocol and transfer of care to initiated at 20:13, transportation called for and in process of presenting to bedside to facilitate expedited transport (airflight). Notified per RN at 20:15 of new patient c/o abdominal tenderness with adjustment of external monitor, simulataneous observation of change in FHR per monitor with late decelreation, transient loss of variability with shift in baseline from 120 to 150bpm. On exam of patient she endorsed initially only pain with contractions, however had new severe point tenderness midline between pubic symphisis and umbilicus, noted increased baseline uterine tone. Given significant change in intrauterine pressure with PPROM in setting of severe polyhydramnios, strong suspicion for placental abruption and decision made to proceed with emergent local delivery. Melt Supervisor notified and en route, OR team in house and anesthesia immediately available to meet with patient at bedside. Transfer to canceled and new consultation to [facility] initiated at 20:30. Informed that transfer team ETA was approximately 1h, recommendation to delay delivery until arrival if no or maternal indication for sooner delivery. Persistent cat 2 tracing, new wandering baseline (120-150bpm) with transient decrease in variability noted at 20:56 and decision made at that time to proceed to OR. Entry to OR at 21:19, CEFM throughout spinal placement without significant deceleration. See operative dictation for remainder of procedure detail. care: good care Dating criteria OB: LMP confirmed by 1st trimester US Ultrasounds: abnormal US findings Abnormal ultrasound findings: severe polyhydramnios, unknown etiology DI-FAS without additional identified significant anomaly Obstetrical complications: other (polyhydramnios) Medical complications OB: other (h/o cardiomyopathy with current preserved EF, h/o A2GDM, chronic maternal anemia ) Indications Operative indications ( section): abruptio placenta Preadmission Labs Last OB Lab Results: Blood Type O Positive 01/15/25, 20:25 Antibody Screen Negative 01/15/25, 20:25 Hct, (36-46) 33.5 % L 01/15/25, 20:25 Hgb, (12.0-16.0) 10.7 g/dL L 01/15/25, 20:25 Hep Bs Antigen, (NEGATIVE) Negative s/c 08/01/24, 14:59 Hepatitis C Antibody, (NEGATIVE) Negative s/c 08/01/24, 14:59 Rubella Antibody, (>15) 7.1 IU/mL L 08/01/24, 14:59 VZV IgG Antibody, (Non Reactive) Non reactive 08/01/24, 14:59 Glucose 1 Hr 50 gm, (76-139) 96 mg/dL 12/03/24, 11:35 Hemoglobin A1c, (4.0-6.0) 4.6 % 08/01/24, 14:59 Group B Strep (PCR) Neg for grp b strep 06/30/22, 11:57 Prior (ies) Past Pregnancies Del. Date GA/Weeks Labor Lgth Wt Sex Route Outcome Anesthesia Place Delv Breastfeed Preg Comp Name 07/14/22 37+ 12 8 lb 8 oz Male live - full term IH attempted gestational diabetes other hemorrhage failure to progress [place] 10/06/23 6-7 spontaneous Delivery Date: 07/14/22 Last Updated by: Delia Jules RN cardiomyopathy, liver dysfunction, hydronephrosis Delivery Date: 10/06/23 Last Updated by: Delia Jules RN passed spontaneously, no complications Evaluation Evaluation Baseline heart rate: 120 Comments: see narrative documentation [facility] Medical History (Updated 01/07/25 @ 08:42 by Mohsen Roper MD) Urinary tract infection Sludge in gallbladder Right sided abdominal pain Anticoagulant prescribed Hydronephrosis delivery delivered Gestational diabetes Pain in symphysis pubis during contractions Colitis Ejection fraction < 50% Elevated troponin level not due myocardial infarction Sepsis after obstetrical procedure Anemia due to blood loss, acute Proteinuria affecting in third trimester Macrosomia affecting management of mother in third trimester, single gestation Acid reflux Surgical History (Updated 09/26/23 @ 10:43 by Delia Jules RN) S/P section History of section Hx of laparoscopy History of esophagogastroduodenoscopy (EGD) [place] teeth extracted Family History (Updated 07/09/24 @ 14:19 by Delia Jules RN) Mother Essential tremor Lung disease Post-COVID syndrome Anxiety Father Lung cancer Smoker Social History marital status: unmarried,living together number of children: 1 (also two stepchildren 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) household members: significant other and children lives independently: Yes caregiver/support person: Yes housing: apartment (cottage) pets and animals: No education level: high school occupational status: employed current occupational exposures/hazards: No special leatha needs: No travel history: recent (domestic only) seatbelt use: always helmet use: Yes water heater temp set < 120 deg: Yes working smoke detector in home: Yes fire extinguisher in home: Yes carbon monox detector in home: Yes firearms in home: Yes (unloaded and hidden) firearms unloaded and locked: No do you feel safe at home: Yes Smoking Status: Never smoker second hand exposure: No (S/o quit smoking) alcohol intake: former substance use type: does not use during the past year weight has: remained stable well-balanced diet: daily or most days daily servings fruits/ve or more times/day caffeine: Yes (single soft drink (usually Dr. Pepper) daily) Type(s) of exercise: walking and irregular exercise Meds Home Medications and Allergies Home Medications ?Medication ?Instructions ?Recorded ?Confirmed ?Type cholecalciferol (vitamin D3) 50 100 mcg PO DAILY 07/09/24 01/15/25 History mcg (2,000 unit) capsule mecobalamin (vitamin B12) 5,000 5,000 mcg PO DAILY 07/09/24 01/15/25 History mcg chewable tablet vitamin-ferrous sulfate tab PO 07/09/24 01/15/25 History 27 mg iron-folic acid 0.8 mg tablet fluconazole 150 mg tablet 150 mg PO Q3D 2 doses #2 tabs 12/17/24 01/15/25 Rx nifedipine 30 mg tablet,extended 30 mg PO DAILY #30 tabs 01/07/25 01/15/25 Rx release blood sugar diagnostic (Blood #120 ea 01/14/25 01/15/25 Rx Glucose Test strips) blood-glucose meter #1 ea 01/14/25 01/15/25 Rx oxycodone 5 mg tablet 5 mg PO Q4H PRN pain #20 tabs 01/15/25 01/15/25 Rx Allergies Allergy/AdvReac Type Severity Reaction Status Date / Time vancomycin Allergy Intermediate Rash Verified 01/15/25 10:26 Review of Systems Review of Systems ROS: Yes All systems reviewed with the patient and are negative except as otherwise documented OB Exam Vital signs Blood Pressure: 103/64 Pulse Rate: 120 Temperature: 98.8 F HENMT Head: normal to inspection Resp Effort & Inspection: normal respiratory effort and able to speak in complete sentences Cardio Rate: tachycardic Extremities Lower extremity: Yes normal to inspection GI Inspection: normal to inspection Palpation: Yes soft Other: see narrative documentation Other: gross rupture confirmed, GBS obtained Objective Labs 01/15/25 20:25 01/15/25 20:25 Labs: Laboratory Results - last 24 hr 01/15/25 20:25 WBC 15.1 H RBC 4.15 Hgb 10.7 L Hct 33.5 L MCV 80.8 MCH 25.8 L MCHC 32.0 RDW 15.8 H Plt Count 486 H Neut % (Auto) 69.5 Lymph % (Auto) 19.4 L Ponce % (Auto) 8.2 Eos % (Auto) 1.7 L Baso % (Auto) 1.2 Neut # (Auto) 13145 H Lymph # (Auto) 2900 Ponce # (Auto) 1200 H Eos # (Auto) 300 Baso # (Auto) 200 H Crossmatch See Detail Assessment and Plan Assessment and Plan Assessment and Plan narrative: 29yo at 32w2d by 8wk US presents with PPROM, concern for placental abruption in setting of severe polyhydramnios of unknown etiology, concern for underlying undiagnosed anomaly PPROM, non-reassuring surveillance remote from delivery, concern for placental abruption CBC, T&S on admission CMP, mag level added per anesthesia request secondary to maternal h/o cardiomyopathy s/p BMZ x1 on arrival (prior to symptoms of abruption), 2g ancef set up 2u pRBC, all uterotonics in OR at time of delivery including bakri/Teagan and availability of B-vogel suture; 2 peripheral IV established plan for continuous monitoring in OR at time of neuraxial analgesia, low threshold to convert to GETA as indicated Patient is consented for repeat cesearan section as well as transfusion of blood products as medically indicated. dispo: to OR Time-Based Coding :: [TOTAL MINUTES] spent with patient and on the chart (including review of chart, obtaining history, exam, reviewing outside data, placing orders, documenting exam and treatment plan, and counseling patient) on [DATE].
[2025-01-15] MEDS: CITRIC ACID/SODIUM CITRATE 15 ML SOLUTION 30 ML PO (20:53)
[2025-01-15 21:00] LABS: Alanine Aminotransferase 39 IU/L (<35); Albumin 3.2 g/dL (3.5-5.0); Albumin Globulin Ratio 0.9 (1.0-2.8); Alkaline Phosphatase 191 U/L (38-126); Aspartate Aminotransferase 45 IU/L (14-36); BUN Creatinine Ratio 11.9 (6-22); Bilirubin Total 0.6 mg/dL (0.2-1.3); Blood Urea Nitrogen 7 mg/dL (7-17); Calcium 9.3 mg/dL (8.4-10.2); Carbon Dioxide 23 mmol/L (22-32); Chloride 106 mmol/L (98-107); Estimated Glomerular Filt Rate > 60 mL/min (>60); Globulin 3.6 g/dL (1.7-4.1); Glucose 83 mg/dL (70-99); HEMOLYSIS < 15 (0-50); Sodium 137 mmol/L (137-145); Total Protein 6.8 g/dL (6.3-8.2)
[2025-01-15] MEDS: CEFAZOLIN 2 GM/100 ML PREMIX 100 ML IV (21:20)
--- NOTE | 2025-01-15 21:47 | SUR.OPER ---
Supine on Padded OR bed, head on pillow, safety belt at thigh, arms secured on padded arm boards at <90 degrees abduction. Bump under right buttock. Legs uncrossed with pillow under knees, gel pad to heels, tape over blanket to lower legs.
[2025-01-15] MEDS: OXYTOCIN 10 UNIT/ML VIAL IM (21:53)
[2025-01-15] MEDS: ACETAMINOPHEN IV 1,000 MG/100 ML VIAL 400 MG IV (22:20)
[2025-01-15 22:50] VITALS: BP 116/68; PULSE 86; O2SAT 95
[2025-01-15 22:56] LABS: Base Excess Cord Arterial Bld -5.8 (-9.0-1.8); CO2 Cord Arterial Blood 54.8 (40-71); HCO3 Cord Arterial Blood 22.7 (17-27); Oxygen Sat Cord Arterial Blood 36.2 (5-59); pH Cord Arterial Blood 7.23 (7.14-7.38)
--- NOTE | 2025-01-15 23:08 | SUR.PHASEI ---
patient recoverd in center. Report to primary RN at bedside.
[2025-01-15 23:31] VITALS: BP 112/65
[2025-01-16 00:55] VITALS: BP 103/64; PULSE 120; TEMP 37.1
--- NOTE | 2025-01-16 00:55 | P.OP_ITS ---
Operative Date/Time/Diagnoses Date of procedure: 01/15/25 Time of procedure: 21:19 Pre-op diagnosis: 1) IUP at 32w2d; 2) PPROM; 3) non-reassuring surveillance remote from delivery; 4) suspected placental abruption; 5) h/o prior CS with indicated repeat procedure Post-op diagnosis: same Procedure & Clinicians Procedure: repeat low transverse section Same procedure as scheduled: Yes Indications: PPROM with suspected placental abruption, non-reassuring surveillance remote from delivery Surgeon: Barbara Ballard Compression Molding Machine Operator: Elisa Dumont Reason for Compression Molding Machine Operator: complexity and acuity of case, retraction of tissue Anesthesia Type: Spinal Operative Notes Findings: Significant adhesive disease involving fascia, peritoneum and omentum; no significant adhesion of uterus or adnexae grossly normal appearing bilateral fallopian tubes and ovaries, polycystic appearance of ovaries bilaterally poor general integrity of tissue noted without focal abnormality female delivered from cephalic presentation, absent tone, absent respiratory effort, +HR <60bpm Closure Type: primary Specimen(s): cord blood, cord pH and placenta Intraoperative meds administered: Methergine, Pitocin and Tranexamic acid Estimated Blood Loss (mL): 962 Blood products transfused: none Procedure in detail: Pt was taken to the operating room and transferred to OR table.? The spinal was placed per anesthesia.? Continuous monitoring throughout neruaxial analgesia without significant change in heart rate. The patient was placed in the supine position. A cardona catheter was placed for urinary diversion. Sterile vaginal exam was performed at this time with noted palpable vertex, 6/C/0. Patient was expeditiously prepped and draped in a sterile fashion.? Prior to incision the level of anesthesia was rechecked and determined to be adequate.? A timeout was once again performed. A pfannensteil incision was made 2cm superior to the pubic symphysis in line with prior scar.? This incision was carried down sharply to the level of the rectus fascia with noted moderate scar consistent with prior procedure.? The fascia was incised sharply with knife and the incision was extended bilaterally and superiorly using reddy scissors with some difficulty due to degree of overlying scar obscuring the natural tissue layers. The superior border of the fascia was elevated with two Deborah clamps and bluntly dissected off of the rectus muscles followed by incision of the median raphe with the knife under direct visualization.?The rectus muscles were then in the midline and the peritoneum was identified - very thickened in appearance with noted underlying omental adhesion.? The peritoneum was entered bluntly under direct visualization.? The peritoneal opening was then extended manually.? The latex thread machine operator?s hand was inserted in the abdomen and the uterus was found to be in a non-rotated position. The bladder blade was then inserted. A low transverse incision was made in the uterus using the knife.? The incision was extended laterally and superiorly bilaterally bluntly.? The latex thread machine operator?s hand was then inserted into the uterus to find an infant in the vertex OT position.? The bladder blade was removed and infant?s vertex was grasped, flexed and brought to the incision where the infant was delivered atraumatically using fundal pressure.? Noted immediate absence of tone, no spontaneous respiration effort and HR <60bpm, bilateral rocker-bottom noted. Decision made to expeditiously clamp and cut cord. Dr. Dumont broke scrub at this time taking to warmer for further evaluation and resuscitation and remainder of case performed by Dr. Ballard. The placenta delivered with minimal traction with noted adherent clot consistent with abruption, passed off the field for permanent study. The uterus was exteriorized and the uterine cavity was wiped of all clots and debris.? Severe uterine atony noted and verbalized to anesthesia. Immediate administration of routine IV pitocin in addition to 1g TXA. The bladder blade was reinserted and the hysterotomy incision was repaired with #0 vicryl in a running locked fashion, followed by a second #0 vicryl in an imbricating fashion.? Noted persistent intermittent atony throughout hysterotomy repair with additional administration of methergine x1, intrauterine pitocin 10u after which there was slow gradual improvement in tone. Tubes, ovaries and adnexae were visualized and noted to be grossly normal in appearance.? The uterus was replaced into the abdomen without difficulty and the hysterotomy was noted to be hemostatic off of tension. PerClot placed along denuded lower uterine segment for further hemostasis prophylaxis.? The rectus fascia was closed using #1 vicryl in a running fashion.? The incision was irrigated and hemostasis was achieved using the bovie.? The subcutaneous space was reapproximated using plain gut suture in a running fashion.? The skin was closed using 4-0 monocryl followed by application of steristrips and abdominal compression dressing.? All counts were correct x2.? The pt tolerated the procedure well and without difficulty. Fundal contents were expressed and fundus noted to be firm, level noted prior to patient transfer to unit in stable condition.? TAPS block administered per anesthesia prior to departure from OR. In room: 21:19 Skin incision: 2141 Delivery: 2148 <15min from time of discontinuation of external monitoring to delivery Complications: none (stage 2 PPH, QBL 926mL + multiple uterotonics (methergine/pit/TXA)) [place] Baby 1: Delivery Date: 01/15/25 Delivery Time: 21:49 Infant Gender: Female Presentation: vertex Placental Delivery Description: Manual Removal (abnormal texture, adherent clot noted consistent with abruption ) Cord Vessel Description: 3 Vessels score (1 min): 1 score (5 min): 1 score (10 min): 0 weight: 3 lb 6.78 oz Narrative: see purification operator documentation, time of 2229 Post-operative Condition: stable Disposition: PACU Aftercare: routine postop
[2025-01-16] MEDS: OXYCODONE IR 5 MG TABLET PO ×4 (01:17→22:00)
--- NOTE | 2025-01-16 03:10 | PATH_ITS ---
[facility] Accession Number: [id number] No. of containers..01 Tissue . 01 Material submitted: . placenta - PLACENTA . 01 Diagnosis: PLACENTA: . Adherent blood clot with acute inflammatory infiltrate. Please see comment. . Placenta parenchyma: Weight 382 grams. Peripheral adherent hemorrhage (4.0 x 2.3 cm, approximately 10% of maternal surface by gross examination). Chorionic villous maturation is variable. Mild to moderate inter and intravillous fibrin is present. No definite villitis identified. Umbilical cord: 4.6 cm in length. Eccentrically inserted 2.2 cm from the placental disc margin. Three vessels present. No funisitis identified. Membranes: Partial separation of amnion and chorion on gross examination. Marginally inserted. Ruptured 1.6 cm from the placental disc margin. Patchy chorioambnionitis identified. [facility] 01/21/2025 1638 Local . 01 Comment: COMMENT: Histologic features are suggestive of abruption. Clinical correlation recommended. . This case was also reviewed by Dr. Sunitha Peacock, who agrees with the interpretation. . 01 Electronically signed: . Kamala Boston MD, Pathologist NPI- [id number] . 01 Gross description: . Received in formalin with two identifiers and placenta, is an ovoid beasley placenta with a trimmed weight of 382 grams and measuring 19.8 x 13.4 x 1.6 cm with no accessory lobes identified. . The membranes are rizo and translucent with the amnion partially from the chorion, and no discoloration or thickening identified. They insert at the margin and have a point of rupture 1.6 cm from the nearest disc edge. . The cord measures 4.6 cm in length by 1.0 cm in diameter with a leftward coil and one twist along its length. The cord inserts eccentrically 2.2 cm from the nearest disc edge. Sectioning reveals unremarkable trivascular architecture with no knots or lesions identified. . The surface is violaceous with a single pale rizo area of discoloration 1.5 x 1.1 cm and less then 10% of the surface. The vasculature is arborizing and unremarkable. . The maternal surface is apparently complete with an area of adherent hemorrhage located peripherally measuring 4.0 x 2.3 cm (approximately 10% of the maternal surface). No additional lesions are identified. Sectioning reveals a red, spongy cut surface with no discoloration or lesions identified. Sectioning the adherent hemorrhage reveals relatively fresh, soft hewmorrhagic material with possible slight induration of the underlying maternal surface. . Branch Associate sections are submitted as follows: A1: Membrane roll and placental end of cord. A2: Membrane roll and end of cord. A3: Full thickness surface discoloration. A4-A5: Full thickness adherent hemorrhage. A6-A8: Central full thickness unremarkable sections. ([id number]) /KENDALL 01/17/2025 1142 Local . 01 Pathologist provided ICD-10: O43.93 . 01 CPT . 043504 Performed at: [address] [facility] [address], [place], [place] [id number] MD Eitan Garland MD Phone: [phone]
[2025-01-16] MEDS: KETOROLAC 30 MG/ML VIAL IV ×3 (04:13→18:30)
[2025-01-16] MEDS: ONDANSETRON 4 MG/2 ML INJ IV (06:01)
[2025-01-16 06:29] LABS: Add Manual Diff / Slide Review NO; Basophils Absolute Auto 100 /uL (0-100); Basophils Percent Auto 0.4 % (0-2); Eosinophils Absolute Auto 0 /uL (0-450); Hematocrit 32.9 % (36-46); Hemoglobin 10.6 g/dL (12.0-16.0); Lymphocytes Absolute Auto 1300 /uL (1100-4500); Lymphocytes Percent Auto 6.9 % (25-40); Mean Corpuscular HGB Conc 32.1 % (30-36); Mean Corpuscular Hemoglobin 25.9 PG (26-34); Mean Corpuscular Volume 80.7 fL (80-100); Monocytes Absolute Auto 200 /uL (0-900); Monocytes Percent Auto 1.1 % (3-14); Neutrophils Absolute Auto 17100 /uL (1500-7000); Neutrophils Percent Auto 91.6 % (50-75); Platelet Count 470 X10^3/uL (150-400); Red Blood Cell Count 4.08 X10^6/uL (4.0-5.2); Red Cell Distribution Width 15.9 % (11.6-14.8); White Blood Cell Count 18.7 X10^3/uL (4.5-11.0)
[2025-01-16 08:53] VITALS: TEMP 36
[2025-01-16] MEDS: ACETAMINOPHEN SUSP 650 MG/20.3 ML UDC PO ×3 (08:59→22:01)
[2025-01-16] MEDS: diazePAM 10 MG/2 ML SYRINGE 5 MG IV (12:45)
--- NOTE | 2025-01-16 18:17 | P.PNOB_ITS ---
Subjective - OB Subjective Patient comments: no complaints, pain well controlled, incisional pain, tolerating diet and flatus present baby status: other ( demise) Narrative: From an OB viewpoint Sejal is doing extremely well. She has been up to the bathroom without issues. Her grief reaction is appropriate thus far, her family, and her son has visited. Her baby girl (Dada) has been tranferred to [facility] and she was able to carry Vale to the [facility] for transport to the home. They have decided to have an autopsy performed regardless of the CfDNA studies submitted yesterday which have been expedited. A package of information has been received from [facility] re: post-mortem examinations available and we anticipate completion of the paperwork and transfer of Vale to [facility] to occur sometime tomorrow. Although she will likely meet surgical discharge criteria tomorrow, she wants to stay inpatient another night to process her loss before going home without her baby which will obviously be a difficult process for her and her family. Date Patient Seen: 01/16/25 Time Patient Seen: 18:19 Exam Vital Signs (past 8 hours): Oxygen Delivery Method Room Air Const General: cooperative, anxious, frail appearing and other (Sad, blunted affect, not tearful) Nutritional Appearance: thin Orientation: alert, awake and oriented x3 HENMT Head: normal to inspection Eyes General: appearance normal, both eyes and all related structures Neck Neck: normal visual inspection Resp Effort & Inspection: normal respiratory effort and able to speak in complete sentences GI Inspection: normal to inspection and incision (Dressing clean and dry) General: other (Deferred. Lochia light.) Extrem General: normal to inspection and no clubbing, cyanosis or edema Right lower extremity: normal to inspection Left lower extremity: normal to inspection Psych Appearance: grossly normal Mental Status: mental status grossly normal Speech and Movement: speech and movement normal Mood: congruent mood Affect: sad and blunted Attitude: cooperative Thought Process: normal and flight of ideas Thought Content: normal Judgment: judgment good Objective Labs 01/16/25 06:20 01/15/25 20:25 Labs: Laboratory Results - last 24 hr 01/15/25 01/15/25 01/16/25 20:25 22:50 06:20 WBC 15.1 H 18.7 H RBC 4.15 4.08 Hgb 10.7 L 10.6 L Hct 33.5 L 32.9 L MCV 80.8 80.7 MCH 25.8 L 25.9 L MCHC 32.0 32.1 RDW 15.8 H 15.9 H Plt Count 486 H 470 H Neut % (Auto) 69.5 91.6 H D Lymph % (Auto) 19.4 L 6.9 L Morris % (Auto) 8.2 1.1 L Eos % (Auto) 1.7 L 0.0 L Baso % (Auto) 1.2 0.4 Neut # (Auto) 04864 H 12075 H Lymph # (Auto) 2900 1300 Morris # (Auto) 1200 H 200 Eos # (Auto) 300 0 Baso # (Auto) 200 H 100 Cord ABG pH 7.23 Cord ABG pCO2 54.8 Cord ABG pO2 26.0 Cord ABG HCO3 22.7 Cord ABG Base Excess -5.8 Cord ABG O2 Sat 36.2 Sodium 137 Potassium 3.0 L Chloride 106 Carbon Dioxide 23 BUN 7 Creatinine 0.59 Estimated GFR > 60 BUN/Creatinine Ratio 11.9 Glucose 83 Calcium 9.3 Total Bilirubin 0.6 AST 45 H ALT 39 H Alkaline Phosphatase 191 H Total Protein 6.8 Albumin 3.2 L Globulin 3.6 Albumin/Globulin Ratio 0.9 L Blood Type O Positive Antibody Screen Negative Crossmatch See Detail Assessment & Plan Plan day: 1 plan OB: routine postop care Comments: Will add Ambien PRN sleep, IV iron x 1 dose. Paperwork for autopsy/genetic studies to be completed tomorrow in preparation for transfer of [place] to [facility]. Time-Based Coding :: 20 minutes spent with patient and on the chart (including review of chart, obtaining history, exam, reviewing outside data, placing orders, documenting exam and treatment plan, and counseling patient) on 01/16/2025.
[2025-01-16] MEDS: IRON SUCROSE 300 MG in SODIUM CHLORIDE 0.9% 250 ML 176.667 MG IV (19:57)
[2025-01-16] MEDS: ZOLPIDEM 5 MG TABLET PO (22:01)
[2025-01-17] MEDS: IBUPROFEN SUSP 100 MG/5 ML UDC 600 MG PO ×4 (00:36→20:09)
[2025-01-17] MEDS: OXYCODONE IR 5 MG TABLET PO ×3 (08:17→22:10)
[2025-01-17] MEDS: ACETAMINOPHEN SUSP 650 MG/20.3 ML UDC PO ×3 (10:17→22:09)
--- NOTE | 2025-01-17 11:24 | P.PNOB_ITS ---
Subjective - OB Subjective Patient comments: no complaints, pain well controlled, incisional pain, tolerating diet and flatus present Narrative: Good sleep overnight. Pain under better control and patient becoming more active. Date Patient Seen: 01/17/25 Time Patient Seen: 11:25 Exam Vital Signs (past 8 hours): Oxygen Delivery Method Room Air Const General: cooperative and comfortable Nutritional Appearance: average body habitus Orientation: alert and oriented x3 HENMT Head: normal to inspection, atraumatic and abrasion Ears: hearing grossly normal bilaterally Face and sinus: face symmetric Eyes General: appearance normal, both eyes and all related structures Conjunctivae: conjunctivae normal Sclera: sclerae normal EOM: EOM intact bilaterally Neck Neck: normal visual inspection Resp Effort & Inspection: normal respiratory effort and able to speak in complete sentences Auscultation: clear to auscultation bilaterally Cardio Rate: regular rate Rhythm: regular rhythm Heart Sounds: S1 normal, S2 normal and no murmurs GI Inspection: normal to inspection and incision (Compression dressing removed, Aquacel applied) Palpation: soft, no hepatosplenomegaly and tender (Mild, diffuse postsurgical tenderness) Auscultation: normal bowel sounds External Female Exam: other (No significant bleeding noted) Extrem General: no calf tenderness Psych Appearance: grossly normal Mental Status: mental status grossly normal Speech and Movement: speech and movement normal Mood: congruent mood Affect: normal affect Attitude: cooperative Thought Process: normal Thought Content: normal Judgment: judgment good Objective Labs 01/16/25 06:20 01/15/25 20:25 Assessment & Plan Plan day: 2 plan OB: routine postop care Comments: Paperwork for post-mortem studies submitted to [facility] and transfer or remains anticipated for later today if feasible. Time-Based Coding :: 20 minutes spent with patient and on the chart (including review of chart, obtaining history, exam, reviewing outside data, placing orders, documenting exam and treatment plan, and counseling patient) on 01/17/2025.
[2025-01-17] MEDS: diphenhydrAMINE 25 MG TABLET PO (18:04)
[2025-01-17] MEDS: polyethylene glycoL 3350 17 GM POWD.PACK PO (20:31)
[2025-01-17] MEDS: ZOLPIDEM 5 MG TABLET PO (22:10)
[2025-01-18] MEDS: IBUPROFEN SUSP 100 MG/5 ML UDC 600 MG PO ×2 (02:10→08:41)
[2025-01-18] MEDS: ACETAMINOPHEN SUSP 650 MG/20.3 ML UDC PO ×2 (04:05→11:08)
[2025-01-18] MEDS: OXYCODONE IR 5 MG TABLET PO ×2 (04:06→08:42)
--- NOTE | 2025-01-18 10:40 | P.DS_ITS ---
Discharge Providers Provider Date of admission: 01/15/25 20:04 Discharge Date: 01/18/25 Primary care physician: Boo Booth MD Consults: 01/16/25 01:05 Consult to Airframe Design Engineer Routine Comment: Discharge provider: Mohsen Roper MD Summary Hospital Course Date Patient Seen: 01/18/25 Time Patient Seen: 10:40 Time Spent with Patient Time attestation: Total time spent providing and/or coordinating discharge services: Objective Labs 01/16/25 06:20 01/15/25 20:25 Exam Vital Signs (past 8 hours): Oxygen Delivery Method Room Air Discharge Plan Discharge Plan Patient Disposition: Home Provider Discharge Comment: Please review the written instructions received when you were discharged from the hospital. Your follow-up appointment is scheduled for 1 week after your surgery and I look forward to seeing you then. If however in the meanwhile you have any issues, concerns, or questions, please contact me either through the office phone at [phone], or via the patient portal. I have also provided you and your fiance my cell phone for direct contact whenever needed. Discharge orders & Medications Prescriptions: New zolpidem 5 mg Tablet 5 mg PO BEDTIME PRN (Reason: Sleep) Qty: 10 0RF oxycodone 5 mg Tablet 5 mg PO Q4H PRN (Reason: Pain, Moderate (4-6)) Qty: 20 0RF lorazepam [Ativan] 1 mg tablet 1 mg PO BID PRN (Reason: anxiety) Qty: 20 0RF sertraline 50 mg tablet 50 mg PO DAILY Qty: 30 12RF Continued fluconazole 150 mg tablet 150 mg PO Q3D Qty: 2 0RF Rx Instructions: may repeat second dose 72 hrs after first dose if symptoms persist (DME) blood-glucose meter Mis See Rx Instructions .MEDSUPPLY Qty: 1 0RF Rx Instructions: Use to check blood sugar 4 times daily as directed and record on log sheet (DME) Blood Glucose Test Strip See Rx Instructions .ROUTE .MEDSUPPLY Qty: 120 3RF Rx Instructions: Testing blood sugar 4x daily fasting and 2 hours after each meal oxycodone 5 mg tablet 5 mg PO Q4H PRN (Reason: pain) Qty: 20 0RF vit-ferrous sulfat-FA 27 mg iron- 0.8 mg tablet PO mecobalamin (vitamin B12) 5,000 mcg tablet,chewable 5,000 mcg PO DAILY cholecalciferol (vitamin D3) 50 mcg (2,000 unit) capsule 100 mcg PO DAILY Discontinued nifedipine 30 mg tablet extended release 30 mg PO DAILY Qty: 30 2RF Follow up/Referrals: Boo Booth MD [Primary Care Provider, Family Practice] Mohsen Roper MD [Physician, PSYCHIATRIC CLINICIAN] Discharge Health Status Multidrug resistant organism: No MDRO Diet/Activity/Treatments Diet: Diet as Tolerated Activity: As tolerated Other treatments: Ntzc-iyc-ropvdyr stool softeners and/or MiraLax may be used for constipation. [id number] Tylenol and/or ibuprofen may be used as needed for pain relief. Skin/Wound/Dressing Care Report to your healthcare provider any signs of infection, such as:: chills, fever, increased pain, unusual drainage and unusual redness Dressing: Dressing will be removed at the time of your one-week postop visit Visit Report/Discharge Packet Instructions: DI for , DI for Prescription Opioid Use Discharge Data Primary Care Provider: Boo Booth
[2025-01-18] MEDS: polyethylene glycoL 3350 17 GM POWD.PACK PO (11:09)
[2025-01-18 11:20] VITALS: BP 103/64; PULSE 120; RESP 16; TEMP 36
== END 2025-01-18 12:00 | disposition home or self-care (01) | DRG 540 ==
PROVIDERS: Admitting Provider Obstetrics & Gynecology; PCP Family Medicine; Referring Provider Obstetrics & Gynecology; Visit Provider Obstetrics & Gynecology
PROC: 10D00Z1 Extraction of Products of Conception, Low, Open Approach (ICD-10-PCS; CPT 59514; principal; 2025-01-15 22:00)
DX: O34.211 Maternal care for low transverse scar from previous cesarean delivery (principal); O45.93 Premature separation of placenta, unspecified, third trimester; O40.3XX0 Polyhydramnios, third trimester, not applicable or unspecified; O76 Abnormality in fetal heart rate and rhythm complicating labor and delivery; O99.892 Other specified diseases and conditions complicating childbirth; N73.6 Female pelvic peritoneal adhesions (postinfective); R74.01 Elevation of levels of liver transaminase levels; Z3A.32 32 weeks gestation of pregnancy; Z37.0 Single live birth
CPT/HCPCS: 36415; 59025; 59050; 80053; 82803; 85025; 86850; 86900; 86901; 96372; G0379; J0131; J0290; J0330; J0690; J0702; J1100; J1756; J1885; J2274; J2405; J2590; J2704; J3360

== ENCOUNTER 2025-01-24 18:35 | Emergency (ER) | payer OTHER, SELFPAY ==
[2023-09-26 11:35] VITALS: BMI 20.6
[2025-01-24] VITALS (9 sets, daily range): BP systolic 104–113; BP diastolic 61–70; PULSE 80–96; RESP 14–20; TEMP 36.9; O2SAT 94–97; BMI 22.6
--- NOTE | 2025-01-24 18:51 | DI.RAD.S_ITS ---
PROCEDURE: XR CHEST 1V INDICATIONS: Chest Pain TECHNIQUE: One view of the chest was acquired. COMPARISON: [facility], CR, XR CHEST 1V, 07/15/2022, 9:17. [facility], CR, XR CHEST 2V, 11/03/2021, 23:34. FINDINGS AND IMPRESSION: Low lung volumes. On this single view study, no airspace consolidation or pleural effusion is identified. Heart size is within normal limits. Unremarkable osseous structures. Dictated by: Pieter Mendez M.D. on 01/24/2025 at 19:22 Approved by: Pieter Mendez M.D. on 01/24/2025 at 19:24
--- NOTE | 2025-01-24 18:58 | EKG_ITS ---
[address] [address] Test Date: 2025-01-24 Pat Name: Sandra Bull Department: [facility] Room: Gender: Female Translator Interpreter: ROLDAN : 1995 Requested By: Order Number: [id number] Reading MD: Peter Escalante MD Measurements Intervals [place] Rate: 80 P: 53 WV: 140 QRS: 39 QRSD: 78 T: 40 QT: 366 QTc: 422 Interpretive Statements Normal sinus rhythm Electronically Signed On 01-27-2025 11:52:19 PDT by Peter Escalante MD
[2025-01-24 19:33] LABS: Add Manual Diff / Slide Review NO; Basophils Absolute Auto 200 /uL (0-100); Basophils Percent Auto 1.1 % (0-2); Eosinophils Absolute Auto 500 /uL (0-450); Eosinophils Percent Auto 3.4 % (2-4); Hematocrit 34.7 % (36-46); Hemoglobin 11.4 g/dL (12.0-16.0); Lymphocytes Absolute Auto 3200 /uL (1100-4500); Lymphocytes Percent Auto 23.6 % (25-40); Mean Corpuscular HGB Conc 32.9 % (30-36); Mean Corpuscular Hemoglobin 27.2 PG (26-34); Mean Corpuscular Volume 82.8 fL (80-100); Monocytes Absolute Auto 600 /uL (0-900); Monocytes Percent Auto 4.1 % (3-14); Neutrophils Absolute Auto 9300 /uL (1500-7000); Neutrophils Percent Auto 67.8 % (50-75); Platelet Count 868 X10^3/uL (150-400); Red Blood Cell Count 4.19 X10^6/uL (4.0-5.2); Red Cell Distribution Width 17.1 % (11.6-14.8); White Blood Cell Count 13.8 X10^3/uL (4.5-11.0)
--- NOTE | 2025-01-24 19:34 | DI.CT.S_ITS ---
PROCEDURE: CT ANGIO CHEST PE PROTOCOL INDICATIONS: CP / SOB s/p TECHNIQUE: After the administration of intravenous contrast, 2 mm thick sections acquired from the pulmonary apices to the posterior costophrenic angles. 3-dimensional maximum intensity projection (MIP) coronal and sagittal reformats were then acquired through the thorax. For radiation dose reduction, the following was used: automated exposure control, adjustment of mA and/or kV according to patient size. COMPARISON: [facility], CT, CT ANGIO CHEST PE PROTOCOL, 07/15/2022, 17:27. FINDINGS: Image quality: Diagnostic. Pulmonary arteries: Pulmonary arteries are normal in size, and demonstrate no intraluminal filling defects to suggest central pulmonary embolism. Lower Neck: No enlarged lymph nodes. Thyroid: No thyroid nodules which require sonographic follow up, per consensus guidelines. Axillae: No enlarged lymph nodes. Chest Wall: Unremarkable. Bones: No suspicious osseous lesions. Lungs and Pleura: No pneumothorax or pleural effusions. Streaky opacity at the left lower lobe which has the appearance of atelectasis. No mass or significant pulmonary nodules. Heart: Heart size is normal. No pericardial effusion. Thoracic Vessels: No aortic aneurysm. Mediastinum and Radha: No enlarged lymph nodes. Esophagus: No wall thickening. No hiatal hernia. Upper Abdomen: Visualized upper abdomen solid organs and bowel loops appear normal. IMPRESSION: 1. No pulmonary embolism. 2. Streaky opacity at the left lower lobe which has the appearance of atelectasis. Dictated by: Tim Sky M.D. on 01/24/2025 at 20:05 Approved by: Tim Sky M.D. on 01/24/2025 at 20:12
[2025-01-24 19:39] LABS: Prothrombin Time 11.1 SECONDS (9.4-12.5)
[2025-01-24 19:41] LABS: PTT Partial Thromboplastin Tim 31 SECONDS (25.1-36.5)
[2025-01-24 19:43] LABS: Alanine Aminotransferase 23 IU/L (<35); Albumin Globulin Ratio 1.1 (1.0-2.8); Alkaline Phosphatase 260 U/L (38-126); Aspartate Aminotransferase 34 IU/L (14-36); BUN Creatinine Ratio 30.9 (6-22); Bilirubin Total 0.5 mg/dL (0.2-1.3); Blood Urea Nitrogen 17 mg/dL (7-17); Calcium 9.5 mg/dL (8.4-10.2); Carbon Dioxide 26 mmol/L (22-32); Chloride 106 mmol/L (98-107); Creatine Kinase 53 U/L (30-135); Estimated Glomerular Filt Rate > 60 mL/min (>60); Globulin 3.7 g/dL (1.7-4.1); Glucose 94 mg/dL (70-99); HEMOLYSIS < 15 (0-50); Lipase 33 U/L (23-300); Magnesium 2.1 mg/dL (1.6-2.3); Sodium 140 mmol/L (137-145); Total Protein 7.7 g/dL (6.3-8.2)
[2025-01-24 19:48] LABS: Anisocytosis 1+; Platelet Estimate Increased on smear
[2025-01-24 19:54] LABS: NT-proBNP (BNP-Adult 18+) 57 pg/mL (<125); Troponin I < 0.012 ng/mL (0.01-0.034)
--- NOTE | 2025-01-24 20:39 | ED.CHESTPAIN ---
HPI - Chest Pain General Chief Complaint: Chest Pain Stated Complaint: postc section, shoulder, rib pain-ob ref Time Seen by Provider: 01/24/25 20:39 Mode of arrival: Ambulatory History of Present Illness HPI narrative: 29-year-old female no significant past medical history comes into the ED from home for evaluation of chest/rib pain. She states that it is to the left side of her shoulder/under her left breast ongoing intermittent for the past 3 days, to note she did have a on 01/14/2025, states that she is not having any issues with this. Patient not complaining of any other symptoms such as abdominal pain nausea and vomiting vaginal bleeding or discharge. Related Data Home Medications ?Medication ?Instructions ?Recorded ?Confirmed cholecalciferol (vitamin D3) 50 100 mcg PO DAILY 07/09/24 01/15/25 mcg (2,000 unit) capsule mecobalamin (vitamin B12) 5,000 5,000 mcg PO DAILY 07/09/24 01/15/25 mcg chewable tablet vitamin-ferrous sulfate tab PO 07/09/24 01/15/25 27 mg iron-folic acid 0.8 mg tablet Previous Rx's ?Medication ?Instructions ?Recorded fluconazole 150 mg tablet 150 mg PO Q3D 2 doses #2 tabs 12/17/24 blood sugar diagnostic (Blood #120 ea 01/14/25 Glucose Test strips) blood-glucose meter #1 ea 01/14/25 lorazepam 1 mg tablet (Ativan) 1 mg PO BID PRN anxiety #20 tabs 01/18/25 sertraline 50 mg tablet 50 mg PO DAILY #30 tabs 01/18/25 zolpidem 5 mg tablet 5 mg PO BEDTIME PRN Sleep #10 tabs 01/18/25 naloxone 4 mg/actuation nasal 1 spray intranasal Q2M #2 ea 01/20/25 spray (Narcan) oxycodone 5 mg tablet 5 mg PO Q6H PRN pain #10 tabs 01/22/25 doxycycline hyclate 100 mg capsule 100 mg PO BID 5 days #10 caps 01/24/25 Allergies Allergy/AdvReac Type Severity Reaction Status Date / Time vancomycin Allergy Intermediate Rash Verified 01/24/25 18:38 Review of Systems Review of Systems Narrative: General: Denies fever, chills, weight loss HEENT: Denies headache, eye drainage, eye irritation, head trauma, sore throat, voice change Cardiovascular: Positive chest pain, denies palpitations, tachycardia Respiratory: Denies any shortness of breath, cough, wheeze, stridor GI/: Denies any abdominal pain, nausea, vomiting, diarrhea, bright red blood per rectum, melanotic stools, urinary frequency, urinary retention, dysuria, hematuria MSK: Denies any joint pain, muscle pains, swelling Skin: Denies any rashes, lesions, discoloration Neuro: Denies any headache, lightheadedness, dizziness, fainting, weakness Psych: Denies SI/HI Patient History Medical History (Updated 01/24/25 @ 20:45 by Sean Yoo DO) Urinary tract infection Sludge in gallbladder Right sided abdominal pain Anticoagulant prescribed Hydronephrosis delivery delivered Gestational diabetes Pain in symphysis pubis during contractions Colitis Ejection fraction < 50% Elevated troponin level not due myocardial infarction Sepsis after obstetrical procedure Anemia due to blood loss, acute Proteinuria affecting in third trimester Macrosomia affecting management of mother in third trimester, single gestation Acid reflux Surgical History (Updated 09/26/23 @ 10:43 by Delia Jules, ABILIO) S/P section History of section Hx of laparoscopy History of esophagogastroduodenoscopy (EGD) [place] teeth extracted Family History (Updated 07/09/24 @ 14:19 by Delia Jules, ABILIO) Mother Essential tremor Lung disease Post-COVID syndrome Anxiety Father Lung cancer Smoker Social History marital status: unmarried,living together number of children: 1 (also two stepchildren patient support partner) household members: significant other and children lives independently: Yes caregiver/support person: Yes housing: apartment (cottage) pets and animals: No education level: high school occupational status: employed current occupational exposures/hazards: No special leatha needs: No travel history: recent (domestic only) seatbelt use: always helmet use: Yes water heater temp set < 120 deg: Yes working smoke detector in home: Yes fire extinguisher in home: Yes carbon monox detector in home: Yes firearms in home: Yes (unloaded and hidden) firearms unloaded and locked: No do you feel safe at home: Yes second hand exposure: No (S/o quit smoking) alcohol intake: former substance use type: does not use during the past year weight has: remained stable well-balanced diet: daily or most days daily servings fruits/ve or more times/day caffeine: Yes (single soft drink (usually Dr. Pepper) daily) Type(s) of exercise: walking and irregular exercise Smoking Status: Never smoker alcohol intake frequency: holidays/special occasions only Exam Narrative Exam Narrative: General: Cooperative, well-developed, not in acute distress HEENT: Normocephalic, atraumatic, PERRLA, normal sclera, eyelids normal Neck: Active full range of motion, atraumatic Chest: Normal to inspection, negative crepitus, no overlying erythema ecchymosis Respiratory: Normal respiratory effort, not in acute respiratory distress, clear to auscultation bilaterally negative cough, wheeze, tachypnea, rhonchi, rales Cardiology: Regular rate rhythm negative gallop, murmur, rubs GI/: Well-healing scar to the lower abdomen consistent with recent , no purulent discharge no erythema no crepitus, soft, non rigid, normal to inspection, exam deferred MSK: Full active range of motion in all 4 extremities, atraumatic, no tenderness to palpation of any bony prominences Skin: No rashes or lesions noted Neuro: Alert awake oriented x3, moves all 4 extremities spontaneously, cranial nerves intact, able to answer all questions appropriately follows commands appropriately Psych: Cooperative, negative suicidal or homicidal ideations Initial Vital Signs Initial Vital Signs: Vital Signs Temperature 98.4 F 01/24/25 18:37 Pulse Rate 96 H 01/24/25 18:37 Respiratory Rate 20 01/24/25 18:37 Blood Pressure 113/70 01/24/25 18:37 Pulse Oximetry 96 01/24/25 18:37 Oxygen Delivery Method Room Air 01/24/25 18:37 Course Orders Ordered: ED Orders 01/24/25 18:51 XR chest 1V Stat EKG-12 Lead Stat 01/24/25 19:03 Complete Blood Count AUTO DIFF Stat Comprehensive Metabolic Panel Stat Lipase Stat Magnesium Stat NT-proBNP (BNP-Adult 18+) Stat PTT Partial Thromboplastin Jonny Stat Prothrombin Time INR Stat Troponin & CK Cardiac Panel Stat 01/24/25 19:34 CT angio chest PE protocol Stat Discontinued Medications Aspirin (Aspirin 81 Mg Chew Tab) 324 mg PO NOW ONE Stop: 01/24/25 18:52 Morphine Sulfate (Morphine 4 Mg/Ml Inj) 4 mg IV NOW ONE Stop: 01/24/25 20:36 Vital Signs Vital signs: Vital Signs - 8 hr 01/24/25 18:37 Temperature 98.4 F Pulse Rate 96 H Respiratory Rate 20 Blood Pressure 113/70 Pulse Oximetry 96 Oxygen Delivery Method Room Air MDM - Chest Pain Differential Diagnosis Differential diagnosis: Likely pneumothorax, atypical chest pain, st elevation myocardial infarction, costochondritis, chest pain and other (Pneumonia, electrolyte abnormality, ACS) Lab Data 01/24/25 19:03 01/24/25 19:03 Labs: Lab Results 01/24/25 Range/Units 19:03 WBC 13.8 H (4.5-11.0) X10^3/uL RBC 4.19 (4.0-5.2) X10^6/uL Hgb 11.4 L (12.0-16.0) g/dL Hct 34.7 L (36-46) % MCV 82.8 (80-100) fL MCH 27.2 (26-34) PG MCHC 32.9 (30-36) % RDW 17.1 H (11.6-14.8) % Plt Count 868 H (150-400) X10^3/uL Neut % (Auto) 67.8 (50-75) % Lymph % (Auto) 23.6 L (25-40) % Ceiba % (Auto) 4.1 (3-14) % Eos % (Auto) 3.4 (2-4) % Baso % (Auto) 1.1 (0-2) % Neut # (Auto) 9300 H (2935-7031) /uL Lymph # (Auto) 3200 (9242-7344) /uL [place] # (Auto) 600 (0-900) /uL Eos # (Auto) 500 H (0-450) /uL Baso # (Auto) 200 H (0-100) /uL Platelet Estimate Increased on smear RBC Morphology See below Anisocytosis 1+ H PT 11.1 (9.4-12.5) SECONDS INR 1.0 (0.9-1.3) APTT 31 (25.1-36.5) SECONDS Sodium 140 (137-145) mmol/L Potassium 4.0 (3.4-5.1) mmol/L Chloride 106 (98-107) mmol/L Carbon Dioxide 26 (22-32) mmol/L BUN 17 (7-17) mg/dL Creatinine 0.55 (0.52-1.04) mg/dL Estimated GFR > 60 (>60) mL/min BUN/Creatinine Ratio 30.9 H (6-22) Glucose 94 (70-99) mg/dL Calcium 9.5 (8.4-10.2) mg/dL Magnesium 2.1 (1.6-2.3) mg/dL Total Bilirubin 0.5 (0.2-1.3) mg/dL AST 34 (14-36) IU/L ALT 23 (<35) IU/L Alkaline Phosphatase 260 H (38-126) U/L Total Creatine Kinase 53 (30-135) U/L Troponin I < 0.012 (0.01-0.034) ng/mL NT-Pro-B Natriuret Pep 57 (<125) pg/mL Total Protein 7.7 (6.3-8.2) g/dL Albumin 4.0 (3.5-5.0) g/dL Globulin 3.7 (1.7-4.1) g/dL Albumin/Globulin Ratio 1.1 (1.0-2.8) Lipase 33 (23-300) U/L Imaging Data Chest x-ray: Radiologist's Impression: [address] [address] XRay Report Signed Patient: Sandra Bull MR#: [id number] : 1995 Acct:[id number] Age/Sex: 29 / F Date of Service: 01/24/25 Loc: ED Accession Number: [id number] Procedure: XR chest 1V Ordering Provider: Sean Yoo D.O. PROCEDURE: XR CHEST 1V INDICATIONS: Chest Pain TECHNIQUE: One view of the chest was acquired. COMPARISON: [facility], CR, XR CHEST 1V, 07/15/2022, 9:17. [facility], , XR CHEST 2V, 11/03/2021, 23:34. FINDINGS AND IMPRESSION: Low lung volumes. On this single view study, no airspace consolidation or pleural effusion is identified. Heart size is within normal limits. Unremarkable osseous structures. CTA PE: Radiologist's Impression: [address] [address] [address] Scan Report Signed Patient: Sandra Bull MR#: [id number] : 1995 Acct:[id number] Age/Sex: 29 / F Date of Service: 01/24/25 Loc: ED Accession Number: [id number] Procedure: CT angio chest PE protocol Ordering Provider: Sean Yoo D.O. PROCEDURE: CT ANGIO CHEST PE PROTOCOL INDICATIONS: CP / SOB s/p TECHNIQUE: After the administration of intravenous contrast, 2 mm thick sections acquired from the pulmonary apices to the posterior costophrenic angles. 3-dimensional maximum intensity projection (MIP) coronal and sagittal reformats were then acquired through the thorax. For radiation dose reduction, the following was used: automated exposure control, adjustment of mA and/or kV according to patient size. COMPARISON: [facility], CT, CT ANGIO CHEST PE PROTOCOL, 07/15/2022, 17:27. FINDINGS: Image quality: Diagnostic. Pulmonary arteries: Pulmonary arteries are normal in size, and demonstrate no intraluminal filling defects to suggest central pulmonary embolism. Lower Neck: No enlarged lymph nodes. Thyroid: No thyroid nodules which require sonographic follow up, per consensus guidelines. Axillae: No enlarged lymph nodes. Chest Wall: Unremarkable. Bones: No suspicious osseous lesions. Lungs and Pleura: No pneumothorax or pleural effusions. Streaky opacity at the left lower lobe which has the appearance of atelectasis. No mass or significant pulmonary nodules. Heart: Heart size is normal. No pericardial effusion. Thoracic Vessels: No aortic aneurysm. Mediastinum and Radha: No enlarged lymph nodes. Esophagus: No wall thickening. No hiatal hernia. Upper Abdomen: Visualized upper abdomen solid organs and bowel loops appear normal. IMPRESSION: 1. No pulmonary embolism. 2. Streaky opacity at the left lower lobe which has the appearance of atelectasis. ECG Data Interpretation: EKG interpreted ED physician sinus 80 beats per minute QTC 422 normal axis no STEMI MDM Narrative Medical decision making narrative: 29-year-old female without any significant past medical history presenting for 3 days of left-sided chest/shoulder pain, to note patient did have a on 01/14/2025 unfortunately patient states that the was premature at 32 weeks and . She states that she is now having 9/10 intermittent left shoulder/left-sided chest pain nonpleuritic in nature nonexertional but worse with motion of the left upper extremity. Patient had lab work imaging EKG performed here in the emergency department. EKG nonischemic in nature. Chest x-ray without any acute cardiopulmonary abnormality, however CTA showing streaking opacity of the left lung most likely atelectasis however given patient's symptoms will treat for possible pneumonia. Patient without PE on CTA. Otherwise lab work unremarkable. Patient not requiring any supplemental oxygen, she was given strict return precautions and verbalized understanding of this and agrees to being discharged home with outpatient follow up, did recommend patient follow up with primary care as well as Cardiology. Discharge Plan Departure Patient Disposition: Home Clinical Impression: Pneumonia Instructions: DI for Pneumonia -- Adult Activity Restrictions/Additional Instructions: Please follow up with primary care and Cardiology in outpatient setting Please read the discharge instructions sheet carefully and bring all papers to all doctor follow-up visits, as it may contain information that your doctor may want to see. Disease processes change and evolve, if your symptoms worsen or if you develop any new symptoms that are concerning to you please return for evaluation. Your evaluation today does not show any evidence of any life-threatening/serious illnesses requiring admission to the hospital or surgery. Please follow-up with your doctor for re-evaluation in approximately 1 day. Seek immediate medical attention for any worrisome symptoms. *If you do not have a primary care provider please contact the [facility] Resource line at [phone]. They will ask some questions about your medical history and help get you set up with a doctor in the community. Prescriptions: New doxycycline hyclate 100 mg capsule 100 mg PO BID 5 Days Qty: 10 0RF No Action fluconazole 150 mg tablet 150 mg PO Q3D Qty: 2 0RF Rx Instructions: may repeat second dose 72 hrs after first dose if symptoms persist (DME) blood-glucose meter Misc See Rx Instructions .MEDSUPPLY Qty: 1 0RF Rx Instructions: Use to check blood sugar 4 times daily as directed and record on log sheet (DME) Blood Glucose Test Strip See Rx Instructions .ROUTE .MEDSUPPLY Qty: 120 3RF Rx Instructions: Testing blood sugar 4x daily fasting and 2 hours after each meal naloxone [Narcan] 4 mg/actuation spray,non-aerosol 1 spray intranasal Q2M Qty: 2 0RF Rx Instructions: spray 1 dose into ONE nostril; alternate nostrils w each dose until help arrives vit-ferrous sulfat-FA 27 mg iron- 0.8 mg tablet PO mecobalamin (vitamin B12) 5,000 mcg tablet,chewable 5,000 mcg PO DAILY cholecalciferol (vitamin D3) 50 mcg (2,000 unit) capsule 100 mcg PO DAILY oxycodone 5 mg tablet 5 mg PO Q6H PRN (Reason: pain) Qty: 10 0RF zolpidem 5 mg Tablet 5 mg PO BEDTIME PRN (Reason: Sleep) Qty: 10 0RF lorazepam [Ativan] 1 mg tablet 1 mg PO BID PRN (Reason: anxiety) Qty: 20 0RF sertraline 50 mg tablet 50 mg PO DAILY Qty: 30 12RF Referrals: Boo Booth MD [Primary Care Provider, Family Practice] Hector Aguirre MD [Physician, Cardiology] Stand Alone Forms: Patient Portal/API
[2025-01-24] MEDS: MORPHINE 4 MG/ML INJ IV (20:41)
[2025-01-24] MEDS: DOXYCYCLINE HYCLATE 100 MG TABLET PO (21:31)
== END 2025-01-24 22:03 | disposition home or self-care (01) ==
PROVIDERS: Emergency Provider Student in an Organized Health Care Education/Training Program; PCP Family Medicine
DX: J18.9 Pneumonia, unspecified organism (principal)
CPT/HCPCS: 36415; 71045; 71275; 80053; 82550; 83690; 83735; 83880; 84484; 85025; 85610; 85730; 93005; 96374; 99284; J2270; Q9967